=== PATIENT | male | born 1935 | race African-American/Black ===

== ENCOUNTER 2017-02-23 12:52 | Inpatient (IN) | payer MEDICARE, MEDICAID ==
--- NOTE | 2017-02-23 13:25 | ED Physician Chart ---
Chief Complaint/HPI - Patient Information Date Seen:: 02/23/17 Time Seen:: 13:00 Chief Complaint:: Abnormal lab results. History of Present Illness:: Brought in by ambulance from nursing facility because pt was noticed to have abnormal lab results from lab studies yesterday that were significant for WBC 32.88K, H/H 7.6/24.9, BUN/Cr 81/1.73. Pt has been on antibiotic therapy recently for pneumonia. CXR 02/01/17 revealed mild RLL infiltrate. Official report per Dr. charles Fong, radiologist. Pt appears to be comfortable and is responsive to voice and tactile stimuli. Pt is unable to speak comfortably because of his tracheostomy. H & P are limited because pt is not fully cooperative. Allergies:: Allergies Allergy/AdvReac Type Severity Reaction Status Date / Time Penicillins [PCN] Allergy Verified 02/23/17 13:03 Vitals:: Vital Signs - 8 hr 02/23/17 12:52 Temp 99.1 F HR 112 RR 12 BP 116/70 O2 Sat % 100 Historian:: Patient, Medical Records (from transferring facility.) Family MD/PCP:: Dr. Kimble LMP:: N/A Review:: Nurse's Note Reviewed, Transfer documents Reviewed Review of Systems - Review of Systems General/Constitutional: Other (Pt is not fully cooperative to provide reliable info for ROS.) Past Medical History - Past Medical History Past Medical History: HTN, Asthma/COPD (with chronic respiratory failure, s/p tracheostomy. ), Other (chronic anemia, dysphagia, s/p G-tube placement.) Family History: Other (Pt does not cooperate to provide info on FHx,) Social History: Care Facility, Other (Pt does not cooperate to provide info on SHx.) Surgical History: PEG/GTube, other (tracheostomy.) Psychiatricy History: Dementia (?) Medication: Reviewed Family Medical History - Family Member Mother History Unknown: Yes Physical Exam - Physical Examination General/Constitutional: Awake, Alert, No distress Other Gen/Cons comments:: WD slightly cachectic male in NAD. Breathes comfortably, responsive to voice and tactile stimuli. Head: Atraumatic Eyes: PERRL, EOMI Other Eyes comments:: Mildly pale conjuncitiva. Skin: No rash, No lymphadenopathy Other Skin comments:: There is an approx. 0.8 cm open wound at proximal aspect of anterior right lower leg which is clean without exudate or erythema. There is an area approx. 2.5 x 12 cm denuded skin area in proximal right lower leg without erythema, open wound, swelling, crepitus or exudate. Skin has slight decrease in turgor. ENMT: External ears, nose nl, TM canals nl, Nasal exam nl, Oropharynx nl Other ENMT comments:: Mucous membrane is dry. Neck: Nontender, Full ROM w/o pain, No JVD, No nuchal rigidity, No mass, No stridor Other Neck comments:: Tracheostomy is in place at mid anterior neck. Respiratory: Nl effort/Exclusion, Clear to Auscultation, No Wheeze/Rhonchi/Rales Other Cardio Vascular comments:: Regular rhythm with mild tachycardia. VR 110. No m/g/r. GI: No tenderness/rebounding/guarding, No organomegaly, No hernia, Normal BS's, Nondistended, No mass/bruits Other GI comments:: Gastrostomy tube noticed in epigastrium. Abdomen is soft. : No CVA tenderness Extremities: No edema Other Extremities comments:: see also Skin exam. Other Neuro/Psych comments:: Alert and oriented x 3. Pt is responsive to voice and tactile stimuli. Spontaneous movements noticed in all 4 extremities. Pt does not cooperate for full neurological exam. Misc: normal gait, Normal back, No paraspinal tenderness Labs/Radiology/EKG Results - Lab Results Results: Laboratory Tests 02/23/17 02/23/17 02/23/17 13:57 14:15 14:15 WBC 31.6 H* RBC 2.94 L Hgb 8.8 L Hct 26.1 L MCV 88.7 MCH 30.0 MCHC Differential 33.8 RDW 16.4 Plt Count 435 H MPV 8.4 Band Neutrophils % 1 Neutrophils (Manual) 80 Lymphocytes 12 L Monocytes 7 Nucleated RBCs 1.0 H Platelet Estimate INCREASED PLATELETS PT 10.8 INR 1.04 PTT (Actin FS) 40.5 H Sodium 125 L Potassium 4.9 Chloride 98 Carbon Dioxide 22.0 Anion Gap 9.9 BUN 85 H* Creatinine 1.7 H Est GFR ( Amer) TNP Est GFR (Non-Af Amer) TNP BUN/Creatinine Ratio 50.0 Glucose 106 H Whole Bld Lactic Acid Calcium 10.1 Total Bilirubin 0.3 AST 30 ALT 38 Alkaline Phosphatase 100 Creatine Kinase 19 L Troponin I Total Protein 8.9 H Albumin 3.1 L Globulin 5.8 Albumin/Globulin Ratio 0.5 L 02/23/17 02/23/17 14:15 14:15 WBC RBC Hgb Hct MCV MCH MCHC Differential RDW Plt Count MPV Band Neutrophils % Neutrophils (Manual) Lymphocytes Monocytes Nucleated RBCs Platelet Estimate PT INR PTT (Actin FS) Sodium Potassium Chloride Carbon Dioxide Anion Gap BUN Creatinine Est GFR ( Amer) Est GFR (Non-Af Amer) BUN/Creatinine Ratio Glucose Whole Bld Lactic Acid 1.14 Calcium Total Bilirubin AST ALT Alkaline Phosphatase Creatine Kinase Troponin I 0.03 Total Protein Albumin Globulin Albumin/Globulin Ratio Urinalysis is pending. - Radiology Results Results: PCXR: Based on my interpretation, poor inspiration. Tracheostomy tube in place. Increased markings at R lower lung field. Consider pneumonia. Official report is pending. - EKG Interpretations EKG Time:: 13:47 Rate & Rhythm: Sinus tachycardia with VR 111 Comments:: Cannot r/o old IMI, age undetermined. No acute ischemic changes. monitoring manager: Sinus tachycardia with VR 110. No ectopy. ED Septic Shock - . Is Septic Shock (SBP<90, OR Lactate>4 mmol\L) present?: No - <6hrs of presentation: Vital Signs: Vital Signs - 8 hr 02/23/17 12:52 Temp 99.1 F HR 112 RR 12 BP 116/70 O2 Sat % 100 Reassessment (Disposition) - Reassessment Reassessment:: 1600 Pt has been repeatedly evaluated. Pt remains stable. No new complaint or findings. Pt requests for his usual pain medication Sherrill that he takes every 6 hours for his chronic pain. 1655 Pt is comfortable. Breathes comfortably and is in no distress. CXR just became available. Lab, EKG, and CXR findings have been reviewed with pt. Management has been discussed. Dr. Lynch is to be contacted. 172 Case was discussed with Dr. Lynch with pertinent H & P, EKG, CXR, and lab findings reviewed. He concurred with present management. Pt is to be admitted to Tele[facility] under his care. He will follow on pending lab results. Reassessment Condition:: Improved - Diagnosis Diagnosis:: Leukocytosis with recent RLL pneumonia. Stable. h/o chronic anemia. Stable. Elevated BUN/creatinine related to renal insufficiency, dehydration with prerenal azotemia. Pt has been receiving IV hydration. Hyponatremia. Stable. Chronic respiratory failure, s/p tracheostomy. Stable. - Patient Disposition Admitted to:: Telemetry Admitting Medical Physician:: Barrett Lynch Time:: 15:25 Condition at Disposition:: Stable, Improved
[2017-02-23] MEDS ORDERED: Sodium Chloride 0.9% 1,000 ML IV ONE ×2 (13:41→16:59)
[2017-02-23 14:07] LABS: HEMATOCRIT 26.1 % (39.0-49.0); HEMOGLOBIN 8.8 gm/dL (12.6-17.4); MEAN CELL VOLUME 88.7 fl (80-99); MEAN CORPUSCULAR HGB CONC 33.8 pg (28.0-36.0); MEAN PLATELET VOLUME 8.4 fl; PLATELET COUNT 435 Th/cmm (150-400); RED BLOOD COUNT 2.94 Mil/cmm (3.80-5.80); RED CELL DISTRIBUTION WIDTH 16.4 % (11.5-20.0)
[2017-02-23 14:16] LABS: WHITE BLOOD COUNT 31.6 Th/cmm (4.8-10.8)
[2017-02-23] MEDS ORDERED: Levofloxacin 500mg/100mL 500 MG in Premix Fluid 1 BAG IV ONE ×2 (14:18→18:06)
[2017-02-23] MEDS ORDERED: Clindamycin 600mg/50mL 600 MG/50 ML BAG IV ONE (14:20)
[2017-02-23] MEDS ORDERED: Levofloxacin 500mg/100mL 500 MG/100 ML BAG IV ONE (14:23)
[2017-02-23 15:12] LABS: BAND NEUTROPHILE 1 % (0-10); NEUTROPHILS 80 % (40-80); PLATELET ESTIMATE INCREASED PLATELETS (NORMAL); TOTAL CELLS COUNTED 100
[2017-02-23 15:29] LABS: INR 1.04 (0.5-1.4); PROTHROMBIN TIME (TEST) 10.8 SECONDS (9.5-11.5)
[2017-02-23 15:32] LABS: ALB/GLOB RATIO 0.5 (1.0-1.8); ALKALINE PHOSPHATASE 100 U/L (34-104); ANION GAP 9.9 (7.0-16.0); BILIRUBIN,TOTAL 0.3 mg/dL (0.3-1.0); CALCIUM SERUM 10.1 mg/dL (8.6-10.3); CHLORIDE 98 mEq/L (98-107); CREATININE - SERUM 1.7 mg/dL (0.7-1.3); GLUCOSE 106 mg/dL (70-105); POTASSIUM SERUM 4.9 mEq/L (3.5-5.1); SGOT 30 U/L (13-39); SGPT/ALT 38 U/L (7-52); SODIUM SERUM 125 mEq/L (136-145)
[2017-02-23 15:47] LABS: BUN - UREA NITROGEN 85 mg/dL (7-25)
[2017-02-23] MEDS ORDERED: Hydrocodone/APAP 10 mg/325 mg Tab PO STA (16:07)
[2017-02-23] MEDS ORDERED: Hydrocodone/APAP 10 mg/325 mg Tab ONE (16:08)
[2017-02-23 17:35] LABS: URINE BILIRUBIN NEGATIVE (NEGATIVE); URINE BLOOD MODERATE (NEGATIVE); URINE COLOR YELLOW; URINE GLUCOSE (UA) NEGATIVE (NEGATIVE); URINE KETONE NEGATIVE (NEGATIVE); URINE PH 5.5; URINE PROTEIN TRACE mg/dL (NEGATIVE); URINE UROBILINOGEN 0.2 E.U./dL (0.2 - 1.0)
[2017-02-23 17:36] LABS: URINE BACTERIA MANY /hpf (NONE SEEN); URINE EPITHELIAL CELLS FEW /lpf (FEW); URINE RBC >100 /hpf (0-5); URINE WBC 50-100 /hpf (0-5)
[2017-02-23] MEDS ORDERED: Albuterol/Ipratropium Neb 3 ML AERS HHN PRN (18:56)
[2017-02-23] MEDS ORDERED: Albuterol/Ipratropium Neb 3 ML AERS HHN SCH (19:00)
[2017-02-23] MEDS: Albuterol/Ipratropium Neb 3 ML AERS HHN SCH (19:32)
[2017-02-23] MEDS: Diltiazem 30 mg Tab GT SCH (21:13)
[2017-02-23] MEDS: Hydrocodone/APAP 10 mg/325 mg Tab PO PRN (22:36)
[2017-02-24 02:26] VITALS: BP 132/80
[2017-02-24] MEDS: Sodium Chloride 0.9% 1,000 ML IV SCH ×3 (03:07→22:47)
--- NOTE | 2017-02-24 03:10 | Admit Criteria Form ---
Admit Criteria Forms - Admit Criteria Diagnosis: HYPONATREMIA; HYPERNATREMIA; HYPOKALEMIA; HYPERKALEMIA; HYPOCALCEMIA; HYPERCALCEMIA Clinical Indications for Inpatient Care (Place 'X' for any and all applicable criteria): Ongoing inpatient care may be indicated for ANY ONE of the following [G](1)(2)(3 )(5): [X ]I. Hyponatremia with ANY ONE of the following: [X ]a) Sodium less than 130 mEq/L (mmol/L) (new) (6)(22) [ ]b) Sodium less than 135 mEq/L (mmol/L) with ANY ONE of the following: [ ]i) Severe medical etiology requiring inpatient management (eg, heart failure, hypovolemia) [ ]ii) Altered mental status [ ]iii) Seizures [ ]II. Hypernatremia with ANY ONE of the following: [ ]a) Sodium greater than 155 mEq/L (mmol/L) [ ]b) Sodium greater than 150 mEq/L (mmol/L) with ANY ONE of the following: [ ] i) Altered mental status [ ]ii) Seizures [ ]iii) Severe medical etiology (eg, hypovolemia, diabetes insipidus) [ ]iv) Severe weakness [ ]v) Severe medical etiology (eg, hemolysis, infection, drug overdose) [ ]III. Hypokalemia with ANY ONE of the following: [ ]a) Potassium less than 2.5 mEq/L (mmol/L) despite outpatient and emergency treatment [ ]b) Potassium less than 3.0 mEq/L (mmol/L) with ANY ONE of the following: [ ]i) Weakness [ ]ii) Cardiac abnormality (eg, arrhythmia, conduction disturbance) [ ]iii) Cardiac ischemia [ ]iv) Ileus [ ]v) Ongoing medical cause requiring inpatient management. ( e.g., acute renal wasting, SIADH) [ ]vi) Other severe symptoms [ ] IV. Hyperkalemia with ANY ONE of the following: [ ]a) Potassium greater than 6.5 mEq/L (mmol/L) [ ]b) Potassium greater than 5 mEq/L (mmol/L) with ANY ONE of the following: [ ]i) Severe ECG findings [H] [ ]ii) Acute worsening of renal failure (creatinine greater than 2.5 mg/dL (221 micromoles/L) or significant elevation for age and size) [ ] V. Hypocalcemia with ANY ONE of the following: [ ]a) Calcium less than 7 mg/dL (1.75 mmol/L) despite outpatient and emergency treatment(19) [ ]b) Calcium less than 8 mg/dL (2 mmol/L) with significant symptoms or findings; examples include: [ ]i) Cardiac abnormality (eg, arrhythmia or conduction disturbance) [ ]ii) Altered mental status [ ]iii) Seizures [ ]iv) Breathing difficulty [ ]v) Muscle spasms [ ]. Hypercalcemia with ANY ONE of the following: [ ]a) Calcium greater than 14 mg/dL (3.5 mmol/L) [ ]b) Calcium greater than 12 mg/dL (3 mmol/L) with ANY ONE of the following: [ ]i) Significant dehydration or hypovolemia as indicated by ANY ONE of the following(2): [ ]1. Clinically significant dehydration as indicated by ANY ONE of the following: [ ]A. Acute loss of weight from baseline (5% of body weight in adults, 9% in pediatric patients) [ ]B. Hemodynamic instability [ ]C. Acute renal failure [ ]D. Serum sodium greater than 150 mEq/L (mmol/L) [ ]2) Dehydration that is persistent indicated by ALL of the following: [ ]A. Oral rehydration therapy not tolerated or insufficient to adequately correct dehydration [ ]B. Appropriate intravenous treatment (eg, fluids ) does not readily correct dehydration ie, after 12 to 24 hours of treatment) [ ]ii) Significant symptoms or findings; examples include: [ ]1) Altered mental status [ ]2) Cardiac abnormality (eg, arrhythmia, conduction disturbance) [ ]3) Cardiac abnormality (eg, arrhythmia, conduction disturbance) The original [employer] [facility] content created by [employer] has been revised. The portions of the content which have been revised are identified through the use of italic text or in bold, and [facility] has neither reviewed nor approved the modified material. All other unmodified content is copyright [facility] [email or web address] Please see references footnoted in the original [facility] edition 2016 Admit Criteria Met?: Yes
[2017-02-24] MEDS: Diltiazem 30 mg Tab GT SCH ×3 (04:09→22:27)
[2017-02-24] MEDS: Hydrocodone/APAP 10 mg/325 mg Tab PO PRN ×2 (04:09→17:00)
[2017-02-24] MEDS: Albuterol/Ipratropium Neb 3 ML AERS HHN SCH ×4 (07:37→18:40)
[2017-02-24 07:38] LABS: MEAN CELL VOLUME 88.9 fl (80-99); MEAN CORPUSCULAR HGB CONC 33.7 pg (28.0-36.0); MEAN PLATELET VOLUME 7.8 fl; PLATELET COUNT 405 Th/cmm (150-400); RED BLOOD COUNT 2.53 Mil/cmm (3.80-5.80); RED CELL DISTRIBUTION WIDTH 16.4 % (11.5-20.0)
[2017-02-24 07:45] LABS: ALB/GLOB RATIO 0.5 (1.0-1.8); ALKALINE PHOSPHATASE 74 U/L (34-104); ANION GAP 9.2 (7.0-16.0); BILIRUBIN,TOTAL 0.4 mg/dL (0.3-1.0); BUN - UREA NITROGEN 71 mg/dL (7-25); BUN/CREATININE RATIO 47.3; CALCIUM SERUM 9.4 mg/dL (8.6-10.3); CARBON DIOXIDE 21.8 mEq/L (21.0-31.0); CHLORIDE 104 mEq/L (98-107); CREATININE - SERUM 1.5 mg/dL (0.7-1.3); GLUCOSE 97 mg/dL (70-105); SGOT 21 U/L (13-39); SGPT/ALT 28 U/L (7-52); SODIUM SERUM 130 mEq/L (136-145)
[2017-02-24 07:59] LABS: HEMATOCRIT 22.5 % (39.0-49.0); HEMOGLOBIN 7.6 gm/dL (12.6-17.4); WHITE BLOOD COUNT 22.9 Th/cmm (4.8-10.8)
[2017-02-24] MEDS ORDERED: VTE Chemical Prophylaxis Screen/Admission MC PRN (08:20)
[2017-02-24 08:24] LABS: BAND NEUTROPHILE 4 % (0-10); NEUTROPHILS 84 % (40-80); PLATELET ESTIMATE ADEQUATE (NORMAL); PLATELET MORPHOLOGY NORMAL (NORMAL); TOTAL CELLS COUNTED 100
[2017-02-24] MEDS: Ferrous Sulfate 300 MG/5 ML UDC GT SCH ×2 (08:46→16:20)
[2017-02-24] MEDS: Enoxaparin 30 mg/0.3 mL 0.3mL Syr SUBQ SCH (08:48)
[2017-02-24] MEDS ORDERED: Enoxaparin 40 mg/0.4 mL 0.4mL Syr SUBQ SCH (09:00)
--- NOTE | 2017-02-24 10:38 | Diagnostic Imaging Report ---
CHEST X-RAY: AP view INDICATION: Leukocytosis, history of pneumonia COMPARISON: None FINDINGS: Tracheostomy tube is noted. Partially visualized postsurgical changes of lower cervical spine are noted. Chronic lung changes are seen with increased bibasilar lung markings. No focal consolidation identified. Cardiomegaly is noted. Degenerative changes of the spine are noted. IMPRESSION: Chronic lung changes with increased bibasilar lung markings. Findings favor atelectasis versus less likely focal infiltrates. No focal consolidation identified Cardiomegaly.
--- NOTE | 2017-02-24 10:44 | Diagnostic Imaging Report ---
CHEST X-RAY: AP view INDICATION: Pneumonia COMPARISON: 02/23/2017 FINDINGS: Tracheostomy tube is again noted. Improved aeration of the lungs are seen with decrease bibasal opacities. No consolidation. Mild cardiomegaly is noted. IMPRESSION: Improved lung aeration with decreased bibasal opacity which may of the resolving atelectasis. Note, faint residual infiltrate of the left lung base cannot be excluded. Mild cardiomegaly.
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
--- NOTE | 2017-02-24 16:04 | Diagnostic Imaging Report ---
Renal ultrasound HISTORY: Renal failure. COMPARISON: None Technique: Sonography of the kidneys and urinary bladder was performed in multiple planes. FINDINGS: Exam is limited due to body habitus. There is increased echogenicity of both kidneys. The right kidney measures 10.5 x 3.5 cm. There is fullness of the right renal collecting system without jeferson hydronephrosis. The left kidney measures 10.0 x 4.6 cm. No evidence of focal lesions or hydronephrosis. Urinary bladder contains a Beckman catheter. Mild urinary bladder wall thickening is noted. IMPRESSION: Fullness of the right renal collecting system without evidence of jeferson hydronephrosis. No sonographic evidence of renal stones. Mild thickening of the urinary bladder wall. Inflammatory or infiltrative process cannot be excluded. Please correlate with clinical findings. Increased echogenicity of both kidneys which may be due to underlying medical renal disease.
[2017-02-24] MEDS ORDERED: TOBRAMYCIN SULFATE IV SCH (21:00)
[2017-02-24] MEDS ORDERED: DEXTROSE 5% IV SCH (21:00)
[2017-02-25] MEDS: Hydrocodone/APAP 10 mg/325 mg Tab PO PRN ×4 (02:52→21:31)
[2017-02-25 05:10] LABS: MEAN CELL VOLUME 89.6 fl (80-99); MEAN CORPUSCULAR HEMOGLOBIN 29.5 pg (27.0-31.0); MEAN PLATELET VOLUME 7.5 fl; PLATELET COUNT 403 Th/cmm (150-400); RED CELL DISTRIBUTION WIDTH 16.3 % (11.5-20.0)
[2017-02-25 05:14] LABS: HEMATOCRIT 22.4 % (39.0-49.0); HEMOGLOBIN 7.4 gm/dL (12.6-17.4); WHITE BLOOD COUNT 19.4 Th/cmm (4.8-10.8)
[2017-02-25 05:29] LABS: ANION GAP 9.9 (7.0-16.0); BUN - UREA NITROGEN 59 mg/dL (7-25); BUN/CREATININE RATIO 53.6; CALCIUM SERUM 9.2 mg/dL (8.6-10.3); CARBON DIOXIDE 20.6 mEq/L (21.0-31.0); CHLORIDE 108 mEq/L (98-107); CREATININE - SERUM 1.1 mg/dL (0.7-1.3); GLUCOSE 141 mg/dL (70-105); MAGNESIUM 1.9 mg/dL (1.9-2.7); POTASSIUM SERUM 4.5 mEq/L (3.5-5.1); SODIUM SERUM 134 mEq/L (136-145); URIC ACID 7.6 mg/dL (4.4-7.6)
[2017-02-25] MEDS: Diltiazem 30 mg Tab GT SCH ×3 (06:03→20:30)
[2017-02-25 06:15] LABS: BAND NEUTROPHILE 4 % (0-10); EOSINOPHIL 1 % (0-5); NEUTROPHILS 74 % (40-80); TOTAL CELLS COUNTED 100
[2017-02-25 06:16] LABS: ANISOCYTOSIS 1+; PLATELET ESTIMATE ADEQUATE (NORMAL); PLATELET MORPHOLOGY NORMAL (NORMAL)
[2017-02-25] MEDS: Albuterol/Ipratropium Neb 3 ML AERS HHN SCH ×4 (07:28→18:50)
[2017-02-25] MEDS: Ferrous Sulfate 300 MG/5 ML UDC GT SCH (08:52)
[2017-02-25] MEDS: Enoxaparin 30 mg/0.3 mL 0.3mL Syr SUBQ SCH (09:40)
[2017-02-25] MEDS: Multivitamin w/ Minerals Tab GT SCH (10:50)
[2017-02-25 11:11] LABS: CARCINOEMBRYONIC ANTIGEN 2.5 ng/mL (0.0-4.7)
--- NOTE | 2017-02-25 14:16 | General Progress Note ---
Subjective - Review of Systems Service Date: 02/25/17 Subjective: alert, verbal, comfortable Objective - Results Result Diagrams: 02/25/17 04:51 02/25/17 04:51 Recent Labs: Laboratory Last Values WBC 19.4 Th/cmm (4.8-10.8) H 02/25/17 04:51 RBC 2.50 Mil/cmm (3.80-5.80) L 02/25/17 04:51 Hgb 7.4 gm/dL (12.6-17.4) L* 02/25/17 04:51 Hct 22.4 % (39.0-49.0) L* 02/25/17 04:51 MCV 89.6 fl (80-99) 02/25/17 04:51 MCH 29.5 pg (27.0-31.0) 02/25/17 04:51 MCHC Differential 33.0 pg (28.0-36.0) 02/25/17 04:51 RDW 16.3 % (11.5-20.0) 02/25/17 04:51 Plt Count 403 Th/cmm (150-400) H 02/25/17 04:51 MPV 7.5 fl 02/25/17 04:51 Band Neutrophils % 4 % (0-10) 02/25/17 04:51 Neutrophils (Manual) 74 % (40-80) 02/25/17 04:51 Lymphocytes 11 % (20-50) L 02/25/17 04:51 Monocytes 10 % (2-10) 02/25/17 04:51 Eosinophils 1 % (0-5) 02/25/17 04:51 Nucleated RBCs 1.0 % (0-0) H 02/23/17 13:57 Platelet Estimate ADEQUATE (NORMAL) 02/25/17 04:51 Platelet Morphology NORMAL (NORMAL) 02/25/17 04:51 Anisocytosis 1+ 02/25/17 04:51 RBC Morph Micro Appear ABNORMAL (NORMAL) 02/25/17 04:51 PT 10.8 SECONDS (9.5-11.5) 02/23/17 14:15 INR 1.04 (0.5-1.4) 02/23/17 14:15 PTT (Actin FS) 40.5 SECONDS (26.0-38.0) H 02/23/17 14:15 Sodium 134 mEq/L (136-145) L 02/25/17 04:51 Potassium 4.5 mEq/L (3.5-5.1) 02/25/17 04:51 Chloride 108 mEq/L (98-107) H 02/25/17 04:51 Carbon Dioxide 20.6 mEq/L (21.0-31.0) L 02/25/17 04:51 Anion Gap 9.9 (7.0-16.0) 02/25/17 04:51 BUN 59 mg/dL (7-25) H 02/25/17 04:51 Creatinine 1.1 mg/dL (0.7-1.3) 02/25/17 04:51 Est GFR ( Amer) TNP 02/25/17 04:51 Est GFR (Non-Af Amer) TNP 02/25/17 04:51 BUN/Creatinine Ratio 53.6 02/25/17 04:51 Glucose 141 mg/dL (70-105) H 02/25/17 04:51 Whole Bld Lactic Acid 1.14 mmol/L (0.60-1.99) 02/23/17 14:15 Uric Acid 7.6 mg/dL (4.4-7.6) 02/25/17 04:51 Calcium 9.2 mg/dL (8.6-10.3) 02/25/17 04:51 Phosphorus 3.0 mg/dL (2.5-5.0) 02/25/17 04:51 Magnesium 1.9 mg/dL (1.9-2.7) 02/25/17 04:51 Iron 16 ug/dL (38-169) L 02/24/17 06:10 TIBC 174 ug/dL (250-450) L 02/24/17 06:10 Iron Saturation 9 % (15-55) L 02/24/17 06:10 Unsaturated IBC 158 ug/dL (111-343) 02/24/17 06:10 Total Bilirubin 0.4 mg/dL (0.3-1.0) 02/24/17 06:10 AST 21 U/L (13-39) 02/24/17 06:10 ALT 28 U/L (7-52) 02/24/17 06:10 Alkaline Phosphatase 74 U/L (34-104) 02/24/17 06:10 Creatine Kinase 19 U/L (30-223) L 02/23/17 14:15 Troponin I 0.03 ng/mL (0.01-0.05) 02/23/17 14:15 B-Natriuretic Peptide 66.5 pg/mL (5.0-100.0) 02/24/17 06:10 Total Protein 7.5 gm/dL (6.0-8.3) 02/24/17 06:10 Albumin 2.5 gm/dL (4.2-5.5) L 02/24/17 06:10 Globulin 5.0 gm/dL 02/24/17 06:10 Albumin/Globulin Ratio 0.5 (1.0-1.8) L 02/24/17 06:10 Carcinoembryonic Ag 2.5 ng/mL (0.0-4.7) 02/24/17 06:10 Urine Source [place] 02/23/17 14:05 Urine Color YELLOW 02/23/17 14:05 Urine Clarity HAZY (CLEAR) 02/23/17 14:05 Urine pH 5.5 02/23/17 14:05 Ur Specific [place] 1.005 (1.005-1.030) 02/23/17 14:05 Urine Protein TRACE mg/dL (NEGATIVE) 02/23/17 14:05 Urine Glucose (UA) NEGATIVE mg/dL (NEGATIVE) 02/23/17 14:05 Urine Ketones NEGATIVE mg/dL (NEGATIVE) 02/23/17 14:05 Urine Blood MODERATE (NEGATIVE) H 02/23/17 14:05 Urine Nitrate NEGATIVE (NEGATIVE) 02/23/17 14:05 Urine Bilirubin NEGATIVE (NEGATIVE) 02/23/17 14:05 Urine Urobilinogen 0.2 E.U./dL (0.2 - 1.0) 02/23/17 14:05 Ur Leukocyte Esterase MODERATE (NEGATIVE) H 02/23/17 14:05 Urine RBC >100 /hpf (0-5) H 02/23/17 14:05 Urine WBC 50-100 /hpf (0-5) H 02/23/17 14:05 Ur Epithelial Cells FEW /lpf (FEW) 02/23/17 14:05 Urine Bacteria MANY /hpf (NONE SEEN) 02/23/17 14:05 Stool Occult Blood POSITIVE (NEGATIVE) 02/25/17 05:00 Tobramycin Peak 5.3 ug/mL (4.0-10.0) 02/25/17 11:30 Tobramycin Trough 2.4 ug/mL (0.5-2.0) H* 02/25/17 08:30 Blood Type A POSITIVE 02/25/17 11:30 Antibody Screen NEGATIVE 02/25/17 11:30 Antibody Identification Anti-A1 02/23/17 16:11 Crossmatch See Detail 02/25/17 11:30 - Physical Exam Vitals and I&O: Vital Signs Temp 99.6 F 02/25/17 12:00 Pulse 97 02/25/17 12:15 Resp 18 02/25/17 12:00 BP 135/68 02/25/17 12:00 Pulse Ox 99 02/25/17 12:00 Intake & Output 02/24/17 02/25/17 02/25/17 18:59 06:59 18:59 Intake Total 344.488 8815.25 60 Output Total 100 Balance 215.010 7015.25 -40 Weight (lbs) 64.909 kg 63.503 kg Intake: Intake, IV Amount 517.883 2007.25 Sodium Chloride 0.9% 1, 448.558 1586 000 ml @ 100 mls/hr IV . Q10H [facility] Rx#:[id number] Tobramycin Sulfate 90 mg 102.25 In Sodium Chloride 0.9% 100 ml @ 200 mls/hr IV Q12HR [facility] Rx#:[id number] Tube Feeding 60 Output: Urine 100 Active Medications: Current Medications Acetaminophen (Tylenol 650mg/20.3ml Suspension) 650 mg GT Q4HR PRN PRN Reason: fever >101 or mild pain Stop: 04/24/17 20:07 Last Admin: 02/24/17 22:31 Dose: 650 mg Acetaminophen/Hydrocodone Bitart ([place] 10 Mg/325 Mg) 1 tab PO Q6H PRN PRN Reason: mod-severe pain Stop: 04/24/17 20:07 Last Admin: 02/25/17 10:00 Dose: 1 tab Albuterol/Ipratropium (Duoneb Neb) 3 ml HHN [id number] [facility] Stop: 04/24/17 18:59 Last Admin: 02/25/17 11:44 Dose: 3 ml Albuterol/Ipratropium (Duoneb Neb) 3 ml HHN Q4HR PRN PRN Reason: Shortness of Breath Stop: 04/24/17 18:55 Ascorbic Acid (Vitamin C) 500 mg GT BID [facility] Stop: 04/26/17 09:59 Last Admin: 02/25/17 10:50 Dose: 500 mg Cyanocobalamin (Vitamin B12) 100 mcg IM QMONTH [facility] Stop: 04/26/17 11:59 Last Admin: 02/25/17 12:40 Dose: 100 mcg Diltiazem HCl (Cardizem) 60 mg GT Q8H [facility] Stop: 04/24/17 20:07 Last Admin: 02/25/17 12:15 Dose: 60 mg Docusate Sodium (Colace) 100 mg PO BID [facility] Stop: 04/25/17 08:59 Last Admin: 02/25/17 08:53 Dose: 100 mg Enoxaparin Sodium (Lovenox) 30 mg SUBQ DAILY [facility] Stop: 04/25/17 08:59 Last Admin: 02/25/17 09:40 Dose: 30 mg Ferrous Sulfate (Iron) 330 mg GT BID [facility] Stop: 04/25/17 08:59 Last Admin: 02/25/17 08:52 Dose: 330 mg Folic Acid (Folate) 1 mg GT DAILY [facility] Stop: 04/26/17 09:59 Last Admin: 02/25/17 10:50 Dose: 1 mg Sodium Chloride (Nacl 0.9%) 1,000 mls @ 100 mls/hr IV .Q10H [facility] Stop: 04/24/17 18:17 Last Admin: 02/24/17 22:47 Dose: 100 mls/hr Tobramycin Sulfate 180 mg/ (Sodium Chloride) 104.5 mls @ 100 mls/hr IV Q24HR [facility] Stop: 04/27/17 09:59 Lisinopril (Zestril) 20 mg GT BID [facility] Stop: 04/25/17 08:59 Last Admin: 02/25/17 08:53 Dose: 20 mg Metoclopramide HCl (Reglan) 5 mg PO BID [facility] Stop: 04/25/17 08:59 Last Admin: 02/25/17 08:53 Dose: 5 mg Miscellaneous (Vte Chemical Prophylaxis Screen/ Admission) 1 ea MC PRN PRN PRN Reason: PROTOCOL Stop: 04/25/17 08:19 Miscellaneous (Tobramycin Iv Per Pharmacy) 1 ea MC DAILY PRN PRN Reason: TOBRAMYCIN Stop: 04/25/17 09:11 Mupirocin (Bactroban Oint) 1 appl TP BID [facility] Stop: 03/02/17 16:59 Pantoprazole Sodium (Protonix) 40 mg IVP DAILY [facility] Stop: 04/25/17 08:59 Last Admin: 02/25/17 08:52 Dose: 40 mg General: Alert, Cooperative, No acute distress HEENT: Atraumatic, EOMI, Mucous membr. moist/pink Neck: Supple, +2 carotid pulse wo bruit Cardiovascular: Regular rate, Normal S1, Normal S2 Lungs: Other (few rhonchi) Abdomen: Bowel sounds, Soft Extremities: no Edema Neurological: Sensation intact Skin: no Rash Psych/Mental Status: Mood NL Assessment/Plan - Assessment Assessment: MANNY Septicemia GNR Sepsis GNR Cx UTI B/L HAP Fe def anemia 2nd Slo GI bleed S/P Resp Failure - Plan Plan: Lab - Result Diagrams 02/25/17 04:51 02/25/17 04:51 Current Medications Acetaminophen (Tylenol 650mg/20.3ml Suspension) 650 mg GT Q4HR PRN PRN Reason: fever >101 or mild pain Stop: 04/24/17 20:07 Last Admin: 02/24/17 22:31 Dose: 650 mg Acetaminophen/Hydrocodone Bitart ([place] 10 Mg/325 Mg) 1 tab PO Q6H PRN PRN Reason: mod-severe pain Stop: 04/24/17 20:07 Last Admin: 02/25/17 10:00 Dose: 1 tab Albuterol/Ipratropium (Duoneb Neb) 3 ml HHN [id number] [facility] Stop: 04/24/17 18:59 Last Admin: 02/25/17 11:44 Dose: 3 ml Albuterol/Ipratropium (Duoneb Neb) 3 ml HHN Q4HR PRN PRN Reason: Shortness of Breath Stop: 04/24/17 18:55 Ascorbic Acid (Vitamin C) 500 mg GT BID [facility] Stop: 04/26/17 09:59 Last Admin: 02/25/17 10:50 Dose: 500 mg Cyanocobalamin (Vitamin B12) 100 mcg IM QMONTH [facility] Stop: 04/26/17 11:59 Last Admin: 02/25/17 12:40 Dose: 100 mcg Diltiazem HCl (Cardizem) 60 mg GT Q8H [facility] Stop: 04/24/17 20:07 Last Admin: 02/25/17 12:15 Dose: 60 mg Docusate Sodium (Colace) 100 mg PO BID [facility] Stop: 04/25/17 08:59 Last Admin: 02/25/17 08:53 Dose: 100 mg Enoxaparin Sodium (Lovenox) 30 mg SUBQ DAILY [facility] Stop: 04/25/17 08:59 Last Admin: 02/25/17 09:40 Dose: 30 mg Ferrous Sulfate (Iron) 330 mg GT BID [facility] Stop: 04/25/17 08:59 Last Admin: 02/25/17 08:52 Dose: 330 mg Folic Acid (Folate) 1 mg GT DAILY [facility] Stop: 04/26/17 09:59 Last Admin: 02/25/17 10:50 Dose: 1 mg Sodium Chloride (Nacl 0.9%) 1,000 mls @ 100 mls/hr IV .Q10H [facility] Stop: 04/24/17 18:17 Last Admin: 02/24/17 22:47 Dose: 100 mls/hr Tobramycin Sulfate 180 mg/ (Sodium Chloride) 104.5 mls @ 100 mls/hr IV Q24HR [facility] Stop: 04/27/17 09:59 Lisinopril (Zestril) 20 mg GT BID [facility] Stop: 04/25/17 08:59 Last Admin: 02/25/17 08:53 Dose: 20 mg Metoclopramide HCl (Reglan) 5 mg PO BID [facility] Stop: 04/25/17 08:59 Last Admin: 02/25/17 08:53 Dose: 5 mg Miscellaneous (Vte Chemical Prophylaxis Screen/ Admission) 1 ea PRN PRN PRN Reason: PROTOCOL Stop: 04/25/17 08:19 Miscellaneous (Tobramycin Iv Per Pharmacy) 1 ea [facility] DAILY PRN PRN Reason: TOBRAMYCIN Stop: 04/25/17 09:11 Mupirocin (Bactroban Oint) 1 appl TP BID [facility] Stop: 03/02/17 16:59 Pantoprazole Sodium (Protonix) 40 mg IVP DAILY [facility] Stop: 04/25/17 08:59 Last Admin: 02/25/17 08:52 Dose: 40 mg kidney fnc improved w/ BUN/CR of 59/1.1 stool OB (+) dc lovenox start Fe IV monitor cbc closely Nutritional Asmnt/Malnutr-PDOC - Dietary Evaluation Malnutrition Findings (Please click <Entered> for more info): Nutritional Asmnt/Malnutrition Start: 02/24/17 13: 11 Text: Status: Complete Freq: Document 02/24/17 13:11 GSUN (Rec: 02/24/17 13:22 GSUN [id number]) Nutritional Asmnt/Malnutrition Patient General Information Nutritional Screening Consult Diagnosis ER: leukocytosis with recent PNA stable, renal insufficiency, dehyration Pertinent Medical Hx/Surgical Hx ER note: HTN, asthma/COPD, chronic respiratory failure, s /p trach, chronic anemia, dysphagia, g-tube Subjective Information 81 year old male from SNF. RD consult for active wound and Jean Ortiz. Visited pt with TESSA Richard at bedside. Pt greeted RD, limited conversation due to trach. Observed tube feeding off at this time as order, confirmed with RN, otherwise tolerating well since adm. Pt papeared overall thin, moderate to severe fat/ muscle wasting to clavicles and chest. Bedscale CBW 143. 1lb vs EMR wt record 126lb on 02/23, questionable weights. Current Diet Order/ Nutrition Support Novasource Renal at 60ml/hr x 20hrs Pertinent Medications Colace, Iron, Reglan, Protonix Nacl 0.9% Pertinent Labs 02/23: BUN 85H, creatinine 1.7H 02/24: BUN 71H, creatinine 1.5H Nutritional Hx/Data Height 1.83 m Height (Calculated Centimeters) 182.9 Current Weight (lbs) 64.909 kg Weight (Calculated Kilograms) 64.9 Weight (Calculated Grams) 88651.1 [place] Body Weight 178 Weight Status Approriate GI Symptoms Usual diet at home [place]: Nepro at 60ml/hr x 20hrs, providing 1200ml 2160kcal. Skin Integrity/Comment: Jean Ortiz. bufferer: right leg wound. Estimated Nutritional Goals Calories/Kcals/Kg IBW 178lb/80.9kg (underwt for age, muscle/fat depletion, ? PNA, ?CBW) Kcals Calculated 2022-2427kcal (25-30kcal/kg) Protein g/kg: IBW Protein Calculated 65-97g (0.8-1.2g/kg, monitor renal labs) Fluid: ml 2022-2427ml (1ml/kcal) Nutritional Problem 1. 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 Recommend Novasource Renal 55ml/hr x 20hrs, providing 1100ml total volume, 2200kcal, 100g protein. Expected Outcomes/Goals Expected Outcomes/Goals 1. Pt to meet 100% estimated nutritional needs on tube feeding with tolerance.
[2017-02-25] MEDS: Sodium Ferric Gluconate 125 MG in Sodium Chloride 0.9% 100 ML IV SCH (16:00)
[2017-02-25] MEDS: Sodium Chloride 0.9% 1,000 ML IV SCH (23:06)
[2017-02-26] MEDS: Hydrocodone/APAP 10 mg/325 mg Tab PO PRN ×3 (03:40→17:11)
[2017-02-26] MEDS: Albuterol/Ipratropium Neb 3 ML AERS HHN SCH ×4 (07:22→19:10)
[2017-02-26] MEDS: Multivitamin w/ Minerals Tab GT SCH (09:01)
[2017-02-26 09:07] LABS: MEAN CORPUSCULAR HGB CONC 33.6 pg (28.0-36.0)
[2017-02-26 09:14] LABS: MEAN CELL VOLUME 88.6 fl (80-99); MEAN CORPUSCULAR HEMOGLOBIN 29.8 pg (27.0-31.0); NEUTROPHILE ABSOLUTE 15.6 Th/cmm (1.8-8.0); PLATELET COUNT 426 Th/cmm (150-400); RED CELL DISTRIBUTION WIDTH 16.2 % (11.5-20.0)
[2017-02-26 09:25] LABS: HEMOGLOBIN 7.1 gm/dL (12.6-17.4)
[2017-02-26 09:26] LABS: HEMATOCRIT 21.3 % (39.0-49.0)
[2017-02-26] MEDS: Sodium Chloride 0.9% 1,000 ML IV SCH ×2 (09:43→23:13)
[2017-02-26 10:01] LABS: ANION GAP 7.2 (7.0-16.0); BUN - UREA NITROGEN 43 mg/dL (7-25); BUN/CREATININE RATIO 47.8; CALCIUM SERUM 8.8 mg/dL (8.6-10.3); CARBON DIOXIDE 19.8 mEq/L (21.0-31.0); CHLORIDE 111 mEq/L (98-107); CREATININE - SERUM 0.9 mg/dL (0.7-1.3); GLUCOSE 161 mg/dL (70-105); MAGNESIUM 1.7 mg/dL (1.9-2.7); SODIUM SERUM 134 mEq/L (136-145)
[2017-02-26 10:14] LABS: BAND NEUTROPHILE 3 % (0-10); NEUTROPHILS 77 % (40-80); TOTAL CELLS COUNTED 100
--- NOTE | 2017-02-26 10:27 | Diagnostic Imaging Report ---
CHEST X-RAY: AP view INDICATION: Shortness of breath COMPARISON: 02/24/2017 FINDINGS: Tracheostomy tube is stable. Chronic changes seen with bibasal opacities which may represent residual atelectasis cardiomegaly is noted. No effusions. IMPRESSION: Bibasilar residual opacities which may be due to residual atelectasis versus less likely residual infiltrates.
[2017-02-26] MEDS: Diltiazem 30 mg Tab GT SCH ×2 (13:37→20:20)
[2017-02-26] MEDS: Meropenem 1 gm in NS 0.9% 100 ML IV SCH ×2 (14:04→23:04)
--- NOTE | 2017-02-26 15:02 | General Progress Note ---
Subjective - Review of Systems Service Date: 02/26/17 Subjective: alert, verbal, comfortable Objective - Results Result Diagrams: 02/26/17 09:00 02/26/17 09:00 Recent Labs: Laboratory Last Values WBC 20.0 Th/cmm (4.8-10.8) H 02/26/17 09:00 RBC 2.40 Mil/cmm (3.80-5.80) L 02/26/17 09:00 Hgb 7.1 gm/dL (12.6-17.4) L* 02/26/17 09:00 Hct 21.3 % (39.0-49.0) L* 02/26/17 09:00 MCV 88.6 fl (80-99) 02/26/17 09:00 MCH 29.8 pg (27.0-31.0) 02/26/17 09:00 MCHC Differential 33.6 pg (28.0-36.0) 02/26/17 09:00 RDW 16.2 % (11.5-20.0) 02/26/17 09:00 Plt Count 426 Th/cmm (150-400) H 02/26/17 09:00 MPV 7.0 fl 02/26/17 09:00 Band Neutrophils % 3 % (0-10) 02/26/17 09:00 Neutrophils (Manual) 77 % (40-80) 02/26/17 09:00 Lymphocytes 10 % (20-50) L 02/26/17 09:00 Monocytes 10 % (2-10) 02/26/17 09:00 Eosinophils 1 % (0-5) 02/25/17 04:51 Nucleated RBCs 1.0 % (0-0) H 02/23/17 13:57 Platelet Estimate ADEQUATE (NORMAL) 02/25/17 04:51 Platelet Morphology NORMAL (NORMAL) 02/25/17 04:51 Anisocytosis 1+ 02/25/17 04:51 RBC Morph Micro Appear ABNORMAL (NORMAL) 02/25/17 04:51 Eos Smear Source URINE 02/26/17 08:15 Eos Smear Total Cells NONE SEEN (NONE SEEN) 02/26/17 08:15 PT 10.8 SECONDS (9.5-11.5) 02/23/17 14:15 INR 1.04 (0.5-1.4) 02/23/17 14:15 PTT (Actin FS) 40.5 SECONDS (26.0-38.0) H 02/23/17 14:15 Sodium 134 mEq/L (136-145) L 02/26/17 09:00 Potassium 4.0 mEq/L (3.5-5.1) 02/26/17 09:00 Chloride 111 mEq/L (98-107) H 02/26/17 09:00 Carbon Dioxide 19.8 mEq/L (21.0-31.0) L 02/26/17 09:00 Anion Gap 7.2 (7.0-16.0) 02/26/17 09:00 BUN 43 mg/dL (7-25) H 02/26/17 09:00 Creatinine 0.9 mg/dL (0.7-1.3) 02/26/17 09:00 Est GFR ( Amer) TNP 02/26/17 09:00 Est GFR (Non-Af Amer) TNP 02/26/17 09:00 BUN/Creatinine Ratio 47.8 02/26/17 09:00 Glucose 161 mg/dL (70-105) H 02/26/17 09:00 Whole Bld Lactic Acid 1.14 mmol/L (0.60-1.99) 02/23/17 14:15 Uric Acid 7.6 mg/dL (4.4-7.6) 02/25/17 04:51 Calcium 8.8 mg/dL (8.6-10.3) 02/26/17 09:00 Phosphorus 3.0 mg/dL (2.5-5.0) 02/25/17 04:51 Magnesium 1.7 mg/dL (1.9-2.7) L 02/26/17 09:00 Iron 16 ug/dL (38-169) L 02/24/17 06:10 TIBC 174 ug/dL (250-450) L 02/24/17 06:10 Iron Saturation 9 % (15-55) L 02/24/17 06:10 Unsaturated IBC 158 ug/dL (111-343) 02/24/17 06:10 Total Bilirubin 0.4 mg/dL (0.3-1.0) 02/24/17 06:10 AST 21 U/L (13-39) 02/24/17 06:10 ALT 28 U/L (7-52) 02/24/17 06:10 Alkaline Phosphatase 74 U/L (34-104) 02/24/17 06:10 Creatine Kinase 19 U/L (30-223) L 02/23/17 14:15 Troponin I 0.03 ng/mL (0.01-0.05) 02/23/17 14:15 B-Natriuretic Peptide 66.5 pg/mL (5.0-100.0) 02/24/17 06:10 Total Protein 7.5 gm/dL (6.0-8.3) 02/24/17 06:10 Albumin 2.5 gm/dL (4.2-5.5) L 02/24/17 06:10 Globulin 5.0 gm/dL 02/24/17 06:10 Albumin/Globulin Ratio 0.5 (1.0-1.8) L 02/24/17 06:10 Carcinoembryonic Ag 2.5 ng/mL (0.0-4.7) 02/24/17 06:10 Urine Source [place] 02/23/17 14:05 Urine Color YELLOW 02/23/17 14:05 Urine Clarity HAZY (CLEAR) 02/23/17 14:05 Urine pH 5.5 02/23/17 14:05 Ur Specific [place] 1.005 (1.005-1.030) 02/23/17 14:05 Urine Protein TRACE mg/dL (NEGATIVE) 02/23/17 14:05 Urine Glucose (UA) NEGATIVE mg/dL (NEGATIVE) 02/23/17 14:05 Urine Ketones NEGATIVE mg/dL (NEGATIVE) 02/23/17 14:05 Urine Blood MODERATE (NEGATIVE) H 02/23/17 14:05 Urine Nitrate NEGATIVE (NEGATIVE) 02/23/17 14:05 Urine Bilirubin NEGATIVE (NEGATIVE) 02/23/17 14:05 Urine Urobilinogen 0.2 E.U./dL (0.2 - 1.0) 02/23/17 14:05 Ur Leukocyte Esterase MODERATE (NEGATIVE) H 02/23/17 14:05 Urine RBC >100 /hpf (0-5) H 02/23/17 14:05 Urine WBC 50-100 /hpf (0-5) H 02/23/17 14:05 Ur Epithelial Cells FEW /lpf (FEW) 02/23/17 14:05 Urine Bacteria MANY /hpf (NONE SEEN) 02/23/17 14:05 Ur Random Sodium 97 mmol/L 02/26/17 08:15 Urine Creatinine 40.0 mg/dl (39.0-259.0) 02/26/17 08:15 Stool Occult Blood POSITIVE (NEGATIVE) 02/25/17 05:00 Tobramycin Peak 5.3 ug/mL (4.0-10.0) 02/25/17 11:30 Tobramycin Trough 0.9 ug/mL (0.5-2.0) 02/26/17 09:00 Blood Type A POSITIVE 02/25/17 11:30 Antibody Screen NEGATIVE 02/25/17 11:30 Antibody Identification Anti-A1 02/23/17 16:11 Crossmatch See Detail 02/25/17 11:30 - Physical Exam Vitals and I&O: Vital Signs Temp 97.4 F 02/26/17 11:45 Pulse 95 02/26/17 14:44 Resp 20 02/26/17 14:44 BP 157/83 02/26/17 12:04 Pulse Ox 98 02/26/17 14:44 Intake & Output 02/25/17 02/26/17 02/26/17 18:59 06:59 18:59 Intake Total 2490.000 2200 Output Total 900 1200 Balance 4472.026 0853 Weight (lbs) 63.503 kg 77.111 kg 77.111 kg Intake: Intake, IV Amount 3298.688 0641 Sodium Chloride 0.9% 1, 1000 1000 000 ml @ 100 mls/hr IV . Q10H [facility] Rx#:[id number] Sodium Ferric Gluconate 110.000 125 mg In Sodium Chloride 0.9% 100 ml @ 100 mls/hr IV Q24HR [facility] Rx#: [id number] Tube Feeding 780 700 Other 600 500 Output: Urine 900 1200 Other: # Bowel Movements 0 0 Active Medications: Current Medications Acetaminophen (Tylenol 650mg/20.3ml Suspension) 650 mg GT Q4HR PRN PRN Reason: fever >101 or mild pain Stop: 04/24/17 20:07 Last Admin: 02/26/17 09:42 Dose: 650 mg Acetaminophen/Hydrocodone Bitart ([place] 10 Mg/325 Mg) 1 tab PO Q6H PRN PRN Reason: mod-severe pain Stop: 04/24/17 20:07 Last Admin: 02/26/17 11:04 Dose: 1 tab Albuterol/Ipratropium (Duoneb Neb) 3 ml HHN [id number] [facility] Stop: 04/24/17 18:59 Last Admin: 02/26/17 14:43 Dose: 3 ml Albuterol/Ipratropium (Duoneb Neb) 3 ml HHN Q4HR PRN PRN Reason: Shortness of Breath Stop: 04/24/17 18:55 Ascorbic Acid (Vitamin C) 500 mg GT BID [facility] Stop: 04/26/17 09:59 Last Admin: 02/26/17 09:01 Dose: 500 mg Clonidine HCl (Catapres) 0.1 mg PO Q6HR PRN PRN Reason: SBP ABOVE 160 Stop: 04/27/17 09:53 Last Admin: 02/26/17 11:04 Dose: 0.1 mg Cyanocobalamin (Vitamin B12) 100 mcg IM QMONTH [facility] Stop: 04/26/17 11:59 Last Admin: 02/25/17 12:40 Dose: 100 mcg Diltiazem HCl (Cardizem) 60 mg GT Q8H [facility] Stop: 04/24/17 20:07 Last Admin: 02/26/17 13:37 Dose: 60 mg Docusate Sodium (Colace) 100 mg PO BID [facility] Stop: 04/25/17 08:59 Last Admin: 02/26/17 09:04 Dose: 100 mg Folic Acid (Folate) 1 mg GT DAILY [facility] Stop: 04/26/17 09:59 Last Admin: 02/26/17 09:01 Dose: 1 mg Sodium Chloride (Nacl 0.9%) 1,000 mls @ 100 mls/hr IV .Q10H [facility] Stop: 04/24/17 18:17 Last Admin: 02/26/17 09:43 Dose: 100 mls/hr Ferric Sodium Gluconate Complex 125 mg/ Sodium Chloride 110 mls @ 100 mls/hr IV Q24HR [facility] Stop: 03/05/17 15:29 Last Infusion: 02/25/17 17:05 Dose: Infused Meropenem 1 gm/ Sodium (Chloride) 100 mls @ 100 mls/hr IV Q8H [facility] Stop: 04/27/17 13:59 Last Admin: 02/26/17 14:04 Dose: 100 mls/hr Amikacin Sulfate 600 mg/ (Dextrose) 102.4 mls @ 100 mls/hr IV Q12HR [facility] Stop: 04/27/17 20:59 Lisinopril (Zestril) 20 mg GT BID [facility] Stop: 04/25/17 08:59 Last Admin: 02/26/17 09:01 Dose: 20 mg Metoclopramide HCl (Reglan) 5 mg PO BID [facility] Stop: 04/25/17 08:59 Last Admin: 02/26/17 09:03 Dose: 5 mg Miscellaneous (Vte Chemical Prophylaxis Screen/ Admission) 1 [facility] PRN PRN PRN Reason: PROTOCOL Stop: 04/25/17 08:19 Miscellaneous (Pharmacy To Dose) 1 [facility] PRN [facility] Stop: 04/27/17 13:14 Miscellaneous (Amikacin Iv Per Pharmacy) 1 [facility] PRN PRN PRN Reason: PROTOCOL Stop: 04/27/17 13:11 Mupirocin (Bactroban Oint) 1 appl TP BID [facility] Stop: 03/02/17 16:59 Last Admin: 02/26/17 08:59 Dose: 1 appl Pantoprazole Sodium (Protonix) 40 mg IVP DAILY [facility] Stop: 04/25/17 08:59 Last Admin: 02/26/17 09:01 Dose: 40 mg General: Alert, Cooperative, No acute distress HEENT: Atraumatic, EOMI, Mucous membr. moist/pink Neck: Supple, +2 carotid pulse wo bruit Cardiovascular: Regular rate, Normal S1, Normal S2 Lungs: Clear to auscultation Abdomen: Bowel sounds, Guarding Extremities: no Edema Neurological: Sensation intact Skin: no Rash Psych/Mental Status: Mood NL Assessment/Plan - Assessment Assessment: MANNY Septicemia GNR Sepsis GNR Cx UTI B/L HAP Fe def anemia 2nd Slo GI bleed S/P Resp Failure - Plan Plan: Lab - Result Diagrams 02/25/17 04:51 02/25/17 04:51 Current Medications Acetaminophen (Tylenol 650mg/20.3ml Suspension) 650 mg GT Q4HR PRN PRN Reason: fever >101 or mild pain Stop: 04/24/17 20:07 Last Admin: 02/24/17 22:31 Dose: 650 mg Acetaminophen/Hydrocodone Bitart ([place] 10 Mg/325 Mg) 1 tab PO Q6H PRN PRN Reason: mod-severe pain Stop: 04/24/17 20:07 Last Admin: 02/25/17 10:00 Dose: 1 tab Albuterol/Ipratropium (Duoneb Neb) 3 ml HHN [id number] [facility] Stop: 04/24/17 18:59 Last Admin: 02/25/17 11:44 Dose: 3 ml Albuterol/Ipratropium (Duoneb Neb) 3 ml HHN Q4HR PRN PRN Reason: Shortness of Breath Stop: 04/24/17 18:55 Ascorbic Acid (Vitamin C) 500 mg GT BID [facility] Stop: 04/26/17 09:59 Last Admin: 02/25/17 10:50 Dose: 500 mg Cyanocobalamin (Vitamin B12) 100 mcg IM QMONTH [facility] Stop: 04/26/17 11:59 Last Admin: 02/25/17 12:40 Dose: 100 mcg Diltiazem HCl (Cardizem) 60 mg GT Q8H [facility] Stop: 04/24/17 20:07 Last Admin: 02/25/17 12:15 Dose: 60 mg Docusate Sodium (Colace) 100 mg PO BID [facility] Stop: 04/25/17 08:59 Last Admin: 02/25/17 08:53 Dose: 100 mg Enoxaparin Sodium (Lovenox) 30 mg SUBQ DAILY [facility] Stop: 04/25/17 08:59 Last Admin: 02/25/17 09:40 Dose: 30 mg Ferrous Sulfate (Iron) 330 mg GT BID [facility] Stop: 04/25/17 08:59 Last Admin: 02/25/17 08:52 Dose: 330 mg Folic Acid (Folate) 1 mg GT DAILY [facility] Stop: 04/26/17 09:59 Last Admin: 02/25/17 10:50 Dose: 1 mg Sodium Chloride (Nacl 0.9%) 1,000 mls @ 100 mls/hr IV .Q10H [facility] Stop: 04/24/17 18:17 Last Admin: 02/24/17 22:47 Dose: 100 mls/hr Tobramycin Sulfate 180 mg/ (Sodium Chloride) 104.5 mls @ 100 mls/hr IV Q24HR [facility] Stop: 04/27/17 09:59 Lisinopril (Zestril) 20 mg GT BID [facility] Stop: 04/25/17 08:59 Last Admin: 02/25/17 08:53 Dose: 20 mg Metoclopramide HCl (Reglan) 5 mg PO BID [facility] Stop: 04/25/17 08:59 Last Admin: 02/25/17 08:53 Dose: 5 mg Miscellaneous (Vte Chemical Prophylaxis Screen/ Admission) 1 [facility] PRN PRN PRN Reason: PROTOCOL Stop: 04/25/17 08:19 Miscellaneous (Tobramycin Iv Per Pharmacy) 1 ea [facility] DAILY PRN PRN Reason: TOBRAMYCIN Stop: 04/25/17 09:11 Mupirocin (Bactroban Oint) 1 appl TP BID [facility] Stop: 03/02/17 16:59 Pantoprazole Sodium (Protonix) 40 mg IVP DAILY [facility] Stop: 04/25/17 08:59 Last Admin: 02/25/17 08:52 Dose: 40 mg kidney fnc improved w/ BUN/CR of 7.1/21.3 stool OB (+) dc lovenox start Fe IV Hgb/Hct down to7.1/21.3 agree w/ transfusion f/u cbc Nutritional Asmnt/Malnutr-PDOC - Dietary Evaluation Malnutrition Findings (Please click <Entered> for more info): Nutritional Asmnt/Malnutrition Start: 02/24/17 13: 11 Text: Status: Complete Freq: Document 02/24/17 13:11 GSUN (Rec: 02/24/17 13:22 GSUN [id number]) Nutritional Asmnt/Malnutrition Patient General Information Nutritional Screening Consult Diagnosis ER: leukocytosis with recent PNA stable, renal insufficiency, dehyration Pertinent Medical Hx/Surgical Hx ER note: HTN, asthma/COPD, chronic respiratory failure, s /p trach, chronic anemia, dysphagia, g-tube Subjective Information 81 year old male from SNF. RD consult for active wound and Jean 12. Visited pt with TESSA Richard at bedside. Pt greeted RD, limited conversation due to trach. Observed tube feeding off at this time as order, confirmed with RN, otherwise tolerating well since adm. Pt papeared overall thin, moderate to severe fat/ muscle wasting to clavicles and chest. Bedscale CBW 143. 1lb vs EMR wt record 126lb on 02/23, questionable weights. Current Diet Order/ Nutrition Support Novasource Renal at 60ml/hr x 20hrs Pertinent Medications Colace, Iron, Reglan, Protonix Nacl 0.9% Pertinent Labs 02/23: BUN 85H, creatinine 1.7H 02/24: BUN 71H, creatinine 1.5H Nutritional Hx/Data Height 1.83 m Height (Calculated Centimeters) 182.9 Current Weight (lbs) 64.909 kg Weight (Calculated Kilograms) 64.9 Weight (Calculated Grams) [address]4639.1 [place] Body Weight 178 Weight Status Approriate GI Symptoms Usual diet at home [place]: Nepro at 60ml/hr x 20hrs, providing 1200ml 2160kcal. Skin Integrity/Comment: Jean Ortiz. supervisor testing: right leg wound. Estimated Nutritional Goals Calories/Kcals/Kg IBW 178lb/80.9kg (underwt for age, muscle/fat depletion, ? PNA, ?CBW) Kcals Calculated 2022-2427kcal (25-30kcal/kg) Protein g/kg: IBW Protein Calculated 65-97g (0.8-1.2g/kg, monitor renal labs) Fluid: ml 2022-2427ml (1ml/kcal) Nutritional Problem 1. Problem Problem Impaired nutrient utilization related to Etiology renal insufficiency aeb Signs/Symptoms: BUN 73 mental health counselor 1.5 on adm, ER notes, pt is on Nepro at [facility] and Novasource at [place] Intervention/Recommendation Comments 1. Recommend Novasource Renal 55ml/hr x 20hrs, providing 1100ml total volume, 2200kcal, 100g protein. Expected Outcomes/Goals Expected Outcomes/Goals 1. Pt to meet 100% estimated nutritional needs on tube feeding with tolerance.
[2017-02-26] MEDS: Sodium Ferric Gluconate 125 MG in Sodium Chloride 0.9% 100 ML IV SCH (15:24)
[2017-02-27] MEDS: Hydrocodone/APAP 10 mg/325 mg Tab PO PRN ×3 (00:56→21:06)
[2017-02-27] MEDS: Diltiazem 30 mg Tab GT SCH ×4 (01:00→21:06)
[2017-02-27 05:39] LABS: % BASOPHILS 0.3 % (0.0-2.0); % EOSINOPHILS 2.4 % (0.0-5.0); % LYMPHOCYTES 11.5 % (20.0-50.0); % MONOCYTES 9.5 % (2.0-10.0); % NEUTROPHILS 76.3 % (40.0-80.0); HEMOGLOBIN 8.9 gm/dL (12.6-17.4); MEAN CELL VOLUME 88.2 fl (80-99); MEAN CORPUSCULAR HEMOGLOBIN 30.2 pg (27.0-31.0); MEAN CORPUSCULAR HGB CONC 34.2 pg (28.0-36.0); MEAN PLATELET VOLUME 7.2 fl; NEUTROPHILE ABSOLUTE 14.8 Th/cmm (1.8-8.0); PLATELET COUNT 369 Th/cmm (150-400); RED BLOOD COUNT 2.94 Mil/cmm (3.80-5.80); RED CELL DISTRIBUTION WIDTH 15.5 % (11.5-20.0)
[2017-02-27 05:48] LABS: WHITE BLOOD COUNT 19.5 Th/cmm (4.8-10.8)
[2017-02-27 05:57] LABS: ANION GAP 8.4 (7.0-16.0); BUN - UREA NITROGEN 42 mg/dL (7-25); CALCIUM SERUM 8.6 mg/dL (8.6-10.3); CARBON DIOXIDE 19.7 mEq/L (21.0-31.0); CHLORIDE 111 mEq/L (98-107); GLUCOSE 127 mg/dL (70-105); POTASSIUM SERUM 4.1 mEq/L (3.5-5.1); SODIUM SERUM 135 mEq/L (136-145)
[2017-02-27] MEDS: Meropenem 1 gm in NS 0.9% 100 ML IV SCH ×3 (05:58→23:36)
[2017-02-27] MEDS: Albuterol/Ipratropium Neb 3 ML AERS HHN SCH ×4 (07:07→18:41)
[2017-02-27] MEDS: Multivitamin w/ Minerals Tab GT SCH (10:03)
[2017-02-27 12:15] LABS: MICROALBUMIN RANDOM RUINE 44.1 ug/mL (Not Estab.)
[2017-02-27 13:49] LABS: RBC RETICULOCYTE COUNT 2.94 Mil/cmm; RETICULOCYTES % COUNTED 0.8 % (0.5-1.5)
--- NOTE | 2017-02-27 13:59 | General Progress Note ---
Subjective - Review of Systems Service Date: 02/27/17 Subjective: alert, verbal, comfortable Objective - Results Result Diagrams: 02/27/17 05:13 02/27/17 05:13 Recent Labs: Laboratory Last Values WBC 19.5 Th/cmm (4.8-10.8) H 02/27/17 05:13 RBC 2.94 Mil/cmm (3.80-5.80) L 02/27/17 05:13 Hgb 8.9 gm/dL (12.6-17.4) L 02/27/17 05:13 Hct 26.0 % (40.0-54.0) L 02/27/17 05:13 MCV 88.2 fl (80-99) 02/27/17 05:13 MCH 30.2 pg (27.0-31.0) 02/27/17 05:13 MCHC Differential 34.2 pg (28.0-36.0) 02/27/17 05:13 RDW 15.5 % (11.5-20.0) 02/27/17 05:13 Plt Count 369 Th/cmm (150-400) 02/27/17 05:13 MPV 7.2 fl 02/27/17 05:13 Neutrophils % 76.3 % (40.0-80.0) 02/27/17 05:13 Band Neutrophils % 3 % (0-10) 02/26/17 09:00 Lymphocytes % 11.5 % (20.0-50.0) L 02/27/17 05:13 Monocytes % 9.5 % (2.0-10.0) 02/27/17 05:13 Eosinophils % 2.4 % (0.0-5.0) 02/27/17 05:13 Basophils % 0.3 % (0.0-2.0) 02/27/17 05:13 Neutrophils (Manual) 77 % (40-80) 02/26/17 09:00 Lymphocytes 10 % (20-50) L 02/26/17 09:00 Monocytes 10 % (2-10) 02/26/17 09:00 Eosinophils 1 % (0-5) 02/25/17 04:51 Nucleated RBCs 1.0 % (0-0) H 02/23/17 13:57 Platelet Estimate ADEQUATE (NORMAL) 02/25/17 04:51 Platelet Morphology NORMAL (NORMAL) 02/25/17 04:51 Anisocytosis 1+ 02/25/17 04:51 RBC Morph Micro Appear ABNORMAL (NORMAL) 02/25/17 04:51 Total Retics Counted 0.8 % (0.5-1.5) 02/27/17 05:13 Absolute Retic 23.5 Th/cmm 02/27/17 05:13 Corrected Retic Count 0.5 % (0.5-1.5) 02/27/17 05:13 Eos Smear Source URINE 02/26/17 08:15 Eos Smear Total Cells NONE SEEN (NONE SEEN) 02/26/17 08:15 PT 10.8 SECONDS (9.5-11.5) 02/23/17 14:15 INR 1.04 (0.5-1.4) 02/23/17 14:15 PTT (Actin FS) 40.5 SECONDS (26.0-38.0) H 02/23/17 14:15 Sodium 135 mEq/L (136-145) L 02/27/17 05:13 Potassium 4.1 mEq/L (3.5-5.1) 02/27/17 05:13 Chloride 111 mEq/L (98-107) H 02/27/17 05:13 Carbon Dioxide 19.7 mEq/L (21.0-31.0) L 02/27/17 05:13 Anion Gap 8.4 (7.0-16.0) 02/27/17 05:13 BUN 42 mg/dL (7-25) H 02/27/17 05:13 Creatinine 1.0 mg/dL (0.7-1.3) 02/27/17 05:13 Est GFR ( Amer) TNP 02/27/17 05:13 Est GFR (Non-Af Amer) TNP 02/27/17 05:13 BUN/Creatinine Ratio 42.0 02/27/17 05:13 Glucose 127 mg/dL (70-105) H 02/27/17 05:13 Whole Bld Lactic Acid 1.14 mmol/L (0.60-1.99) 02/23/17 14:15 Uric Acid 7.6 mg/dL (4.4-7.6) 02/25/17 04:51 Calcium 8.6 mg/dL (8.6-10.3) 02/27/17 05:13 Phosphorus 3.0 mg/dL (2.5-5.0) 02/25/17 04:51 Magnesium 1.7 mg/dL (1.9-2.7) L 02/26/17 09:00 Iron 16 ug/dL (38-169) L 02/24/17 06:10 TIBC 174 ug/dL (250-450) L 02/24/17 06:10 Iron Saturation 9 % (15-55) L 02/24/17 06:10 Unsaturated IBC 158 ug/dL (111-343) 02/24/17 06:10 Total Bilirubin 0.4 mg/dL (0.3-1.0) 02/24/17 06:10 AST 21 U/L (13-39) 02/24/17 06:10 ALT 28 U/L (7-52) 02/24/17 06:10 Alkaline Phosphatase 74 U/L (34-104) 02/24/17 06:10 Creatine Kinase 19 U/L (30-223) L 02/23/17 14:15 Troponin I 0.03 ng/mL (0.01-0.05) 02/23/17 14:15 B-Natriuretic Peptide 66.5 pg/mL (5.0-100.0) 02/24/17 06:10 Total Protein 7.5 gm/dL (6.0-8.3) 02/24/17 06:10 Albumin 2.5 gm/dL (4.2-5.5) L 02/24/17 06:10 Globulin 5.0 gm/dL 02/24/17 06:10 Albumin/Globulin Ratio 0.5 (1.0-1.8) L 02/24/17 06:10 Carcinoembryonic Ag 2.5 ng/mL (0.0-4.7) 02/24/17 06:10 Urine Source [place] 02/23/17 14:05 Urine Color YELLOW 02/23/17 14:05 Urine Clarity HAZY (CLEAR) 02/23/17 14:05 Urine pH 5.5 02/23/17 14:05 Ur Specific [place] 1.005 (1.005-1.030) 02/23/17 14:05 Urine Protein TRACE mg/dL (NEGATIVE) 02/23/17 14:05 Urine Glucose (UA) NEGATIVE mg/dL (NEGATIVE) 02/23/17 14:05 Urine Ketones NEGATIVE mg/dL (NEGATIVE) 02/23/17 14:05 Urine Blood MODERATE (NEGATIVE) H 02/23/17 14:05 Urine Nitrate NEGATIVE (NEGATIVE) 02/23/17 14:05 Urine Bilirubin NEGATIVE (NEGATIVE) 02/23/17 14:05 Urine Urobilinogen 0.2 E.U./dL (0.2 - 1.0) 02/23/17 14:05 Ur Leukocyte Esterase MODERATE (NEGATIVE) H 02/23/17 14:05 Urine RBC >100 /hpf (0-5) H 02/23/17 14:05 Urine WBC 50-100 /hpf (0-5) H 02/23/17 14:05 Ur Epithelial Cells FEW /lpf (FEW) 02/23/17 14:05 Urine Bacteria MANY /hpf (NONE SEEN) 02/23/17 14:05 Ur Random Sodium 97 mmol/L 02/26/17 08:15 Urine Creatinine 35.2 mg/dl (Not Estab.) 02/26/17 08:15 Urine Microalbumin 44.1 ug/mL (Not Estab.) 02/26/17 08:15 Microalb/Creat Ratio 125.3 mg/g creat (0.0-30.0) H 02/26/17 08:15 Stool Occult Blood POSITIVE (NEGATIVE) 02/25/17 05:00 Tobramycin Peak 5.3 ug/mL (4.0-10.0) 02/25/17 11:30 Tobramycin Trough 0.9 ug/mL (0.5-2.0) 02/26/17 09:00 Blood Type A POSITIVE 02/25/17 11:30 Antibody Screen NEGATIVE 02/25/17 11:30 Antibody Identification Anti-A1 COLD AUTO ANTIBODY nonspecific 02/23/17 16: 11 Antibody Identification Anti-A1 COLD AUTO ANTIBODY nonspecific 02/23/17 16: 11 Crossmatch See Detail 02/25/17 11:30 - Physical Exam Vitals and I&O: Vital Signs Temp 98.7 F 02/27/17 11:48 Pulse 89 02/27/17 11:48 Resp 20 02/27/17 11:48 BP 135/79 02/27/17 11:48 Pulse Ox 95 02/27/17 11:48 Intake & Output 02/26/17 02/27/17 02/27/17 18:59 06:59 18:59 Intake Total 2410 2272.4 250 Output Total 1200 500 Balance 1210 1772.4 250 Weight (lbs) 77.111 kg 78.471 kg Intake: Intake, IV Amount 1210 1552.4 250 Amikacin 600 mg In 102.4 Dextrose 5% 100 ml @ 100 mls/hr IV Q12HR [facility] Rx#: [id number] Meropenem 1 gm In Sodium 100 200 Chloride 0.9% 100 ml @ 100 mls/hr IV Q8H [facility] Rx# :[id number] Sodium Chloride 0.9% 1, 1000 1000 000 ml @ 100 mls/hr IV . Q10H [facility] Rx#:[id number] Sodium Ferric Gluconate 110 125 mg In Sodium Chloride 0.9% 100 ml @ 100 mls/hr IV Q24HR [facility] Rx#: [id number] Vancomycin HCl 1 gm In 250 Sodium Chloride 0.9% 250 ml @ 165 mls/hr IV Q12H [facility] Rx#:[id number] Vancomycin HCl 1.25 gm In 250 Sodium Chloride 0.9% 250 ml @ 165 mls/hr IV Q12H [facility] Rx#:[id number] Tube Feeding 700 720 Other 500 Output: Urine 1200 500 Other: # Bowel Movements 0 Active Medications: Current Medications Acetaminophen (Tylenol 650mg/20.3ml Suspension) 650 mg GT Q4HR PRN PRN Reason: fever >101 or mild pain Stop: 04/24/17 20:07 Last Admin: 02/26/17 20:16 Dose: 650 mg Acetaminophen/Hydrocodone Bitart ([place] 10 Mg/325 Mg) 1 tab PO Q6H PRN PRN Reason: mod-severe pain Stop: 04/24/17 20:07 Last Admin: 02/27/17 10:12 Dose: 1 tab Albuterol/Ipratropium (Duoneb Neb) 3 ml HHN [id number] [facility] Stop: 04/24/17 18:59 Last Admin: 02/27/17 10:56 Dose: 3 ml Albuterol/Ipratropium (Duoneb Neb) 3 ml HHN Q4HR PRN PRN Reason: Shortness of Breath Stop: 04/24/17 18:55 Ascorbic Acid (Vitamin C) 500 mg GT BID [facility] Stop: 04/26/17 09:59 Last Admin: 02/27/17 10:03 Dose: 500 mg Clonidine HCl (Catapres) 0.1 mg PO Q6HR PRN PRN Reason: SBP ABOVE 160 Stop: 04/27/17 09:53 Last Admin: 02/26/17 11:04 Dose: 0.1 mg Cyanocobalamin (Vitamin B12) 100 mcg IM QMONTH [facility] Stop: 04/26/17 11:59 Last Admin: 02/25/17 12:40 Dose: 100 mcg Diltiazem HCl (Cardizem) 60 mg GT Q8H [facility] Stop: 04/24/17 20:07 Last Admin: 02/27/17 05:04 Dose: 60 mg Docusate Sodium (Colace) 100 mg PO BID [facility] Stop: 04/25/17 08:59 Last Admin: 02/27/17 10:02 Dose: Not Given Folic Acid (Folate) 1 mg GT DAILY [facility] Stop: 04/26/17 09:59 Last Admin: 02/27/17 10:05 Dose: 1 mg Sodium Chloride (Nacl 0.9%) 1,000 mls @ 100 mls/hr IV .Q10H [facility] Stop: 04/24/17 18:17 Last Admin: 02/26/17 23:13 Dose: 100 mls/hr Ferric Sodium Gluconate Complex 125 mg/ Sodium Chloride 110 mls @ 100 mls/hr IV Q24HR [facility] Stop: 03/05/17 15:29 Last Infusion: 02/26/17 16:30 Dose: Infused Meropenem 1 gm/ Sodium (Chloride) 100 mls @ 100 mls/hr IV Q8H [facility] Stop: 04/27/17 13:59 Last Admin: 02/27/17 13:48 Dose: 100 mls/hr Vancomycin HCl 1.25 gm/ Sodium (Chloride) 250 mls @ 165 mls/hr IV Q12H [facility] Stop: 04/28/17 08:59 Last Infusion: 02/27/17 11:48 Dose: Infused Lisinopril (Zestril) 20 mg GT BID [facility] Stop: 04/25/17 08:59 Last Admin: 02/27/17 10:00 Dose: 20 mg Metoclopramide HCl (Reglan) 5 mg PO BID [facility] Stop: 04/25/17 08:59 Last Admin: 02/27/17 10:04 Dose: 5 mg Miscellaneous (Vte Chemical Prophylaxis Screen/ Admission) 1 ea [facility] PRN PRN PRN Reason: PROTOCOL Stop: 04/25/17 08:19 Miscellaneous (Pharmacy To Dose) 1 ea MC PRN [facility] Stop: 04/27/17 13:14 Miscellaneous (Vancomycin Iv Per Pharmacy) 1 ea MC PRN [facility] Stop: 04/27/17 18:14 Mupirocin (Bactroban Oint) 1 appl TP BID [facility] Stop: 03/02/17 16:59 Last Admin: 02/27/17 10:08 Dose: 1 appl Pantoprazole Sodium (Protonix) 40 mg IVP DAILY [facility] Stop: 04/25/17 08:59 Last Admin: 02/27/17 10:03 Dose: 40 mg General: Alert, No acute distress HEENT: Atraumatic, PERRLA, Mucous membr. moist/pink Neck: Supple, +2 carotid pulse wo bruit Cardiovascular: Regular rate, Normal S1, Normal S2 Lungs: Clear to auscultation Abdomen: Bowel sounds, Soft Extremities: no Edema Neurological: Sensation intact Skin: no Rash Psych/Mental Status: Mood NL - Procedures Procedures: Procedures Procedure Code Date BLOOD TRANSFUSION SERVICE 25783 02/23/17 TRANSFUSE NONAUT RED BLOOD CELLS IN PERIPH VEIN, [facility] 08122E0 02/23/17 Assessment/Plan - Assessment Assessment: MANNY Septicemia GNR Sepsis GNR Cx UTI B/L HAP Fe def anemia 2nd Slo GI bleed S/P Resp Failure - Plan Plan: Lab - Result Diagrams 02/25/17 04:51 02/25/17 04:51 Current Medications Acetaminophen (Tylenol 650mg/20.3ml Suspension) 650 mg GT Q4HR PRN PRN Reason: fever >101 or mild pain Stop: 04/24/17 20:07 Last Admin: 02/24/17 22:31 Dose: 650 mg Acetaminophen/Hydrocodone Bitart ([place] 10 Mg/325 Mg) 1 tab PO Q6H PRN PRN Reason: mod-severe pain Stop: 04/24/17 20:07 Last Admin: 02/25/17 10:00 Dose: 1 tab Albuterol/Ipratropium (Duoneb Neb) 3 ml HHN [id number] [facility] Stop: 04/24/17 18:59 Last Admin: 02/25/17 11:44 Dose: 3 ml Albuterol/Ipratropium (Duoneb Neb) 3 ml HHN Q4HR PRN PRN Reason: Shortness of Breath Stop: 04/24/17 18:55 Ascorbic Acid (Vitamin C) 500 mg GT BID [facility] Stop: 04/26/17 09:59 Last Admin: 02/25/17 10:50 Dose: 500 mg Cyanocobalamin (Vitamin B12) 100 mcg IM QMONTH [facility] Stop: 04/26/17 11:59 Last Admin: 02/25/17 12:40 Dose: 100 mcg Diltiazem HCl (Cardizem) 60 mg GT Q8H [facility] Stop: 04/24/17 20:07 Last Admin: 02/25/17 12:15 Dose: 60 mg Docusate Sodium (Colace) 100 mg PO BID [facility] Stop: 04/25/17 08:59 Last Admin: 02/25/17 08:53 Dose: 100 mg Enoxaparin Sodium (Lovenox) 30 mg SUBQ DAILY [facility] Stop: 04/25/17 08:59 Last Admin: 02/25/17 09:40 Dose: 30 mg Ferrous Sulfate (Iron) 330 mg GT BID [facility] Stop: 04/25/17 08:59 Last Admin: 02/25/17 08:52 Dose: 330 mg Folic Acid (Folate) 1 mg GT DAILY [facility] Stop: 04/26/17 09:59 Last Admin: 02/25/17 10:50 Dose: 1 mg Sodium Chloride (Nacl 0.9%) 1,000 mls @ 100 mls/hr IV .Q10H [facility] Stop: 04/24/17 18:17 Last Admin: 02/24/17 22:47 Dose: 100 mls/hr Tobramycin Sulfate 180 mg/ (Sodium Chloride) 104.5 mls @ 100 mls/hr IV Q24HR [facility] Stop: 04/27/17 09:59 Lisinopril (Zestril) 20 mg GT BID [facility] Stop: 04/25/17 08:59 Last Admin: 02/25/17 08:53 Dose: 20 mg Metoclopramide HCl (Reglan) 5 mg PO BID [facility] Stop: 04/25/17 08:59 Last Admin: 02/25/17 08:53 Dose: 5 mg Miscellaneous (Vte Chemical Prophylaxis Screen/ Admission) 1 ea MC PRN PRN PRN Reason: PROTOCOL Stop: 04/25/17 08:19 Miscellaneous (Tobramycin Iv Per Pharmacy) 1 ea MC DAILY PRN PRN Reason: TOBRAMYCIN Stop: 04/25/17 09:11 Mupirocin (Bactroban Oint) 1 appl TP BID [facility] Stop: 03/02/17 16:59 Pantoprazole Sodium (Protonix) 40 mg IVP DAILY [facility] Stop: 04/25/17 08:59 Last Admin: 02/25/17 08:52 Dose: 40 mg kidney fnc improved w/ BUN/CR of 42/1 stool OB (+) dc lovenox start Fe IV Hgb/Hct up to 8.05/27 after transfusion, f/u cbc, electrolytes Nutritional Asmnt/Malnutr-PDOC - Dietary Evaluation Malnutrition Findings (Please click <Entered> for more info): Nutritional Asmnt/Malnutrition Start: 02/24/17 13: 11 Text: Status: Complete Freq: Document 02/24/17 13:11 GSUN (Rec: 02/24/17 13:22 [id number]) Nutritional Asmnt/Malnutrition Patient General Information Nutritional Screening Consult Diagnosis ER: leukocytosis with recent PNA stable, renal insufficiency, dehyration Pertinent Medical Hx/Surgical Hx ER note: HTN, asthma/COPD, chronic respiratory failure, s /p trach, chronic anemia, dysphagia, g-tube Subjective Information 81 year old male from SNF. RD consult for active wound and Jean 12. Visited pt with TESSA Richard at bedside. Pt greeted RD, limited conversation due to trach. Observed tube feeding off at this time as order, confirmed with RN, otherwise tolerating well since adm. Pt papeared overall thin, moderate to severe fat/ muscle wasting to clavicles and chest. Bedscale CBW 143. 1lb vs EMR wt record 126lb on 02/23, questionable weights. Current Diet Order/ Nutrition Support Novasource Renal at 60ml/hr x 20hrs Pertinent Medications Colace, Iron, Reglan, Protonix Nacl 0.9% Pertinent Labs 02/23: BUN 85H, creatinine 1.7H 02/24: BUN 71H, creatinine 1.5H Nutritional Hx/Data Height 1.83 m Height (Calculated Centimeters) 182.9 Current Weight (lbs) 64.909 kg Weight (Calculated Kilograms) 64.9 Weight (Calculated Grams) 52386.1 [place] Body Weight 178 Weight Status Approriate GI Symptoms Usual diet at home [place]: Nepro at 60ml/hr x 20hrs, providing 1200ml 2160kcal. Skin Integrity/Comment: Jean Ortiz. seamless tube drawer: right leg wound. Estimated Nutritional Goals Calories/Kcals/Kg IBW 178lb/80.9kg (underwt for age, muscle/fat depletion, ? PNA, ?CBW) Kcals Calculated 2022-2427kcal (25-30kcal/kg) Protein g/kg: IBW Protein Calculated 65-97g (0.8-1.2g/kg, monitor renal labs) Fluid: ml 2022-2427ml (1ml/kcal) Nutritional Problem 1. Problem Problem Impaired nutrient utilization related to Etiology renal insufficiency aeb Signs/Symptoms: BUN 71 pharmacy resident 1.5 on adm, ER notes, pt is on Nepro at [facility] and Novasource at [place] Intervention/Recommendation Comments 1. Recommend Novasource Renal 55ml/hr x 20hrs, providing 1100ml total volume, 2200kcal, 100g protein. Expected Outcomes/Goals Expected Outcomes/Goals 1. Pt to meet 100% estimated nutritional needs on tube feeding with tolerance.
--- NOTE | 2017-02-27 15:28 | Consultation ---
Consult Note - Consult Note Service Date: 02/26/17 Consult Note: PHYSICIAN Consultation Note: Date of Admission: 02/23/17 Purpose of Consultation: Chief Complaint: History of Present Illness: Patient JOANA VICTOR JR was admitted to [facility] Telemetry with LEUKOCYTOSIS, PNA, DEHYDRATION. Past Medical History: Diagnoses SEPSIS, UNSPECIFIED ORGANISM (02/23/17) PROTEUS (MIRABILIS) (MORGANII) CAUSING DIS CLASSD ELSWHR (02/23/17) IRON DEFICIENCY ANEMIA, UNSPECIFIED (02/23/17) DEHYDRATION (02/23/17) HYPO-OSMOLALITY AND HYPONATREMIA (02/23/17) ESSENTIAL (PRIMARY) HYPERTENSION (02/23/17) PNEUMONIA, UNSPECIFIED ORGANISM (02/23/17) CHRONIC RESPIRATORY FAILURE, UNSP W HYPOXIA OR HYPERCAPNIA (02/23/17) GASTROINTESTINAL HEMORRHAGE, UNSPECIFIED (02/23/17) ACUTE KIDNEY FAILURE, UNSPECIFIED (02/23/17) DISORDER OF KIDNEY AND URETER, UNSPECIFIED (02/23/17) URINARY TRACT INFECTION, SITE NOT SPECIFIED (02/23/17) OTHER MALAISE (02/23/17) BACTEREMIA (02/23/17) TRACHEOSTOMY STATUS (02/23/17) GASTROSTOMY STATUS (02/23/17) Allergies Allergy/AdvReac Type Severity Reaction Status Date / Time Penicillins [PCN] Allergy Verified 02/23/17 13:03 Vital Signs Temp 98.7 F 02/27/17 11:48 Pulse 96 02/27/17 14:38 Resp 20 02/27/17 14:38 BP 135/79 02/27/17 11:48 Pulse Ox 99 02/27/17 14:38 Intake & Output 02/26/17 02/27/17 02/27/17 18:59 06:59 18:59 Intake Total 2410 2272.4 250 Output Total 1200 500 Balance 1210 1772.4 250 Weight (lbs) 77.111 kg 78.471 kg Intake: Intake, IV Amount 1210 1552.4 250 Amikacin 600 mg In 102.4 Dextrose 5% 100 ml @ 100 mls/hr IV Q12HR [facility] Rx#: [id number] Meropenem 1 gm In Sodium 100 200 Chloride 0.9% 100 ml @ 100 mls/hr IV Q8H [facility] Rx# :[id number] Sodium Chloride 0.9% 1, 1000 1000 000 ml @ 100 mls/hr IV . Q10H [facility] Rx#:[id number] Sodium Ferric Gluconate 110 125 mg In Sodium Chloride 0.9% 100 ml @ 100 mls/hr IV Q24HR [facility] Rx#: [id number] Vancomycin HCl 1 gm In 250 Sodium Chloride 0.9% 250 ml @ 165 mls/hr IV Q12H [facility] Rx#:[id number] Vancomycin HCl 1.25 gm In 250 Sodium Chloride 0.9% 250 ml @ 165 mls/hr IV Q12H [facility] Rx#:[id number] Tube Feeding 700 720 Other 500 Output: Urine 1200 500 Other: # Bowel Movements 0 Laboratory Results - last 24 hr 02/25/17 02/26/17 02/27/17 11:30 08:15 05:13 WBC 19.5 H RBC 2.94 L Hgb 8.9 L Hct 26.0 L D MCV 88.2 MCH 30.2 MCHC Differential 34.2 RDW 15.5 Plt Count 369 MPV 7.2 Neutrophils % 76.3 Lymphocytes % 11.5 L Monocytes % 9.5 Eosinophils % 2.4 Basophils % 0.3 Total Retics Counted Absolute Retic Corrected Retic Count Sodium Potassium Chloride Carbon Dioxide Anion Gap BUN Creatinine Est GFR ( Amer) Est GFR (Non-Af Amer) BUN/Creatinine Ratio Glucose Calcium Urine Creatinine 35.2 Urine Microalbumin 44.1 Microalb/Creat Ratio 125.3 H Blood Type A POSITIVE Antibody Screen NEGATIVE Crossmatch See Detail 02/27/17 02/27/17 05:13 05:13 WBC RBC Hgb Hct 26.0 L MCV MCH MCHC Differential RDW Plt Count MPV Neutrophils % Lymphocytes % Monocytes % Eosinophils % Basophils % Total Retics Counted 0.8 Absolute Retic 23.5 Corrected Retic Count 0.5 Sodium 135 L Potassium 4.1 Chloride 111 H Carbon Dioxide 19.7 L Anion Gap 8.4 BUN 42 H Creatinine 1.0 Est GFR ( Amer) TNP Est GFR (Non-Af Amer) TNP BUN/Creatinine Ratio 42.0 Glucose 127 H Calcium 8.6 Urine Creatinine Urine Microalbumin Microalb/Creat Ratio Blood Type Antibody Screen Crossmatch Home Medication Medication Instructions Recorded Type Acetaminophen [Tylenol 650 mg GT Q4HR PRN 02/23/17 History 650mg/20.3mL Suspension] Ascorbic Acid [Vitamin C] 500 mg GT BID 02/23/17 History Cyanocobalamin [Vitamin B12] 100 mcg IM QMONTH 02/23/17 History Diltiazem [Cardizem] 60 mg GT Q8H 02/23/17 History Docusate Sodium [Colace] 100 mg GT BID 02/23/17 History Enoxaparin [Lovenox] 40 mg SUBQ DAILY 02/23/17 History Ferrous Sulfate [Iron] 330 mg GT BID 02/23/17 History Folic Acid [Folate] 1 mg GT DAILY 02/23/17 History Hydrocodone/APAP 10 mg/325 mg 1 tab PO Q6H PRN 02/23/17 History [[place] 10 mg/325 mg] Lisinopril 20 mg GT BID 02/23/17 History Metoclopramide [Reglan] 10 mg GT Q6H 02/23/17 History Multivitamin [Multivitamins] 1 tab GT DAILY 02/23/17 History Pantoprazole [Protonix] 40 mg GT DAILY 02/23/17 History Current Medications Generic Name Dose Route Start Last Admin Trade Name Freq PRN Reason Stop Dose Admin Acetaminophen 650 mg 02/23/17 20:08 02/27/17 13:58 Tylenol 650mg/20.3ml Suspension GT 04/24/17 20:07 650 mg Q4HR PRN Administration fever >101 or mild pain Acetaminophen/Hydrocodone Bitart 1 tab 02/23/17 20:08 02/27/17 10:12 [place] 10 Mg/325 Mg PO 04/24/17 20:07 1 tab Q6H PRN Administration mod-severe pain Albuterol/Ipratropium 3 ml 02/23/17 19:00 02/27/17 14:38 Duoneb Neb [facility] 04/24/17 18:59 3 ml [id number] [facility] Administration Albuterol/Ipratropium 3 ml 02/23/17 18:56 Duoneb [facility] 04/24/17 18:55 Q4HR PRN Shortness of Breath Ascorbic Acid 500 mg 02/25/17 10:00 02/27/17 10:03 Vitamin C GT 04/26/17 09:59 500 mg BID [facility] Administration Clonidine HCl 0.1 mg 02/26/17 09:54 02/26/17 11:04 Catapres PO 04/27/17 09:53 0.1 mg Q6HR PRN Administration SBP ABOVE 160 Cyanocobalamin 100 mcg 02/25/17 12:00 02/25/17 12:40 Vitamin B12 IM 04/26/17 11:59 100 mcg QMONTH [facility] Administration Diltiazem HCl 60 mg 02/23/17 20:08 02/27/17 05:04 Cardizem GT 04/24/17 20:07 60 mg Q8H [facility] Administration Docusate Sodium 100 mg 02/24/17 09:00 02/27/17 10:02 Colace PO 04/25/17 08:59 Not Given BID [facility] Folic Acid 1 mg 02/25/17 10:00 02/27/17 10:05 Folate GT 04/26/17 09:59 1 mg DAILY [facility] Administration Sodium Chloride 1,000 mls @ 100 mls/hr 02/23/17 18:18 02/26/17 23:13 Nacl 0.9% IV 04/24/17 18:17 100 mls/hr .Q10H [facility] Administration Ferric Sodium Gluconate 110 mls @ 100 mls/hr 02/25/17 15:30 02/26/17 16:30 Complex 125 mg/ Sodium IV 03/05/17 15:29 Infused Chloride Q24HR [facility] Infusion Meropenem 1 gm/ Sodium 100 mls @ 100 mls/hr 02/26/17 14:00 02/27/17 13:48 Chloride IV 04/27/17 13:59 100 mls/hr Q8H [facility] Administration Vancomycin HCl 1.25 gm/ Sodium 250 mls @ 165 mls/hr 02/27/17 09:00 02/27/17 11:48 Chloride IV 04/28/17 08:59 Infused Q12H [facility] Infusion Lisinopril 20 mg 02/24/17 09:00 02/27/17 10:00 Zestril GT 04/25/17 08:59 20 mg BID [facility] Administration Metoclopramide HCl 5 mg 02/24/17 09:00 02/27/17 10:04 Reglan PO 04/25/17 08:59 5 mg BID [facility] Administration Miscellaneous 1 ea 02/24/17 08:20 Vte Chemical Prophylaxis Screen/ Admission 04/25/17 08:19 PRN PRN PROTOCOL Miscellaneous 1 ea 02/26/17 13:15 Pharmacy To Dose 04/27/17 13:14 PRN [facility] Miscellaneous 1 ea 02/26/17 18:15 Vancomycin Iv Per Pharmacy 04/27/17 18:14 PRN [facility] Mupirocin 1 appl 02/25/17 17:00 02/27/17 10:08 Bactroban Oint TP 03/02/17 16:59 1 appl BID [facility] Administration Pantoprazole Sodium 40 mg 02/24/17 09:00 02/27/17 10:03 Protonix IVP 04/25/17 08:59 40 mg DAILY [facility] Administration Review of Systems: A 12 point ROS was reviewed with the pertinent positive and negatives noted in the HPI. Social History Smoking Status Unknown if ever smoked Drug Use No Alcohol Use No Family Medical History Family Medical History Start: 02/23/17 19: 32 Freq: ONCE Status: Active Document 02/23/17 19:32 MACK (Rec: 02/24/17 01:10 MACK [id number]) Family Medical History Mother History Unknown Yes Ethnicity Non- Living Status Unknown Hx Family Cancer UNKNOWN Hx Family Coronary Artery Disease UNKNOWN Hx Family Congestive Heart Failure UNKNOWN Hx Family Hypertension UNKNOWN Hx Family Stroke UNKNOWN Hx Family Diabetes UNKNOWN Hx Family Seizures UNKNOWN Hx Family Dementia UNKNOWN Hx Family AIDS UNKNOWN Hx Family COPD UNKNOWN Hx Family Hepatitis UNKNOWN Hx Family Psychiatric Problems UNKNOWN Hx Family Tuberculosis UNKNOWN Other Medical History UNKNOWN Physical Exam: General: Alert and Oriented x3, No Acute Distress HEENT: EOMI Bilaterally, PERRLA Bilaterally, Head is normocephalic, atraumatic on inspection. Cardio: +S1/S2 Auscultated, RRR, no murmurs/rubs/gallops noted Respiratory: Clear to Auscultate Bilaterally Abdominal: Soft, Nondistended, Nontender to palpation x 4 quadrants Genital/Urinary: Extremities: No Edema noted in the lower extremities Neurological: Cranial Nerves II-XII intact bilaterally, Gait Steady, No Focal Deficits noted. Assessment/Plan: Signed, Mamadou Ayala N. 02/27/[id number]
[2017-02-27] MEDS: Sodium Ferric Gluconate 125 MG in Sodium Chloride 0.9% 100 ML IV SCH (15:51)
[2017-02-27] MEDS: Sodium Chloride 0.9% 1,000 ML IV SCH (16:25)
[2017-02-28] MEDS: Diltiazem 30 mg Tab GT SCH ×4 (04:31→22:52)
[2017-02-28] MEDS: Sodium Chloride 0.9% 1,000 ML IV SCH ×2 (05:19→21:48)
[2017-02-28] MEDS: Meropenem 1 gm in NS 0.9% 100 ML IV SCH ×3 (06:28→21:43)
[2017-02-28] MEDS: Albuterol/Ipratropium Neb 3 ML AERS HHN SCH ×4 (07:18→18:49)
[2017-02-28 08:18] LABS: HEMOGLOBIN 9.5 gm/dL (12.6-17.4); MEAN CELL VOLUME 89.1 fl (80-99); MEAN CORPUSCULAR HEMOGLOBIN 30.2 pg (27.0-31.0); MEAN CORPUSCULAR HGB CONC 33.9 pg (28.0-36.0); NEUTROPHILE ABSOLUTE 17.7 Th/cmm (1.8-8.0); PLATELET COUNT 411 Th/cmm (150-400); RED BLOOD COUNT 3.14 Mil/cmm (3.80-5.80); RED CELL DISTRIBUTION WIDTH 15.5 % (11.5-20.0)
[2017-02-28 08:38] LABS: WHITE BLOOD COUNT 21.6 Th/cmm (4.8-10.8)
[2017-02-28 08:40] LABS: ANION GAP 6.9 (7.0-16.0); BUN - UREA NITROGEN 38 mg/dL (7-25); CALCIUM SERUM 8.9 mg/dL (8.6-10.3); CARBON DIOXIDE 19.2 mEq/L (21.0-31.0); CHLORIDE 111 mEq/L (98-107); GLUCOSE 106 mg/dL (70-105); MAGNESIUM 1.8 mg/dL (1.9-2.7); POTASSIUM SERUM 4.1 mEq/L (3.5-5.1); SODIUM SERUM 133 mEq/L (136-145)
[2017-02-28] MEDS: Hydrocodone/APAP 10 mg/325 mg Tab PO PRN ×2 (09:43→16:05)
[2017-02-28] MEDS: Multivitamin w/ Minerals Tab GT SCH (09:43)
[2017-02-28 10:19] LABS: BAND NEUTROPHILE 8 % (0-10); NEUTROPHILS 75 % (40-80); TOTAL CELLS COUNTED 100
[2017-02-28 10:21] LABS: PLATELET ESTIMATE ADEQUATE (NORMAL)
--- NOTE | 2017-02-28 12:30 | General Progress Note ---
Subjective - Review of Systems Service Date: 02/28/17 Subjective: alert, verbal, comfortable Objective - Results Result Diagrams: 02/28/17 08:00 02/28/17 08:00 Recent Labs: Laboratory Last Values WBC 21.6 Th/cmm (4.8-10.8) H* 02/28/17 08:00 RBC 3.14 Mil/cmm (3.80-5.80) L 02/28/17 08:00 Hgb 9.5 gm/dL (12.6-17.4) L 02/28/17 08:00 Hct 28.0 % (39.0-49.0) L 02/28/17 08:00 MCV 89.1 fl (80-99) 02/28/17 08:00 MCH 30.2 pg (27.0-31.0) 02/28/17 08:00 MCHC Differential 33.9 pg (28.0-36.0) 02/28/17 08:00 RDW 15.5 % (11.5-20.0) 02/28/17 08:00 Plt Count 411 Th/cmm (150-400) H 02/28/17 08:00 MPV 7.0 fl 02/28/17 08:00 Neutrophils % 76.3 % (40.0-80.0) 02/27/17 05:13 Band Neutrophils % 8 % (0-10) 02/28/17 08:00 Lymphocytes % 11.5 % (20.0-50.0) L 02/27/17 05:13 Monocytes % 9.5 % (2.0-10.0) 02/27/17 05:13 Eosinophils % 2.4 % (0.0-5.0) 02/27/17 05:13 Basophils % 0.3 % (0.0-2.0) 02/27/17 05:13 Neutrophils (Manual) 75 % (40-80) 02/28/17 08:00 Lymphocytes 12 % (20-50) L 02/28/17 08:00 Monocytes 5 % (2-10) 02/28/17 08:00 Eosinophils 1 % (0-5) 02/25/17 04:51 Nucleated RBCs 1.0 % (0-0) H 02/23/17 13:57 Platelet Estimate ADEQUATE (NORMAL) 02/28/17 08:00 Platelet Morphology NORMAL (NORMAL) 02/25/17 04:51 Anisocytosis 1+ 02/25/17 04:51 RBC Morph Micro Appear ABNORMAL (NORMAL) 02/25/17 04:51 Total Retics Counted 0.8 % (0.5-1.5) 02/27/17 05:13 Absolute Retic 23.5 Th/cmm 02/27/17 05:13 Corrected Retic Count 0.5 % (0.5-1.5) 02/27/17 05:13 Eos Smear Source URINE 02/26/17 08:15 Eos Smear Total Cells NONE SEEN (NONE SEEN) 02/26/17 08:15 PT 10.8 SECONDS (9.5-11.5) 02/23/17 14:15 INR 1.04 (0.5-1.4) 02/23/17 14:15 PTT (Actin FS) 40.5 SECONDS (26.0-38.0) H 02/23/17 14:15 Sodium 133 mEq/L (136-145) L 02/28/17 08:00 Potassium 4.1 mEq/L (3.5-5.1) 02/28/17 08:00 Chloride 111 mEq/L (98-107) H 02/28/17 08:00 Carbon Dioxide 19.2 mEq/L (21.0-31.0) L 02/28/17 08:00 Anion Gap 6.9 (7.0-16.0) L 02/28/17 08:00 BUN 38 mg/dL (7-25) H 02/28/17 08:00 Creatinine 1.0 mg/dL (0.7-1.3) 02/28/17 08:00 Est GFR ( Amer) TNP 02/28/17 08:00 Est GFR (Non-Af Amer) TNP 02/28/17 08:00 BUN/Creatinine Ratio 38.0 02/28/17 08:00 Glucose 106 mg/dL (70-105) H 02/28/17 08:00 Plasma/Ser Osmolality 297 mOsmol/kg (280-301) 02/26/17 09:00 Whole Bld Lactic Acid 1.14 mmol/L (0.60-1.99) 02/23/17 14:15 Uric Acid 7.6 mg/dL (4.4-7.6) 02/25/17 04:51 Calcium 8.9 mg/dL (8.6-10.3) 02/28/17 08:00 Phosphorus 3.0 mg/dL (2.5-5.0) 02/25/17 04:51 Magnesium 1.8 mg/dL (1.9-2.7) L 02/28/17 08:00 Iron 16 ug/dL (38-169) L 02/24/17 06:10 TIBC 174 ug/dL (250-450) L 02/24/17 06:10 Iron Saturation 9 % (15-55) L 02/24/17 06:10 Unsaturated IBC 158 ug/dL (111-343) 02/24/17 06:10 Total Bilirubin 0.4 mg/dL (0.3-1.0) 02/24/17 06:10 AST 21 U/L (13-39) 02/24/17 06:10 ALT 28 U/L (7-52) 02/24/17 06:10 Alkaline Phosphatase 74 U/L (34-104) 02/24/17 06:10 Creatine Kinase 19 U/L (30-223) L 02/23/17 14:15 Troponin I 0.03 ng/mL (0.01-0.05) 02/23/17 14:15 B-Natriuretic Peptide 66.5 pg/mL (5.0-100.0) 02/24/17 06:10 Total Protein 7.5 gm/dL (6.0-8.3) 02/24/17 06:10 Albumin 2.5 gm/dL (4.2-5.5) L 02/24/17 06:10 Globulin 5.0 gm/dL 02/24/17 06:10 Albumin/Globulin Ratio 0.5 (1.0-1.8) L 02/24/17 06:10 Carcinoembryonic Ag 2.5 ng/mL (0.0-4.7) 02/24/17 06:10 Urine Source [place] 02/23/17 14:05 Urine Color YELLOW 02/23/17 14:05 Urine Clarity HAZY (CLEAR) 02/23/17 14:05 Urine pH 5.5 02/23/17 14:05 Ur Specific [place] 1.005 (1.005-1.030) 02/23/17 14:05 Urine Protein TRACE mg/dL (NEGATIVE) 02/23/17 14:05 Urine Glucose (UA) NEGATIVE mg/dL (NEGATIVE) 02/23/17 14:05 Urine Ketones NEGATIVE mg/dL (NEGATIVE) 02/23/17 14:05 Urine Blood MODERATE (NEGATIVE) H 02/23/17 14:05 Urine Nitrate NEGATIVE (NEGATIVE) 02/23/17 14:05 Urine Bilirubin NEGATIVE (NEGATIVE) 02/23/17 14:05 Urine Urobilinogen 0.2 E.U./dL (0.2 - 1.0) 02/23/17 14:05 Ur Leukocyte Esterase MODERATE (NEGATIVE) H 02/23/17 14:05 Urine RBC >100 /hpf (0-5) H 02/23/17 14:05 Urine WBC 50-100 /hpf (0-5) H 02/23/17 14:05 Ur Epithelial Cells FEW /lpf (FEW) 02/23/17 14:05 Urine Bacteria MANY /hpf (NONE SEEN) 02/23/17 14:05 Ur Random Sodium 97 mmol/L 02/26/17 08:15 Urine Creatinine 35.2 mg/dl (Not Estab.) 02/26/17 08:15 Urine Microalbumin 44.1 ug/mL (Not Estab.) 02/26/17 08:15 Microalb/Creat Ratio 125.3 mg/g creat (0.0-30.0) H 02/26/17 08:15 Stool Occult Blood POSITIVE (NEGATIVE) 02/28/17 09:35 Tobramycin Peak 5.3 ug/mL (4.0-10.0) 02/25/17 11:30 Tobramycin Trough 0.9 ug/mL (0.5-2.0) 02/26/17 09:00 Vancomycin Trough 24.0 ug/mL (10-20) H 02/28/17 08:00 Blood Type A POSITIVE 02/25/17 11:30 Antibody Screen NEGATIVE 02/25/17 11:30 Antibody Identification Anti-A1 COLD AUTO ANTIBODY nonspecific 02/23/17 16: 11 Antibody Identification Anti-A1 COLD AUTO ANTIBODY nonspecific 02/23/17 16: 11 Crossmatch See Detail 02/25/17 11:30 - Physical Exam Vitals and I&O: Vital Signs Temp 98.4 F 02/28/17 04:00 Pulse 95 02/28/17 11:39 Resp 20 02/28/17 11:23 BP 155/95 02/28/17 09:44 Pulse Ox 97 02/28/17 11:23 Intake & Output 02/27/17 02/28/17 02/28/17 18:59 06:59 18:59 Intake Total 1460 1770 100 Output Total 1650 Balance 1460 120 100 Weight (lbs) 81.732 kg Intake: Intake, IV Amount 1460 1350 100 Meropenem 1 gm In Sodium 100 100 100 Chloride 0.9% 100 ml @ 100 mls/hr IV Q8H COUNT INCLUDES THE [facility] Rx# :[id number] Sodium Chloride 0.9% 1, 1000 1000 000 ml @ 100 mls/hr IV . Q10H COUNT INCLUDES THE [facility] Rx#:[id number] Sodium Ferric Gluconate 110 125 mg In Sodium Chloride 0.9% 100 ml @ 100 mls/hr IV Q24HR [facility] Rx#: [id number] Vancomycin HCl 1.25 gm In 250 250 Sodium Chloride 0.9% 250 ml @ 165 mls/hr IV Q12H COUNT INCLUDES THE [facility] Rx#:[id number] Tube Feeding 300 Other 120 Output: Urine 1650 Active Medications: Current Medications Acetaminophen (Tylenol 650mg/20.3ml Suspension) 650 mg GT Q4HR PRN PRN Reason: fever >101 or mild pain Stop: 04/24/17 20:07 Last Admin: 02/27/17 13:58 Dose: 650 mg Acetaminophen/Hydrocodone Bitart ([place] 10 Mg/325 Mg) 1 tab PO Q6H PRN PRN Reason: mod-severe pain Stop: 04/24/17 20:07 Last Admin: 02/28/17 09:43 Dose: 1 tab Albuterol/Ipratropium (Duoneb Neb) 3 ml HHN [id number] COUNT INCLUDES THE [facility] Stop: 04/24/17 18:59 Last Admin: 02/28/17 11:14 Dose: 3 ml Albuterol/Ipratropium (Duoneb Neb) 3 ml HHN Q4HR PRN PRN Reason: Shortness of Breath Stop: 04/24/17 18:55 Ascorbic Acid (Vitamin C) 500 mg GT BID COUNT INCLUDES THE [facility] Stop: 04/26/17 09:59 Last Admin: 02/28/17 09:43 Dose: 500 mg Clonidine HCl (Catapres) 0.1 mg PO Q6HR PRN PRN Reason: SBP ABOVE 160 Stop: 04/27/17 09:53 Last Admin: 02/26/17 11:04 Dose: 0.1 mg Cyanocobalamin (Vitamin B12) 100 mcg IM QMONTH [facility] Stop: 04/26/17 11:59 Last Admin: 02/25/17 12:40 Dose: 100 mcg Diltiazem HCl (Cardizem) 60 mg GT Q8H [facility] Stop: 04/24/17 20:07 Last Admin: 02/28/17 11:39 Dose: 60 mg Docusate Sodium (Colace) 100 mg PO BID [facility] Stop: 04/25/17 08:59 Last Admin: 02/27/17 17:25 Dose: Not Given Folic Acid (Folate) 1 mg GT DAILY COUNT INCLUDES THE [facility] Stop: 04/26/17 09:59 Last Admin: 02/28/17 09:42 Dose: 1 mg Sodium Chloride (Nacl 0.9%) 1,000 mls @ 100 mls/hr IV .Q10H COUNT INCLUDES THE [facility] Stop: 04/24/17 18:17 Last Admin: 02/28/17 05:19 Dose: 100 mls/hr Ferric Sodium Gluconate Complex 125 mg/ Sodium Chloride 110 mls @ 100 mls/hr IV Q24HR COUNT INCLUDES THE [facility] Stop: 03/05/17 15:29 Last Infusion: 02/27/17 16:57 Dose: Infused Meropenem 1 gm/ Sodium (Chloride) 100 mls @ 100 mls/hr IV Q8H [facility] Stop: 04/27/17 13:59 Last Infusion: 02/28/17 07:28 Dose: Infused Vancomycin HCl 1.25 gm/ Sodium (Chloride) 250 mls @ 165 mls/hr IV Q24H [facility] Stop: 04/29/17 20:59 Lisinopril (Zestril) 20 mg GT BID [facility] Stop: 04/25/17 08:59 Last Admin: 02/28/17 09:44 Dose: 20 mg Metoclopramide HCl (Reglan) 5 mg PO BID COUNT INCLUDES THE [facility] Stop: 04/25/17 08:59 Last Admin: 02/28/17 09:42 Dose: 5 mg Miscellaneous (Vte Chemical Prophylaxis Screen/ Admission) 1 ea MC PRN PRN PRN Reason: PROTOCOL Stop: 04/25/17 08:19 Miscellaneous (Pharmacy To Dose) 1 ea MC PRN COUNT INCLUDES THE [facility] Stop: 04/27/17 13:14 Miscellaneous (Vancomycin Iv Per Pharmacy) 1 ea MC PRN COUNT INCLUDES THE [facility] Stop: 04/27/17 18:14 Mupirocin (Bactroban Oint) 1 appl TP BID [facility] Stop: 03/02/17 16:59 Last Admin: 02/28/17 09:49 Dose: 1 appl Pantoprazole Sodium (Protonix) 40 mg IVP DAILY [facility] Stop: 04/25/17 08:59 Last Admin: 02/28/17 09:45 Dose: 40 mg General: Alert, Cooperative, No acute distress HEENT: Atraumatic, EOMI, Mucous membr. moist/pink Neck: Supple, +2 carotid pulse wo bruit Cardiovascular: Regular rate, Normal S1, Normal S2 Lungs: Other Abdomen: Bowel sounds, Soft Extremities: no Edema Neurological: Sensation intact Skin: no Rash Psych/Mental Status: Mood NL - Procedures Procedures: Procedures Procedure Code Date BLOOD TRANSFUSION SERVICE 46094 02/23/17 TRANSFUSE NONAUT RED BLOOD CELLS IN PERIPH VEIN, PERC 93954T0 02/23/17 Assessment/Plan - Assessment Assessment: MANNY Septicemia E. coli Sepsis MRSA, E. coli HAP; E. coli Cx UTI; Right leg MRSA wound infxn B/L HAP Fe def anemia 2nd Slo GI bleed S/P Resp Failure - Plan Plan: Lab - Result Diagrams 02/25/17 04:51 02/25/17 04:51 Current Medications Acetaminophen (Tylenol 650mg/20.3ml Suspension) 650 mg GT Q4HR PRN PRN Reason: fever >101 or mild pain Stop: 04/24/17 20:07 Last Admin: 02/24/17 22:31 Dose: 650 mg Acetaminophen/Hydrocodone Bitart ([place] 10 Mg/325 Mg) 1 tab PO Q6H PRN PRN Reason: mod-severe pain Stop: 04/24/17 20:07 Last Admin: 02/25/17 10:00 Dose: 1 tab Albuterol/Ipratropium (Duoneb Neb) 3 ml HHN [id number] [facility] Stop: 04/24/17 18:59 Last Admin: 02/25/17 11:44 Dose: 3 ml Albuterol/Ipratropium (Duoneb Neb) 3 ml HHN Q4HR PRN PRN Reason: Shortness of Breath Stop: 04/24/17 18:55 Ascorbic Acid (Vitamin C) 500 mg GT BID [facility] Stop: 04/26/17 09:59 Last Admin: 02/25/17 10:50 Dose: 500 mg Cyanocobalamin (Vitamin B12) 100 mcg IM QMONTH [facility] Stop: 04/26/17 11:59 Last Admin: 02/25/17 12:40 Dose: 100 mcg Diltiazem HCl (Cardizem) 60 mg GT Q8H [facility] Stop: 04/24/17 20:07 Last Admin: 02/25/17 12:15 Dose: 60 mg Docusate Sodium (Colace) 100 mg PO BID [facility] Stop: 04/25/17 08:59 Last Admin: 02/25/17 08:53 Dose: 100 mg Enoxaparin Sodium (Lovenox) 30 mg SUBQ DAILY [facility] Stop: 04/25/17 08:59 Last Admin: 02/25/17 09:40 Dose: 30 mg Ferrous Sulfate (Iron) 330 mg GT BID [facility] Stop: 04/25/17 08:59 Last Admin: 02/25/17 08:52 Dose: 330 mg Folic Acid (Folate) 1 mg GT DAILY [facility] Stop: 04/26/17 09:59 Last Admin: 02/25/17 10:50 Dose: 1 mg Sodium Chloride (Nacl 0.9%) 1,000 mls @ 100 mls/hr IV .Q10H [facility] Stop: 04/24/17 18:17 Last Admin: 02/24/17 22:47 Dose: 100 mls/hr Tobramycin Sulfate 180 mg/ (Sodium Chloride) 104.5 mls @ 100 mls/hr IV Q24HR [facility] Stop: 04/27/17 09:59 Lisinopril (Zestril) 20 mg GT BID [facility] Stop: 04/25/17 08:59 Last Admin: 02/25/17 08:53 Dose: 20 mg Metoclopramide HCl (Reglan) 5 mg PO BID [facility] Stop: 04/25/17 08:59 Last Admin: 02/25/17 08:53 Dose: 5 mg Miscellaneous (Vte Chemical Prophylaxis Screen/ Admission) 1 ea MC PRN PRN PRN Reason: PROTOCOL Stop: 04/25/17 08:19 Miscellaneous (Tobramycin Iv Per Pharmacy) 1 ea MC DAILY PRN PRN Reason: TOBRAMYCIN Stop: 04/25/17 09:11 Mupirocin (Bactroban Oint) 1 appl TP BID [facility] Stop: 03/02/17 16:59 Pantoprazole Sodium (Protonix) 40 mg IVP DAILY [facility] Stop: 04/25/17 08:59 Last Admin: 02/25/17 08:52 Dose: 40 mg kidney fnc improved w/ BUN/CR of 38/1 stool OB (+) dc lovenox start Fe IV Hgb/Hct up to 9.5/28 after transfusion, f/u cbc, electrolytes continue Tobra Nutritional Asmnt/Malnutr-PDOC - Dietary Evaluation Malnutrition Findings (Please click <Entered> for more info): Nutritional Asmnt/Malnutrition Start: 02/24/17 13: 11 Text: Status: Complete Freq: Document 02/24/17 13:11 GSUN (Rec: 02/24/17 13:22 GSUN [id number]) Nutritional Asmnt/Malnutrition Patient General Information Nutritional Screening Consult Diagnosis ER: leukocytosis with recent PNA stable, renal insufficiency, dehyration Pertinent Medical Hx/Surgical Hx ER note: HTN, asthma/COPD, chronic respiratory failure, s /p trach, chronic anemia, dysphagia, g-tube Subjective Information 81 year old male from SNF. RD consult for active wound and Jean 12. Visited pt with TESSA Richard at bedside. Pt greeted RD, limited conversation due to trach. Observed tube feeding off at this time as order, confirmed with RN, otherwise tolerating well since adm. Pt papeared overall thin, moderate to severe fat/ muscle wasting to clavicles and chest. Bedscale CBW 143. 1lb vs EMR wt record 126lb on 02/23, questionable weights. Current Diet Order/ Nutrition Support Novasource Renal at 60ml/hr x 20hrs Pertinent Medications Colace, Iron, Reglan, Protonix Nacl 0.9% Pertinent Labs 02/23: BUN 85H, creatinine 1.7H 02/24: BUN 71H, creatinine 1.5H Nutritional Hx/Data Height 1.83 m Height (Calculated Centimeters) 182.9 Current Weight (lbs) 64.909 kg Weight (Calculated Kilograms) 64.9 Weight (Calculated Grams) 91071.1 [place] Body Weight 178 Weight Status Approriate GI Symptoms Usual diet at home [place]: Nepro at 60ml/hr x 20hrs, providing 1200ml 2160kcal. Skin Integrity/Comment: Jean Ortiz. 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 Estimated Nutritional Goals Calories/Kcals/Kg IBW 178lb/80.9kg (underwt for age, muscle/fat depletion, ? PNA, ?CBW) Kcals Calculated 2022-2427kcal (25-30kcal/kg) Protein g/kg: IBW Protein Calculated 65-97g (0.8-1.2g/kg, monitor renal labs) Fluid: ml 2022-2427ml (1ml/kcal) Nutritional Problem 1. 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 and Novasource at [place] Intervention/Recommendation Comments 1. Recommend Novasource Renal 55ml/hr x 20hrs, providing 1100ml total volume, 2200kcal, 100g protein. Expected Outcomes/Goals Expected Outcomes/Goals 1. Pt to meet 100% estimated nutritional needs on tube feeding with tolerance.
[2017-02-28 14:18] LABS: FOLIC ACID >20.0 ng/mL (>3.0)
[2017-02-28] MEDS: Sodium Ferric Gluconate 125 MG in Sodium Chloride 0.9% 100 ML IV SCH (16:04)
[2017-03-01] MEDS: Hydrocodone/APAP 10 mg/325 mg Tab PO PRN ×4 (00:59→22:38)
[2017-03-01] MEDS: Diltiazem 30 mg Tab GT SCH ×3 (04:10→20:59)
[2017-03-01 05:25] LABS: HEMOGLOBIN 8.9 gm/dL (12.6-17.4); MEAN CELL VOLUME 87.7 fl (80-99); MEAN CORPUSCULAR HGB CONC 34.2 pg (28.0-36.0); MEAN PLATELET VOLUME 7.1 fl; PLATELET COUNT 380 Th/cmm (150-400); RED BLOOD COUNT 2.97 Mil/cmm (3.80-5.80); RED CELL DISTRIBUTION WIDTH 15.1 % (11.5-20.0)
[2017-03-01 05:35] LABS: BUN - UREA NITROGEN 36 mg/dL (7-25); CALCIUM SERUM 8.6 mg/dL (8.6-10.3); CARBON DIOXIDE 20.8 mEq/L (21.0-31.0); CHLORIDE 111 mEq/L (98-107); GLUCOSE 149 mg/dL (70-105); POTASSIUM SERUM 3.8 mEq/L (3.5-5.1); SODIUM SERUM 134 mEq/L (136-145)
[2017-03-01] MEDS: Meropenem 1 gm in NS 0.9% 100 ML IV SCH ×3 (05:36→22:29)
[2017-03-01 06:15] LABS: WHITE BLOOD COUNT 16.1 Th/cmm (4.8-10.8)
[2017-03-01 06:41] LABS: BAND NEUTROPHILE 5 % (0-10); NEUTROPHILS 68 % (40-80); PLATELET ESTIMATE ADEQUATE (NORMAL); TOTAL CELLS COUNTED 100
[2017-03-01] MEDS: Albuterol/Ipratropium Neb 3 ML AERS HHN SCH ×4 (07:34→19:00)
[2017-03-01] MEDS: Multivitamin w/ Minerals Tab GT SCH (09:21)
--- NOTE | 2017-03-01 09:54 | Diagnostic Imaging Report ---
CHEST X-RAY: AP view INDICATION: Shortness of breath COMPARISON: 02/26/2017 and previous chest x-rays dating back to 02/23/2017 FINDINGS: Patchy multifocal infiltrates are noted right greater than left with slight increase since previous exam. Tracheostomy tube is stable. There may be a small left effusion. Cardiomegaly is noted. Age-indeterminate left lower rib fractures are noted. IMPRESSION: Patchy multifocal infiltrates right greater left. Findings appear to have slightly increased since prior exam. Cardiomegaly. Age indeterminate left lower rib fractures. Please correlate with clinical findings. No evidence of pneumothorax. Consider dedicated left rib series for further assessment.
--- NOTE | 2017-03-01 11:42 | General Progress Note ---
Subjective - Review of Systems Service Date: 03/01/17 Subjective: sleeping, arousable, comfortable Objective - Results Result Diagrams: 03/01/17 04:45 03/01/17 04:45 Recent Labs: Laboratory Last Values WBC 16.1 Th/cmm (4.8-10.8) H D 03/01/17 04:45 RBC 2.97 Mil/cmm (3.80-5.80) L 03/01/17 04:45 Hgb 8.9 gm/dL (12.6-17.4) L 03/01/17 04:45 Hct 26.0 % (39.0-49.0) L 03/01/17 04:45 MCV 87.7 fl (80-99) 03/01/17 04:45 MCH 30.0 pg (27.0-31.0) 03/01/17 04:45 MCHC Differential 34.2 pg (28.0-36.0) 03/01/17 04:45 RDW 15.1 % (11.5-20.0) 03/01/17 04:45 Plt Count 380 Th/cmm (150-400) 03/01/17 04:45 MPV 7.1 fl 03/01/17 04:45 Neutrophils % 76.3 % (40.0-80.0) 02/27/17 05:13 Band Neutrophils % 5 % (0-10) 03/01/17 04:45 Lymphocytes % 11.5 % (20.0-50.0) L 02/27/17 05:13 Monocytes % 9.5 % (2.0-10.0) 02/27/17 05:13 Eosinophils % 2.4 % (0.0-5.0) 02/27/17 05:13 Basophils % 0.3 % (0.0-2.0) 02/27/17 05:13 Neutrophils (Manual) 68 % (40-80) 03/01/17 04:45 Lymphocytes 17 % (20-50) L 03/01/17 04:45 Monocytes 10 % (2-10) 03/01/17 04:45 Eosinophils 1 % (0-5) 02/25/17 04:51 Nucleated RBCs 1.0 % (0-0) H 02/23/17 13:57 Platelet Estimate ADEQUATE (NORMAL) 03/01/17 04:45 Platelet Morphology NORMAL (NORMAL) 02/25/17 04:51 Anisocytosis 1+ 02/25/17 04:51 RBC Morph Micro Appear ABNORMAL (NORMAL) 02/25/17 04:51 Total Retics Counted 0.8 % (0.5-1.5) 02/27/17 05:13 Absolute Retic 23.5 Th/cmm 02/27/17 05:13 Corrected Retic Count 0.5 % (0.5-1.5) 02/27/17 05:13 Eos Smear Source URINE 02/26/17 08:15 Eos Smear Total Cells NONE SEEN (NONE SEEN) 02/26/17 08:15 PT 10.8 SECONDS (9.5-11.5) 02/23/17 14:15 INR 1.04 (0.5-1.4) 02/23/17 14:15 PTT (Actin FS) 40.5 SECONDS (26.0-38.0) H 02/23/17 14:15 Sodium 134 mEq/L (136-145) L 03/01/17 04:45 Potassium 3.8 mEq/L (3.5-5.1) 03/01/17 04:45 Chloride 111 mEq/L (98-107) H 03/01/17 04:45 Carbon Dioxide 20.8 mEq/L (21.0-31.0) L 03/01/17 04:45 Anion Gap 6.0 (7.0-16.0) L 03/01/17 04:45 BUN 36 mg/dL (7-25) H 03/01/17 04:45 Creatinine 1.0 mg/dL (0.7-1.3) 03/01/17 04:45 Est GFR ( Amer) TNP 03/01/17 04:45 Est GFR (Non-Af Amer) TNP 03/01/17 04:45 BUN/Creatinine Ratio 36.0 03/01/17 04:45 Glucose 149 mg/dL (70-105) H 03/01/17 04:45 Plasma/Ser Osmolality 297 mOsmol/kg (280-301) 02/26/17 09:00 Whole Bld Lactic Acid 1.14 mmol/L (0.60-1.99) 02/23/17 14:15 Uric Acid 7.6 mg/dL (4.4-7.6) 02/25/17 04:51 Calcium 8.6 mg/dL (8.6-10.3) 03/01/17 04:45 Phosphorus 3.0 mg/dL (2.5-5.0) 02/25/17 04:51 Magnesium 1.8 mg/dL (1.9-2.7) L 03/01/17 04:45 Iron 16 ug/dL (38-169) L 02/24/17 06:10 TIBC 174 ug/dL (250-450) L 02/24/17 06:10 Iron Saturation 9 % (15-55) L 02/24/17 06:10 Unsaturated IBC 158 ug/dL (111-343) 02/24/17 06:10 Total Bilirubin 0.4 mg/dL (0.3-1.0) 02/24/17 06:10 AST 21 U/L (13-39) 02/24/17 06:10 ALT 28 U/L (7-52) 02/24/17 06:10 Alkaline Phosphatase 74 U/L (34-104) 02/24/17 06:10 Creatine Kinase 19 U/L (30-223) L 02/23/17 14:15 Troponin I 0.03 ng/mL (0.01-0.05) 02/23/17 14:15 B-Natriuretic Peptide 66.5 pg/mL (5.0-100.0) 02/24/17 06:10 Total Protein 7.5 gm/dL (6.0-8.3) 02/24/17 06:10 Albumin 2.5 gm/dL (4.2-5.5) L 02/24/17 06:10 Globulin 5.0 gm/dL 02/24/17 06:10 Albumin/Globulin Ratio 0.5 (1.0-1.8) L 02/24/17 06:10 Carcinoembryonic Ag 2.5 ng/mL (0.0-4.7) 02/24/17 06:10 Vitamin B12 >1999 pg/mL (211-946) H 02/27/17 13:05 Folic Acid >20.0 ng/mL (>3.0) 02/27/17 13:05 Urine Source [place] 02/23/17 14:05 Urine Color YELLOW 02/23/17 14:05 Urine Clarity HAZY (CLEAR) 02/23/17 14:05 Urine pH 5.5 02/23/17 14:05 Ur Specific [place] 1.005 (1.005-1.030) 02/23/17 14:05 Urine Protein TRACE mg/dL (NEGATIVE) 02/23/17 14:05 Urine Glucose (UA) NEGATIVE mg/dL (NEGATIVE) 02/23/17 14:05 Urine Ketones NEGATIVE mg/dL (NEGATIVE) 02/23/17 14:05 Urine Blood MODERATE (NEGATIVE) H 02/23/17 14:05 Urine Nitrate NEGATIVE (NEGATIVE) 02/23/17 14:05 Urine Bilirubin NEGATIVE (NEGATIVE) 02/23/17 14:05 Urine Urobilinogen 0.2 E.U./dL (0.2 - 1.0) 02/23/17 14:05 Ur Leukocyte Esterase MODERATE (NEGATIVE) H 02/23/17 14:05 Urine RBC >100 /hpf (0-5) H 02/23/17 14:05 Urine WBC 50-100 /hpf (0-5) H 02/23/17 14:05 Ur Epithelial Cells FEW /lpf (FEW) 02/23/17 14:05 Urine Bacteria MANY /hpf (NONE SEEN) 02/23/17 14:05 Ur Random Sodium 97 mmol/L 02/26/17 08:15 Urine Creatinine 35.2 mg/dl (Not Estab.) 02/26/17 08:15 Urine Microalbumin 44.1 ug/mL (Not Estab.) 02/26/17 08:15 Microalb/Creat Ratio 125.3 mg/g creat (0.0-30.0) H 02/26/17 08:15 Stool Occult Blood POSITIVE (NEGATIVE) 02/28/17 09:35 Tobramycin Peak 5.3 ug/mL (4.0-10.0) 02/25/17 11:30 Tobramycin Trough 0.9 ug/mL (0.5-2.0) 02/26/17 09:00 Vancomycin Trough 24.0 ug/mL (10-20) H 02/28/17 08:00 Blood Type A POSITIVE 02/25/17 11:30 Antibody Screen NEGATIVE 02/25/17 11:30 Antibody Identification Anti-A1 COLD AUTO ANTIBODY nonspecific 02/23/17 16: 11 Antibody Identification Anti-A1 COLD AUTO ANTIBODY nonspecific 02/23/17 16: 11 Crossmatch See Detail 02/25/17 11:30 - Physical Exam Vitals and I&O: Vital Signs Temp 98.2 F 03/01/17 08:00 Pulse 85 03/01/17 11:02 Resp 20 03/01/17 11:02 BP 154/85 03/01/17 09:21 Pulse Ox 96 03/01/17 11:02 Intake & Output 02/28/17 03/01/17 03/01/17 18:59 06:59 18:59 Intake Total 1310 550 Output Total 1300 100 Balance 1310 -750 -100 Weight (lbs) 71.214 kg 71.214 kg Intake: Intake, IV Amount 1310 350 Meropenem 1 gm In Sodium 200 100 Chloride 0.9% 100 ml @ 100 mls/hr IV Q8H [facility] Rx# :[id number] Sodium Chloride 0.9% 1, 1000 000 ml @ 100 mls/hr IV . Q10H [facility] Rx#:[id number] Sodium Ferric Gluconate 110 125 mg In Sodium Chloride 0.9% 100 ml @ 100 mls/hr IV Q24HR [facility] Rx#: [id number] Vancomycin HCl 1.25 gm In 250 Sodium Chloride 0.9% 250 ml @ 165 mls/hr IV Q24H [facility] Rx#:[id number] Oral 0 Other 200 Output: Urine 1300 100 Other: Stool Characteristics [place] Active Medications: Current Medications Acetaminophen (Tylenol 650mg/20.3ml Suspension) 650 mg GT Q4HR PRN PRN Reason: fever >101 or mild pain Stop: 04/24/17 20:07 Last Admin: 03/01/17 05:36 Dose: 650 mg Acetaminophen/Hydrocodone Bitart ([place] 10 Mg/325 Mg) 1 tab PO Q6H PRN PRN Reason: mod-severe pain Stop: 04/24/17 20:07 Last Admin: 03/01/17 09:20 Dose: 1 tab Albuterol/Ipratropium (Duoneb Neb) 3 ml HHN [id number] [facility] Stop: 04/24/17 18:59 Last Admin: 03/01/17 10:55 Dose: 3 ml Albuterol/Ipratropium (Duoneb Neb) 3 ml HHN Q4HR PRN PRN Reason: Shortness of Breath Stop: 04/24/17 18:55 Ascorbic Acid (Vitamin C) 500 mg GT BID [facility] Stop: 04/26/17 09:59 Last Admin: 03/01/17 09:22 Dose: 500 mg Clonidine HCl (Catapres) 0.1 mg PO Q6HR PRN PRN Reason: SBP ABOVE 160 Stop: 04/27/17 09:53 Last Admin: 03/01/17 00:59 Dose: 0.1 mg Cyanocobalamin (Vitamin B12) 100 mcg IM QMONTH [facility] Stop: 04/26/17 11:59 Last Admin: 02/25/17 12:40 Dose: 100 mcg Diltiazem HCl (Cardizem) 60 mg GT Q8H [facility] Stop: 04/24/17 20:07 Last Admin: 03/01/17 04:10 Dose: 60 mg Docusate Sodium (Colace) 100 mg PO BID [facility] Stop: 04/25/17 08:59 Last Admin: 03/01/17 09:21 Dose: 100 mg Folic Acid (Folate) 1 mg GT DAILY [facility] Stop: 04/26/17 09:59 Last Admin: 03/01/17 09:21 Dose: 1 mg Sodium Chloride (Nacl 0.9%) 1,000 mls @ 100 mls/hr IV .Q10H [facility] Stop: 04/24/17 18:17 Last Admin: 02/28/17 21:48 Dose: 100 mls/hr Ferric Sodium Gluconate Complex 125 mg/ Sodium Chloride 110 mls @ 100 mls/hr IV Q24HR [facility] Stop: 03/05/17 15:29 Last Infusion: 02/28/17 17:10 Dose: Infused Meropenem 1 gm/ Sodium (Chloride) 100 mls @ 100 mls/hr IV Q8H [facility] Stop: 04/27/17 13:59 Last Admin: 03/01/17 05:36 Dose: 100 mls/hr Vancomycin HCl 1.25 gm/ Sodium (Chloride) 250 mls @ 165 mls/hr IV Q24H [facility] Stop: 04/29/17 20:59 Last Infusion: 03/01/17 02:33 Dose: Infused Lisinopril (Zestril) 20 mg GT BID [facility] Stop: 04/25/17 08:59 Last Admin: 03/01/17 09:21 Dose: 20 mg Metoclopramide HCl (Reglan) 5 mg PO BID [facility] Stop: 04/25/17 08:59 Last Admin: 03/01/17 09:21 Dose: 5 mg Miscellaneous (Vte Chemical Prophylaxis Screen/ Admission) 1 ea PRN PRN PRN Reason: PROTOCOL Stop: 04/25/17 08:19 Miscellaneous (Pharmacy To Dose) 1 [facility] PRN [facility] Stop: 04/27/17 13:14 Miscellaneous (Vancomycin Iv Per Pharmacy) 1 [facility] PRN [facility] Stop: 04/27/17 18:14 Mupirocin (Bactroban Oint) 1 appl TP BID [facility] Stop: 03/02/17 16:59 Last Admin: 03/01/17 09:21 Dose: 1 appl Pantoprazole Sodium (Protonix) 40 mg IVP DAILY [facility] Stop: 04/25/17 08:59 Last Admin: 03/01/17 09:21 Dose: 40 mg General: No acute distress HEENT: Atraumatic, Mucous membr. moist/pink Neck: Supple, +2 carotid pulse wo bruit Cardiovascular: Regular rate, Normal S1, Normal S2 Lungs: Clear to auscultation Abdomen: Bowel sounds, Soft Extremities: no Edema Neurological: Sensation intact Skin: no Rash Psych/Mental Status: Mood NL - Procedures Procedures: Procedures Procedure Code Date BLOOD TRANSFUSION SERVICE 94962 02/23/17 TRANSFUSE NONAUT RED BLOOD CELLS IN PERIPH VEIN, [facility] 49281E5 02/23/17 Assessment/Plan - Assessment Assessment: MANNY Septicemia E. coli Sepsis MRSA, E. coli HAP; E. coli Cx UTI; Right leg MRSA wound infxn Fe def anemia 2nd Slo GI bleed S/P Resp Failure continue ABx - Plan Plan: Lab - Result Diagrams 02/25/17 04:51 02/25/17 04:51 Current Medications Acetaminophen (Tylenol 650mg/20.3ml Suspension) 650 mg GT Q4HR PRN PRN Reason: fever >101 or mild pain Stop: 04/24/17 20:07 Last Admin: 02/24/17 22:31 Dose: 650 mg Acetaminophen/Hydrocodone Bitart ([place] 10 Mg/325 Mg) 1 tab PO Q6H PRN PRN Reason: mod-severe pain Stop: 04/24/17 20:07 Last Admin: 02/25/17 10:00 Dose: 1 tab Albuterol/Ipratropium (Duoneb Neb) 3 ml HHN [id number] [facility] Stop: 04/24/17 18:59 Last Admin: 02/25/17 11:44 Dose: 3 ml Albuterol/Ipratropium (Duoneb Neb) 3 ml HHN Q4HR PRN PRN Reason: Shortness of Breath Stop: 04/24/17 18:55 Ascorbic Acid (Vitamin C) 500 mg GT BID [facility] Stop: 04/26/17 09:59 Last Admin: 02/25/17 10:50 Dose: 500 mg Cyanocobalamin (Vitamin B12) 100 mcg IM QMONTH [facility] Stop: 04/26/17 11:59 Last Admin: 02/25/17 12:40 Dose: 100 mcg Diltiazem HCl (Cardizem) 60 mg GT Q8H [facility] Stop: 04/24/17 20:07 Last Admin: 02/25/17 12:15 Dose: 60 mg Docusate Sodium (Colace) 100 mg PO BID [facility] Stop: 04/25/17 08:59 Last Admin: 02/25/17 08:53 Dose: 100 mg Enoxaparin Sodium (Lovenox) 30 mg SUBQ DAILY [facility] Stop: 04/25/17 08:59 Last Admin: 02/25/17 09:40 Dose: 30 mg Ferrous Sulfate (Iron) 330 mg GT BID [facility] Stop: 04/25/17 08:59 Last Admin: 02/25/17 08:52 Dose: 330 mg Folic Acid (Folate) 1 mg GT DAILY [facility] Stop: 04/26/17 09:59 Last Admin: 02/25/17 10:50 Dose: 1 mg Sodium Chloride (Nacl 0.9%) 1,000 mls @ 100 mls/hr IV .Q10H [facility] Stop: 04/24/17 18:17 Last Admin: 02/24/17 22:47 Dose: 100 mls/hr Tobramycin Sulfate 180 mg/ (Sodium Chloride) 104.5 mls @ 100 mls/hr IV Q24HR [facility] Stop: 04/27/17 09:59 Lisinopril (Zestril) 20 mg GT BID [facility] Stop: 04/25/17 08:59 Last Admin: 02/25/17 08:53 Dose: 20 mg Metoclopramide HCl (Reglan) 5 mg PO BID [facility] Stop: 04/25/17 08:59 Last Admin: 02/25/17 08:53 Dose: 5 mg Miscellaneous (Vte Chemical Prophylaxis Screen/ Admission) 1 ea [facility] PRN PRN PRN Reason: PROTOCOL Stop: 04/25/17 08:19 Miscellaneous (Tobramycin Iv Per Pharmacy) 1 ea [facility] DAILY PRN PRN Reason: TOBRAMYCIN Stop: 04/25/17 09:11 Mupirocin (Bactroban Oint) 1 appl TP BID [facility] Stop: 03/02/17 16:59 Pantoprazole Sodium (Protonix) 40 mg IVP DAILY [facility] Stop: 04/25/17 08:59 Last Admin: 02/25/17 08:52 Dose: 40 mg kidney fnc improved w/ BUN/CR of 36/1 stool OB (+) dc lovenox start Fe IV Hgb/Hct now 8.9/26 f/u cbc, electrolytes continue Tobra Lab - Result Diagrams 03/01/17 04:45 03/01/17 04:45 Nutritional Asmnt/Malnutr-PDOC - Dietary Evaluation Malnutrition Findings (Please click <Entered> for more info): Nutritional Asmnt/Malnutrition Start: 02/24/17 13: 11 Text: Status: Complete Freq: Document 02/24/17 13:11 GSUN (Rec: 02/24/17 13:22 GSUN [email or web address]) Nutritional Asmnt/Malnutrition Patient General Information Nutritional Screening Consult Diagnosis ER: leukocytosis with recent PNA stable, renal insufficiency, dehyration Pertinent Medical Hx/Surgical Hx ER note: HTN, asthma/COPD, chronic respiratory failure, s /p trach, chronic anemia, dysphagia, g-tube Subjective Information 81 year old male from SNF. RD consult for active wound and Jean 12. Visited pt with TESSA Richard at bedside. Pt greeted RD, limited conversation due to trach. Observed tube feeding off at this time as order, confirmed with RN, otherwise tolerating well since adm. Pt papeared overall thin, moderate to severe fat/ muscle wasting to clavicles and chest. Bedscale CBW 143. 1lb vs EMR wt record 126lb on 02/23, questionable weights. Current Diet Order/ Nutrition Support Novasource Renal at 60ml/hr x 20hrs Pertinent Medications Colace, Iron, Reglan, Protonix Nacl 0.9% Pertinent Labs 02/23: BUN 85H, creatinine 1.7H 02/24: BUN 71H, creatinine 1.5H Nutritional Hx/Data Height 1.83 m Height (Calculated Centimeters) 182.9 Current Weight (lbs) 64.909 kg Weight (Calculated Kilograms) 64.9 Weight (Calculated Grams) 13854.1 [place] Body Weight 178 Weight Status Approriate GI Symptoms Usual diet at home [place]: Nepro at 60ml/hr x 20hrs, providing 1200ml 2160kcal. 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 Estimated Nutritional Goals Calories/Kcals/Kg IBW 178lb/80.9kg (underwt for age, muscle/fat depletion, ? PNA, ?CBW) Kcals Calculated 2022-2427kcal (25-30kcal/kg) Protein g/kg: IBW Protein Calculated 65-97g (0.8-1.2g/kg, monitor renal labs) Fluid: ml 2022-2427ml (1ml/kcal) Nutritional Problem 1. 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 Recommend Novasource Renal 55ml/hr x 20hrs, providing 1100ml total volume, 2200kcal, 100g protein. Expected Outcomes/Goals Expected Outcomes/Goals 1. Pt to meet 100% estimated nutritional needs on tube feeding with tolerance.
[2017-03-01] MEDS: Sodium Chloride 0.9% 1,000 ML IV SCH (12:05)
[2017-03-01] MEDS: Sodium Ferric Gluconate 125 MG in Sodium Chloride 0.9% 100 ML IV SCH (15:07)
[2017-03-02] MEDS: Diltiazem 30 mg Tab GT SCH ×3 (04:25→22:10)
[2017-03-02] MEDS: Sodium Chloride 0.9% 1,000 ML IV SCH (04:30)
[2017-03-02] MEDS: Meropenem 1 gm in NS 0.9% 100 ML IV SCH ×2 (05:33→14:51)
[2017-03-02] MEDS: Hydrocodone/APAP 10 mg/325 mg Tab PO PRN ×3 (06:55→18:25)
[2017-03-02] MEDS: Albuterol/Ipratropium Neb 3 ML AERS HHN SCH ×4 (07:25→19:26)
[2017-03-02] MEDS: Multivitamin w/ Minerals Tab GT SCH (10:31)
[2017-03-02 13:07] LABS: FERRITIN 993 ng/mL (30-400); HAPTOGLOBIN 180 mg/dL (34-200)
--- NOTE | 2017-03-02 13:25 | General Progress Note ---
Subjective - Review of Systems Service Date: 03/02/17 Subjective: awake, upright, uncoopertive Objective - Results Result Diagrams: 03/01/17 04:45 03/01/17 04:45 Recent Labs: Laboratory Last Values WBC 16.1 Th/cmm (4.8-10.8) H D 03/01/17 04:45 RBC 2.97 Mil/cmm (3.80-5.80) L 03/01/17 04:45 Hgb 8.9 gm/dL (12.6-17.4) L 03/01/17 04:45 Hct 26.0 % (39.0-49.0) L 03/01/17 04:45 MCV 87.7 fl (80-99) 03/01/17 04:45 MCH 30.0 pg (27.0-31.0) 03/01/17 04:45 MCHC Differential 34.2 pg (28.0-36.0) 03/01/17 04:45 RDW 15.1 % (11.5-20.0) 03/01/17 04:45 Plt Count 380 Th/cmm (150-400) 03/01/17 04:45 MPV 7.1 fl 03/01/17 04:45 Neutrophils % 76.3 % (40.0-80.0) 02/27/17 05:13 Band Neutrophils % 5 % (0-10) 03/01/17 04:45 Lymphocytes % 11.5 % (20.0-50.0) L 02/27/17 05:13 Monocytes % 9.5 % (2.0-10.0) 02/27/17 05:13 Eosinophils % 2.4 % (0.0-5.0) 02/27/17 05:13 Basophils % 0.3 % (0.0-2.0) 02/27/17 05:13 Neutrophils (Manual) 68 % (40-80) 03/01/17 04:45 Lymphocytes 17 % (20-50) L 03/01/17 04:45 Monocytes 10 % (2-10) 03/01/17 04:45 Eosinophils 1 % (0-5) 02/25/17 04:51 Nucleated RBCs 1.0 % (0-0) H 02/23/17 13:57 Platelet Estimate ADEQUATE (NORMAL) 03/01/17 04:45 Platelet Morphology NORMAL (NORMAL) 02/25/17 04:51 Anisocytosis 1+ 02/25/17 04:51 RBC Morph Micro Appear ABNORMAL (NORMAL) 02/25/17 04:51 Total Retics Counted 0.8 % (0.5-1.5) 02/27/17 05:13 Absolute Retic 23.5 Th/cmm 02/27/17 05:13 Corrected Retic Count 0.5 % (0.5-1.5) 02/27/17 05:13 Eos Smear Source URINE 02/26/17 08:15 Eos Smear Total Cells NONE SEEN (NONE SEEN) 02/26/17 08:15 Haptoglobin 180 mg/dL (34-200) 02/27/17 05:13 PT 10.8 SECONDS (9.5-11.5) 02/23/17 14:15 INR 1.04 (0.5-1.4) 02/23/17 14:15 PTT (Actin FS) 40.5 SECONDS (26.0-38.0) H 02/23/17 14:15 Sodium 134 mEq/L (136-145) L 03/01/17 04:45 Potassium 3.8 mEq/L (3.5-5.1) 03/01/17 04:45 Chloride 111 mEq/L (98-107) H 03/01/17 04:45 Carbon Dioxide 20.8 mEq/L (21.0-31.0) L 03/01/17 04:45 Anion Gap 6.0 (7.0-16.0) L 03/01/17 04:45 BUN 36 mg/dL (7-25) H 03/01/17 04:45 Creatinine 1.0 mg/dL (0.7-1.3) 03/01/17 04:45 Est GFR ( Amer) TNP 03/01/17 04:45 Est GFR (Non-Af Amer) TNP 03/01/17 04:45 BUN/Creatinine Ratio 36.0 03/01/17 04:45 Glucose 149 mg/dL (70-105) H 03/01/17 04:45 Plasma/Ser Osmolality 297 mOsmol/kg (280-301) 02/26/17 09:00 Whole Bld Lactic Acid 1.14 mmol/L (0.60-1.99) 02/23/17 14:15 Uric Acid 7.6 mg/dL (4.4-7.6) 02/25/17 04:51 Calcium 8.6 mg/dL (8.6-10.3) 03/01/17 04:45 Phosphorus 3.0 mg/dL (2.5-5.0) 02/25/17 04:51 Magnesium 1.8 mg/dL (1.9-2.7) L 03/01/17 04:45 Iron 16 ug/dL (38-169) L 02/24/17 06:10 TIBC 174 ug/dL (250-450) L 02/24/17 06:10 Iron Saturation 9 % (15-55) L 02/24/17 06:10 Unsaturated IBC 158 ug/dL (111-343) 02/24/17 06:10 Ferritin 993 ng/mL (30-400) H 02/27/17 05:13 Total Bilirubin 0.4 mg/dL (0.3-1.0) 02/24/17 06:10 AST 21 U/L (13-39) 02/24/17 06:10 ALT 28 U/L (7-52) 02/24/17 06:10 Alkaline Phosphatase 74 U/L (34-104) 02/24/17 06:10 Creatine Kinase 19 U/L (30-223) L 02/23/17 14:15 Troponin I 0.03 ng/mL (0.01-0.05) 02/23/17 14:15 B-Natriuretic Peptide 66.5 pg/mL (5.0-100.0) 02/24/17 06:10 Total Protein 7.5 gm/dL (6.0-8.3) 02/24/17 06:10 Albumin 2.5 gm/dL (4.2-5.5) L 02/24/17 06:10 Globulin 5.0 gm/dL 02/24/17 06:10 Albumin/Globulin Ratio 0.5 (1.0-1.8) L 02/24/17 06:10 Carcinoembryonic Ag 2.5 ng/mL (0.0-4.7) 02/24/17 06:10 Vitamin B12 >1999 pg/mL (211-946) H 02/27/17 13:05 Folic Acid >20.0 ng/mL (>3.0) 02/27/17 13:05 Urine Source [place] 02/23/17 14:05 Urine Color YELLOW 02/23/17 14:05 Urine Clarity HAZY (CLEAR) 02/23/17 14:05 Urine pH 5.5 02/23/17 14:05 Ur Specific Excello 1.005 (1.005-1.030) 02/23/17 14:05 Urine Protein TRACE mg/dL (NEGATIVE) 02/23/17 14:05 Urine Glucose (UA) NEGATIVE mg/dL (NEGATIVE) 02/23/17 14:05 Urine Ketones NEGATIVE mg/dL (NEGATIVE) 02/23/17 14:05 Urine Blood MODERATE (NEGATIVE) H 02/23/17 14:05 Urine Nitrate NEGATIVE (NEGATIVE) 02/23/17 14:05 Urine Bilirubin NEGATIVE (NEGATIVE) 02/23/17 14:05 Urine Urobilinogen 0.2 E.U./dL (0.2 - 1.0) 02/23/17 14:05 Ur Leukocyte Esterase MODERATE (NEGATIVE) H 02/23/17 14:05 Urine RBC >100 /hpf (0-5) H 02/23/17 14:05 Urine WBC 50-100 /hpf (0-5) H 02/23/17 14:05 Ur Epithelial Cells FEW /lpf (FEW) 02/23/17 14:05 Urine Bacteria MANY /hpf (NONE SEEN) 02/23/17 14:05 Ur Random Sodium 97 mmol/L 02/26/17 08:15 Urine Creatinine 35.2 mg/dl (Not Estab.) 02/26/17 08:15 Urine Microalbumin 44.1 ug/mL (Not Estab.) 02/26/17 08:15 Microalb/Creat Ratio 125.3 mg/g creat (0.0-30.0) H 02/26/17 08:15 Stool Occult Blood POSITIVE (NEGATIVE) 02/28/17 09:35 Tobramycin Peak 5.3 ug/mL (4.0-10.0) 02/25/17 11:30 Tobramycin Trough 0.9 ug/mL (0.5-2.0) 02/26/17 09:00 Vancomycin Trough 24.0 ug/mL (10-20) H 02/28/17 08:00 Blood Type A POSITIVE 02/25/17 11:30 Antibody Screen NEGATIVE 02/25/17 11:30 Antibody Identification Anti-A1 COLD AUTO ANTIBODY nonspecific 02/23/17 16: 11 Antibody Identification Anti-A1 COLD AUTO ANTIBODY nonspecific 02/23/17 16: 11 Crossmatch See Detail 02/25/17 11:30 - Physical Exam Vitals and I&O: Vital Signs Temp 98.7 F 03/02/17 12:00 Pulse 85 03/02/17 12:00 Resp 18 03/02/17 12:00 BP 159/77 03/02/17 12:00 Pulse Ox 99 03/02/17 12:00 Intake & Output 03/01/17 03/02/17 03/02/17 18:59 06:59 18:59 Intake Total 5346.608 0143 1188.75 Output Total 1200 Balance 40 2290 1188.75 Weight (lbs) 71.214 kg 82.27 kg 82.27 kg Intake: Intake, IV Amount 470.780 0857 438.75 Meropenem 1 gm In Sodium 100.000 200 Chloride 0.9% 100 ml @ 100 mls/hr IV Q8H [facility] Rx# :[id number] Sodium Chloride 0.9% 1, 1000 438.75 000 ml @ 65 mls/hr IV . [id number] [facility] Rx#:[id number] Sodium Ferric Gluconate 110 125 mg In Sodium Chloride 0.9% 100 ml @ 100 mls/hr IV Q24HR [facility] Rx#: [id number] Vancomycin HCl 1.25 gm In 250 Sodium Chloride 0.9% 250 ml @ 165 mls/hr IV Q24H [facility] Rx#:[id number] Oral 0 Tube Feeding 480 720 450 Other 550 120 300 Output: Urine 1200 Other: # Voids 1,300 1,000 # Bowel Movements 0 Stool Characteristics [place] Active Medications: Current Medications Acetaminophen (Tylenol 650mg/20.3ml Suspension) 650 mg GT Q4HR PRN PRN Reason: fever >101 or mild pain Stop: 04/24/17 20:07 Last Admin: 03/02/17 02:13 Dose: 650 mg Acetaminophen/Hydrocodone Bitart (Jasper 10 Mg/325 Mg) 1 tab PO Q6H PRN PRN Reason: mod-severe pain Stop: 04/24/17 20:07 Last Admin: 03/02/17 06:55 Dose: 1 tab Albuterol/Ipratropium (Duoneb Neb) 3 ml HHN [id number] [facility] Stop: 04/24/17 18:59 Last Admin: 03/02/17 11:32 Dose: 3 ml Albuterol/Ipratropium (Duoneb Neb) 3 ml HHN Q4HR PRN PRN Reason: Shortness of Breath Stop: 04/24/17 18:55 Ascorbic Acid (Vitamin C) 500 mg GT BID [facility] Stop: 04/26/17 09:59 Last Admin: 03/02/17 10:30 Dose: 500 mg Clonidine HCl (Catapres) 0.1 mg PO Q6HR PRN PRN Reason: SBP ABOVE 160 Stop: 04/27/17 09:53 Last Admin: 03/01/17 00:59 Dose: 0.1 mg Cyanocobalamin (Vitamin B12) 100 mcg IM QMONTH [facility] Stop: 04/26/17 11:59 Last Admin: 02/25/17 12:40 Dose: 100 mcg Diltiazem HCl (Cardizem) 60 mg GT Q8H [facility] Stop: 04/24/17 20:07 Last Admin: 03/02/17 04:25 Dose: 60 mg Docusate Sodium (Colace) 100 mg PO BID [facility] Stop: 04/25/17 08:59 Last Admin: 03/02/17 10:31 Dose: Not Given Folic Acid (Folate) 1 mg GT DAILY [facility] Stop: 04/26/17 09:59 Last Admin: 03/02/17 10:30 Dose: 1 mg Ferric Sodium Gluconate Complex 125 mg/ Sodium Chloride 110 mls @ 100 mls/hr IV Q24HR [facility] Stop: 03/05/17 15:29 Last Infusion: 03/01/17 16:15 Dose: Infused Meropenem 1 gm/ Sodium (Chloride) 100 mls @ 100 mls/hr IV Q8H [facility] Stop: 04/27/17 13:59 Last Infusion: 03/02/17 06:33 Dose: Infused Vancomycin HCl 1.25 gm/ Sodium (Chloride) 250 mls @ 165 mls/hr IV Q24H [facility] Stop: 04/29/17 20:59 Last Infusion: 03/01/17 22:23 Dose: Infused Sodium Chloride (Nacl 0.9%) 1,000 mls @ 65 mls/hr IV .[id number] [facility] Stop: 04/24/17 18:17 Last Infusion: 03/02/17 11:15 Dose: 0 mls/hr Lisinopril (Zestril) 20 mg GT BID [facility] Stop: 04/25/17 08:59 Last Admin: 03/02/17 10:30 Dose: 20 mg Metoclopramide HCl (Reglan) 5 mg PO BID [facility] Stop: 04/25/17 08:59 Last Admin: 03/02/17 10:31 Dose: 5 mg Miscellaneous (Vte Chemical Prophylaxis Screen/ Admission) 1 ea PRN PRN PRN Reason: PROTOCOL Stop: 04/25/17 08:19 Miscellaneous (Pharmacy To Dose) 1 [facility] PRN [facility] Stop: 04/27/17 13:14 Miscellaneous (Vancomycin Iv Per Pharmacy) 1 [facility] PRN [facility] Stop: 04/27/17 18:14 Mupirocin (Bactroban Oint) 1 appl TP BID [facility] Stop: 03/02/17 16:59 Last Admin: 03/02/17 10:31 Dose: 1 appl Pantoprazole Sodium (Protonix) 40 mg IVP DAILY [facility] Stop: 04/25/17 08:59 Last Admin: 03/02/17 10:31 Dose: 40 mg Physical Exam: sleeping, arousable, comfortable General: Alert, No acute distress HEENT: Atraumatic, EOMI, Mucous membr. moist/pink Neck: Supple, +2 carotid pulse wo bruit Cardiovascular: Regular rate, Normal S1, Normal S2 Lungs: Clear to auscultation Abdomen: Bowel sounds, Soft Extremities: no Edema Neurological: Sensation intact Skin: no Rash Psych/Mental Status: Other (uncooperative) - Procedures Procedures: Procedures Procedure Code Date BLOOD TRANSFUSION SERVICE 64049 02/23/17 TRANSFUSE NONAUT RED BLOOD CELLS IN PERIPH VEIN, [facility] [id number] 02/23/17 Assessment/Plan - Assessment Assessment: MANNY Septicemia E. coli Sepsis MRSA, E. coli HAP; E. coli Cx UTI; Right leg MRSA wound infxn Fe def anemia 2nd Slo GI bleed S/P Resp Failure - Plan Plan: Lab - Result Diagrams 02/25/17 04:51 02/25/17 04:51 Current Medications Acetaminophen (Tylenol 650mg/20.3ml Suspension) 650 mg GT Q4HR PRN PRN Reason: fever >101 or mild pain Stop: 04/24/17 20:07 Last Admin: 02/24/17 22:31 Dose: 650 mg Acetaminophen/Hydrocodone Bitart (Jasper 10 Mg/325 Mg) 1 tab PO Q6H PRN PRN Reason: mod-severe pain Stop: 04/24/17 20:07 Last Admin: 02/25/17 10:00 Dose: 1 tab Albuterol/Ipratropium (Duoneb Neb) 3 ml HHN [id number] [facility] Stop: 04/24/17 18:59 Last Admin: 02/25/17 11:44 Dose: 3 ml Albuterol/Ipratropium (Duoneb Neb) 3 ml HHN Q4HR PRN PRN Reason: Shortness of Breath Stop: 04/24/17 18:55 Ascorbic Acid (Vitamin C) 500 mg GT BID [facility] Stop: 04/26/17 09:59 Last Admin: 02/25/17 10:50 Dose: 500 mg Cyanocobalamin (Vitamin B12) 100 mcg IM QMONTH [facility] Stop: 04/26/17 11:59 Last Admin: 02/25/17 12:40 Dose: 100 mcg Diltiazem HCl (Cardizem) 60 mg GT Q8H [facility] Stop: 04/24/17 20:07 Last Admin: 02/25/17 12:15 Dose: 60 mg Docusate Sodium (Colace) 100 mg PO BID [facility] Stop: 04/25/17 08:59 Last Admin: 02/25/17 08:53 Dose: 100 mg Enoxaparin Sodium (Lovenox) 30 mg SUBQ DAILY [facility] Stop: 04/25/17 08:59 Last Admin: 02/25/17 09:40 Dose: 30 mg Ferrous Sulfate (Iron) 330 mg GT BID [facility] Stop: 04/25/17 08:59 Last Admin: 02/25/17 08:52 Dose: 330 mg Folic Acid (Folate) 1 mg GT DAILY [facility] Stop: 04/26/17 09:59 Last Admin: 02/25/17 10:50 Dose: 1 mg Sodium Chloride (Nacl 0.9%) 1,000 mls @ 100 mls/hr IV .Q10H [facility] Stop: 04/24/17 18:17 Last Admin: 02/24/17 22:47 Dose: 100 mls/hr Tobramycin Sulfate 180 mg/ (Sodium Chloride) 104.5 mls @ 100 mls/hr IV Q24HR [facility] Stop: 04/27/17 09:59 Lisinopril (Zestril) 20 mg GT BID [facility] Stop: 04/25/17 08:59 Last Admin: 02/25/17 08:53 Dose: 20 mg Metoclopramide HCl (Reglan) 5 mg PO BID [facility] Stop: 04/25/17 08:59 Last Admin: 02/25/17 08:53 Dose: 5 mg Miscellaneous (Vte Chemical Prophylaxis Screen/ Admission) 1 ea PRN PRN PRN Reason: PROTOCOL Stop: 04/25/17 08:19 Miscellaneous (Tobramycin Iv Per Pharmacy) 1 ea DAILY PRN PRN Reason: TOBRAMYCIN Stop: 04/25/17 09:11 Mupirocin (Bactroban Oint) 1 appl TP BID [facility] Stop: 03/02/17 16:59 Pantoprazole Sodium (Protonix) 40 mg IVP DAILY [facility] Stop: 04/25/17 08:59 Last Admin: 02/25/17 08:52 Dose: 40 mg kidney fnc improved w/ BUN/CR of 36/1 stool OB (+) dc lovenox start Fe IV Hgb/Hct now 8.9/26 f/u cbc, electrolytes continue Tobra refused blood draw & insertion of iv per POA to abide by pt.'s wishes thus if no iv consider dc plan Lab - Result Diagrams 03/01/17 04:45 03/01/17 04:45 Nutritional Asmnt/Malnutr-PDOC - Dietary Evaluation Malnutrition Findings (Please click <Entered> for more info): Nutritional Asmnt/Malnutrition Start: 02/24/17 13: 11 Text: Status: Complete Freq: Document 02/24/17 13:11 GSUN (Rec: 02/24/17 13:22 GSUN [id number]) Nutritional Asmnt/Malnutrition Patient General Information Nutritional Screening Consult Diagnosis ER: leukocytosis with recent PNA stable, renal insufficiency, dehyration Pertinent Medical Hx/Surgical Hx ER note: HTN, asthma/COPD, chronic respiratory failure, s /p trach, chronic anemia, dysphagia, g-tube Subjective Information 81 year old male from SNF. RD consult for active wound and Jean 12. Visited pt with TESSA Richard at bedside. Pt greeted RD, limited conversation due to trach. Observed tube feeding off at this time as order, confirmed with RN, otherwise tolerating well since adm. Pt papeared overall thin, moderate to severe fat/ muscle wasting to clavicles and chest. Bedscale CBW 143. 1lb vs EMR wt record 126lb on 02/23, questionable weights. Current Diet Order/ Nutrition Support Novasource Renal at 60ml/hr x 20hrs Pertinent Medications Colace, Iron, Reglan, Protonix Nacl 0.9% Pertinent Labs 02/23: BUN 85H, creatinine 1.7H 02/24: BUN 71H, creatinine 1.5H Nutritional Hx/Data Height 1.83 m Height (Calculated Centimeters) 182.9 Current Weight (lbs) 64.909 kg Weight (Calculated Kilograms) 64.9 Weight (Calculated Grams) 85127.1 [place] Body Weight 178 Weight Status Approriate GI Symptoms Usual diet at home [place]: Nepro at 60ml/hr x 20hrs, providing 1200ml 2160kcal. 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 Estimated Nutritional Goals Calories/Kcals/Kg IBW 178lb/80.9kg (underwt for age, muscle/fat depletion, ? PNA, ?CBW) Kcals Calculated 2022-2427kcal (25-30kcal/kg) Protein g/kg: IBW Protein Calculated 65-97g (0.8-1.2g/kg, monitor renal labs) Fluid: ml 2022-2427ml (1ml/kcal) Nutritional Problem 1. Problem Problem Impaired nutrient utilization related to Etiology renal insufficiency aeb Signs/Symptoms: BUN 71 supervisor show operations 1.5 on adm, ER notes, pt is on Nepro at [facility] and Novasource at [facility] Intervention/Recommendation Comments 1. Recommend Novasource Renal 55ml/hr x 20hrs, providing 1100ml total volume, 2200kcal, 100g protein. Expected Outcomes/Goals Expected Outcomes/Goals 1. Pt to meet 100% estimated nutritional needs on tube feeding with tolerance.
[2017-03-02] MEDS: Sodium Ferric Gluconate 125 MG in Sodium Chloride 0.9% 100 ML IV SCH (14:51)
--- NOTE | 2017-03-02 21:39 | Infectious Disease Prog Note ---
Infectious Disease Subjective - Review of Systems Service Date: 03/02/17 Subjective: No new change. No fever. On t bar. Infectious Disease Objective - Results Result Diagrams: 03/01/17 04:45 03/01/17 04:45 Recent Labs: Laboratory Last Values WBC 16.1 Th/cmm (4.8-10.8) H D 03/01/17 04:45 RBC 2.97 Mil/cmm (3.80-5.80) L 03/01/17 04:45 Hgb 8.9 gm/dL (12.6-17.4) L 03/01/17 04:45 Hct 26.0 % (39.0-49.0) L 03/01/17 04:45 MCV 87.7 fl (80-99) 03/01/17 04:45 MCH 30.0 pg (27.0-31.0) 03/01/17 04:45 MCHC Differential 34.2 pg (28.0-36.0) 03/01/17 04:45 RDW 15.1 % (11.5-20.0) 03/01/17 04:45 Plt Count 380 Th/cmm (150-400) 03/01/17 04:45 MPV 7.1 fl 03/01/17 04:45 Neutrophils % 76.3 % (40.0-80.0) 02/27/17 05:13 Band Neutrophils % 5 % (0-10) 03/01/17 04:45 Lymphocytes % 11.5 % (20.0-50.0) L 02/27/17 05:13 Monocytes % 9.5 % (2.0-10.0) 02/27/17 05:13 Eosinophils % 2.4 % (0.0-5.0) 02/27/17 05:13 Basophils % 0.3 % (0.0-2.0) 02/27/17 05:13 Neutrophils (Manual) 68 % (40-80) 03/01/17 04:45 Lymphocytes 17 % (20-50) L 03/01/17 04:45 Monocytes 10 % (2-10) 03/01/17 04:45 Eosinophils 1 % (0-5) 02/25/17 04:51 Nucleated RBCs 1.0 % (0-0) H 02/23/17 13:57 Platelet Estimate ADEQUATE (NORMAL) 03/01/17 04:45 Platelet Morphology NORMAL (NORMAL) 02/25/17 04:51 Anisocytosis 1+ 02/25/17 04:51 RBC Morph Micro Appear ABNORMAL (NORMAL) 02/25/17 04:51 Total Retics Counted 0.8 % (0.5-1.5) 02/27/17 05:13 Absolute Retic 23.5 Th/cmm 02/27/17 05:13 Corrected Retic Count 0.5 % (0.5-1.5) 02/27/17 05:13 Eos Smear Source URINE 02/26/17 08:15 Eos Smear Total Cells NONE SEEN (NONE SEEN) 02/26/17 08:15 Haptoglobin 180 mg/dL (34-200) 02/27/17 05:13 PT 10.8 SECONDS (9.5-11.5) 02/23/17 14:15 INR 1.04 (0.5-1.4) 02/23/17 14:15 PTT (Actin FS) 40.5 SECONDS (26.0-38.0) H 02/23/17 14:15 Sodium 134 mEq/L (136-145) L 03/01/17 04:45 Potassium 3.8 mEq/L (3.5-5.1) 03/01/17 04:45 Chloride 111 mEq/L (98-107) H 03/01/17 04:45 Carbon Dioxide 20.8 mEq/L (21.0-31.0) L 03/01/17 04:45 Anion Gap 6.0 (7.0-16.0) L 03/01/17 04:45 BUN 36 mg/dL (7-25) H 03/01/17 04:45 Creatinine 1.0 mg/dL (0.7-1.3) 03/01/17 04:45 Est GFR ( Amer) TNP 03/01/17 04:45 Est GFR (Non-Af Amer) TNP 03/01/17 04:45 BUN/Creatinine Ratio 36.0 03/01/17 04:45 Glucose 149 mg/dL (70-105) H 03/01/17 04:45 Plasma/Ser Osmolality 297 mOsmol/kg (280-301) 02/26/17 09:00 Whole Bld Lactic Acid 1.14 mmol/L (0.60-1.99) 02/23/17 14:15 Uric Acid 7.6 mg/dL (4.4-7.6) 02/25/17 04:51 Calcium 8.6 mg/dL (8.6-10.3) 03/01/17 04:45 Phosphorus 3.0 mg/dL (2.5-5.0) 02/25/17 04:51 Magnesium 1.8 mg/dL (1.9-2.7) L 03/01/17 04:45 Iron 16 ug/dL (38-169) L 02/24/17 06:10 TIBC 174 ug/dL (250-450) L 02/24/17 06:10 Iron Saturation 9 % (15-55) L 02/24/17 06:10 Unsaturated IBC 158 ug/dL (111-343) 02/24/17 06:10 Ferritin 993 ng/mL (30-400) H 02/27/17 05:13 Total Bilirubin 0.4 mg/dL (0.3-1.0) 02/24/17 06:10 AST 21 U/L (13-39) 02/24/17 06:10 ALT 28 U/L (7-52) 02/24/17 06:10 Alkaline Phosphatase 74 U/L (34-104) 02/24/17 06:10 Creatine Kinase 19 U/L (30-223) L 02/23/17 14:15 Troponin I 0.03 ng/mL (0.01-0.05) 02/23/17 14:15 B-Natriuretic Peptide 66.5 pg/mL (5.0-100.0) 02/24/17 06:10 Total Protein 7.5 gm/dL (6.0-8.3) 02/24/17 06:10 Albumin 2.5 gm/dL (4.2-5.5) L 02/24/17 06:10 Globulin 5.0 gm/dL 02/24/17 06:10 Albumin/Globulin Ratio 0.5 (1.0-1.8) L 02/24/17 06:10 Carcinoembryonic Ag 2.5 ng/mL (0.0-4.7) 02/24/17 06:10 Vitamin B12 >1999 pg/mL (211-946) H 02/27/17 13:05 Folic Acid >20.0 ng/mL (>3.0) 02/27/17 13:05 Urine Source [place] 02/23/17 14:05 Urine Color YELLOW 02/23/17 14:05 Urine Clarity HAZY (CLEAR) 02/23/17 14:05 Urine pH 5.5 02/23/17 14:05 Ur Specific [place] 1.005 (1.005-1.030) 02/23/17 14:05 Urine Protein TRACE mg/dL (NEGATIVE) 02/23/17 14:05 Urine Glucose (UA) NEGATIVE mg/dL (NEGATIVE) 02/23/17 14:05 Urine Ketones NEGATIVE mg/dL (NEGATIVE) 02/23/17 14:05 Urine Blood MODERATE (NEGATIVE) H 02/23/17 14:05 Urine Nitrate NEGATIVE (NEGATIVE) 02/23/17 14:05 Urine Bilirubin NEGATIVE (NEGATIVE) 02/23/17 14:05 Urine Urobilinogen 0.2 E.U./dL (0.2 - 1.0) 02/23/17 14:05 Ur Leukocyte Esterase MODERATE (NEGATIVE) H 02/23/17 14:05 Urine RBC >100 /hpf (0-5) H 02/23/17 14:05 Urine WBC 50-100 /hpf (0-5) H 02/23/17 14:05 Ur Epithelial Cells FEW /lpf (FEW) 02/23/17 14:05 Urine Bacteria MANY /hpf (NONE SEEN) 02/23/17 14:05 Ur Random Sodium 97 mmol/L 02/26/17 08:15 Urine Creatinine 35.2 mg/dl (Not Estab.) 02/26/17 08:15 Urine Microalbumin 44.1 ug/mL (Not Estab.) 02/26/17 08:15 Microalb/Creat Ratio 125.3 mg/g creat (0.0-30.0) H 02/26/17 08:15 Stool Occult Blood POSITIVE (NEGATIVE) 02/28/17 09:35 Tobramycin Peak 5.3 ug/mL (4.0-10.0) 02/25/17 11:30 Tobramycin Trough 0.9 ug/mL (0.5-2.0) 02/26/17 09:00 Vancomycin Trough 24.0 ug/mL (10-20) H 02/28/17 08:00 Blood Type A POSITIVE 02/25/17 11:30 Antibody Screen NEGATIVE 02/25/17 11:30 Antibody Identification Anti-A1 COLD AUTO ANTIBODY nonspecific 02/23/17 16: 11 Antibody Identification Anti-A1 COLD AUTO ANTIBODY nonspecific 02/23/17 16: 11 Crossmatch See Detail 02/25/17 11:30 - Physical Exam Vitals and I&O: Vital Signs Temp 99.2 F 03/02/17 20:00 Pulse 87 03/02/17 20:00 Resp 19 03/02/17 20:00 BP 141/89 03/02/17 20:00 Pulse Ox 99 03/02/17 20:00 Intake & Output 03/02/17 03/02/17 03/03/17 06:59 18:59 06:59 Intake Total 2290 1188.75 Balance 2290 1188.75 Weight (lbs) 82.27 kg 82.27 kg Intake: Intake, IV Amount 1450 438.75 Meropenem 1 gm In Sodium 200 Chloride 0.9% 100 ml @ 100 mls/hr IV Q8H [facility] Rx# :[id number] Sodium Chloride 0.9% 1, 1000 438.75 000 ml @ 65 mls/hr IV . [id number] [facility] Rx#:[id number] Vancomycin HCl 1.25 gm In 250 Sodium Chloride 0.9% 250 ml @ 165 mls/hr IV Q24H [facility] Rx#:[id number] Oral 0 Tube Feeding 720 450 Other 120 300 Other: # Voids 1,300 1,000 Stool Characteristics [place] Active Medications: Current Medications Acetaminophen (Tylenol 650mg/20.3ml Suspension) 650 mg GT Q4HR PRN PRN Reason: fever >101 or mild pain Stop: 04/24/17 20:07 Last Admin: 03/02/17 02:13 Dose: 650 mg Acetaminophen/Hydrocodone Bitart ([place] 10 Mg/325 Mg) 1 tab PO Q6H PRN PRN Reason: mod-severe pain Stop: 04/24/17 20:07 Last Admin: 03/02/17 18:25 Dose: 1 tab Albuterol/Ipratropium (Duoneb Neb) 3 ml HHN [id number] [facility] Stop: 04/24/17 18:59 Last Admin: 03/02/17 19:26 Dose: 3 ml Albuterol/Ipratropium (Duoneb Neb) 3 ml HHN Q4HR PRN PRN Reason: Shortness of Breath Stop: 04/24/17 18:55 Ascorbic Acid (Vitamin C) 500 mg GT BID [facility] Stop: 04/26/17 09:59 Last Admin: 03/02/17 18:24 Dose: 500 mg Clonidine HCl (Catapres) 0.1 mg PO Q6HR PRN PRN Reason: SBP ABOVE 160 Stop: 04/27/17 09:53 Last Admin: 03/01/17 00:59 Dose: 0.1 mg Cyanocobalamin (Vitamin B12) 100 mcg IM QMONTH [facility] Stop: 04/26/17 11:59 Last Admin: 02/25/17 12:40 Dose: 100 mcg Diltiazem HCl (Cardizem) 60 mg GT Q8H [facility] Stop: 04/24/17 20:07 Last Admin: 03/02/17 13:32 Dose: 60 mg Docusate Sodium (Colace) 100 mg PO BID [facility] Stop: 04/25/17 08:59 Last Admin: 03/02/17 18:25 Dose: Not Given Folic Acid (Folate) 1 mg GT DAILY [facility] Stop: 04/26/17 09:59 Last Admin: 03/02/17 10:30 Dose: 1 mg Ferric Sodium Gluconate Complex 125 mg/ Sodium Chloride 110 mls @ 100 mls/hr IV Q24HR [facility] Stop: 03/05/17 15:29 Last Admin: 03/02/17 14:51 Dose: Not Given Meropenem 1 gm/ Sodium (Chloride) 100 mls @ 100 mls/hr IV Q8H [facility] Stop: 04/27/17 13:59 Last Admin: 03/02/17 14:51 Dose: Not Given Vancomycin HCl 1.25 gm/ Sodium (Chloride) 250 mls @ 165 mls/hr IV Q24H [facility] Stop: 04/29/17 20:59 Last Infusion: 03/01/17 22:23 Dose: Infused Sodium Chloride (Nacl 0.9%) 1,000 mls @ 65 mls/hr IV .[id number] [facility] Stop: 04/24/17 18:17 Last Infusion: 03/02/17 11:15 Dose: 0 mls/hr Lisinopril (Zestril) 20 mg GT BID [facility] Stop: 04/25/17 08:59 Last Admin: 03/02/17 18:33 Dose: 20 mg Metoclopramide HCl (Reglan) 5 mg PO BID [facility] Stop: 04/25/17 08:59 Last Admin: 03/02/17 18:24 Dose: 5 mg Miscellaneous (Vte Chemical Prophylaxis Screen/ Admission) 1 [facility] PRN PRN PRN Reason: PROTOCOL Stop: 04/25/17 08:19 Miscellaneous (Pharmacy To Dose) 1 [facility] PRN [facility] Stop: 04/27/17 13:14 Miscellaneous (Vancomycin Iv Per Pharmacy) 1 [facility] PRN [facility] Stop: 04/27/17 18:14 Pantoprazole Sodium (Protonix) 40 mg IVP DAILY [facility] Stop: 04/25/17 08:59 Last Admin: 03/02/17 10:31 Dose: 40 mg General: no acute distress, cachectic HEENT: atraumatic, normocephalic, PERRLA, EOMI, moist mucous membrane Neck: supple, tracheostomy, no thyromegaly Cardiovascular: S1S2, regular Lungs: clear to percussion, crackles, no clear to auscultation bilaterally Abdomen: soft, other (G tube.), no tender, no distended Extremities: no cyanosis, no clubbing, no edema Neurological: awake, alert, oriented Skin: intact - Procedures Procedures: Procedures Procedure Code Date BLOOD TRANSFUSION SERVICE 73436 02/23/17 TRANSFUSE NONAUT RED BLOOD CELLS IN PERIPH VEIN, PERC 95014N7 02/23/17 Infectious Disease Assmt/Plan - Assessment Assessment: Impression: 1. E coli sepsis. 2. E coli UTi. 3. Pneumonia. 4. Infected right leg wounds. MRSA. 5. Respiratory failure. - Plan Plan: Continue vanco IV and Meropenem. Wound care. Nutritional Asmnt/Malnutr-PDOC - Dietary Evaluation Malnutrition Findings (Please click <Entered> for more info): Nutritional Asmnt/Malnutrition Start: 02/24/17 13: 11 Text: Status: Complete Freq: Document 02/24/17 13:11 GSUN (Rec: 02/24/17 13:22 GSUN [email or web address]) Nutritional Asmnt/Malnutrition Patient General Information Nutritional Screening Consult Diagnosis ER: leukocytosis with recent PNA stable, renal insufficiency, dehyration Pertinent Medical Hx/Surgical Hx ER note: HTN, asthma/COPD, chronic respiratory failure, s /p trach, chronic anemia, dysphagia, g-tube Subjective Information 81 year old male from SNF. RD consult for active wound and Jean Ortiz. Visited pt with TESSA Richard at bedside. Pt greeted RD, limited conversation due to trach. Observed tube feeding off at this time as order, confirmed with RN, otherwise tolerating well since adm. Pt papeared overall thin, moderate to severe fat/ muscle wasting to clavicles and chest. Bedscale CBW 143. 1lb vs EMR wt record 126lb on 02/23, questionable weights. Current Diet Order/ Nutrition Support Novasource Renal at 60ml/hr x 20hrs Pertinent Medications Colace, Iron, Reglan, Protonix Nacl 0.9% Pertinent Labs 02/23: BUN 85H, creatinine 1.7H 02/24: BUN 71H, creatinine 1.5H Nutritional Hx/Data Height 1.83 m Height (Calculated Centimeters) 182.9 Current Weight (lbs) 64.909 kg Weight (Calculated Kilograms) 64.9 Weight (Calculated Grams) 65701.1 [place] Body Weight 178 Weight Status Approriate GI Symptoms Usual diet at home [place]: Nepro at 60ml/hr x 20hrs, providing 1200ml 2160kcal. 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 Estimated Nutritional Goals Calories/Kcals/Kg IBW 178lb/80.9kg (underwt for age, muscle/fat depletion, ? PNA, ?CBW) Kcals Calculated 2022-2427kcal (25-30kcal/kg) Protein g/kg: IBW Protein Calculated 65-97g (0.8-1.2g/kg, monitor renal labs) Fluid: ml 2022-2427ml (1ml/kcal) Nutritional Problem 1. 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 Recommend Novasource Renal 55ml/hr x 20hrs, providing 1100ml total volume, 2200kcal, 100g protein. Expected Outcomes/Goals Expected Outcomes/Goals 1. Pt to meet 100% estimated nutritional needs on tube feeding with tolerance.
[2017-03-03] MEDS: Hydrocodone/APAP 10 mg/325 mg Tab PO PRN ×4 (01:24→19:53)
[2017-03-03] MEDS: Meropenem 1 gm in NS 0.9% 100 ML IV SCH ×2 (05:13→20:06)
[2017-03-03] MEDS: Albuterol/Ipratropium Neb 3 ML AERS HHN SCH ×4 (06:59→18:41)
[2017-03-03] MEDS: Multivitamin w/ Minerals Tab GT SCH (08:09)
[2017-03-03] MEDS ORDERED: Vancomycin HCl 1.5 GM in Sodium Chloride 0.9% 500 ML IV SCH (10:00)
--- NOTE | 2017-03-03 11:56 | Diagnostic Imaging Report ---
Portable chest x-ray HISTORY: Shortness of breath Compared to prior exam of March 01, 2017, there is a poor inspiration. The heart is enlarged. Slight density in the right costophrenic angle region. A small effusion cannot be excluded. Accentuation of the right perihilar markings. IMPRESSION: 1. Allowing for differences in radiographic technique little change from March 01, 2017.
[2017-03-03] MEDS: Diltiazem 30 mg Tab GT SCH ×2 (13:00→19:53)
--- NOTE | 2017-03-03 15:15 | General Progress Note ---
Subjective - Review of Systems Service Date: 03/03/17 Subjective: awake, arousable, slightly elevated Objective - Results Result Diagrams: 03/01/17 04:45 03/01/17 04:45 Recent Labs: Laboratory Last Values WBC 16.1 Th/cmm (4.8-10.8) H D 03/01/17 04:45 RBC 2.97 Mil/cmm (3.80-5.80) L 03/01/17 04:45 Hgb 8.9 gm/dL (12.6-17.4) L 03/01/17 04:45 Hct 26.0 % (39.0-49.0) L 03/01/17 04:45 MCV 87.7 fl (80-99) 03/01/17 04:45 MCH 30.0 pg (27.0-31.0) 03/01/17 04:45 MCHC Differential 34.2 pg (28.0-36.0) 03/01/17 04:45 RDW 15.1 % (11.5-20.0) 03/01/17 04:45 Plt Count 380 Th/cmm (150-400) 03/01/17 04:45 MPV 7.1 fl 03/01/17 04:45 Neutrophils % 76.3 % (40.0-80.0) 02/27/17 05:13 Band Neutrophils % 5 % (0-10) 03/01/17 04:45 Lymphocytes % 11.5 % (20.0-50.0) L 02/27/17 05:13 Monocytes % 9.5 % (2.0-10.0) 02/27/17 05:13 Eosinophils % 2.4 % (0.0-5.0) 02/27/17 05:13 Basophils % 0.3 % (0.0-2.0) 02/27/17 05:13 Neutrophils (Manual) 68 % (40-80) 03/01/17 04:45 Lymphocytes 17 % (20-50) L 03/01/17 04:45 Monocytes 10 % (2-10) 03/01/17 04:45 Eosinophils 1 % (0-5) 02/25/17 04:51 Nucleated RBCs 1.0 % (0-0) H 02/23/17 13:57 Platelet Estimate ADEQUATE (NORMAL) 03/01/17 04:45 Platelet Morphology NORMAL (NORMAL) 02/25/17 04:51 Anisocytosis 1+ 02/25/17 04:51 RBC Morph Micro Appear ABNORMAL (NORMAL) 02/25/17 04:51 Total Retics Counted 0.8 % (0.5-1.5) 02/27/17 05:13 Absolute Retic 23.5 Th/cmm 02/27/17 05:13 Corrected Retic Count 0.5 % (0.5-1.5) 02/27/17 05:13 Eos Smear Source URINE 02/26/17 08:15 Eos Smear Total Cells NONE SEEN (NONE SEEN) 02/26/17 08:15 Haptoglobin 180 mg/dL (34-200) 02/27/17 05:13 PT 10.8 SECONDS (9.5-11.5) 02/23/17 14:15 INR 1.04 (0.5-1.4) 02/23/17 14:15 PTT (Actin FS) 40.5 SECONDS (26.0-38.0) H 02/23/17 14:15 Sodium 134 mEq/L (136-145) L 03/01/17 04:45 Potassium 3.8 mEq/L (3.5-5.1) 03/01/17 04:45 Chloride 111 mEq/L (98-107) H 03/01/17 04:45 Carbon Dioxide 20.8 mEq/L (21.0-31.0) L 03/01/17 04:45 Anion Gap 6.0 (7.0-16.0) L 03/01/17 04:45 BUN 36 mg/dL (7-25) H 03/01/17 04:45 Creatinine 1.0 mg/dL (0.7-1.3) 03/01/17 04:45 Est GFR ( Amer) TNP 03/01/17 04:45 Est GFR (Non-Af Amer) TNP 03/01/17 04:45 BUN/Creatinine Ratio 36.0 03/01/17 04:45 Glucose 149 mg/dL (70-105) H 03/01/17 04:45 Plasma/Ser Osmolality 297 mOsmol/kg (280-301) 02/26/17 09:00 Whole Bld Lactic Acid 1.14 mmol/L (0.60-1.99) 02/23/17 14:15 Uric Acid 7.6 mg/dL (4.4-7.6) 02/25/17 04:51 Calcium 8.6 mg/dL (8.6-10.3) 03/01/17 04:45 Phosphorus 3.0 mg/dL (2.5-5.0) 02/25/17 04:51 Magnesium 1.8 mg/dL (1.9-2.7) L 03/01/17 04:45 Iron 16 ug/dL (38-169) L 02/24/17 06:10 TIBC 174 ug/dL (250-450) L 02/24/17 06:10 Iron Saturation 9 % (15-55) L 02/24/17 06:10 Unsaturated IBC 158 ug/dL (111-343) 02/24/17 06:10 Ferritin 993 ng/mL (30-400) H 02/27/17 05:13 Total Bilirubin 0.4 mg/dL (0.3-1.0) 02/24/17 06:10 AST 21 U/L (13-39) 02/24/17 06:10 ALT 28 U/L (7-52) 02/24/17 06:10 Alkaline Phosphatase 74 U/L (34-104) 02/24/17 06:10 Creatine Kinase 19 U/L (30-223) L 02/23/17 14:15 Troponin I 0.03 ng/mL (0.01-0.05) 02/23/17 14:15 B-Natriuretic Peptide 66.5 pg/mL (5.0-100.0) 02/24/17 06:10 Total Protein 7.5 gm/dL (6.0-8.3) 02/24/17 06:10 Albumin 2.5 gm/dL (4.2-5.5) L 02/24/17 06:10 Globulin 5.0 gm/dL 02/24/17 06:10 Albumin/Globulin Ratio 0.5 (1.0-1.8) L 02/24/17 06:10 Carcinoembryonic Ag 2.5 ng/mL (0.0-4.7) 02/24/17 06:10 Vitamin B12 >1999 pg/mL (211-946) H 02/27/17 13:05 Folic Acid >20.0 ng/mL (>3.0) 02/27/17 13:05 Urine Source [place] 02/23/17 14:05 Urine Color YELLOW 02/23/17 14:05 Urine Clarity HAZY (CLEAR) 02/23/17 14:05 Urine pH 5.5 02/23/17 14:05 Ur Specific [place] 1.005 (1.005-1.030) 02/23/17 14:05 Urine Protein TRACE mg/dL (NEGATIVE) 02/23/17 14:05 Urine Glucose (UA) NEGATIVE mg/dL (NEGATIVE) 02/23/17 14:05 Urine Ketones NEGATIVE mg/dL (NEGATIVE) 02/23/17 14:05 Urine Blood MODERATE (NEGATIVE) H 02/23/17 14:05 Urine Nitrate NEGATIVE (NEGATIVE) 02/23/17 14:05 Urine Bilirubin NEGATIVE (NEGATIVE) 02/23/17 14:05 Urine Urobilinogen 0.2 E.U./dL (0.2 - 1.0) 02/23/17 14:05 Ur Leukocyte Esterase MODERATE (NEGATIVE) H 02/23/17 14:05 Urine RBC >100 /hpf (0-5) H 02/23/17 14:05 Urine WBC 50-100 /hpf (0-5) H 02/23/17 14:05 Ur Epithelial Cells FEW /lpf (FEW) 02/23/17 14:05 Urine Bacteria MANY /hpf (NONE SEEN) 02/23/17 14:05 Ur Random Sodium 97 mmol/L 02/26/17 08:15 Urine Creatinine 35.2 mg/dl (Not Estab.) 02/26/17 08:15 Urine Microalbumin 44.1 ug/mL (Not Estab.) 02/26/17 08:15 Microalb/Creat Ratio 125.3 mg/g creat (0.0-30.0) H 02/26/17 08:15 Stool Occult Blood POSITIVE (NEGATIVE) 02/28/17 09:35 Tobramycin Peak 5.3 ug/mL (4.0-10.0) 02/25/17 11:30 Tobramycin Trough 0.9 ug/mL (0.5-2.0) 02/26/17 09:00 Vancomycin Trough 24.0 ug/mL (10-20) H 02/28/17 08:00 Blood Type A POSITIVE 02/25/17 11:30 Antibody Screen NEGATIVE 02/25/17 11:30 Antibody Identification Anti-A1 COLD AUTO ANTIBODY nonspecific 02/23/17 16: 11 Antibody Identification Anti-A1 COLD AUTO ANTIBODY nonspecific 02/23/17 16: 11 Crossmatch See Detail 02/25/17 11:30 - Physical Exam Vitals and I&O: Vital Signs Temp 98.9 F 03/03/17 11:37 Pulse 92 03/03/17 14:52 Resp 20 03/03/17 14:52 BP 174/95 03/03/17 11:37 Pulse Ox 98 03/03/17 14:52 Intake & Output 03/02/17 03/03/17 03/03/17 18:59 06:59 18:59 Intake Total 1188.75 Balance 1188.75 Weight (lbs) 82.27 kg 79.379 kg 79.379 kg Intake: Intake, IV Amount 438.75 Sodium Chloride 0.9% 1, 438.75 000 ml @ 65 mls/hr IV . [id number] [facility] Rx#:[id number] Oral 0 Tube Feeding 450 Other 300 Other: # Voids 1,000 Stool Characteristics [place] Active Medications: Current Medications Acetaminophen (Tylenol 650mg/20.3ml Suspension) 650 mg GT Q4HR PRN PRN Reason: fever >101 or mild pain Stop: 04/24/17 20:07 Last Admin: 03/02/17 22:12 Dose: 650 mg Acetaminophen/Hydrocodone Bitart ([place] 10 Mg/325 Mg) 1 tab PO Q6H PRN PRN Reason: mod-severe pain Stop: 04/24/17 20:07 Last Admin: 03/03/17 13:46 Dose: 1 tab Albuterol/Ipratropium (Duoneb Neb) 3 ml HHN [id number] [facility] Stop: 04/24/17 18:59 Last Admin: 03/03/17 14:52 Dose: 3 ml Albuterol/Ipratropium (Duoneb Neb) 3 ml HHN Q4HR PRN PRN Reason: Shortness of Breath Stop: 04/24/17 18:55 Ascorbic Acid (Vitamin C) 500 mg GT BID [facility] Stop: 04/26/17 09:59 Last Admin: 03/03/17 08:08 Dose: 500 mg Clonidine HCl (Catapres) 0.1 mg PO Q6HR PRN PRN Reason: SBP ABOVE 160 Stop: 04/27/17 09:53 Last Admin: 03/03/17 07:55 Dose: 0.1 mg Cyanocobalamin (Vitamin B12) 100 mcg IM QMONTH [facility] Stop: 04/26/17 11:59 Last Admin: 02/25/17 12:40 Dose: 100 mcg Diltiazem HCl (Cardizem) 60 mg GT Q8H [facility] Stop: 04/24/17 20:07 Last Admin: 03/03/17 13:00 Dose: 60 mg Docusate Sodium (Colace) 100 mg PO BID [facility] Stop: 04/25/17 08:59 Last Admin: 03/03/17 08:08 Dose: 100 mg Folic Acid (Folate) 1 mg GT DAILY [facility] Stop: 04/26/17 09:59 Last Admin: 03/03/17 08:08 Dose: 1 mg Ferric Sodium Gluconate Complex 125 mg/ Sodium Chloride 110 mls @ 100 mls/hr IV Q24HR [facility] Stop: 03/05/17 15:29 Last Admin: 03/02/17 14:51 Dose: Not Given Meropenem 1 gm/ Sodium (Chloride) 100 mls @ 100 mls/hr IV Q8H [facility] Stop: 04/27/17 13:59 Last Admin: 03/03/17 05:13 Dose: Not Given Sodium Chloride (Nacl 0.9%) 1,000 mls @ 65 mls/hr IV .[id number] [facility] Stop: 04/24/17 18:17 Last Infusion: 03/02/17 11:15 Dose: 0 mls/hr Lisinopril (Zestril) 20 mg GT BID [facility] Stop: 04/25/17 08:59 Last Admin: 03/03/17 08:08 Dose: 20 mg Metoclopramide HCl (Reglan) 5 mg PO BID [facility] Stop: 04/25/17 08:59 Last Admin: 03/03/17 08:08 Dose: 5 mg Miscellaneous (Vte Chemical Prophylaxis Screen/ Admission) 1 ea PRN PRN PRN Reason: PROTOCOL Stop: 04/25/17 08:19 Miscellaneous (Pharmacy To Dose) 1 ea PRN [facility] Stop: 04/27/17 13:14 Miscellaneous (Vancomycin Iv Per Pharmacy) 1 ea PRN [facility] Stop: 04/27/17 18:14 Pantoprazole Sodium (Protonix) 40 mg IVP DAILY [facility] Stop: 04/25/17 08:59 Last Admin: 03/03/17 08:10 Dose: Not Given Physical Exam: sleeping, arousable, comfortable General: Alert, Other (agitated) HEENT: Atraumatic, PERRLA, EOMI, Mucous membr. moist/pink Neck: Supple, +2 carotid pulse wo bruit Cardiovascular: Regular rate, Normal S1, Normal S2 Lungs: Other (few rhonchi) Abdomen: Bowel sounds, Soft Extremities: no Edema Neurological: Sensation intact Skin: no Rash Psych/Mental Status: Mood NL - Procedures Procedures: Procedures Procedure Code Date BLOOD TRANSFUSION SERVICE 76115 02/23/17 TRANSFUSE NONAUT RED BLOOD CELLS IN PERIPH VEIN, PERC 57940R7 02/23/17 Assessment/Plan - Assessment Assessment: MANNY Septicemia E. coli Sepsis MRSA, E. coli HAP; E. coli Cx UTI; Right leg MRSA wound infxn Fe def anemia 2nd Slo GI bleed S/P Resp Failure - Plan Plan: Lab - Result Diagrams 02/25/17 04:51 02/25/17 04:51 Current Medications Acetaminophen (Tylenol 650mg/20.3ml Suspension) 650 mg GT Q4HR PRN PRN Reason: fever >101 or mild pain Stop: 04/24/17 20:07 Last Admin: 02/24/17 22:31 Dose: 650 mg Acetaminophen/Hydrocodone Bitart ([place] 10 Mg/325 Mg) 1 tab PO Q6H PRN PRN Reason: mod-severe pain Stop: 04/24/17 20:07 Last Admin: 02/25/17 10:00 Dose: 1 tab Albuterol/Ipratropium (Duoneb Neb) 3 ml HHN [id number] [facility] Stop: 04/24/17 18:59 Last Admin: 02/25/17 11:44 Dose: 3 ml Albuterol/Ipratropium (Duoneb Neb) 3 ml HHN Q4HR PRN PRN Reason: Shortness of Breath Stop: 04/24/17 18:55 Ascorbic Acid (Vitamin C) 500 mg GT BID [facility] Stop: 04/26/17 09:59 Last Admin: 02/25/17 10:50 Dose: 500 mg Cyanocobalamin (Vitamin B12) 100 mcg IM QMONTH [facility] Stop: 04/26/17 11:59 Last Admin: 02/25/17 12:40 Dose: 100 mcg Diltiazem HCl (Cardizem) 60 mg GT Q8H [facility] Stop: 04/24/17 20:07 Last Admin: 02/25/17 12:15 Dose: 60 mg Docusate Sodium (Colace) 100 mg PO BID [facility] Stop: 04/25/17 08:59 Last Admin: 02/25/17 08:53 Dose: 100 mg Enoxaparin Sodium (Lovenox) 30 mg SUBQ DAILY [facility] Stop: 04/25/17 08:59 Last Admin: 02/25/17 09:40 Dose: 30 mg Ferrous Sulfate (Iron) 330 mg GT BID [facility] Stop: 04/25/17 08:59 Last Admin: 02/25/17 08:52 Dose: 330 mg Folic Acid (Folate) 1 mg GT DAILY [facility] Stop: 04/26/17 09:59 Last Admin: 02/25/17 10:50 Dose: 1 mg Sodium Chloride (Nacl 0.9%) 1,000 mls @ 100 mls/hr IV .Q10H [facility] Stop: 04/24/17 18:17 Last Admin: 02/24/17 22:47 Dose: 100 mls/hr Tobramycin Sulfate 180 mg/ (Sodium Chloride) 104.5 mls @ 100 mls/hr IV Q24HR [facility] Stop: 04/27/17 09:59 Lisinopril (Zestril) 20 mg GT BID [facility] Stop: 04/25/17 08:59 Last Admin: 02/25/17 08:53 Dose: 20 mg Metoclopramide HCl (Reglan) 5 mg PO BID [facility] Stop: 04/25/17 08:59 Last Admin: 02/25/17 08:53 Dose: 5 mg Miscellaneous (Vte Chemical Prophylaxis Screen/ Admission) 1 ea MC PRN PRN PRN Reason: PROTOCOL Stop: 04/25/17 08:19 Miscellaneous (Tobramycin Iv Per Pharmacy) 1 ea MC DAILY PRN PRN Reason: TOBRAMYCIN Stop: 04/25/17 09:11 Mupirocin (Bactroban Oint) 1 appl TP BID [facility] Stop: 03/02/17 16:59 Pantoprazole Sodium (Protonix) 40 mg IVP DAILY [facility] Stop: 04/25/17 08:59 Last Admin: 02/25/17 08:52 Dose: 40 mg kidney fnc improved w/ BUN/CR of 36/1 stool OB (+) dc lovenox start Fe IV Hgb/Hct now 8.9/ f/u cbc, electrolytes continue Tobra refused blood draw & insertion of iv per POA to abide by pt.'s wishes thus if no iv consider dc plan Lab - Result Diagrams Lab - Result Diagrams 03/01/17 04:45 03/01/17 04:45 Nutritional Asmnt/Malnutr-PDOC - Dietary Evaluation Malnutrition Findings (Please click <Entered> for more info): Nutritional Asmnt/Malnutrition Start: 02/24/17 13: 11 Text: Status: Complete Freq: Document 02/24/17 13:11 GSUN (Rec: 02/24/17 13:22 GSUN [id number]) Nutritional Asmnt/Malnutrition Patient General Information Nutritional Screening Consult Diagnosis ER: leukocytosis with recent PNA stable, renal insufficiency, dehyration Pertinent Medical Hx/Surgical Hx ER note: HTN, asthma/COPD, chronic respiratory failure, s /p trach, chronic anemia, dysphagia, g-tube Subjective Information 81 year old male from SNF. RD consult for active wound and Jean 12. Visited pt with TESSA Richard at bedside. Pt greeted RD, limited conversation due to trach. Observed tube feeding off at this time as order, confirmed with RN, otherwise tolerating well since adm. Pt papeared overall thin, moderate to severe fat/ muscle wasting to clavicles and chest. Bedscale CBW 143. 1lb vs EMR wt record 126lb on 02/23, questionable weights. Current Diet Order/ Nutrition Support Novasource Renal at 60ml/hr x 20hrs Pertinent Medications Colace, Iron, Reglan, Protonix Nacl 0.9% Pertinent Labs 02/23: BUN 85H, creatinine 1.7H 02/24: BUN 71H, creatinine 1.5H Nutritional Hx/Data Height 1.83 m Height (Calculated Centimeters) 182.9 Current Weight (lbs) 64.909 kg Weight (Calculated Kilograms) 64.9 Weight (Calculated Grams) 88323.1 [place] Body Weight 178 Weight Status Approriate GI Symptoms Usual diet at home [place]: Nepro at 60ml/hr x 20hrs, providing 1200ml 2160kcal. 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 Estimated Nutritional Goals Calories/Kcals/Kg IBW 178lb/80.9kg (underwt for age, muscle/fat depletion, ? PNA, ?CBW) Kcals Calculated 2022-2427kcal (25-30kcal/kg) Protein g/kg: IBW Protein Calculated 65-97g (0.8-1.2g/kg, monitor renal labs) Fluid: ml 2022-2427ml (1ml/kcal) Nutritional Problem 1. 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 Recommend Novasource Renal 55ml/hr x 20hrs, providing 1100ml total volume, 2200kcal, 100g protein. Expected Outcomes/Goals Expected Outcomes/Goals 1. Pt to meet 100% estimated nutritional needs on tube feeding with tolerance.
[2017-03-03] MEDS: Sodium Ferric Gluconate 125 MG in Sodium Chloride 0.9% 100 ML IV SCH (19:43)
[2017-03-04] MEDS: Hydrocodone/APAP 10 mg/325 mg Tab PO PRN ×4 (01:57→20:35)
[2017-03-04] MEDS: Diltiazem 30 mg Tab GT SCH ×4 (04:30→20:36)
[2017-03-04] MEDS: Albuterol/Ipratropium Neb 3 ML AERS HHN SCH ×4 (07:09→18:51)
[2017-03-04] MEDS: Multivitamin w/ Minerals Tab GT SCH (08:21)
--- NOTE | 2017-03-04 11:21 | General Progress Note ---
Subjective - Review of Systems Service Date: 03/04/17 Subjective: sleeping, arousable, comfortable Objective - Results Result Diagrams: 03/01/17 04:45 03/01/17 04:45 Recent Labs: Laboratory Last Values WBC 16.1 Th/cmm (4.8-10.8) H D 03/01/17 04:45 RBC 2.97 Mil/cmm (3.80-5.80) L 03/01/17 04:45 Hgb 8.9 gm/dL (12.6-17.4) L 03/01/17 04:45 Hct 26.0 % (39.0-49.0) L 03/01/17 04:45 MCV 87.7 fl (80-99) 03/01/17 04:45 MCH 30.0 pg (27.0-31.0) 03/01/17 04:45 MCHC Differential 34.2 pg (28.0-36.0) 03/01/17 04:45 RDW 15.1 % (11.5-20.0) 03/01/17 04:45 Plt Count 380 Th/cmm (150-400) 03/01/17 04:45 MPV 7.1 fl 03/01/17 04:45 Neutrophils % 76.3 % (40.0-80.0) 02/27/17 05:13 Band Neutrophils % 5 % (0-10) 03/01/17 04:45 Lymphocytes % 11.5 % (20.0-50.0) L 02/27/17 05:13 Monocytes % 9.5 % (2.0-10.0) 02/27/17 05:13 Eosinophils % 2.4 % (0.0-5.0) 02/27/17 05:13 Basophils % 0.3 % (0.0-2.0) 02/27/17 05:13 Neutrophils (Manual) 68 % (40-80) 03/01/17 04:45 Lymphocytes 17 % (20-50) L 03/01/17 04:45 Monocytes 10 % (2-10) 03/01/17 04:45 Eosinophils 1 % (0-5) 02/25/17 04:51 Nucleated RBCs 1.0 % (0-0) H 02/23/17 13:57 Platelet Estimate ADEQUATE (NORMAL) 03/01/17 04:45 Platelet Morphology NORMAL (NORMAL) 02/25/17 04:51 Anisocytosis 1+ 02/25/17 04:51 RBC Morph Micro Appear ABNORMAL (NORMAL) 02/25/17 04:51 Total Retics Counted 0.8 % (0.5-1.5) 02/27/17 05:13 Absolute Retic 23.5 Th/cmm 02/27/17 05:13 Corrected Retic Count 0.5 % (0.5-1.5) 02/27/17 05:13 Eos Smear Source URINE 02/26/17 08:15 Eos Smear Total Cells NONE SEEN (NONE SEEN) 02/26/17 08:15 Haptoglobin 180 mg/dL (34-200) 02/27/17 05:13 PT 10.8 SECONDS (9.5-11.5) 02/23/17 14:15 INR 1.04 (0.5-1.4) 02/23/17 14:15 PTT (Actin FS) 40.5 SECONDS (26.0-38.0) H 02/23/17 14:15 Sodium 134 mEq/L (136-145) L 03/01/17 04:45 Potassium 3.8 mEq/L (3.5-5.1) 03/01/17 04:45 Chloride 111 mEq/L (98-107) H 03/01/17 04:45 Carbon Dioxide 20.8 mEq/L (21.0-31.0) L 03/01/17 04:45 Anion Gap 6.0 (7.0-16.0) L 03/01/17 04:45 BUN 36 mg/dL (7-25) H 03/01/17 04:45 Creatinine 1.0 mg/dL (0.7-1.3) 03/01/17 04:45 Est GFR ( Amer) TNP 03/01/17 04:45 Est GFR (Non-Af Amer) TNP 03/01/17 04:45 BUN/Creatinine Ratio 36.0 03/01/17 04:45 Glucose 149 mg/dL (70-105) H 03/01/17 04:45 Plasma/Ser Osmolality 297 mOsmol/kg (280-301) 02/26/17 09:00 Whole Bld Lactic Acid 1.14 mmol/L (0.60-1.99) 02/23/17 14:15 Uric Acid 7.6 mg/dL (4.4-7.6) 02/25/17 04:51 Calcium 8.6 mg/dL (8.6-10.3) 03/01/17 04:45 Phosphorus 3.0 mg/dL (2.5-5.0) 02/25/17 04:51 Magnesium 1.8 mg/dL (1.9-2.7) L 03/01/17 04:45 Iron 16 ug/dL (38-169) L 02/24/17 06:10 TIBC 174 ug/dL (250-450) L 02/24/17 06:10 Iron Saturation 9 % (15-55) L 02/24/17 06:10 Unsaturated IBC 158 ug/dL (111-343) 02/24/17 06:10 Ferritin 993 ng/mL (30-400) H 02/27/17 05:13 Total Bilirubin 0.4 mg/dL (0.3-1.0) 02/24/17 06:10 AST 21 U/L (13-39) 02/24/17 06:10 ALT 28 U/L (7-52) 02/24/17 06:10 Alkaline Phosphatase 74 U/L (34-104) 02/24/17 06:10 Creatine Kinase 19 U/L (30-223) L 02/23/17 14:15 Troponin I 0.03 ng/mL (0.01-0.05) 02/23/17 14:15 B-Natriuretic Peptide 66.5 pg/mL (5.0-100.0) 02/24/17 06:10 Total Protein 7.5 gm/dL (6.0-8.3) 02/24/17 06:10 Albumin 2.5 gm/dL (4.2-5.5) L 02/24/17 06:10 Globulin 5.0 gm/dL 02/24/17 06:10 Albumin/Globulin Ratio 0.5 (1.0-1.8) L 02/24/17 06:10 Carcinoembryonic Ag 2.5 ng/mL (0.0-4.7) 02/24/17 06:10 Vitamin B12 >1999 pg/mL (211-946) H 02/27/17 13:05 Folic Acid >20.0 ng/mL (>3.0) 02/27/17 13:05 Urine Source [place] 02/23/17 14:05 Urine Color YELLOW 02/23/17 14:05 Urine Clarity HAZY (CLEAR) 02/23/17 14:05 Urine pH 5.5 02/23/17 14:05 Ur Specific [place] 1.005 (1.005-1.030) 02/23/17 14:05 Urine Protein TRACE mg/dL (NEGATIVE) 02/23/17 14:05 Urine Glucose (UA) NEGATIVE mg/dL (NEGATIVE) 02/23/17 14:05 Urine Ketones NEGATIVE mg/dL (NEGATIVE) 02/23/17 14:05 Urine Blood MODERATE (NEGATIVE) H 02/23/17 14:05 Urine Nitrate NEGATIVE (NEGATIVE) 02/23/17 14:05 Urine Bilirubin NEGATIVE (NEGATIVE) 02/23/17 14:05 Urine Urobilinogen 0.2 E.U./dL (0.2 - 1.0) 02/23/17 14:05 Ur Leukocyte Esterase MODERATE (NEGATIVE) H 02/23/17 14:05 Urine RBC >100 /hpf (0-5) H 02/23/17 14:05 Urine WBC 50-100 /hpf (0-5) H 02/23/17 14:05 Ur Epithelial Cells FEW /lpf (FEW) 02/23/17 14:05 Urine Bacteria MANY /hpf (NONE SEEN) 02/23/17 14:05 Ur Random Sodium 97 mmol/L 02/26/17 08:15 Urine Creatinine 35.2 mg/dl (Not Estab.) 02/26/17 08:15 Urine Microalbumin 44.1 ug/mL (Not Estab.) 02/26/17 08:15 Microalb/Creat Ratio 125.3 mg/g creat (0.0-30.0) H 02/26/17 08:15 Stool Occult Blood POSITIVE (NEGATIVE) 02/28/17 09:35 Tobramycin Peak 5.3 ug/mL (4.0-10.0) 02/25/17 11:30 Tobramycin Trough 0.9 ug/mL (0.5-2.0) 02/26/17 09:00 Vancomycin Trough 24.0 ug/mL (10-20) H 02/28/17 08:00 Blood Type A POSITIVE 02/25/17 11:30 Antibody Screen NEGATIVE 02/25/17 11:30 Antibody Identification Anti-A1 COLD AUTO ANTIBODY nonspecific 02/23/17 16: 11 Antibody Identification Anti-A1 COLD AUTO ANTIBODY nonspecific 02/23/17 16: 11 Crossmatch See Detail 02/25/17 11:30 - Physical Exam Vitals and I&O: Vital Signs Temp 98.5 F 03/04/17 07:58 Pulse 81 03/04/17 10:57 Resp 20 03/04/17 10:57 BP 148/79 03/04/17 08:20 Pulse Ox 98 03/04/17 10:57 Intake & Output 03/03/17 03/04/17 03/04/17 18:59 06:59 18:59 Intake Total 720 Output Total 380 1000 Balance 340 -1000 Weight (lbs) 76.294 kg 76.884 kg 76.657 kg Intake: Tube Feeding 720 Output: Urine 380 Other 1000 Other: # Bowel Movements 1 Stool Characteristics Soft Liquid Brown Green Active Medications: Current Medications Acetaminophen (Tylenol 650mg/20.3ml Suspension) 650 mg GT Q4HR PRN PRN Reason: fever >101 or mild pain Stop: 04/24/17 20:07 Last Admin: 03/02/17 22:12 Dose: 650 mg Acetaminophen/Hydrocodone Bitart ([place] 10 Mg/325 Mg) 1 tab PO Q6H PRN PRN Reason: mod-severe pain Stop: 04/24/17 20:07 Last Admin: 03/04/17 08:21 Dose: 1 tab Albuterol/Ipratropium (Duoneb Neb) 3 ml HHN [id number] [facility] Stop: 04/24/17 18:59 Last Admin: 03/04/17 10:51 Dose: 3 ml Albuterol/Ipratropium (Duoneb Neb) 3 ml HHN Q4HR PRN PRN Reason: Shortness of Breath Stop: 04/24/17 18:55 Ascorbic Acid (Vitamin C) 500 mg GT BID [facility] Stop: 04/26/17 09:59 Last Admin: 03/04/17 08:21 Dose: 500 mg Clonidine HCl (Catapres) 0.1 mg PO Q6HR PRN PRN Reason: SBP ABOVE 160 Stop: 04/27/17 09:53 Last Admin: 03/03/17 07:55 Dose: 0.1 mg Cyanocobalamin (Vitamin B12) 100 mcg IM QMONTH [facility] Stop: 04/26/17 11:59 Last Admin: 02/25/17 12:40 Dose: 100 mcg Diltiazem HCl (Cardizem) 60 mg GT Q8H [facility] Stop: 04/24/17 20:07 Last Admin: 03/04/17 05:42 Dose: 60 mg Docusate Sodium (Colace) 100 mg PO BID [facility] Stop: 04/25/17 08:59 Last Admin: 03/04/17 08:20 Dose: 100 mg Folic Acid (Folate) 1 mg GT DAILY [facility] Stop: 04/26/17 09:59 Last Admin: 03/04/17 08:21 Dose: 1 mg Ferric Sodium Gluconate Complex 125 mg/ Sodium Chloride 110 mls @ 100 mls/hr IV Q24HR [facility] Stop: 03/05/17 15:29 Last Admin: 03/03/17 19:43 Dose: Not Given Meropenem 1 gm/ Sodium (Chloride) 100 mls @ 100 mls/hr IV Q8H [facility] Stop: 04/27/17 13:59 Last Admin: 03/03/17 20:06 Dose: Not Given Sodium Chloride (Nacl 0.9%) 1,000 mls @ 65 mls/hr IV .[id number] [facility] Stop: 04/24/17 18:17 Last Infusion: 03/02/17 11:15 Dose: 0 mls/hr Vancomycin HCl 1.5 gm/ Sodium (Chloride) 500 mls @ 250 mls/hr IV Q24H [facility] Stop: 05/03/17 08:59 Lisinopril (Zestril) 20 mg GT BID [facility] Stop: 04/25/17 08:59 Last Admin: 03/04/17 08:20 Dose: 20 mg Metoclopramide HCl (Reglan) 5 mg PO BID [facility] Stop: 04/25/17 08:59 Last Admin: 03/04/17 08:20 Dose: 5 mg Miscellaneous (Vte Chemical Prophylaxis Screen/ Admission) 1 ea PRN PRN PRN Reason: PROTOCOL Stop: 04/25/17 08:19 Miscellaneous (Pharmacy To Dose) 1 ea PRN [facility] Stop: 04/27/17 13:14 Miscellaneous (Vancomycin Iv Per Pharmacy) 1 ea PRN [facility] Stop: 04/27/17 18:14 Pantoprazole Sodium (Protonix) 40 mg IVP DAILY [facility] Stop: 04/25/17 08:59 Last Admin: 03/03/17 08:10 Dose: Not Given General: Alert, No acute distress HEENT: EOMI, Mucous membr. moist/pink Neck: Supple, +2 carotid pulse wo bruit Cardiovascular: Regular rate, Normal S1, Normal S2 Lungs: Other (few rhonchi) Abdomen: Bowel sounds, Soft Extremities: no Edema Skin: no Rash Psych/Mental Status: Mood NL - Procedures Procedures: Procedures Procedure Code Date BLOOD TRANSFUSION SERVICE 58951 02/23/17 TRANSFUSE NONAUT RED BLOOD CELLS IN PERIPH VEIN, PERC 17753K1 02/23/17 Assessment/Plan - Assessment Assessment: MANNY Septicemia E. coli Sepsis MRSA, E. coli HAP; E. coli Cx UTI; Right leg MRSA wound infxn Fe def anemia 2nd Slo GI bleed S/P Resp Failure - Plan Plan: Lab - Result Diagrams 02/25/17 04:51 02/25/17 04:51 Current Medications Acetaminophen (Tylenol 650mg/20.3ml Suspension) 650 mg GT Q4HR PRN PRN Reason: fever >101 or mild pain Stop: 04/24/17 20:07 Last Admin: 02/24/17 22:31 Dose: 650 mg Acetaminophen/Hydrocodone Bitart ([place] 10 Mg/325 Mg) 1 tab PO Q6H PRN PRN Reason: mod-severe pain Stop: 04/24/17 20:07 Last Admin: 02/25/17 10:00 Dose: 1 tab Albuterol/Ipratropium (Duoneb Neb) 3 ml HHN [id number] [facility] Stop: 04/24/17 18:59 Last Admin: 02/25/17 11:44 Dose: 3 ml Albuterol/Ipratropium (Duoneb Neb) 3 ml HHN Q4HR PRN PRN Reason: Shortness of Breath Stop: 04/24/17 18:55 Ascorbic Acid (Vitamin C) 500 mg GT BID [facility] Stop: 04/26/17 09:59 Last Admin: 02/25/17 10:50 Dose: 500 mg Cyanocobalamin (Vitamin B12) 100 mcg IM QMONTH [facility] Stop: 04/26/17 11:59 Last Admin: 02/25/17 12:40 Dose: 100 mcg Diltiazem HCl (Cardizem) 60 mg GT Q8H [facility] Stop: 04/24/17 20:07 Last Admin: 02/25/17 12:15 Dose: 60 mg Docusate Sodium (Colace) 100 mg PO BID [facility] Stop: 04/25/17 08:59 Last Admin: 02/25/17 08:53 Dose: 100 mg Enoxaparin Sodium (Lovenox) 30 mg SUBQ DAILY [facility] Stop: 04/25/17 08:59 Last Admin: 02/25/17 09:40 Dose: 30 mg Ferrous Sulfate (Iron) 330 mg GT BID [facility] Stop: 04/25/17 08:59 Last Admin: 02/25/17 08:52 Dose: 330 mg Folic Acid (Folate) 1 mg GT DAILY [facility] Stop: 04/26/17 09:59 Last Admin: 02/25/17 10:50 Dose: 1 mg Sodium Chloride (Nacl 0.9%) 1,000 mls @ 100 mls/hr IV .Q10H [facility] Stop: 04/24/17 18:17 Last Admin: 02/24/17 22:47 Dose: 100 mls/hr Tobramycin Sulfate 180 mg/ (Sodium Chloride) 104.5 mls @ 100 mls/hr IV Q24HR [facility] Stop: 04/27/17 09:59 Lisinopril (Zestril) 20 mg GT BID [facility] Stop: 04/25/17 08:59 Last Admin: 02/25/17 08:53 Dose: 20 mg Metoclopramide HCl (Reglan) 5 mg PO BID [facility] Stop: 04/25/17 08:59 Last Admin: 02/25/17 08:53 Dose: 5 mg Miscellaneous (Vte Chemical Prophylaxis Screen/ Admission) 1 ea MC PRN PRN PRN Reason: PROTOCOL Stop: 04/25/17 08:19 Miscellaneous (Tobramycin Iv Per Pharmacy) 1 ea MC DAILY PRN PRN Reason: TOBRAMYCIN Stop: 04/25/17 09:11 Mupirocin (Bactroban Oint) 1 appl TP BID [facility] Stop: 03/02/17 16:59 Pantoprazole Sodium (Protonix) 40 mg IVP DAILY [facility] Stop: 04/25/17 08:59 Last Admin: 02/25/17 08:52 Dose: 40 mg kidney fnc improved w/ BUN/CR of 36/1 stool OB (+) dc lovenox start Fe IV Hgb/Hct now 8.9 f/u cbc, electrolytes continue Tobra refused blood draw & insertion of iv per POA to abide by pt.'s wishes thus if no iv consider dc plan Lab - Result Diagrams Lab - Result Diagrams 03/01/17 04:45 03/01/17 04:45 Nutritional Asmnt/Malnutr-PDOC - Dietary Evaluation Malnutrition Findings (Please click <Entered> for more info): Nutritional Asmnt/Malnutrition Start: 02/24/17 13: 11 Text: Status: Complete Freq: Document 02/24/17 13:11 GSUN (Rec: 02/24/17 13:22 GSUN [email or web address]) Nutritional Asmnt/Malnutrition Patient General Information Nutritional Screening Consult Diagnosis ER: leukocytosis with recent PNA stable, renal insufficiency, dehyration Pertinent Medical Hx/Surgical Hx ER note: HTN, asthma/COPD, chronic respiratory failure, s /p trach, chronic anemia, dysphagia, g-tube Subjective Information 81 year old male from SNF. RD consult for active wound and Jean Ortiz. Visited pt with TESSA Richard at bedside. Pt greeted RD, limited conversation due to trach. Observed tube feeding off at this time as order, confirmed with RN, otherwise tolerating well since adm. Pt papeared overall thin, moderate to severe fat/ muscle wasting to clavicles and chest. Bedscale CBW 143. 1lb vs EMR wt record 126lb on 02/23, questionable weights. Current Diet Order/ Nutrition Support Novasource Renal at 60ml/hr x 20hrs Pertinent Medications Colace, Iron, Reglan, Protonix Nacl 0.9% Pertinent Labs 02/23: BUN 85H, creatinine 1.7H 02/24: BUN 71H, creatinine 1.5H Nutritional Hx/Data Height 1.83 m Height (Calculated Centimeters) 182.9 Current Weight (lbs) 64.909 kg Weight (Calculated Kilograms) 64.9 Weight (Calculated Grams) 04873.1 [place] Body Weight 178 Weight Status Approriate GI Symptoms Usual diet at home [place]: Nepro at 60ml/hr x 20hrs, providing 1200ml 2160kcal. Skin Integrity/Comment: Jean 12. hand dry cleaner: right leg wound. Estimated Nutritional Goals Calories/Kcals/Kg IBW 178lb/80.9kg (underwt for age, muscle/fat depletion, ? PNA, ?CBW) Kcals Calculated 2022-2427kcal (25-30kcal/kg) Protein g/kg: IBW Protein Calculated 65-97g (0.8-1.2g/kg, monitor renal labs) Fluid: ml 2022-2427ml (1ml/kcal) Nutritional Problem 1. Problem Problem Impaired nutrient utilization related to Etiology renal insufficiency aeb Signs/Symptoms: BUN 71 filler in 1.5 on adm, ER notes, pt is on Nepro at [facility] and Novasource at [facility] Intervention/Recommendation Comments 1. Recommend Novasource Renal 55ml/hr x 20hrs, providing 1100ml total volume, 2200kcal, 100g protein. Expected Outcomes/Goals Expected Outcomes/Goals 1. Pt to meet 100% estimated nutritional needs on tube feeding with tolerance.
[2017-03-04] MEDS: Vancomycin HCl 1.5 GM in Sodium Chloride 0.9% 500 ML IV SCH (13:23)
[2017-03-05] MEDS: Hydrocodone/APAP 10 mg/325 mg Tab PO PRN ×3 (02:39→15:16)
[2017-03-05] MEDS: Diltiazem 30 mg Tab GT SCH ×2 (07:30→12:25)
[2017-03-05] MEDS: Albuterol/Ipratropium Neb 3 ML AERS HHN SCH ×3 (07:31→15:48)
[2017-03-05] MEDS: Vancomycin HCl 1.5 GM in Sodium Chloride 0.9% 500 ML IV SCH (08:41)
[2017-03-05] MEDS: Multivitamin w/ Minerals Tab GT SCH (08:58)
--- NOTE | 2017-03-05 11:03 | Diagnostic Imaging Report ---
CHEST X-RAY: AP view INDICATION: Pneumonia COMPARISON: Chest x-ray 03/03/2017 FINDINGS: Tracheostomy tube is noted. Mild increased interstitial lung markings are again noted with improved lung aeration. Cardiomegaly is noted. IMPRESSION: Mild increased interstitial lung markings. Findings may be chronic. Overall interstitial lung markings have improved since prior examination. No focal consolidation identified. Cardiomegaly.
--- NOTE | 2017-03-05 14:23 | General Progress Note ---
Subjective - Review of Systems Service Date: 03/05/17 Subjective: Awake, still uncooperative, comfortable Objective - Results Result Diagrams: 03/01/17 04:45 03/01/17 04:45 Recent Labs: Laboratory Last Values WBC 16.1 Th/cmm (4.8-10.8) H D 03/01/17 04:45 RBC 2.97 Mil/cmm (3.80-5.80) L 03/01/17 04:45 Hgb 8.9 gm/dL (12.6-17.4) L 03/01/17 04:45 Hct 26.0 % (39.0-49.0) L 03/01/17 04:45 MCV 87.7 fl (80-99) 03/01/17 04:45 MCH 30.0 pg (27.0-31.0) 03/01/17 04:45 MCHC Differential 34.2 pg (28.0-36.0) 03/01/17 04:45 RDW 15.1 % (11.5-20.0) 03/01/17 04:45 Plt Count 380 Th/cmm (150-400) 03/01/17 04:45 MPV 7.1 fl 03/01/17 04:45 Neutrophils % 76.3 % (40.0-80.0) 02/27/17 05:13 Band Neutrophils % 5 % (0-10) 03/01/17 04:45 Lymphocytes % 11.5 % (20.0-50.0) L 02/27/17 05:13 Monocytes % 9.5 % (2.0-10.0) 02/27/17 05:13 Eosinophils % 2.4 % (0.0-5.0) 02/27/17 05:13 Basophils % 0.3 % (0.0-2.0) 02/27/17 05:13 Neutrophils (Manual) 68 % (40-80) 03/01/17 04:45 Lymphocytes 17 % (20-50) L 03/01/17 04:45 Monocytes 10 % (2-10) 03/01/17 04:45 Eosinophils 1 % (0-5) 02/25/17 04:51 Nucleated RBCs 1.0 % (0-0) H 02/23/17 13:57 Platelet Estimate ADEQUATE (NORMAL) 03/01/17 04:45 Platelet Morphology NORMAL (NORMAL) 02/25/17 04:51 Anisocytosis 1+ 02/25/17 04:51 RBC Morph Micro Appear ABNORMAL (NORMAL) 02/25/17 04:51 Total Retics Counted 0.8 % (0.5-1.5) 02/27/17 05:13 Absolute Retic 23.5 Th/cmm 02/27/17 05:13 Corrected Retic Count 0.5 % (0.5-1.5) 02/27/17 05:13 Eos Smear Source URINE 02/26/17 08:15 Eos Smear Total Cells NONE SEEN (NONE SEEN) 02/26/17 08:15 Haptoglobin 180 mg/dL (34-200) 02/27/17 05:13 PT 10.8 SECONDS (9.5-11.5) 02/23/17 14:15 INR 1.04 (0.5-1.4) 02/23/17 14:15 PTT (Actin FS) 40.5 SECONDS (26.0-38.0) H 02/23/17 14:15 Sodium 134 mEq/L (136-145) L 03/01/17 04:45 Potassium 3.8 mEq/L (3.5-5.1) 03/01/17 04:45 Chloride 111 mEq/L (98-107) H 03/01/17 04:45 Carbon Dioxide 20.8 mEq/L (21.0-31.0) L 03/01/17 04:45 Anion Gap 6.0 (7.0-16.0) L 03/01/17 04:45 BUN 36 mg/dL (7-25) H 03/01/17 04:45 Creatinine 1.0 mg/dL (0.7-1.3) 03/01/17 04:45 Est GFR ( Amer) TNP 03/01/17 04:45 Est GFR (Non-Af Amer) TNP 03/01/17 04:45 BUN/Creatinine Ratio 36.0 03/01/17 04:45 Glucose 149 mg/dL (70-105) H 03/01/17 04:45 Plasma/Ser Osmolality 297 mOsmol/kg (280-301) 02/26/17 09:00 Whole Bld Lactic Acid 1.14 mmol/L (0.60-1.99) 02/23/17 14:15 Uric Acid 7.6 mg/dL (4.4-7.6) 02/25/17 04:51 Calcium 8.6 mg/dL (8.6-10.3) 03/01/17 04:45 Phosphorus 3.0 mg/dL (2.5-5.0) 02/25/17 04:51 Magnesium 1.8 mg/dL (1.9-2.7) L 03/01/17 04:45 Iron 16 ug/dL (38-169) L 02/24/17 06:10 TIBC 174 ug/dL (250-450) L 02/24/17 06:10 Iron Saturation 9 % (15-55) L 02/24/17 06:10 Unsaturated IBC 158 ug/dL (111-343) 02/24/17 06:10 Ferritin 993 ng/mL (30-400) H 02/27/17 05:13 Total Bilirubin 0.4 mg/dL (0.3-1.0) 02/24/17 06:10 AST 21 U/L (13-39) 02/24/17 06:10 ALT 28 U/L (7-52) 02/24/17 06:10 Alkaline Phosphatase 74 U/L (34-104) 02/24/17 06:10 Creatine Kinase 19 U/L (30-223) L 02/23/17 14:15 Troponin I 0.03 ng/mL (0.01-0.05) 02/23/17 14:15 B-Natriuretic Peptide 66.5 pg/mL (5.0-100.0) 02/24/17 06:10 Total Protein 7.5 gm/dL (6.0-8.3) 02/24/17 06:10 Albumin 2.5 gm/dL (4.2-5.5) L 02/24/17 06:10 Globulin 5.0 gm/dL 02/24/17 06:10 Albumin/Globulin Ratio 0.5 (1.0-1.8) L 02/24/17 06:10 Carcinoembryonic Ag 2.5 ng/mL (0.0-4.7) 02/24/17 06:10 Vitamin B12 >1999 pg/mL (211-946) H 02/27/17 13:05 Folic Acid >20.0 ng/mL (>3.0) 02/27/17 13:05 Urine Source [place] 02/23/17 14:05 Urine Color YELLOW 02/23/17 14:05 Urine Clarity HAZY (CLEAR) 02/23/17 14:05 Urine pH 5.5 02/23/17 14:05 Ur Specific [place] 1.005 (1.005-1.030) 02/23/17 14:05 Urine Protein TRACE mg/dL (NEGATIVE) 02/23/17 14:05 Urine Glucose (UA) NEGATIVE mg/dL (NEGATIVE) 02/23/17 14:05 Urine Ketones NEGATIVE mg/dL (NEGATIVE) 02/23/17 14:05 Urine Blood MODERATE (NEGATIVE) H 02/23/17 14:05 Urine Nitrate NEGATIVE (NEGATIVE) 02/23/17 14:05 Urine Bilirubin NEGATIVE (NEGATIVE) 02/23/17 14:05 Urine Urobilinogen 0.2 E.U./dL (0.2 - 1.0) 02/23/17 14:05 Ur Leukocyte Esterase MODERATE (NEGATIVE) H 02/23/17 14:05 Urine RBC >100 /hpf (0-5) H 02/23/17 14:05 Urine WBC 50-100 /hpf (0-5) H 02/23/17 14:05 Ur Epithelial Cells FEW /lpf (FEW) 02/23/17 14:05 Urine Bacteria MANY /hpf (NONE SEEN) 02/23/17 14:05 Ur Random Sodium 97 mmol/L 02/26/17 08:15 Urine Creatinine 35.2 mg/dl (Not Estab.) 02/26/17 08:15 Urine Microalbumin 44.1 ug/mL (Not Estab.) 02/26/17 08:15 Microalb/Creat Ratio 125.3 mg/g creat (0.0-30.0) H 02/26/17 08:15 Stool Occult Blood POSITIVE (NEGATIVE) 02/28/17 09:35 Tobramycin Peak 5.3 ug/mL (4.0-10.0) 02/25/17 11:30 Tobramycin Trough 0.9 ug/mL (0.5-2.0) 02/26/17 09:00 Vancomycin Trough 24.0 ug/mL (10-20) H 02/28/17 08:00 Blood Type A POSITIVE 02/25/17 11:30 Antibody Screen NEGATIVE 02/25/17 11:30 Antibody Identification Anti-A1 COLD AUTO ANTIBODY nonspecific 02/23/17 16: 11 Antibody Identification Anti-A1 COLD AUTO ANTIBODY nonspecific 02/23/17 16: 11 Crossmatch See Detail 02/25/17 11:30 - Physical Exam Vitals and I&O: Vital Signs Temp 98.4 F 03/05/17 08:00 Pulse 89 03/05/17 12:25 Resp 18 03/05/17 10:31 BP 162/98 03/05/17 08:59 Pulse Ox 100 03/05/17 10:31 Intake & Output 03/04/17 03/05/17 03/05/17 18:59 06:59 18:59 Intake Total 720 Output Total 1200 1400 Balance -1200 -680 Weight (lbs) 76.657 kg 77.02 kg Intake: Tube Feeding 720 Output: Urine 1200 1400 Other: # Bowel Movements 2 1 Stool Characteristics Soft Soft Soft Liquid Formed Formed Brown Brown Green Green Active Medications: Current Medications Acetaminophen (Tylenol 650mg/20.3ml Suspension) 650 mg GT Q4HR PRN PRN Reason: fever >101 or mild pain Stop: 04/24/17 20:07 Last Admin: 03/02/17 22:12 Dose: 650 mg Acetaminophen/Hydrocodone Bitart ([place] 10 Mg/325 Mg) 1 tab PO Q6H PRN PRN Reason: mod-severe pain Stop: 04/24/17 20:07 Last Admin: 03/05/17 08:59 Dose: 1 tab Albuterol/Ipratropium (Duoneb Neb) 3 ml HHN [id number] [facility] Stop: 04/24/17 18:59 Last Admin: 03/05/17 10:30 Dose: 3 ml Albuterol/Ipratropium (Duoneb Neb) 3 ml HHN Q4HR PRN PRN Reason: Shortness of Breath Stop: 04/24/17 18:55 Ascorbic Acid (Vitamin C) 500 mg GT BID [facility] Stop: 04/26/17 09:59 Last Admin: 03/05/17 08:58 Dose: 500 mg Clonidine HCl (Catapres) 0.1 mg PO Q6HR PRN PRN Reason: SBP ABOVE 160 Stop: 04/27/17 09:53 Last Admin: 03/05/17 03:38 Dose: 0.1 mg Cyanocobalamin (Vitamin B12) 100 mcg IM QMONTH [facility] Stop: 04/26/17 11:59 Last Admin: 02/25/17 12:40 Dose: 100 mcg Diltiazem HCl (Cardizem) 60 mg GT Q8H [facility] Stop: 04/24/17 20:07 Last Admin: 03/05/17 12:25 Dose: 60 mg Docusate Sodium (Colace) 100 mg PO BID [facility] Stop: 04/25/17 08:59 Last Admin: 03/05/17 08:58 Dose: 100 mg Folic Acid (Folate) 1 mg GT DAILY [facility] Stop: 04/26/17 09:59 Last Admin: 03/05/17 08:58 Dose: 1 mg Ferric Sodium Gluconate Complex 125 mg/ Sodium Chloride 110 mls @ 100 mls/hr IV Q24HR [facility] Stop: 03/05/17 15:29 Last Admin: 03/03/17 19:43 Dose: Not Given Meropenem 1 gm/ Sodium (Chloride) 100 mls @ 100 mls/hr IV Q8H [facility] Stop: 04/27/17 13:59 Last Admin: 03/03/17 20:06 Dose: Not Given Sodium Chloride (Nacl 0.9%) 1,000 mls @ 65 mls/hr IV .[id number] [facility] Stop: 04/24/17 18:17 Last Infusion: 03/02/17 11:15 Dose: 0 mls/hr Vancomycin HCl 1.5 gm/ Sodium (Chloride) 500 mls @ 250 mls/hr IV Q24H [facility] Stop: 05/03/17 08:59 Last Admin: 03/05/17 08:41 Dose: Not Given Lisinopril (Zestril) 20 mg GT BID [facility] Stop: 04/25/17 08:59 Last Admin: 03/05/17 08:59 Dose: 20 mg Metoclopramide HCl (Reglan) 5 mg PO BID [facility] Stop: 04/25/17 08:59 Last Admin: 03/05/17 08:58 Dose: 5 mg Miscellaneous (Vte Chemical Prophylaxis Screen/ Admission) 1 ea PRN PRN PRN Reason: PROTOCOL Stop: 04/25/17 08:19 Miscellaneous (Pharmacy To Dose) 1 [facility] PRN [facility] Stop: 04/27/17 13:14 Miscellaneous (Vancomycin Iv Per Pharmacy) 1 ea [facility] PRN [facility] Stop: 04/27/17 18:14 Pantoprazole Sodium (Protonix) 40 mg IVP DAILY [facility] Stop: 04/25/17 08:59 Last Admin: 03/05/17 08:59 Dose: Not Given General: Alert, No acute distress HEENT: Atraumatic, EOMI, Mucous membr. moist/pink Neck: Supple Cardiovascular: Regular rate, Normal S1, Normal S2 Lungs: Other (few rhonchi) Abdomen: Bowel sounds, Soft Extremities: no Edema Neurological: Sensation intact Skin: no Rash Psych/Mental Status: Other (uncooperative) - Procedures Procedures: Procedures Procedure Code Date BLOOD TRANSFUSION SERVICE 66109 02/23/17 TRANSFUSE NONAUT RED BLOOD CELLS IN PERIPH VEIN, PERC 40036I9 02/23/17 Assessment/Plan - Assessment Assessment: MANNY Septicemia E. coli Sepsis MRSA, E. coli HAP; E. coli Cx UTI; Right leg MRSA wound infxn Fe def anemia 2nd Slo GI bleed S/P Resp Failure - Plan Plan: Lab - Result Diagrams 02/25/17 04:51 02/25/17 04:51 Current Medications Acetaminophen (Tylenol 650mg/20.3ml Suspension) 650 mg GT Q4HR PRN PRN Reason: fever >101 or mild pain Stop: 04/24/17 20:07 Last Admin: 02/24/17 22:31 Dose: 650 mg Acetaminophen/Hydrocodone Bitart ([place] 10 Mg/325 Mg) 1 tab PO Q6H PRN PRN Reason: mod-severe pain Stop: 04/24/17 20:07 Last Admin: 02/25/17 10:00 Dose: 1 tab Albuterol/Ipratropium (Duoneb Neb) 3 ml HHN [id number] [facility] Stop: 04/24/17 18:59 Last Admin: 02/25/17 11:44 Dose: 3 ml Albuterol/Ipratropium (Duoneb Neb) 3 ml HHN Q4HR PRN PRN Reason: Shortness of Breath Stop: 04/24/17 18:55 Ascorbic Acid (Vitamin C) 500 mg GT BID [facility] Stop: 04/26/17 09:59 Last Admin: 02/25/17 10:50 Dose: 500 mg Cyanocobalamin (Vitamin B12) 100 mcg IM QMONTH [facility] Stop: 04/26/17 11:59 Last Admin: 02/25/17 12:40 Dose: 100 mcg Diltiazem HCl (Cardizem) 60 mg GT Q8H [facility] Stop: 04/24/17 20:07 Last Admin: 02/25/17 12:15 Dose: 60 mg Docusate Sodium (Colace) 100 mg PO BID [facility] Stop: 04/25/17 08:59 Last Admin: 02/25/17 08:53 Dose: 100 mg Enoxaparin Sodium (Lovenox) 30 mg SUBQ DAILY [facility] Stop: 04/25/17 08:59 Last Admin: 02/25/17 09:40 Dose: 30 mg Ferrous Sulfate (Iron) 330 mg GT BID [facility] Stop: 04/25/17 08:59 Last Admin: 02/25/17 08:52 Dose: 330 mg Folic Acid (Folate) 1 mg GT DAILY [facility] Stop: 04/26/17 09:59 Last Admin: 02/25/17 10:50 Dose: 1 mg Sodium Chloride (Nacl 0.9%) 1,000 mls @ 100 mls/hr IV .Q10H [facility] Stop: 04/24/17 18:17 Last Admin: 02/24/17 22:47 Dose: 100 mls/hr Tobramycin Sulfate 180 mg/ (Sodium Chloride) 104.5 mls @ 100 mls/hr IV Q24HR [facility] Stop: 04/27/17 09:59 Lisinopril (Zestril) 20 mg GT BID [facility] Stop: 04/25/17 08:59 Last Admin: 02/25/17 08:53 Dose: 20 mg Metoclopramide HCl (Reglan) 5 mg PO BID [facility] Stop: 04/25/17 08:59 Last Admin: 02/25/17 08:53 Dose: 5 mg Miscellaneous (Vte Chemical Prophylaxis Screen/ Admission) 1 ea PRN PRN PRN Reason: PROTOCOL Stop: 04/25/17 08:19 Miscellaneous (Tobramycin Iv Per Pharmacy) 1 ea [facility] DAILY PRN PRN Reason: TOBRAMYCIN Stop: 04/25/17 09:11 Mupirocin (Bactroban Oint) 1 appl TP BID [facility] Stop: 03/02/17 16:59 Pantoprazole Sodium (Protonix) 40 mg IVP DAILY [facility] Stop: 04/25/17 08:59 Last Admin: 02/25/17 08:52 Dose: 40 mg kidney fnc improved w/ BUN/CR of 36/1 stool OB (+) dc lovenox start Fe IV Hgb/Hct now 8.9/ Continues to refuse blood draw and insertion IV line per POA to abide by pt.'s wishes Possible discharge today Lab - Result Diagrams Lab - Result Diagrams 03/01/17 04:45 03/01/17 04:45 Nutritional Asmnt/Malnutr-PDOC - Dietary Evaluation Malnutrition Findings (Please click <Entered> for more info): Nutritional Asmnt/Malnutrition Start: 02/24/17 13: 11 Text: Status: Complete Freq: Document 02/24/17 13:11 GSUN (Rec: 02/24/17 13:22 GSUN [id number]) Nutritional Asmnt/Malnutrition Patient General Information Nutritional Screening Consult Diagnosis ER: leukocytosis with recent PNA stable, renal insufficiency, dehyration Pertinent Medical Hx/Surgical Hx ER note: HTN, asthma/COPD, chronic respiratory failure, s /p trach, chronic anemia, dysphagia, g-tube Subjective Information 81 year old male from SNF. RD consult for active wound and Jean 12. Visited pt with TESSA Richard at bedside. Pt greeted RD, limited conversation due to trach. Observed tube feeding off at this time as order, confirmed with RN, otherwise tolerating well since adm. Pt papeared overall thin, moderate to severe fat/ muscle wasting to clavicles and chest. Bedscale CBW 143. 1lb vs EMR wt record 126lb on 02/23, questionable weights. Current Diet Order/ Nutrition Support Novasource Renal at 60ml/hr x 20hrs Pertinent Medications Colace, Iron, Reglan, Protonix Nacl 0.9% Pertinent Labs 02/23: BUN 85H, creatinine 1.7H 02/24: BUN 71H, creatinine 1.5H Nutritional Hx/Data Height 1.83 m Height (Calculated Centimeters) 182.9 Current Weight (lbs) 64.909 kg Weight (Calculated Kilograms) 64.9 Weight (Calculated Grams) 28592.1 [place] Body Weight 178 Weight Status Approriate GI Symptoms Usual diet at home [place]: Nepro at 60ml/hr x 20hrs, providing 1200ml 2160kcal. 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 Estimated Nutritional Goals Calories/Kcals/Kg IBW 178lb/80.9kg (underwt for age, muscle/fat depletion, ? PNA, ?CBW) Kcals Calculated 2022-2427kcal (25-30kcal/kg) Protein g/kg: IBW Protein Calculated 65-97g (0.8-1.2g/kg, monitor renal labs) Fluid: ml 2022-2427ml (1ml/kcal) Nutritional Problem 1. 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 Recommend Novasource Renal 55ml/hr x 20hrs, providing 1100ml total volume, 2200kcal, 100g protein. Expected Outcomes/Goals Expected Outcomes/Goals 1. Pt to meet 100% estimated nutritional needs on tube feeding with tolerance.
--- NOTE | 2017-03-05 16:06 | Infectious Disease Prog Note ---
Infectious Disease Subjective - Review of Systems Service Date: 03/05/17 Subjective: cc pn hpi- pt cxr improved ros no fver o/e vss chest claer trach abd soft ext no edemaa dx pn plan [facility] Infectious Disease Objective - Results Result Diagrams: 03/01/17 04:45 03/01/17 04:45 Recent Labs: Laboratory Last Values WBC 16.1 Th/cmm (4.8-10.8) H D 03/01/17 04:45 RBC 2.97 Mil/cmm (3.80-5.80) L 03/01/17 04:45 Hgb 8.9 gm/dL (12.6-17.4) L 03/01/17 04:45 Hct 26.0 % (39.0-49.0) L 03/01/17 04:45 MCV 87.7 fl (80-99) 03/01/17 04:45 MCH 30.0 pg (27.0-31.0) 03/01/17 04:45 MCHC Differential 34.2 pg (28.0-36.0) 03/01/17 04:45 RDW 15.1 % (11.5-20.0) 03/01/17 04:45 Plt Count 380 Th/cmm (150-400) 03/01/17 04:45 MPV 7.1 fl 03/01/17 04:45 Neutrophils % 76.3 % (40.0-80.0) 02/27/17 05:13 Band Neutrophils % 5 % (0-10) 03/01/17 04:45 Lymphocytes % 11.5 % (20.0-50.0) L 02/27/17 05:13 Monocytes % 9.5 % (2.0-10.0) 02/27/17 05:13 Eosinophils % 2.4 % (0.0-5.0) 02/27/17 05:13 Basophils % 0.3 % (0.0-2.0) 02/27/17 05:13 Neutrophils (Manual) 68 % (40-80) 03/01/17 04:45 Lymphocytes 17 % (20-50) L 03/01/17 04:45 Monocytes 10 % (2-10) 03/01/17 04:45 Eosinophils 1 % (0-5) 02/25/17 04:51 Nucleated RBCs 1.0 % (0-0) H 02/23/17 13:57 Platelet Estimate ADEQUATE (NORMAL) 03/01/17 04:45 Platelet Morphology NORMAL (NORMAL) 02/25/17 04:51 Anisocytosis 1+ 02/25/17 04:51 RBC Morph Micro Appear ABNORMAL (NORMAL) 02/25/17 04:51 Total Retics Counted 0.8 % (0.5-1.5) 02/27/17 05:13 Absolute Retic 23.5 Th/cmm 02/27/17 05:13 Corrected Retic Count 0.5 % (0.5-1.5) 02/27/17 05:13 Eos Smear Source URINE 02/26/17 08:15 Eos Smear Total Cells NONE SEEN (NONE SEEN) 02/26/17 08:15 Haptoglobin 180 mg/dL (34-200) 02/27/17 05:13 PT 10.8 SECONDS (9.5-11.5) 02/23/17 14:15 INR 1.04 (0.5-1.4) 02/23/17 14:15 PTT (Actin FS) 40.5 SECONDS (26.0-38.0) H 02/23/17 14:15 Sodium 134 mEq/L (136-145) L 03/01/17 04:45 Potassium 3.8 mEq/L (3.5-5.1) 03/01/17 04:45 Chloride 111 mEq/L (98-107) H 03/01/17 04:45 Carbon Dioxide 20.8 mEq/L (21.0-31.0) L 03/01/17 04:45 Anion Gap 6.0 (7.0-16.0) L 03/01/17 04:45 BUN 36 mg/dL (7-25) H 03/01/17 04:45 Creatinine 1.0 mg/dL (0.7-1.3) 03/01/17 04:45 Est GFR ( Amer) TNP 03/01/17 04:45 Est GFR (Non-Af Amer) TNP 03/01/17 04:45 BUN/Creatinine Ratio 36.0 03/01/17 04:45 Glucose 149 mg/dL (70-105) H 03/01/17 04:45 Plasma/Ser Osmolality 297 mOsmol/kg (280-301) 02/26/17 09:00 Whole Bld Lactic Acid 1.14 mmol/L (0.60-1.99) 02/23/17 14:15 Uric Acid 7.6 mg/dL (4.4-7.6) 02/25/17 04:51 Calcium 8.6 mg/dL (8.6-10.3) 03/01/17 04:45 Phosphorus 3.0 mg/dL (2.5-5.0) 02/25/17 04:51 Magnesium 1.8 mg/dL (1.9-2.7) L 03/01/17 04:45 Iron 16 ug/dL (38-169) L 02/24/17 06:10 TIBC 174 ug/dL (250-450) L 02/24/17 06:10 Iron Saturation 9 % (15-55) L 02/24/17 06:10 Unsaturated IBC 158 ug/dL (111-343) 02/24/17 06:10 Ferritin 993 ng/mL (30-400) H 02/27/17 05:13 Total Bilirubin 0.4 mg/dL (0.3-1.0) 02/24/17 06:10 AST 21 U/L (13-39) 02/24/17 06:10 ALT 28 U/L (7-52) 02/24/17 06:10 Alkaline Phosphatase 74 U/L (34-104) 02/24/17 06:10 Creatine Kinase 19 U/L (30-223) L 02/23/17 14:15 Troponin I 0.03 ng/mL (0.01-0.05) 02/23/17 14:15 B-Natriuretic Peptide 66.5 pg/mL (5.0-100.0) 02/24/17 06:10 Total Protein 7.5 gm/dL (6.0-8.3) 02/24/17 06:10 Albumin 2.5 gm/dL (4.2-5.5) L 02/24/17 06:10 Globulin 5.0 gm/dL 02/24/17 06:10 Albumin/Globulin Ratio 0.5 (1.0-1.8) L 02/24/17 06:10 Carcinoembryonic Ag 2.5 ng/mL (0.0-4.7) 02/24/17 06:10 Vitamin B12 >1999 pg/mL (211-946) H 02/27/17 13:05 Folic Acid >20.0 ng/mL (>3.0) 02/27/17 13:05 Urine Source [place] 02/23/17 14:05 Urine Color YELLOW 02/23/17 14:05 Urine Clarity HAZY (CLEAR) 02/23/17 14:05 Urine pH 5.5 02/23/17 14:05 Ur Specific Patterson 1.005 (1.005-1.030) 02/23/17 14:05 Urine Protein TRACE mg/dL (NEGATIVE) 02/23/17 14:05 Urine Glucose (UA) NEGATIVE mg/dL (NEGATIVE) 02/23/17 14:05 Urine Ketones NEGATIVE mg/dL (NEGATIVE) 02/23/17 14:05 Urine Blood MODERATE (NEGATIVE) H 02/23/17 14:05 Urine Nitrate NEGATIVE (NEGATIVE) 02/23/17 14:05 Urine Bilirubin NEGATIVE (NEGATIVE) 02/23/17 14:05 Urine Urobilinogen 0.2 E.U./dL (0.2 - 1.0) 02/23/17 14:05 Ur Leukocyte Esterase MODERATE (NEGATIVE) H 02/23/17 14:05 Urine RBC >100 /hpf (0-5) H 02/23/17 14:05 Urine WBC 50-100 /hpf (0-5) H 02/23/17 14:05 Ur Epithelial Cells FEW /lpf (FEW) 02/23/17 14:05 Urine Bacteria MANY /hpf (NONE SEEN) 02/23/17 14:05 Ur Random Sodium 97 mmol/L 02/26/17 08:15 Urine Creatinine 35.2 mg/dl (Not Estab.) 02/26/17 08:15 Urine Microalbumin 44.1 ug/mL (Not Estab.) 02/26/17 08:15 Microalb/Creat Ratio 125.3 mg/g creat (0.0-30.0) H 02/26/17 08:15 Stool Occult Blood POSITIVE (NEGATIVE) 02/28/17 09:35 Tobramycin Peak 5.3 ug/mL (4.0-10.0) 02/25/17 11:30 Tobramycin Trough 0.9 ug/mL (0.5-2.0) 02/26/17 09:00 Vancomycin Trough 24.0 ug/mL (10-20) H 02/28/17 08:00 Blood Type A POSITIVE 02/25/17 11:30 Antibody Screen NEGATIVE 02/25/17 11:30 Antibody Identification Anti-A1 COLD AUTO ANTIBODY nonspecific 02/23/17 16: 11 Antibody Identification Anti-A1 COLD AUTO ANTIBODY nonspecific 02/23/17 16: 11 Crossmatch See Detail 02/25/17 11:30 - Physical Exam Vitals and I&O: Vital Signs Temp 98.3 F 03/05/17 14:55 Pulse 89 03/05/17 14:55 Resp 16 03/05/17 14:55 BP 154/99 03/05/17 14:55 Pulse Ox 98 03/05/17 14:55 Intake & Output 03/04/17 03/05/17 03/05/17 18:59 06:59 18:59 Intake Total 720 Output Total 1200 1400 Balance -1200 -680 Weight (lbs) 76.657 kg 77.02 kg Intake: Tube Feeding 720 Output: Urine 1200 1400 Other: # Bowel Movements 2 1 Stool Characteristics Soft Soft Soft Liquid Formed Formed Brown Brown Green Green Active Medications: Current Medications Acetaminophen (Tylenol 650mg/20.3ml Suspension) 650 mg GT Q4HR PRN PRN Reason: fever >101 or mild pain Stop: 04/24/17 20:07 Last Admin: 03/02/17 22:12 Dose: 650 mg Acetaminophen/Hydrocodone Bitart ([place] 10 Mg/325 Mg) 1 tab PO Q6H PRN PRN Reason: mod-severe pain Stop: 04/24/17 20:07 Last Admin: 03/05/17 15:16 Dose: 1 tab Albuterol/Ipratropium (Duoneb Neb) 3 ml HHN [id number] [facility] Stop: 04/24/17 18:59 Last Admin: 03/05/17 15:48 Dose: Not Given Albuterol/Ipratropium (Duoneb Neb) 3 ml HHN Q4HR PRN PRN Reason: Shortness of Breath Stop: 04/24/17 18:55 Ascorbic Acid (Vitamin C) 500 mg GT BID EDINSON Stop: 04/26/17 09:59 Last Admin: 03/05/17 08:58 Dose: 500 mg Clonidine HCl (Catapres) 0.1 mg PO Q6HR PRN PRN Reason: SBP ABOVE 160 Stop: 04/27/17 09:53 Last Admin: 03/05/17 03:38 Dose: 0.1 mg Cyanocobalamin (Vitamin B12) 100 mcg IM QMONTH EDINSON Stop: 04/26/17 11:59 Last Admin: 02/25/17 12:40 Dose: 100 mcg Diltiazem HCl (Cardizem) 60 mg GT Q8H [facility] Stop: 04/24/17 20:07 Last Admin: 03/05/17 12:25 Dose: 60 mg Docusate Sodium (Colace) 100 mg PO BID EDIN[facility] Stop: 04/25/17 08:59 Last Admin: 03/05/17 08:58 Dose: 100 mg Folic Acid (Folate) 1 mg GT DAILY ED[facility] Stop: 04/26/17 09:59 Last Admin: 03/05/17 08:58 Dose: 1 mg Meropenem 1 gm/ Sodium (Chloride) 100 mls @ 100 mls/hr IV Q8H [facility] Stop: 04/27/17 13:59 Last Admin: 03/03/17 20:06 Dose: Not Given Sodium Chloride (Nacl 0.9%) 1,000 mls @ 65 mls/hr IV .[id number] [facility] Stop: 04/24/17 18:17 Last Infusion: 03/02/17 11:15 Dose: 0 mls/hr Vancomycin HCl 1.5 gm/ Sodium (Chloride) 500 mls @ 250 mls/hr IV Q24H [facility] Stop: 05/03/17 08:59 Last Admin: 03/05/17 08:41 Dose: Not Given Lisinopril (Zestril) 20 mg GT BID [facility] Stop: 04/25/17 08:59 Last Admin: 03/05/17 08:59 Dose: 20 mg Metoclopramide HCl (Reglan) 5 mg PO BID [facility] Stop: 04/25/17 08:59 Last Admin: 03/05/17 08:58 Dose: 5 mg Miscellaneous (Vte Chemical Prophylaxis Screen/ Admission) 1 ea PRN PRN PRN Reason: PROTOCOL Stop: 04/25/17 08:19 Miscellaneous (Pharmacy To Dose) 1 ea PRN [facility] Stop: 04/27/17 13:14 Miscellaneous (Vancomycin Iv Per Pharmacy) 1 ea PRN [facility] Stop: 04/27/17 18:14 Pantoprazole Sodium (Protonix) 40 mg IVP DAILY [facility] Stop: 04/25/17 08:59 Last Admin: 03/05/17 08:59 Dose: Not Given - Procedures Procedures: Procedures Procedure Code Date BLOOD TRANSFUSION SERVICE 60228 02/23/17 TRANSFUSE NONAUT RED BLOOD CELLS IN PERIPH VEIN, PERC 59503J3 02/23/17 Nutritional Asmnt/Malnutr-PDOC - Dietary Evaluation Malnutrition Findings (Please click <Entered> for more info): Nutritional Asmnt/Malnutrition Start: 02/24/17 13: 11 Text: Status: Complete Freq: Document 02/24/17 13:11 GSUN (Rec: 02/24/17 13:22 GSUN [id number]) Nutritional Asmnt/Malnutrition Patient General Information Nutritional Screening Consult Diagnosis ER: leukocytosis with recent PNA stable, renal insufficiency, dehyration Pertinent Medical Hx/Surgical Hx ER note: HTN, asthma/COPD, chronic respiratory failure, s /p trach, chronic anemia, dysphagia, g-tube Subjective Information 81 year old male from SNF. RD consult for active wound and Jean Ortiz. Visited pt with TESSA Richard at bedside. Pt greeted RD, limited conversation due to trach. Observed tube feeding off at this time as order, confirmed with RN, otherwise tolerating well since adm. Pt papeared overall thin, moderate to severe fat/ muscle wasting to clavicles and chest. Bedscale CBW 143. 1lb vs EMR wt record 126lb on 02/23, questionable weights. Current Diet Order/ Nutrition Support Nov[facility] Renal at 60ml/hr x 20hrs Pertinent Medications Colace, Iron, Reglan, Protonix Nacl 0.9% Pertinent Labs 02/23: BUN 85H, creatinine 1.7H 02/24: BUN 71H, creatinine 1.5H Nutritional Hx/Data Height 1.83 m Height (Calculated Centimeters) 182.9 Current Weight (lbs) 64.909 kg Weight (Calculated Kilograms) 64.9 Weight (Calculated Grams) 45995.1 [place] Body Weight 178 Weight Status Approriate GI Symptoms Usual diet at home Ethel: Nepro at 60ml/hr x 20hrs, providing 1200ml 2160kcal. Skin Integrity/Comment: Jean Ortiz. voice engineer: right leg wound. Estimated Nutritional Goals Calories/Kcals/Kg IBW 178lb/80.9kg (underwt for age, muscle/fat depletion, ? PNA, ?CBW) Kcals Calculated 2022-2427kcal (25-30kcal/kg) Protein g/kg: IBW Protein Calculated 65-97g (0.8-1.2g/kg, monitor renal labs) Fluid: ml 2022-2427ml (1ml/kcal) Nutritional Problem 1. Problem Problem Impaired nutrient utilization related to Etiology renal insufficiency aeb Signs/Symptoms: BUN 71 diamond driller helper 1.5 on adm, ER notes, pt is on Nepro at [facility] and Novasource at [place] Intervention/Recommendation Comments 1. [facility], providing 1100ml total volume, 2200kcal, 100g protein. Expected Outcomes/Goals Expected Outcomes/Goals 1. Pt to meet 100% estimated nutritional needs on tube feeding with tolerance.
== END 2017-03-05 16:30 | disposition home or self-care (01) | DRG 871 ==
LOC: ER 12:52 → TELE 17:59 → MSI 03-04 10:11
PROVIDERS: ADMIT Internal Medicine; ATTEND Internal Medicine
PROC: 30233N1 Transfusion of Nonautologous Red Blood Cells into Peripheral Vein, Percutaneous Approach (ICD-10-PCS; principal; 2017-02-26)
DX: A41.51 Sepsis due to Escherichia coli [E. coli] (principal); J15.5 Pneumonia due to Escherichia coli; N17.9 Acute kidney failure, unspecified; J96.10 Chronic respiratory failure, unspecified whether with hypoxia or hypercapnia; K92.2 Gastrointestinal hemorrhage, unspecified; N39.0 Urinary tract infection, site not specified; J44.9 Chronic obstructive pulmonary disease, unspecified; E87.1 Hypo-osmolality and hyponatremia; A41.02 Sepsis due to Methicillin resistant Staphylococcus aureus; E86.0 Dehydration; Y95 Nosocomial condition; D50.0 Iron deficiency anemia secondary to blood loss (chronic); I10 Essential (primary) hypertension; B96.20 Unspecified Escherichia coli [E. coli] as the cause of diseases classified elsewhere; R13.10 Dysphagia, unspecified; S81.801A Unspecified open wound, right lower leg, initial encounter; Z93.1 Gastrostomy status; Z88.0 Allergy status to penicillin; Z93.0 Tracheostomy status; Z79.899 Other long term (current) drug therapy
CPT/HCPCS: 36415-UA; 71010-TC; 76770-TC; 80048-TC; 80053-TC; 80200-TC; 80202-TC; 81001-TC; 81015-TC; 82043-90; 82270-TC; 82378-90; 82550-TC; 82570-TC; 82607-90; 82728-90; 82746-90; 83010-90; 83540-90; 83550-90; 83605; 83735-TC; 83880-TC; 83930-90; 84100-TC; 84300-TC; 84484-TC; 84550-TC; 85007-TC; 85025-TC; 85027-TC; 85044-TC; 85610-TC; 86850-TC; 86870-TC; 86900-TC; 86901-TC; 86922-TC; 87070; 87070-90; 87075-90; 87086-90; 93005; 94760; C9113; J0278; J1650; J1956; J2185; J2916; J3260; J3370; J3420; J7030; J7040; P9016; X7704; Z7610

== ENCOUNTER 2017-05-25 03:02 | Inpatient (IN) | payer MEDICARE, MEDICAID ==
[2017-05-25 03:20] LABS: % BASOPHILS 0.9 % (0.0-2.0); % EOSINOPHILS 0.6 % (0.0-5.0); % LYMPHOCYTES 7.4 % (20.0-50.0); % MONOCYTES 5.8 % (2.0-10.0); % NEUTROPHILS 85.3 % (40.0-80.0); MEAN CELL VOLUME 94.6 fl (80-99); MEAN CORPUSCULAR HGB CONC 33.8 pg (28.0-36.0); MEAN PLATELET VOLUME 7.1 fl; NEUTROPHILE ABSOLUTE 10.9 Th/cmm (1.8-8.0); PLATELET COUNT 428 Th/cmm (150-400); RED BLOOD COUNT 3.46 Mil/cmm (3.80-5.80); RED CELL DISTRIBUTION WIDTH 14.3 % (11.5-20.0)
[2017-05-25] MEDS ORDERED: cefTRIAXone 1 GM in Sodium Chloride 0.9% 50 ML IV ONE (03:21)
[2017-05-25] MEDS ORDERED: Sodium Chloride 0.45% 500 ML IV ONE (03:26)
[2017-05-25 03:30] LABS: WHITE BLOOD COUNT 12.7 Th/cmm (4.8-10.8)
[2017-05-25 03:31] LABS: HEMATOCRIT 32.7 % (41.0-60); HEMOGLOBIN 11.1 gm/dL (12-16)
[2017-05-25 03:48] LABS: ALB/GLOB RATIO 0.6 (1.0-1.8); ALKALINE PHOSPHATASE 85 U/L (34-104); ANION GAP 16.2 (7.0-16.0); BILIRUBIN,TOTAL 0.4 mg/dL (0.3-1.0); BUN/CREATININE RATIO 23.2; CALCIUM SERUM 10.5 mg/dL (8.6-10.3); CARBON DIOXIDE 21.5 mEq/L (21.0-31.0); CHLORIDE 89 mEq/L (98-107); CHOLESTEROL 107 mg/dL (<200); GLUCOSE 118 mg/dL (70-105); SGOT 52 U/L (13-39); SGPT/ALT 42 U/L (7-52); TRIGLYCERIDES 73 mg/dL (<150)
[2017-05-25 03:51] LABS: INR 1.02 (0.5-1.4); PROTHROMBIN TIME (TEST) 10.6 SECONDS (9.5-11.5)
[2017-05-25 03:56] LABS: POTASSIUM SERUM 6.7 mEq/L (3.5-5.1); SODIUM SERUM 120 mEq/L (136-145)
[2017-05-25 03:57] LABS: BUN - UREA NITROGEN 139 mg/dL (7-25)
[2017-05-25 04:28] LABS: BE(B) -2.6 mEq/L (-3.0-3.0); HCO3 22.9 mEq/L (20.0-26.0)
[2017-05-25 04:29] LABS: ABG SOURCE Arterial; ALLEN TEST P; FIO2 100; MECH RATE 14; MECH VT 500
[2017-05-25] MEDS ORDERED: Dextrose 50% 50 mL Abboject IVP STA (04:33)
[2017-05-25] MEDS ORDERED: INSULIN HUMAN REGULAR 100 UNITS/ML UNIT IV ONE (04:38)
[2017-05-25] MEDS ORDERED: Dextrose 50% 50 mL Abboject IVP ONE (04:41)
[2017-05-25] MEDS ORDERED: INSULIN HUMAN REGULAR 100 UNITS/ML UNIT ONE (04:45)
[2017-05-25] MEDS ORDERED: Sodium Chloride 0.9% 1,000 ML IV ONE ×2 (04:49)
--- NOTE | 2017-05-25 04:55 | ED Physician Chart ---
ED Chief Complaint/HPI - Patient Information Date Seen:: 05/25/17 Time Seen:: 03:12 Chief Complaint:: CONGESTION OF THE LUNGS History of Present Illness:: THIS IS A 81 YEAR OLD MALE WITH A TRACH SENT FROM THE [facility] FOR EVALUATION AND TREATMENT FOR THE POSSIBILITY OF ASPIRATION. THE PATIENT IS A VENT PATIENT BUT HAS NOT BEEN ON THE VENT FOR SEVERAL DAYS. HE HAS HYPERTENSION , COPD, ANEMIA, DYSPHAGIA AND AN OLD NECK FRACTURE. Allergies:: Allergies Allergy/AdvReac Type Severity Reaction Status Date / Time Penicillins [PCN] Allergy Verified 05/25/17 03:11 Vitals:: Vital Signs - 8 hr 05/25/17 05/25/17 05/25/17 03:05 03:10 03:20 Temp 99.9 F 98.6 F HR 106 103 RR 28 27 BP 163/89 137/76 O2 Sat % 95 100 05/25/17 05/25/17 05/25/17 03:30 03:51 04:26 Temp HR 110 107 104 RR 28 27 26 BP 136/76 128/75 117/67 O2 Sat % 99 98 100 Historian:: Medical Records Review:: Nurse's Note Reviewed, Old Chart Reviewed, Transfer documents Reviewed ED Review of Systems - Review of Systems General/Constitutional: Fever, No chills, Weight loss, Weakness, No diaphoresis , No edema, No loss of appetite Skin: No skin lesions, No rash, No bruising Head: No headache, No light-headedness Eyes: No loss of vision, No pain, No diplopia ENT: No earache, No nasal drainage, No sore throat, No tinnitus Neck: No neck pain, No swelling, No thyromegaly, No stiffness, No mass noted Cardio Vascular: No chest pain, No palpitations, No PND, No orthopnea, No edema Pulmonary: No SOB, No cough, Sputum, Wheezing GI: No nausea, No vomiting, No diarrhea, No pain, No melena, No hematochezia, No constipation, No hematemesis G/U: No dysuria, No frequency, No hematuria Musculoskeletal: No bone or joint pain, No back pain, No muscle pain Endocrine: No polyuria, No polydipsia Psychiatric: No prior psych history, No depression, No anxiety, No suicidal ideation Hematopoietic: No bruising, No lymphadenopathy Allergic/Immuno: No urticaria, No angioedema Neurological: No syncope, No focal symptoms, No weakness, No paresthesia, No headache, No seizure, No dizziness, No confusion, No vertigo ED Past Medical History - Past Medical History Obtainable: Yes Past Medical History: HTN, DM, CAD, Asthma/COPD, Arthritis Family History: None Social History: Non Smoker, No Alcohol, No Drug Use, Care Facility Surgical History: other (TRACH) Family Medical History - Family Member Mother History Unknown: Yes Ethnicity: Non- Living Status: Unknown Hx Family Cancer: (UNKNOWN) Hx Family Coronary Artery Disease: (UNKNOWN) Hx Family Congestive Heart Failure: (UNKNOWN) Hx Family Hypertension: (UNKNOWN) Hx Family Stroke: (UNKNOWN) Hx Family Diabetes: (UNKNOWN) Hx Family Seizures: (UNKNOWN) Hx Family Dementia: (UNKNOWN) Hx Family AIDS: (UNKNOWN) Hx Family COPD: (UNKNOWN) Hx Family Hepatitis: (UNKNOWN) Hx Family Psychiatric Problems: (UNKNOWN) Hx Family Tuberculosis: (UNKNOWN) ED Physical Exam - Physical Examination General/Constitutional: Awake, Well-developed, well-nourished, Alert, No distress, GCS 15, Non-toxic appearing, Ambulatory Other Gen/Cons comments:: LETHARGIC Head: Atraumatic Eyes: Lids, conjuctiva normal, PERRL, EOMI Skin: Nl inspection, No rash, No skin lesions, No ecchymosis, Well hydrated, No lymphadenopathy ENMT: External ears, nose nl, Nasal exam nl, Lips, teeth, gums nl Neck: Nontender, Full ROM w/o pain, No JVD, No nuchal rigidity, No bruit, No mass, No stridor Respiratory: Nl effort/Exclusion Other Respiratory comments:: THERE ARE BILATERAL RHONCHI HEARD WITH SOME WHEEZES. Cardio Vascular: RRR, No murmur, gallop, rubs, NL S1 S2 GI: No tenderness/rebounding/guarding, No organomegaly, No hernia, Normal BS's, Nondistended, No mass/bruits, No McBurney tenderness : No CVA tenderness Extremities: No tenderness or effusion, Full ROM, normal strength in all extremities, No edema, Normal digits & nails Neuro/Psych: Alert/oriented, DTR's symmetric, Normal sensory exam, Normal motor strength, Judgement/insight normal, Mood normal, Normal gait, No focal deficits Misc: normal gait, Normal back, No paraspinal tenderness ED Labs/Radiology/EKG Results - Lab Results Results: Laboratory Tests 05/25/17 05/25/17 05/25/17 03:04 03:10 03:10 WBC 12.7 H D RBC 3.46 L Hgb 11.1 L D Hct 32.7 L D MCV 94.6 MCH 32.0 H MCHC Differential 33.8 RDW 14.3 Plt Count 428 H MPV 7.1 Neutrophils % 85.3 H Lymphocytes % 7.4 L Monocytes % 5.8 Eosinophils % 0.6 Basophils % 0.9 PT INR PTT (Actin FS) Specimen Source Arterial Sample Site Right Radial pH 7.40 pCO2 35.0 pO2 125.0 H HCO3 22.9 Base Excess -2.6 O2 Saturation 100.0 Charles Test P Vent Rate 14 Inspired O2 100 Tidal Volume 500 PEEP NA Pressure (ins/psv/peep) NA Critical Value RPINEIRA Sodium 120 L Potassium 6.7 H* Chloride 89 L Carbon Dioxide 21.5 Anion Gap 16.2 H BUN 139 H* Creatinine 6.0 H* Est GFR ( Amer) TNP Est GFR (Non-Af Amer) TNP BUN/Creatinine Ratio 23.2 Glucose 118 H Whole Bld Lactic Acid Calcium 10.5 H Total Bilirubin 0.4 AST 52 H ALT 42 Alkaline Phosphatase 85 Troponin I Total Protein 9.2 H Albumin 3.6 L Globulin 5.6 Albumin/Globulin Ratio 0.6 L Triglycerides 73 Cholesterol 107 LDL Cholesterol Direct 76 HDL Cholesterol 35 05/25/17 05/25/17 05/25/17 03:10 03:10 03:10 WBC RBC Hgb Hct MCV MCH MCHC Differential RDW Plt Count MPV Neutrophils % Lymphocytes % Monocytes % Eosinophils % Basophils % PT 10.6 INR 1.02 PTT (Actin FS) 35.1 Specimen Source Sample Site pH pCO2 pO2 HCO3 Base Excess O2 Saturation Charles Test Vent Rate Inspired O2 Tidal Volume PEEP Pressure (ins/psv/peep) Critical Value Sodium Potassium Chloride Carbon Dioxide Anion Gap BUN Creatinine Est GFR ( Amer) Est GFR (Non-Af Amer) BUN/Creatinine Ratio Glucose Whole Bld Lactic Acid 1.13 Calcium Total Bilirubin AST ALT Alkaline Phosphatase Troponin I 0.04 Total Protein Albumin Globulin Albumin/Globulin Ratio Triglycerides Cholesterol LDL Cholesterol Direct HDL Cholesterol - Radiology Results Results: CHEST X-RAY = MULTIPLE INFILTRATES NOTED ON BOTH SIDES - EKG Interpretations EKG Time:: 03:48 Rate & Rhythm: RATE = 103, TACHYCARDIA [place]: LEFT AXIS Comments:: TALL T WAVES. ED Assessment - Assessment General Assessment: PNEUMONIA RENAL FAILURE ED Septic Shock - . Is Septic Shock (SBP<90, OR Lactate>4 mmol\L) present?: No - <6hrs of presentation: Vital Signs: Vital Signs - 8 hr 05/25/17 05/25/17 05/25/17 03:05 03:10 03:20 Temp 99.9 F 98.6 F HR 106 103 RR 28 27 BP 163/89 137/76 O2 Sat % 95 100 05/25/17 05/25/17 05/25/17 03:30 03:51 04:26 Temp HR 110 107 104 RR 28 27 26 BP 136/76 128/75 117/67 O2 Sat % 99 98 100 ED Reassessment (Disposition) - Reassessment Reassessment Condition:: Improved - Diagnosis Diagnosis:: PNEUMONIA DEHYDRATION RENAL FAILURE - Patient Disposition Discharge/Transfer:: Acute Care w/in this hosp Admitting Medical Physician:: Barrett Lynch Condition at Disposition:: Improved ED Discharge Plan - Patient Disposition Admit/Discharge/Transfer: Acute Care w/in this hosp Condition at Disposition: Improved
[2017-05-25] MEDS ORDERED: Sodium Chloride 0.9% 1,000 ML IV SCH (05:23)
[2017-05-25] MEDS ORDERED: Albuterol/Ipratropium Neb 3 ML AERS HHN PRN ×2 (05:24)
[2017-05-25] MEDS: Diltiazem 30 mg Tab GT SCH ×3 (07:00→20:33)
[2017-05-25] MEDS ORDERED: Non-Formulary Item 1 EA (Multivitamin [Multivitamins] 1 TAB) GT SCH (09:00)
[2017-05-25] MEDS ORDERED: Non-Formulary Item 1 EA (Omeprazole [Omeprazole] 40 MG) GT SCH (09:00)
[2017-05-25] MEDS: Ferrous Sulfate 300 MG/5 ML UDC GT SCH ×2 (09:06→16:31)
[2017-05-25] MEDS: Pantoprazole 40 mg/Packet GT SCH (09:06)
[2017-05-25] MEDS: Chlorhexidine Gluconate 0.12% 15mL Mouthwash MM SCH ×2 (09:10→20:09)
[2017-05-25 09:16] LABS: HEMOGLOBIN 9.9 gm/dL (12-16); MEAN CORPUSCULAR HGB CONC 34.2 pg (28.0-36.0)
[2017-05-25 09:19] LABS: MEAN CELL VOLUME 96.5 fl (80-99); MEAN PLATELET VOLUME 7.1 fl; PLATELET COUNT 356 Th/cmm (150-400); RED BLOOD COUNT 3.01 Mil/cmm (3.80-5.80); RED CELL DISTRIBUTION WIDTH 14.2 % (11.5-20.0)
--- NOTE | 2017-05-25 09:23 | Diagnostic Imaging Report ---
CHEST X-RAY: AP view INDICATION: Congestion COMPARISON: 03/05/2017 FINDINGS: Tracheostomy tube is stable. Developing bilateral infiltrates are seen left greater than right with small effusions. Cardiomegaly is noted. There appears to be gaseous distended stomach or loop of bowel along the left upper quadrant. Cardiomegaly is noted with atherosclerosis. Postsurgical changes in lower cervical spine are noted. IMPRESSION: Developing bilateral pulmonary infiltrates, left greater than right with small effusions. Findings may be due to CHF and possible pneumonia. Please correct clinically. Cardiomegaly and atherosclerotic vascular disease.
[2017-05-25 09:24] LABS: WHITE BLOOD COUNT 23.6 Th/cmm (4.8-10.8)
--- NOTE | 2017-05-25 09:25 | Diagnostic Imaging Report ---
CHEST X-RAY: AP view INDICATION: Pneumonia COMPARISON: 05/25/2017 at 4:13 AM FINDINGS: Tracheostomy tube is stable. Bilateral patchy infiltrates are seen left greater right with small effusions. Cardiomegaly is noted with atherosclerosis. IMPRESSION: No significant change in pulmonary status.
[2017-05-25 09:30] LABS: TOTAL CELLS COUNTED 100
[2017-05-25 09:35] LABS: NEUTROPHILS 85 % (40-80)
[2017-05-25 09:36] LABS: BAND NEUTROPHILE 9 % (0-10)
[2017-05-25 09:42] LABS: ALB/GLOB RATIO 0.7 (1.0-1.8); ALKALINE PHOSPHATASE 66 U/L (34-104); ANION GAP 17.1 (7.0-16.0); BILIRUBIN,TOTAL 0.3 mg/dL (0.3-1.0); BUN/CREATININE RATIO 22.8; CALCIUM SERUM 9.8 mg/dL (8.6-10.3); CARBON DIOXIDE 17.7 mEq/L (21.0-31.0); CHLORIDE 91 mEq/L (98-107); GLUCOSE 80 mg/dL (70-105); MAGNESIUM 2.5 mg/dL (1.9-2.7); SGOT 46 U/L (13-39); SGPT/ALT 39 U/L (7-52)
[2017-05-25] MEDS: Multivitamin 5 mL UDC GT SCH (09:42)
[2017-05-25 09:55] LABS: BUN - UREA NITROGEN 139 mg/dL (7-25)
[2017-05-25 09:56] LABS: CREATININE - SERUM 6.1 mg/dL (0.7-1.3)
[2017-05-25] MEDS: Piperacillin/Tazobact 2.25 gm in 0.9% NS 50 ML IV SCH ×3 (11:54→23:42)
[2017-05-25 14:53] LABS: SODIUM SERUM 119 mEq/L (136-145)
[2017-05-25 14:54] LABS: POTASSIUM SERUM 6.8 mEq/L (3.5-5.1)
[2017-05-25] MEDS: Sodium Chloride 0.9% 1,000 ML IV SCH ×2 (15:00→22:42)
[2017-05-25] MEDS ORDERED: Levofloxacin 500mg/100mL 500 MG/100 ML BAG IV SCH (15:15)
[2017-05-25 16:26] LABS: ALB/GLOB RATIO 0.7 (1.0-1.8); ALKALINE PHOSPHATASE 61 U/L (34-104); ANION GAP 17.4 (7.0-16.0); BILIRUBIN,TOTAL 0.3 mg/dL (0.3-1.0); BUN/CREATININE RATIO 23.1; CALCIUM SERUM 9.7 mg/dL (8.6-10.3); CARBON DIOXIDE 16.7 mEq/L (21.0-31.0); CHLORIDE 93 mEq/L (98-107); GLUCOSE 132 mg/dL (70-105); SGOT 42 U/L (13-39); SGPT/ALT 32 U/L (7-52); SODIUM SERUM 121 mEq/L (136-145)
[2017-05-25 16:39] LABS: BUN - UREA NITROGEN 141 mg/dL (7-25); POTASSIUM SERUM 6.1 mEq/L (3.5-5.1)
[2017-05-25 16:40] LABS: CREATININE - SERUM 6.1 mg/dL (0.7-1.3)
[2017-05-25] MEDS: Hydrocodone/APAP 10 mg/325 mg Tab PO PRN (18:02)
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
[2017-05-25] MEDS: Albuterol/Ipratropium Neb 3 ML AERS HHN SCH (18:43)
--- NOTE | 2017-05-25 20:40 | Consultation ---
DATE OF CONSULTATION: 05/25/2017 RENAL CONSULTATION NOTE HISTORY OF PRESENT ILLNESS: This is a patient who is 81-year-old who is referred here for evaluation because of multiple electrolyte abnormality and renal failure. He has significant degree of azotemia with the patient having BUN of 141 and creatinine of 6.3. Going back to previous hospital records from [facility], the patient is ventilator dependent. Recently, however, he was weaned off the ventilator and placed on a T-bar and tolerating it very well. His feedings have been changed from pervious tube feeding in the form of tube feeding and in the form of pureed honey thick liquids with lunch with nursing supervision with oral gratification and supplemented also with Nephro at 2160 calories per 1200 mL per the G-tube feeding. Apparently, this patient is brought in to the hospital requested from the detention because of pulmonary congestion. He is requested to be evaluated for the possibility of aspiration. PAST MEDICAL HISTORY: Hypertension, COPD, anemia, and chronic kidney disease. MEDICATIONS: Current are reviewed. He is on Catapres 0.1 mg by a G-tube for blood pressure greater than 160, diltiazem 60 mg q.8h. with the holding blood pressure of 120, ferrous sulphate, folic acid, lisinopril 20 mg two times a day, Lovenox 40 mg subcutaneously, [place] tablets on a p.r.n., Omeprazole, Protonix, Reglan, and vitamin C. Other problems known from this patient is asthma, COPD, arthritis, and coronary artery disease of unclear degree. FAMILY HISTORY: Unremarkable. He had no available family for further information with regards to this patient. PHYSICAL EXAMINATION: VITAL SIGNS: Blood pressure 129/72, pulse rate of 90, and respiratory rate of 22. He is awake, alert, trying to verbalize and unfortunately, it is difficult to understand at the present time, although the patient comprehends everything at this point. Currently, he is refusing a Beckman catheter, but finally agreed to have a condom catheter in place. CHEST: Clear to auscultation. HEART: Regular sinus. ABDOMEN: Soft. Bowel sounds are present. No organ enlargement. EXTREMITIES: There is no edema in both lower extremities. MEDICATIONS REVIEWED: Current, he is on atenolol, albuterol, ascorbic acid, Peridex, diltiazem, ____, ferrous sulphate, folic acid, levofloxacin, Reglan, metronidazole, Zosyn, and Protonix. LABORATORY DATA: Lab studies are reviewed. White blood cell count is 23,000, 9.9 hemoglobin, hematocrit of 29, and platelet count is 356,000. PT and PTT are normal. Blood gases show 7.4, 25 CO2 and 25 O2. Sodium currently is 121, 6.1 potassium, chloride 93, and CO2 of 16. He was given medications currently of Kayexalate 45 g with the potassium of 6.1. His glucose is 132. BUN is still 141. Creatinine of 6.1. Albumin 3.1 and protein of 7.8. IMPRESSION: 1. The patient likely suspected to have chronic renal failure with this degree of azotemia, and the patient is awake and is able to communicate. No nausea or vomiting. 2. Renal failure, may have been precipitated by diabetes, hypertension, contribution of medication of lisinopril, contribution of multiple other medications like pantoprazole. 3. Anemia of chronic kidney disease. Will need administration of Epogen once we have levels of iron in this patient. We will have a 24-hour creatinine clearance. We will rule out the possibility of obstructive uropathy by doing renal ultrasound looking if there is any evidence of bilateral hydronephrosis, but it looks like this patient will have an eminent possibility of initiating hemodialysis because of the degree of azotemia that this patient has. We will have to deal with 23,000 count on this patient. The source of infection is unclear at this time, but I noticed he had been on multiple antibiotics on board. JOB# [id number]
--- NOTE | 2017-05-25 22:28 | Consultation ---
DATE OF CONSULTATION: 05/25/2017 REFERRING PHYSICIAN: Dr. Lynch. Thank you very much, Dr. Lynch for this consultation. HISTORY OF PRESENT ILLNESS: This is a 81-year-old male with history of chronic respiratory failure, penitentiary resident, who apparently was having congestion, shortness of breath, and was transferred here to the Emergency Room from [facility]. The patient was placed on the ventilator secondary to the above, and was started on IV antibiotics, admitted for further treatment and management. The patient appears to have a lot of secretions and has underlying history of COPD and dysphagia. SOCIAL HISTORY: Remote history of smoking in the past. REVIEW OF SYSTEMS: Unable to obtain because of the patient's condition. PHYSICAL EXAMINATION: GENERAL: The patient is arousable, but drowsy, not in acute distress. VITAL SIGNS: Temperature 99.6, pulse is 91, respiration 22, blood pressure is 122/55 and saturation 98%. CHEST: Good breath sounds, rhonchi bilaterally. HEART: Regular rate and rhythm. ABDOMEN: Soft. EXTREMITIES: No edema. LABORATORY DATA: WBC is 23.6, hemoglobin 9.9, hematocrit 29.0, platelets is 356. ABGs: pH 7.40, pCO2 of 35, pO2 125, bicarbonate 22, saturation 100%. Sodium was 119, potassium 6.8, BUN is 139, creatinine 6.1. BNP is 279. Troponin is negative. The chest x-ray shows bibasilar infiltrate, more on the left than the right. Tracheostomy tube in place. IMPRESSION: 1. This is a 81-year-old male with respiratory failure. 2. Pneumonia. 3. Sepsis. 4. Hyponatremia. 5. Acute renal failure. PLAN: 1. IV antibiotics. 2. IV fluids. 3. Pulmonary toilet. 4. Nebulizer. 5. Add Levaquin to Flagyl. 6. Follow up cultures. PROGNOSIS: Guarded. I will follow the patient with you. Thank you very much for this consultation. JOB# [id number]
[2017-05-26] MEDS: Hydrocodone/APAP 10 mg/325 mg Tab PO PRN (00:16)
[2017-05-26] MEDS: Albuterol/Ipratropium Neb 3 ML AERS HHN SCH ×4 (01:30→18:50)
[2017-05-26 04:42] LABS: URINE BILIRUBIN NEGATIVE (NEGATIVE); URINE BLOOD LARGE (NEGATIVE); URINE GLUCOSE (UA) NEGATIVE (NEGATIVE); URINE KETONE NEGATIVE (NEGATIVE); URINE PH 7.5 (4.6 - 8.0); URINE PROTEIN 30 mg/dL (NEGATIVE); URINE UROBILINOGEN 0.2 E.U./dL (0.2 - 1.0)
[2017-05-26] MEDS: Diltiazem 30 mg Tab GT SCH ×2 (04:47→13:46)
[2017-05-26 04:59] LABS: URINE BACTERIA OCCASIONAL /hpf (NONE SEEN); URINE COLOR RED; URINE EPITHELIAL CELLS OCCASIONAL /lpf (FEW); URINE RBC 50-100 /hpf (0-5)
[2017-05-26] MEDS: Sodium Chloride 0.9% 1,000 ML IV SCH ×4 (05:54→21:02)
[2017-05-26 08:15] LABS: HEMATOCRIT 24.8 % (41.0-60); HEMOGLOBIN 8.5 gm/dL (12-16); MEAN CELL VOLUME 95.9 fl (80-99); MEAN CORPUSCULAR HEMOGLOBIN 32.7 pg (27.0-31.0); MEAN CORPUSCULAR HGB CONC 34.1 pg (28.0-36.0); MEAN PLATELET VOLUME 7.2 fl; PLATELET COUNT 315 Th/cmm (150-400); RED BLOOD COUNT 2.58 Mil/cmm (3.80-5.80)
[2017-05-26 08:32] LABS: TOTAL CELLS COUNTED 100
[2017-05-26 08:39] LABS: ALB/GLOB RATIO 0.6 (1.0-1.8); ALKALINE PHOSPHATASE 60 U/L (34-104); ANION GAP 15.3 (7.0-16.0); BAND NEUTROPHILE 11 % (0-10); BILIRUBIN,TOTAL 0.3 mg/dL (0.3-1.0); BUN/CREATININE RATIO 22.6; CALCIUM SERUM 9.1 mg/dL (8.6-10.3); CARBON DIOXIDE 18.9 mEq/L (21.0-31.0); CHLORIDE 97 mEq/L (98-107); GLUCOSE 145 mg/dL (70-105); MAGNESIUM 2.2 mg/dL (1.9-2.7); NEUTROPHILS 77 % (40-80); PHOSPHOROUS 4.4 mg/dL (2.5-5.0); POTASSIUM SERUM 4.2 mEq/L (3.5-5.1); SGOT 34 U/L (13-39); SGPT/ALT 29 U/L (7-52); SODIUM SERUM 127 mEq/L (136-145)
[2017-05-26 08:43] LABS: CREATININE - SERUM 6.1 mg/dL (0.7-1.3)
[2017-05-26] MEDS: Piperacillin/Tazobact 2.25 gm in 0.9% NS 50 ML IV SCH (08:47)
[2017-05-26] MEDS: Ferrous Sulfate 300 MG/5 ML UDC GT SCH ×2 (08:47→17:05)
[2017-05-26] MEDS: Pantoprazole 40 mg/Packet GT SCH (08:48)
[2017-05-26] MEDS: Multivitamin 5 mL UDC GT SCH (08:48)
[2017-05-26] MEDS: Chlorhexidine Gluconate 0.12% 15mL Mouthwash MM SCH ×2 (08:50→22:01)
[2017-05-26 09:55] LABS: BUN - UREA NITROGEN 138 mg/dL (7-25)
--- NOTE | 2017-05-26 14:45 | Diagnostic Imaging Report ---
Renal ultrasound HISTORY: Abnormal renal function test The right kidney is normal in size (10.0 x 3.0 x 4.6 cm). No focal lesions. No hydronephrosis. The left kidney measures 9.5 x 5.1 x 4.6 cm. No focal parenchymal lesions. Slight fullness of the collecting system without jeferson hydronephrosis. No intraluminal abnormality seen within the urinary bladder. The prostate gland measures 4.8 x 5.9 x 3.7 cm. This is associated with an approximate 3.0 similar hypoechoic central region. Findings of questionable significance at short be correlated clinically and with laboratory data (PSA). IMPRESSION: 1. No focal renal lesions or hydronephrosis 2. Mild prosthetic enlargement associated with a hypoechoic central region. The finding is of questionable significance and should be correlated clinically and with laboratory data (PSA).
[2017-05-26] MEDS ORDERED: Probiotic Screen MC PRN (16:00)
[2017-05-27] MEDS: Diltiazem 30 mg Tab GT SCH ×4 (00:26→21:00)
[2017-05-27] MEDS: Albuterol/Ipratropium Neb 3 ML AERS HHN SCH ×4 (00:54→19:14)
[2017-05-27] MEDS: Sodium Chloride 0.9% 1,000 ML IV SCH ×3 (04:00→20:18)
[2017-05-27 04:53] LABS: HEMATOCRIT 25.5 % (41.0-60); HEMOGLOBIN 8.8 gm/dL (12-16); MEAN CORPUSCULAR HEMOGLOBIN 32.8 pg (27.0-31.0); MEAN CORPUSCULAR HGB CONC 34.5 pg (28.0-36.0); MEAN PLATELET VOLUME 6.7 fl; PLATELET COUNT 355 Th/cmm (150-400); RED BLOOD COUNT 2.68 Mil/cmm (3.80-5.80); RED CELL DISTRIBUTION WIDTH 14.2 % (11.5-20.0)
[2017-05-27 04:56] LABS: WHITE BLOOD COUNT 13.8 Th/cmm (4.8-10.8)
[2017-05-27 05:06] LABS: NEUTROPHILE ABSOLUTE 11.1 Th/cmm (1.8-8.0)
[2017-05-27 05:12] LABS: ANION GAP 13.9 (7.0-16.0); BUN/CREATININE RATIO 21.2; CALCIUM SERUM 8.8 mg/dL (8.6-10.3); CARBON DIOXIDE 18.6 mEq/L (21.0-31.0); CHLORIDE 101 mEq/L (98-107); GLUCOSE 151 mg/dL (70-105); POTASSIUM SERUM 3.5 mEq/L (3.5-5.1); SODIUM SERUM 130 mEq/L (136-145)
[2017-05-27 05:31] LABS: BUN - UREA NITROGEN 125 mg/dL (7-25); CREATININE - SERUM 5.9 mg/dL (0.7-1.3)
[2017-05-27 05:32] LABS: SURFACE AREA 1.85
[2017-05-27 05:45] LABS: BAND NEUTROPHILE 4 % (0-10); NEUTROPHILS 89 % (40-80); TOTAL CELLS COUNTED 100
[2017-05-27] MEDS: Chlorhexidine Gluconate 0.12% 15mL Mouthwash MM SCH ×2 (08:15→20:30)
--- NOTE | 2017-05-27 08:37 | Diagnostic Imaging Report ---
Exam: Portable chest x-ray HISTORY: Pneumonia. Findings: Portable examination of chest at 0754 hours was reviewed. No prior studies available for comparison. The study demonstrates prominence of the heart. There is evidence for left lower lobe infiltrate and superimposed effusion. Mild congestion is present. Tracheostomy tube midline. Bony thorax intact. IMPRESSION: Mild congestion Left lower lobe infiltrate, superimposed effusion follow-up examination is recommended.
[2017-05-27] MEDS: Lactobacillus Rhamnosus 10 Billion CFU Capsule PO SCH (09:00)
[2017-05-27] MEDS: Ferrous Sulfate 300 MG/5 ML UDC GT SCH ×2 (09:01→16:53)
[2017-05-27] MEDS: Pantoprazole 40 mg/Packet GT SCH (09:21)
[2017-05-27 09:40] LABS: ABG SOURCE Arterial; ALLEN TEST Positive; BE(B) -4.1 mEq/L (-3.0-3.0); CRITICAL VALUES REPORTED BY DM; FIO2 30; HCO3 21.7 mEq/L (20.0-26.0); MECH RATE 14
[2017-05-27 09:46] LABS: MECH VT 500
--- NOTE | 2017-05-27 12:20 | Diagnostic Imaging Report ---
CHEST X-RAY: AP view INDICATION: Twan catheter placement COMPARISON: Chest x-ray 05/27/2017 FINDINGS: Tracheostomy tube is stable. Right subclavian dialysis catheter is seen with tip in SVC. No evidence of pneumothorax. Hazy bilateral infiltrates are seen with small left effusion. Cardiomegaly is noted. IMPRESSION: Interval right subclavian dialysis catheter placement with tip in the SVC. No evidence of pneumothorax. Bilateral hazy infiltrates and small left effusion. There may be a mild degree of CHF.
[2017-05-27] MEDS: Hydrocodone/APAP 10 mg/325 mg Tab PO PRN ×2 (12:38→21:01)
[2017-05-27 13:11] LABS: HEP B CORE IGM Negative (Negative); HEP C ANTIBODY >11.0 s/co ratio (0.0-0.9)
--- NOTE | 2017-05-27 13:35 | Operative Report ---
DATE OF SURGERY: 05/27/2017 PREOPERATIVE DIAGNOSES: 1. Acute renal failure on chronic kidney disease. 2. Respiratory failure. POSTOPERATIVE DIAGNOSES: 1. Acute renal failure on chronic kidney disease. 2. Respiratory failure. OPERATION DONE: Placement of Twan catheter in right subclavian vein under ultrasound guidance. DESCRIPTION OF PROCEDURE: The right chest was prepped with ChloraPrep and draped in appropriate manner. Then, 1% lidocaine was used to infiltrate the infraclavicular portion ____ identified on ultrasound. Incision was made and size 18 needle was used to ____. The guidewire was inserted, the dilator and then the triple lumen catheter. It is anchored to chest wall with 3-0 silk. Portable chest x-ray will be done. JOB# [id number]
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
[2017-05-27] MEDS ORDERED: Levofloxacin 250 mg/50 mL Premix Bag IV SCH (15:00)
[2017-05-27] MEDS: Multivitamin Tab GT SCH (15:36)
[2017-05-27] MEDS: Meropenem 1 GM in Sodium Chloride 0.9% 100 ML IV SCH (18:01)
[2017-05-28] MEDS: Albuterol/Ipratropium Neb 3 ML AERS HHN SCH ×4 (01:56→19:00)
[2017-05-28] MEDS: Sodium Chloride 0.9% 1,000 ML IV SCH ×3 (03:06→17:55)
[2017-05-28] MEDS: Hydrocodone/APAP 10 mg/325 mg Tab PO PRN ×3 (03:15→21:01)
[2017-05-28] MEDS: Diltiazem 30 mg Tab GT SCH ×3 (05:05→21:01)
[2017-05-28 07:40] LABS: HEMOGLOBIN 8.7 gm/dL (12-16); MEAN PLATELET VOLUME 7.4 fl
[2017-05-28 07:45] LABS: MEAN CELL VOLUME 96.3 fl (80-99); MEAN CORPUSCULAR HEMOGLOBIN 33.5 pg (27.0-31.0); MEAN CORPUSCULAR HGB CONC 34.8 pg (28.0-36.0); PLATELET COUNT 388 Th/cmm (150-400); RED CELL DISTRIBUTION WIDTH 13.9 % (11.5-20.0)
[2017-05-28 07:50] LABS: WHITE BLOOD COUNT 13.8 Th/cmm (4.8-10.8)
[2017-05-28 07:51] LABS: BAND NEUTROPHILE 2 % (0-10); EOSINOPHIL 2 % (0-5); NEUTROPHILS 72 % (40-80); TOTAL CELLS COUNTED 100
[2017-05-28 08:14] LABS: ANION GAP 13.7 (7.0-16.0); BUN/CREATININE RATIO 20.5; CARBON DIOXIDE 19.7 mEq/L (21.0-31.0); CHLORIDE 106 mEq/L (98-107); GLUCOSE 115 mg/dL (70-105); MAGNESIUM 1.9 mg/dL (1.9-2.7); POTASSIUM SERUM 3.4 mEq/L (3.5-5.1); SODIUM SERUM 136 mEq/L (136-145)
[2017-05-28 08:19] LABS: CREATININE - SERUM 5.5 mg/dL (0.7-1.3)
[2017-05-28] MEDS: Chlorhexidine Gluconate 0.12% 15mL Mouthwash MM SCH (08:30)
[2017-05-28 08:51] LABS: BUN - UREA NITROGEN 113 mg/dL (7-25)
[2017-05-28] MEDS: Ferrous Sulfate 300 MG/5 ML UDC GT SCH ×2 (09:17→17:12)
[2017-05-28] MEDS: Lactobacillus Rhamnosus 10 Billion CFU Capsule PO SCH (09:18)
[2017-05-28] MEDS: Pantoprazole 40 mg/Packet GT SCH (09:18)
[2017-05-28] MEDS: Multivitamin Tab GT SCH (09:18)
[2017-05-28 11:20] LABS: CALCIUM SERUM 8.8 mg/dL (8.6-10.3)
[2017-05-28] MEDS ORDERED: Heparin Sod 1,000 Units/mL 10ml HD ONE (13:00)
[2017-05-28] MEDS ORDERED: Potassium Chloride 20 mEq ER Tab PO ONE (14:00)
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
[2017-05-28] MEDS: Meropenem 1 GM in Sodium Chloride 0.9% 100 ML IV SCH (17:51)
[2017-05-29] MEDS: Albuterol/Ipratropium Neb 3 ML AERS HHN SCH ×4 (01:00→19:00)
[2017-05-29] MEDS: Hydrocodone/APAP 10 mg/325 mg Tab PO PRN ×2 (01:44→08:14)
[2017-05-29] MEDS: Diltiazem 30 mg Tab GT SCH ×3 (05:29→21:28)
[2017-05-29 06:55] LABS: HEMOGLOBIN 8.6 gm/dL (12-16)
[2017-05-29 07:01] LABS: HEMATOCRIT 24.9 % (41.0-60); MEAN CORPUSCULAR HEMOGLOBIN 32.6 pg (27.0-31.0); MEAN CORPUSCULAR HGB CONC 34.7 pg (28.0-36.0); MEAN PLATELET VOLUME 7.1 fl; PLATELET COUNT 405 Th/cmm (150-400); RED BLOOD COUNT 2.64 Mil/cmm (3.80-5.80); RED CELL DISTRIBUTION WIDTH 14.3 % (11.5-20.0)
[2017-05-29 07:19] LABS: WHITE BLOOD COUNT 14.8 Th/cmm (4.8-10.8)
[2017-05-29 07:22] LABS: ANION GAP 10.2 (7.0-16.0); BUN - UREA NITROGEN 58 mg/dL (7-25); BUN/CREATININE RATIO 17.1; CALCIUM SERUM 8.6 mg/dL (8.6-10.3); CARBON DIOXIDE 24.1 mEq/L (21.0-31.0); CHLORIDE 107 mEq/L (98-107); CREATININE - SERUM 3.4 mg/dL (0.7-1.3); GLUCOSE 124 mg/dL (70-105); MAGNESIUM 1.5 mg/dL (1.9-2.7); POTASSIUM SERUM 3.3 mEq/L (3.5-5.1); SODIUM SERUM 138 mEq/L (136-145)
[2017-05-29] MEDS ORDERED: Chlorhexidine Gluconate 0.12% 15mL Mouthwash MM SCH (08:00)
[2017-05-29] MEDS: Multivitamin Tab GT SCH (08:14)
[2017-05-29] MEDS: Ferrous Sulfate 300 MG/5 ML UDC GT SCH ×2 (08:14→16:47)
[2017-05-29] MEDS: Lactobacillus Rhamnosus 10 Billion CFU Capsule PO SCH (08:15)
[2017-05-29] MEDS: Pantoprazole 40 mg/Packet GT SCH (08:17)
[2017-05-29 08:41] LABS: BAND NEUTROPHILE 8 % (0-10); NEUTROPHILS 65 % (40-80); TOTAL CELLS COUNTED 100
[2017-05-29 08:42] LABS: EOSINOPHIL 3 % (0-5)
[2017-05-29 09:21] LABS: ABG SOURCE Arterial; ALLEN TEST Positive; BE(B) 0.6 mEq/L (-3.0-3.0); FIO2 30; HCO3 25.4 mEq/L (20.0-26.0); MECH RATE 14; MECH VT 500; pH 7.45 (7.35-7.45)
[2017-05-29] MEDS: Sodium Chloride 0.9% 1,000 ML IV SCH (10:29)
[2017-05-29] MEDS ORDERED: Mag Sulfate 2gm/50mL Premix 2 GM/50 ML BAG IV ONE (10:30)
[2017-05-29] MEDS ORDERED: Potassium Chloride Elixir 20 mEq /15 mL UDC GT ONE (10:31)
[2017-05-29] MEDS: Morphine Sulfate 2 mg/mL 1mL Syr IVP PRN ×2 (11:44→18:22)
--- NOTE | 2017-05-29 14:17 | General Progress Note ---
Subjective - Review of Systems Service Date: 05/29/17 Subjective: alert, verbalizing, right knee pain, on vent Objective - Results Result Diagrams: 05/29/17 05:30 05/29/17 05:30 Recent Labs: Laboratory Last Values WBC 14.8 Th/cmm (4.8-10.8) H 05/29/17 05:30 RBC 2.64 Mil/cmm (3.80-5.80) L 05/29/17 05:30 Hgb 8.6 gm/dL (12-16) L 05/29/17 05:30 Hct 24.9 % (41.0-60) L 05/29/17 05:30 MCV 94.0 fl (80-99) 05/29/17 05:30 MCH 32.6 pg (27.0-31.0) H 05/29/17 05:30 MCHC Differential 34.7 pg (28.0-36.0) 05/29/17 05:30 RDW 14.3 % (11.5-20.0) 05/29/17 05:30 Plt Count 405 Th/cmm (150-400) H 05/29/17 05:30 MPV 7.1 fl 05/29/17 05:30 Neutrophils % DOCTOR OF AUDIOLOGY 05/27/17 04:40 Band Neutrophils % 8 % (0-10) 05/29/17 05:30 Lymphocytes % DOCTOR OF AUDIOLOGY 05/27/17 04:40 Monocytes % DOCTOR OF AUDIOLOGY 05/27/17 04:40 Eosinophils % DOCTOR OF AUDIOLOGY 05/27/17 04:40 Basophils % DOCTOR OF AUDIOLOGY 05/27/17 04:40 Neutrophils (Manual) 65 % (40-80) 05/29/17 05:30 Lymphocytes 19 % (20-50) L 05/29/17 05:30 Monocytes 5 % (2-10) 05/29/17 05:30 Eosinophils 3 % (0-5) 05/29/17 05:30 PT 10.6 SECONDS (9.5-11.5) 05/25/17 03:10 INR 1.02 (0.5-1.4) 05/25/17 03:10 PTT (Actin FS) 35.1 SECONDS (26.0-38.0) 05/25/17 03:10 Specimen Source Arterial 05/29/17 09:11 Sample Site Left Radial 05/29/17 09:11 pH 7.45 (7.35-7.45) 05/29/17 09:11 pCO2 35.0 mmHg (35.0-45.0) 05/29/17 09:11 pO2 99.0 mmHg (80.0-100.0) 05/29/17 09:11 HCO3 25.4 mEq/L (20.0-26.0) 05/29/17 09:11 Base Excess 0.6 mEq/L (-3.0-3.0) 05/29/17 09:11 O2 Saturation 98.0 % (92.0-100.0) 05/29/17 09:11 Charles Test Positive 05/29/17 09:11 Vent Rate 14 05/29/17 09:11 Inspired O2 30 05/29/17 09:11 Tidal Volume 500 05/29/17 09:11 PEEP NA 05/29/17 09:11 Pressure (ins/psv/peep) NA 05/29/17 09:11 Critical Value LZHANG 05/29/17 09:11 Sodium 138 mEq/L (136-145) 05/29/17 05:30 Potassium 3.3 mEq/L (3.5-5.1) L 05/29/17 05:30 Chloride 107 mEq/L (98-107) 05/29/17 05:30 Carbon Dioxide 24.1 mEq/L (21.0-31.0) 05/29/17 05:30 Anion Gap 10.2 (7.0-16.0) 05/29/17 05:30 BUN 58 mg/dL (7-25) H 05/29/17 05:30 Creatinine 3.4 mg/dL (0.7-1.3) H 05/29/17 05:30 Est GFR ( Amer) TNP 05/29/17 05:30 Est GFR (Non-Af Amer) TNP 05/29/17 05:30 BUN/Creatinine Ratio 17.1 05/29/17 05:30 Glucose 124 mg/dL (70-105) H 05/29/17 05:30 POC Glucose 105 MG/DL (70 - 105) 05/28/17 12:24 Whole Bld Lactic Acid 0.96 mmol/L (0.60-1.99) 05/25/17 09:10 Calcium 8.6 mg/dL (8.6-10.3) 05/29/17 05:30 Phosphorus 4.0 mg/dL (2.5-5.0) 05/28/17 06:30 Magnesium 1.5 mg/dL (1.9-2.7) L 05/29/17 05:30 Total Bilirubin 0.3 mg/dL (0.3-1.0) 05/26/17 07:55 AST 34 U/L (13-39) 05/26/17 07:55 ALT 29 U/L (7-52) 05/26/17 07:55 Alkaline Phosphatase 60 U/L (34-104) 05/26/17 07:55 Troponin I 0.04 ng/mL (0.01-0.05) 05/25/17 03:10 B-Natriuretic Peptide 279.0 pg/mL (5.0-100.0) H 05/25/17 09:10 Total Protein 7.2 gm/dL (6.0-8.3) 05/26/17 07:55 Albumin 2.7 gm/dL (4.2-5.5) L 05/26/17 07:55 Globulin 4.5 gm/dL 05/26/17 07:55 Albumin/Globulin Ratio 0.6 (1.0-1.8) L 05/26/17 07:55 Triglycerides 73 mg/dL (<150) 05/25/17 03:10 Cholesterol 107 mg/dL (<200) 05/25/17 03:10 LDL Cholesterol Direct 76 mg/dL (75-193) 05/25/17 03:10 HDL Cholesterol 35 mg/dL (23-92) 05/25/17 03:10 Prostate Specific Ag 1.6 ng/mL (0.0-4.0) 05/27/17 04:40 Urine Source [place] 05/26/17 02:15 Urine Color RED 05/26/17 02:15 Urine Clarity HAZY (CLEAR) 05/26/17 02:15 Urine pH 7.5 (4.6 - 8.0) 05/26/17 02:15 Ur Specific [place] 1.010 (1.005-1.030) 05/26/17 02:15 Urine Protein 30 mg/dL (NEGATIVE) H 05/26/17 02:15 Urine Glucose (UA) NEGATIVE mg/dL (NEGATIVE) 05/26/17 02:15 Urine Ketones NEGATIVE mg/dL (NEGATIVE) 05/26/17 02:15 Urine Blood LARGE (NEGATIVE) H 05/26/17 02:15 Urine Nitrate NEGATIVE (NEGATIVE) 05/26/17 02:15 Urine Bilirubin NEGATIVE (NEGATIVE) 05/26/17 02:15 Urine Urobilinogen 0.2 E.U./dL (0.2 - 1.0) 05/26/17 02:15 Ur Leukocyte Esterase TRACE (NEGATIVE) H 05/26/17 02:15 Urine RBC 50-100 /hpf (0-5) H 05/26/17 02:15 Urine WBC 2-5 /hpf (0-5) H 05/26/17 02:15 Ur Epithelial Cells OCCASIONAL /lpf (FEW) 05/26/17 02:15 Urine Bacteria OCCASIONAL /hpf (NONE SEEN) 05/26/17 02:15 Ur Random Sodium 49 mmol/L 05/26/17 02:15 Urine Collection Time 24 hours 05/27/17 03:00 Urine Total Volume 3000 ml 05/27/17 03:00 Urine Creatinine 24.0 mg/dl (39.0-259.0) L 05/27/17 03:00 Creat Clearance 24 Hr 8 ml/min (97.00-137.00) L 05/27/17 03:00 Body Surface Area 1.85 05/27/17 03:00 RPR NONREACTIVE (NONREACTIVE) 05/25/17 03:10 Hepatitis A IgM Ab Negative (Negative) 05/26/17 07:55 Hep Bs Antigen Negative (Negative) 05/26/17 07:55 Hep B Core IgM Ab Negative (Negative) 05/26/17 07:55 Hepatitis C Antibody >11.0 s/co ratio (0.0-0.9) H 05/26/17 07:55 HIV 1&2 Antibody Screen NEGATIVE (NEG) 05/29/17 05:30 - Physical Exam Vitals and I&O: Vital Signs Temp 99.1 F 05/29/17 08:00 Pulse 101 05/29/17 14:08 Resp 17 05/29/17 10:00 BP 148/86 05/29/17 10:00 Pulse Ox 100 05/29/17 14:08 Intake & Output 05/28/17 05/29/17 05/29/17 18:59 06:59 18:59 Intake Total 4230 434 4377 Output Total 12 650 0 Balance 1088 -170 1130 Weight (lbs) 68.266 kg 64.682 kg 69.127 kg Intake: Intake, IV Amount 1100 1000 Meropenem 1 gm In Sodium 100 Chloride 0.9% 100 ml @ 100 mls/hr IV Q24HR [facility] Rx#:[id number] Sodium Chloride 0.9% 1, 1000 000 ml @ 150 mls/hr IV . [id number] [facility] Rx#:[id number] Sodium Chloride 0.9% 1, 1000 000 ml @ 75 mls/hr IV . [id number] [facility] Rx#:[id number] Oral 0 0 Tube Feeding 480 80 TPN/PPN 0 Blood Product 0 Lipid 0 Albumin 0 Other 50 Output: Gastric Drainage 0 Urine 12 650 0 Stool 0 Urine/Stool Mix 0 Emesis 0 Hemodialysis 0 Other 0 Other: # Voids 0 # Bowel Movements 0 0 Stool Characteristics Liquid Liquid Active Medications: Current Medications Acetaminophen (Tylenol 650mg/20.3ml Suspension) 650 mg GT Q4HR PRN PRN Reason: fever >101 or mild pain Stop: 07/24/17 05:23 Last Admin: 05/29/17 05:42 Dose: 650 mg Acetaminophen/Hydrocodone Bitart ([place] 10 Mg/325 Mg) 1 tab PO Q6H PRN PRN Reason: Pain (Moderate) Stop: 07/24/17 05:23 Last Admin: 05/29/17 08:14 Dose: 1 tab Acetaminophen/Hydrocodone Bitart ([place] 5mg/325mg) 1 tab PO Q6H PRN PRN Reason: MODERATE PAIN Stop: 07/28/17 10:28 Albuterol/Ipratropium (Duoneb Neb) 3 ml HHN Q2HRT PRN PRN Reason: Wheezing Stop: 07/24/17 05:23 Last Admin: 05/26/17 03:28 Dose: 3 ml Albuterol/Ipratropium (Duoneb Neb) 3 ml HHN Q6HRT [place] Stop: 07/24/17 18:59 Last Admin: 05/29/17 14:02 Dose: 3 ml Ascorbic Acid (Vitamin C) 500 mg GT BID [facility] Stop: 07/24/17 08:59 Last Admin: 05/29/17 08:16 Dose: 500 mg Chlorhexidine Gluconate (Peridex) 15 ml MM 0800,1999 [place] Stop: 07/28/17 07:59 Last Admin: 05/29/17 08:17 Dose: 15 ml Diltiazem HCl (Cardizem) 60 mg GT Q8H [place] Stop: 07/24/17 05:29 Last Admin: 05/29/17 13:57 Dose: 60 mg Docusate Sodium (Colace) 100 mg PO BID [facility] Stop: 07/24/17 08:59 Last Admin: 05/29/17 08:15 Dose: 100 mg Ferrous Sulfate (Iron) 330 mg GT BID [facility] Stop: 07/24/17 08:59 Last Admin: 05/29/17 08:14 Dose: 330 mg Folic Acid (Folate) 1 mg GT DAILY [facility] Stop: 07/24/17 08:59 Last Admin: 05/29/17 08:14 Dose: 1 mg Meropenem 1 gm/ Sodium (Chloride) 100 mls @ 100 mls/hr IV Q24HR [facility] Stop: 07/26/17 17:29 Last Infusion: 05/28/17 18:51 Dose: Infused Sodium Chloride (Nacl 0.9%) 1,000 mls @ 75 mls/hr IV .[id number] [facility] Stop: 07/24/17 11:59 Last Admin: 05/29/17 10:29 Dose: 75 mls/hr Lactobacillus Rhamnosus (Culturelle) 1 each PO DAILY [facility] Stop: 07/26/17 08:59 Last Admin: 05/29/17 08:15 Dose: 1 each Metoclopramide HCl (Reglan) 5 mg GT BID [facility] Stop: 07/24/17 08:59 Last Admin: 05/29/17 08:15 Dose: 5 mg Miscellaneous (Probiotic Screen) 1 ea PRN PRN PRN Reason: PROTOCOL Stop: 07/25/17 15:59 Miscellaneous (Pharmacy To Dose) 1 ea PRN [facility] Stop: 07/28/17 13:29 Morphine Sulfate (Morphine) 1 mg IVP Q4HR PRN PRN Reason: SEVERE PAIN Stop: 07/28/17 10:28 Last Admin: 05/29/17 11:44 Dose: 1 mg Multivitamins/Vitamin C (Theragran) 1 tab GT DAILY [facility] Stop: 07/26/17 10:44 Last Admin: 05/29/17 08:14 Dose: 1 tab Pantoprazole Sodium (Protonix) 40 mg GT DAILY [facility] Stop: 07/24/17 08:59 Last Admin: 05/29/17 08:17 Dose: 40 mg General: Alert, No acute distress HEENT: Atraumatic, EOMI, Mucous membr. moist/pink Neck: Supple, +2 carotid pulse wo bruit Cardiovascular: Regular rate, Normal S1, Normal S2 Lungs: Other (rhonchi) Abdomen: Bowel sounds, Soft Extremities: no Edema Neurological: Sensation intact Skin: no Rash Psych/Mental Status: Mood NL - Procedures Procedures: Procedures Procedure Code Date BLOOD TRANSFUSION SERVICE 32398 02/23/17 INSERT TUNNELED CV CATH 53639 05/25/17 INSERTION OF INFUSION DEV INTO R SUBCLAV VEIN, PERC APPROACH [id number] 05/25/17 RESPIRATORY VENTILATION, GREATER THAN 96 CONSECUTIVE HOURS [id number] 05/25/17 TRANSFUSE NONAUT RED BLOOD CELLS IN PERIPH VEIN, PERC 65504K2 02/23/17 Assessment/Plan - Assessment Assessment: 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 coli, K. pneu VAP Ess HTN - Plan Plan: Lab - Result Diagrams 05/28/17 06:30 05/28/17 06:30 Current Medications Acetaminophen (Tylenol 650mg/20.3ml Suspension) 650 mg GT Q4HR PRN PRN Reason: fever >101 or mild pain Stop: 07/24/17 05:23 Acetaminophen/Hydrocodone Bitart ([place] 10 Mg/325 Mg) 1 tab PO Q6H PRN PRN Reason: Pain (Moderate) Stop: 07/24/17 05:23 Last Admin: 05/28/17 13:49 Dose: 1 tab Albuterol/Ipratropium (Duoneb Neb) 3 ml HHN Q2HRT PRN PRN Reason: Wheezing Stop: 07/24/17 05:23 Last Admin: 05/26/17 03:28 Dose: 3 ml Albuterol/Ipratropium (Duoneb Neb) 3 ml HHN Q6HRT [place] Stop: 07/24/17 18:59 Last Admin: 05/28/17 08:06 Dose: 3 ml Ascorbic Acid (Vitamin C) 500 mg GT BID [facility] Stop: 07/24/17 08:59 Last Admin: 05/28/17 09:18 Dose: 500 mg Chlorhexidine Gluconate (Peridex) 15 ml MM 0800,1999 [place] Stop: 07/24/17 07:59 Last Admin: 05/27/17 20:30 Dose: 15 ml Diltiazem HCl (Cardizem) 60 mg GT Q8H [facility] Stop: 07/24/17 05:29 Last Admin: 05/28/17 12:31 Dose: Not Given Docusate Sodium (Colace) 100 mg PO BID [facility] Stop: 07/24/17 08:59 Last Admin: 05/28/17 09:18 Dose: 100 mg Ferrous Sulfate (Iron) 330 mg GT BID [facility] Stop: 07/24/17 08:59 Last Admin: 05/28/17 09:17 Dose: 330 mg Folic Acid (Folate) 1 mg GT DAILY [facility] Stop: 07/24/17 08:59 Last Admin: 05/28/17 09:19 Dose: 1 mg Levofloxacin (Levaquin Pb) 250 mg in 50 mls @ 50 mls/hr IV Q48HR@1500 [facility] Stop: 07/26/17 14:59 Last Admin: 05/27/17 15:31 Dose: 50 mls/hr Meropenem 1 gm/ Sodium (Chloride) 100 mls @ 100 mls/hr IV Q24HR [facility] Stop: 07/26/17 17:29 Last Admin: 05/27/17 18:01 Dose: 100 mls/hr Sodium Chloride (Nacl 0.9%) 1,000 mls @ 75 mls/hr IV .[id number] [facility] Stop: 07/24/17 11:59 Lactobacillus Rhamnosus (Culturelle) 1 each PO DAILY [facility] Stop: 07/26/17 08:59 Last Admin: 05/28/17 09:18 Dose: 1 each Metoclopramide HCl (Reglan) 5 mg GT BID [facility] Stop: 07/24/17 08:59 Last Admin: 05/28/17 09:18 Dose: 5 mg Metronidazole (Flagyl) 500 mg PO Q8HR [facility] Stop: 07/24/17 12:59 Last Admin: 05/28/17 05:05 Dose: 500 mg Miscellaneous (Probiotic Screen) 1 ea MC PRN PRN PRN Reason: PROTOCOL Stop: 07/25/17 15:59 Multivitamins/Vitamin C (Theragran) 1 tab GT DAILY [facility] Stop: 07/26/17 10:44 Last Admin: 05/28/17 09:18 Dose: 1 tab Pantoprazole Sodium (Protonix) 40 mg GT DAILY [facility] Stop: 07/24/17 08:59 Last Admin: 05/28/17 09:18 Dose: 40 m schedule for HD in am still w/ adequate UOP monitor closely continue ABx. Nutritional Asmnt/Malnutr-PDOC - Dietary Evaluation Malnutrition Findings (Please click <Entered> for more info): Nutritional Asmnt/Malnutrition Start: 05/27/17 14: 49 Text: Status: Complete Freq: Document 05/27/17 14:52 GSUN (Rec: 05/27/17 15:09 GSUN [email or web address]) Nutritional Asmnt/Malnutrition Patient General Information Nutritional Screening High Risk Screening Diagnosis Bilateral penumonia, dehydration acute on chronic renal insufficiency Pertinent Medical Hx/Surgical Hx Chronic renal failure, vent dependent, chronic anemia, renal insufficiency, COPD, trauma with right hip and right tibial fracture, essential HTN Subjective Information 81 year old male from SNF. Pt with vent trach and PEG. Observed tube feeding running as ordered during morning visit, prepping to leave to surgery for catheter placement . HD scheduled for today. Pt made eye contact, mouthed words. Tolerating tube feeding well per RN assessments. Moderate wasting to shoulders and clavicles, severe wasting to lower extremities. CBW 147. 9lb via bedscale. Current Diet Order/ [facility] at 40ml/hr x 24hrs, providing 960ml, 1920kcal, 87g protein Pertinent Medications Vitamin C, Colace, Iron, Folate, Culturelle, Reglan, Theragran, Protonix Pertinent Labs BUN 125H (trending down), creatinie 5.9H (trending down) , glucose 151H Nutritional Hx/Data Height 1.83 m Height (Calculated Centimeters) 182.9 Current Weight (lbs) 67.086 kg Weight (Calculated Kilograms) 67.1 Weight (Calculated Grams) 88202.3 [place] Body Weight 178 Weight Status Approriate GI Symptoms Skin Integrity/Comment: Jean 15. Wound care 05/26: skin is fair, chronic wound and scar tissue. Estimated Nutritional Goals BEE in Kcals: Using Current wt Calories/Kcals/Kg CBW 147.9lb/67.2kg Kcals Calculated 2016-2352kcal (30-35kcal/kg) Protein: Using Current wt Protein Calculated 80-101g (1.2-1.5g/kg) Fluid: ml Per MD Nutritional Problem 1. Problem Problem Increased kcal and prot needs related to Etiology hypermetbolic state, estimated nutritinoal needs aeb Signs/Symptoms: HD 05/27, bilateral penumonia, moderate to severe wasting to shoulders clavicles lower extremities Intervention/Recommendation Comments 1. Recommend increasing tube feeding rate to 46ml/hr x 24hrs, providing 1104ml total volume, 2208kcal, 100g protein . Wtih consideration of hypermetabolic state due to penumonia, HD, moderate to severe muscle fat wasting. Expected Outcomes/Goals Expected Outcomes/Goals 1. Pt to meet at least 100% of estimated nutritinoal needs on tube feeding with tolerance .
[2017-05-29] MEDS: Hydrocodone/APAP 5mg/325mg Tab PO PRN (15:44)
[2017-05-29] MEDS: Meropenem 1 GM in Sodium Chloride 0.9% 100 ML IV SCH (16:47)
[2017-05-29] MEDS: Chlorhexidine Gluconate 0.12% 15mL Mouthwash MM SCH (20:09)
[2017-05-30] MEDS: Albuterol/Ipratropium Neb 3 ML AERS HHN SCH ×4 (01:05→19:14)
[2017-05-30] MEDS: Sodium Chloride 0.9% 1,000 ML IV SCH ×2 (04:23→17:06)
[2017-05-30] MEDS: Diltiazem 30 mg Tab GT SCH ×3 (05:39→21:19)
[2017-05-30 07:32] LABS: % BASOPHILS 0.4 % (0.0-2.0); % EOSINOPHILS 4.7 % (0.0-5.0); % LYMPHOCYTES 13.6 % (20.0-50.0); % MONOCYTES 9.5 % (2.0-10.0); % NEUTROPHILS 71.8 % (40.0-80.0); HEMATOCRIT 23.4 % (41.0-60); HEMOGLOBIN 8.1 gm/dL (12-16); MEAN CELL VOLUME 94.4 fl (80-99); MEAN CORPUSCULAR HEMOGLOBIN 32.6 pg (27.0-31.0); MEAN CORPUSCULAR HGB CONC 34.6 pg (28.0-36.0); MEAN PLATELET VOLUME 6.5 fl; NEUTROPHILE ABSOLUTE 11.9 Th/cmm (1.8-8.0); PLATELET COUNT 442 Th/cmm (150-400); RED BLOOD COUNT 2.48 Mil/cmm (3.80-5.80); RED CELL DISTRIBUTION WIDTH 14.2 % (11.5-20.0)
[2017-05-30 07:39] LABS: WHITE BLOOD COUNT 16.7 Th/cmm (4.8-10.8)
[2017-05-30 07:53] LABS: ANION GAP 10.5 (7.0-16.0); BUN - UREA NITROGEN 64 mg/dL (7-25); BUN/CREATININE RATIO 16.8; CALCIUM SERUM 8.8 mg/dL (8.6-10.3); CARBON DIOXIDE 23.1 mEq/L (21.0-31.0); CHLORIDE 108 mEq/L (98-107); CREATININE - SERUM 3.8 mg/dL (0.7-1.3); GLUCOSE 109 mg/dL (70-105); POTASSIUM SERUM 3.6 mEq/L (3.5-5.1); SODIUM SERUM 138 mEq/L (136-145)
--- NOTE | 2017-05-30 07:55 | Diagnostic Imaging Report ---
Exam: Portable chest x-ray HISTORY: Pneumonia. Findings: Portable upright examination a chest at the 0718 hours reviewed compatible prior study of 05/27/2017 demonstrates unchanged position of tracheostomy tube and right subclavian catheter. There is evidence of basilar infiltrates and left pleural effusion. Mediastinal structures midline the heart is not enlarged aortic arch calcified. Mild congestion cannot be excluded. The visualized bony thorax is intact. Again noted fusion of the distal cervical spine. IMPRESSION: 1. Basilar infiltrates predominantly left base with superimposed left pleural effusion. Follow-up examination recommended. 2. Mild congestion cannot be excluded.
[2017-05-30] MEDS: Ferrous Sulfate 300 MG/5 ML UDC GT SCH ×2 (08:16→16:54)
[2017-05-30] MEDS: Lactobacillus Rhamnosus 10 Billion CFU Capsule PO SCH (08:17)
[2017-05-30] MEDS: Docusate Sodium 100 mg/10 mL UD PO SCH ×2 (08:17→16:54)
[2017-05-30] MEDS: Pantoprazole 40 mg/Packet GT SCH (08:17)
[2017-05-30] MEDS: Multivitamin Tab GT SCH (08:18)
[2017-05-30] MEDS: Chlorhexidine Gluconate 0.12% 15mL Mouthwash MM SCH ×2 (08:30→20:22)
[2017-05-30] MEDS: Hydrocodone/APAP 10 mg/325 mg Tab PO PRN ×2 (08:57→16:54)
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
[2017-05-30] MEDS: Morphine Sulfate 2 mg/mL 1mL Syr IVP PRN (13:42)
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
[2017-05-31] MEDS: Albuterol/Ipratropium Neb 3 ML AERS HHN SCH ×4 (01:07→18:47)
[2017-05-31] MEDS: Morphine Sulfate 2 mg/mL 1mL Syr IVP PRN ×2 (03:38→22:20)
[2017-05-31 04:51] LABS: MEAN CELL VOLUME 95.5 fl (80-99); MEAN CORPUSCULAR HGB CONC 33.5 pg (28.0-36.0); PLATELET COUNT 427 Th/cmm (150-400); RED BLOOD COUNT 2.49 Mil/cmm (3.80-5.80); RED CELL DISTRIBUTION WIDTH 14.6 % (11.5-20.0)
[2017-05-31 05:08] LABS: ANION GAP 8.1 (7.0-16.0); BUN - UREA NITROGEN 40 mg/dL (7-25); BUN/CREATININE RATIO 14.8; CALCIUM SERUM 8.8 mg/dL (8.6-10.3); CHLORIDE 108 mEq/L (98-107); CREATININE - SERUM 2.7 mg/dL (0.7-1.3); GLUCOSE 100 mg/dL (70-105); MAGNESIUM 1.6 mg/dL (1.9-2.7); POTASSIUM SERUM 4.1 mEq/L (3.5-5.1); SODIUM SERUM 137 mEq/L (136-145)
[2017-05-31 05:23] LABS: HEMATOCRIT 23.8 % (41.0-60); WHITE BLOOD COUNT 16.6 Th/cmm (4.8-10.8)
[2017-05-31] MEDS ORDERED: Meropenem 1 GM in Sodium Chloride 0.9% 100 ML IV SCH (05:30)
[2017-05-31] MEDS: Hydrocodone/APAP 10 mg/325 mg Tab PO PRN ×3 (05:33→19:54)
[2017-05-31] MEDS: Sodium Chloride 0.9% 1,000 ML IV SCH ×2 (05:52→19:55)
[2017-05-31] MEDS ORDERED: COLISTIMETHATE IV SCH (06:00)
[2017-05-31] MEDS ORDERED: STERILE IV SCH (06:00)
[2017-05-31] MEDS ORDERED: WATER IV SCH (06:00)
[2017-05-31 06:04] LABS: EOSINOPHIL 10 % (0-5); NEUTROPHILS 56 % (40-80); TOTAL CELLS COUNTED 100
[2017-05-31] MEDS: Ferrous Sulfate 300 MG/5 ML UDC GT SCH ×2 (08:35→16:57)
[2017-05-31] MEDS: Multivitamin Tab GT SCH (08:36)
[2017-05-31] MEDS: Pantoprazole 40 mg/Packet GT SCH (08:36)
[2017-05-31] MEDS: Docusate Sodium 100 mg/10 mL UD PO SCH ×2 (08:36→16:57)
[2017-05-31] MEDS: Lactobacillus Rhamnosus 10 Billion CFU Capsule PO SCH (08:36)
[2017-05-31] MEDS: Chlorhexidine Gluconate 0.12% 15mL Mouthwash MM SCH ×2 (08:37→19:57)
[2017-05-31] MEDS ORDERED: Mag Sulfate 2gm/50mL Premix 2 GM/50 ML BAG IV ONE (10:52)
--- NOTE | 2017-05-31 12:51 | General Progress Note ---
Subjective - Review of Systems Service Date: 05/31/17 Subjective: alert, verbalizing, on vent Objective - Results Result Diagrams: 05/31/17 04:30 05/31/17 04:30 Recent Labs: Laboratory Last Values WBC 16.6 Th/cmm (4.8-10.8) H 05/31/17 04:30 RBC 2.49 Mil/cmm (3.80-5.80) L 05/31/17 04:30 Hgb 8.0 gm/dL (12-16) L 05/31/17 04:30 Hct 23.8 % (41.0-60) L 05/31/17 04:30 MCV 95.5 fl (80-99) 05/31/17 04:30 MCH 32.0 pg (27.0-31.0) H 05/31/17 04:30 MCHC Differential 33.5 pg (28.0-36.0) 05/31/17 04:30 RDW 14.6 % (11.5-20.0) 05/31/17 04:30 Plt Count 427 Th/cmm (150-400) H 05/31/17 04:30 MPV 6.0 fl 05/31/17 04:30 Neutrophils % 71.8 % (40.0-80.0) 05/30/17 06:00 Band Neutrophils % 8 % (0-10) 05/29/17 05:30 Lymphocytes % 13.6 % (20.0-50.0) L 05/30/17 06:00 Monocytes % 9.5 % (2.0-10.0) 05/30/17 06:00 Eosinophils % 4.7 % (0.0-5.0) 05/30/17 06:00 Basophils % 0.4 % (0.0-2.0) 05/30/17 06:00 Neutrophils (Manual) 56 % (40-80) 05/31/17 04:30 Lymphocytes 28 % (20-50) 05/31/17 04:30 Monocytes 6 % (2-10) 05/31/17 04:30 Eosinophils 10 % (0-5) H 05/31/17 04:30 PT 10.6 SECONDS (9.5-11.5) 05/25/17 03:10 INR 1.02 (0.5-1.4) 05/25/17 03:10 PTT (Actin FS) 35.1 SECONDS (26.0-38.0) 05/25/17 03:10 Specimen Source Arterial 05/29/17 09:11 Sample Site Left Radial 05/29/17 09:11 pH 7.45 (7.35-7.45) 05/29/17 09:11 pCO2 35.0 mmHg (35.0-45.0) 05/29/17 09:11 pO2 99.0 mmHg (80.0-100.0) 05/29/17 09:11 HCO3 25.4 mEq/L (20.0-26.0) 05/29/17 09:11 Base Excess 0.6 mEq/L (-3.0-3.0) 05/29/17 09:11 O2 Saturation 98.0 % (92.0-100.0) 05/29/17 09:11 Charles Test Positive 05/29/17 09:11 Vent Rate 14 05/29/17 09:11 Inspired O2 30 05/29/17 09:11 Tidal Volume 500 05/29/17 09:11 PEEP NA 05/29/17 09:11 Pressure (ins/psv/peep) NA 05/29/17 09:11 Critical Value LZHANG 05/29/17 09:11 Sodium 137 mEq/L (136-145) 05/31/17 04:30 Potassium 4.1 mEq/L (3.5-5.1) 05/31/17 04:30 Chloride 108 mEq/L (98-107) H 05/31/17 04:30 Carbon Dioxide 25.0 mEq/L (21.0-31.0) 05/31/17 04:30 Anion Gap 8.1 (7.0-16.0) 05/31/17 04:30 BUN 40 mg/dL (7-25) H 05/31/17 04:30 Creatinine 2.7 mg/dL (0.7-1.3) H 05/31/17 04:30 Est GFR ( Amer) TNP 05/31/17 04:30 Est GFR (Non-Af Amer) TNP 05/31/17 04:30 BUN/Creatinine Ratio 14.8 05/31/17 04:30 Glucose 100 mg/dL (70-105) 05/31/17 04:30 POC Glucose 105 MG/DL (70 - 105) 05/28/17 12:24 Whole Bld Lactic Acid 0.96 mmol/L (0.60-1.99) 05/25/17 09:10 Calcium 8.8 mg/dL (8.6-10.3) 05/31/17 04:30 Phosphorus 4.0 mg/dL (2.5-5.0) 05/28/17 06:30 Magnesium 1.6 mg/dL (1.9-2.7) L 05/31/17 04:30 Total Bilirubin 0.3 mg/dL (0.3-1.0) 05/26/17 07:55 AST 34 U/L (13-39) 05/26/17 07:55 ALT 29 U/L (7-52) 05/26/17 07:55 Alkaline Phosphatase 60 U/L (34-104) 05/26/17 07:55 Troponin I 0.04 ng/mL (0.01-0.05) 05/25/17 03:10 B-Natriuretic Peptide 279.0 pg/mL (5.0-100.0) H 05/25/17 09:10 Total Protein 7.2 gm/dL (6.0-8.3) 05/26/17 07:55 Albumin 2.7 gm/dL (4.2-5.5) L 05/26/17 07:55 Globulin 4.5 gm/dL 05/26/17 07:55 Albumin/Globulin Ratio 0.6 (1.0-1.8) L 05/26/17 07:55 Triglycerides 73 mg/dL (<150) 05/25/17 03:10 Cholesterol 107 mg/dL (<200) 05/25/17 03:10 LDL Cholesterol Direct 76 mg/dL (75-193) 05/25/17 03:10 HDL Cholesterol 35 mg/dL (23-92) 05/25/17 03:10 Prostate Specific Ag 1.6 ng/mL (0.0-4.0) 05/27/17 04:40 Urine Source [place] 05/26/17 02:15 Urine Color RED 05/26/17 02:15 Urine Clarity HAZY (CLEAR) 05/26/17 02:15 Urine pH 7.5 (4.6 - 8.0) 05/26/17 02:15 Ur Specific Mcdonald 1.010 (1.005-1.030) 05/26/17 02:15 Urine Protein 30 mg/dL (NEGATIVE) H 05/26/17 02:15 Urine Glucose (UA) NEGATIVE mg/dL (NEGATIVE) 05/26/17 02:15 Urine Ketones NEGATIVE mg/dL (NEGATIVE) 05/26/17 02:15 Urine Blood LARGE (NEGATIVE) H 05/26/17 02:15 Urine Nitrate NEGATIVE (NEGATIVE) 05/26/17 02:15 Urine Bilirubin NEGATIVE (NEGATIVE) 05/26/17 02:15 Urine Urobilinogen 0.2 E.U./dL (0.2 - 1.0) 05/26/17 02:15 Ur Leukocyte Esterase TRACE (NEGATIVE) H 05/26/17 02:15 Urine RBC 50-100 /hpf (0-5) H 05/26/17 02:15 Urine WBC 2-5 /hpf (0-5) H 05/26/17 02:15 Ur Epithelial Cells OCCASIONAL /lpf (FEW) 05/26/17 02:15 Urine Bacteria OCCASIONAL /hpf (NONE SEEN) 05/26/17 02:15 Ur Random Sodium 49 mmol/L 05/26/17 02:15 Urine Collection Time 24 hours 05/27/17 03:00 Urine Total Volume 3000 ml 05/27/17 03:00 Urine Creatinine 24.0 mg/dl (39.0-259.0) L 05/27/17 03:00 Creat Clearance 24 Hr 8 ml/min (97.00-137.00) L 05/27/17 03:00 Body Surface Area 1.85 05/27/17 03:00 RPR NONREACTIVE (NONREACTIVE) 05/25/17 03:10 Hepatitis A IgM Ab Negative (Negative) 05/26/17 07:55 Hep Bs Antigen Negative (Negative) 05/26/17 07:55 Hep B Core IgM Ab Negative (Negative) 05/26/17 07:55 Hepatitis C Antibody >11.0 s/co ratio (0.0-0.9) H 05/26/17 07:55 HIV 1&2 Antibody Screen NEGATIVE (NEG) 05/29/17 05:30 - Physical Exam Vitals and I&O: Vital Signs Temp 97.8 F 05/31/17 08:00 Pulse 102 05/31/17 11:04 Resp 18 05/31/17 09:00 BP 142/86 05/31/17 09:00 Pulse Ox 100 05/31/17 11:04 Intake & Output 05/30/17 05/31/17 05/31/17 18:59 06:59 18:59 Intake Total 1472.5 1547.50 Output Total 3550 1200 Balance -2077.5 347.50 Weight (lbs) 66.587 kg 66.27 kg 66.633 kg Intake: Intake, IV Amount 932.5 957.50 Colistimethate 150 mg In 100 Sodium Chloride 0.9% 100 ml @ 100 mls/hr IV ONCE ONE Rx#:[id number] Sodium Chloride 0.9% 1, 832.5 957.50 000 ml @ 75 mls/hr IV . [id number] [facility] Rx#:[id number] Oral 0 Tube Feeding 540 540 TPN/PPN 0 Blood Product 0 Lipid 0 Albumin 0 Other 0 50 Output: Gastric Drainage 0 Urine 1050 1200 Stool 0 0 Urine/Stool Mix 0 Emesis 0 Hemodialysis 2500 Other 0 Other: # Voids 1 # Bowel Movements 0 Active Medications: Current Medications Acetaminophen (Tylenol 650mg/20.3ml Suspension) 650 mg GT Q4HR PRN PRN Reason: fever >101 or mild pain Stop: 07/24/17 05:23 Last Admin: 05/30/17 02:58 Dose: 650 mg Acetaminophen/Hydrocodone Bitart ([place] 10 Mg/325 Mg) 1 tab PO Q6H PRN PRN Reason: Pain (Moderate) Stop: 07/24/17 05:23 Last Admin: 05/31/17 12:10 Dose: 1 tab Acetaminophen/Hydrocodone Bitart ([place] 5mg/325mg) 1 tab PO Q6H PRN PRN Reason: MODERATE PAIN Stop: 07/28/17 10:28 Last Admin: 05/29/17 15:44 Dose: 1 tab Albuterol/Ipratropium (Duoneb Neb) 3 ml HHN Q2HRT PRN PRN Reason: Wheezing Stop: 07/24/17 05:23 Last Admin: 05/26/17 03:28 Dose: 3 ml Albuterol/Ipratropium (Duoneb Neb) 3 ml HHN Q6HRT [place] Stop: 07/24/17 18:59 Last Admin: 05/31/17 07:09 Dose: 3 ml Ascorbic Acid (Vitamin C) 500 mg GT BID [facility] Stop: 07/24/17 08:59 Last Admin: 05/31/17 08:40 Dose: 500 mg Chlorhexidine Gluconate (Peridex) 15 ml MM 08,1999 [place] Stop: 07/28/17 19:59 Last Admin: 05/31/17 08:37 Dose: 15 ml Diltiazem HCl (Cardizem) 60 mg GT Q8H [facility] Stop: 07/24/17 05:29 Last Admin: 05/30/17 21:19 Dose: 60 mg Docusate Sodium (Colace) 100 mg PO BID [place] Stop: 07/29/17 08:59 Last Admin: 05/31/17 08:36 Dose: 100 mg Ferrous Sulfate (Iron) 330 mg GT BID [place] Stop: 07/24/17 08:59 Last Admin: 05/31/17 08:35 Dose: 330 mg Folic Acid (Folate) 1 mg GT DAILY [facility] Stop: 07/24/17 08:59 Last Admin: 05/31/17 08:36 Dose: 1 mg Sodium Chloride (Nacl 0.9%) 1,000 mls @ 75 mls/hr IV .[id number] [facility] Stop: 07/24/17 11:59 Last Admin: 05/31/17 05:52 Dose: 75 mls/hr Colistimethate Sodium 150 mg/ (Sodium Chloride) 100 mls @ 100 mls/hr IV PRN PRN PRN Reason: AFTER EACH H.D. Stop: 07/29/17 11:20 Magnesium Sulfate (Magnesium Sulfate Premix) 2 gm in 50 mls @ 25 mls/hr IV X1 ONE Stop: 05/31/17 12:51 Last Admin: 05/31/17 12:10 Dose: 25 mls/hr Lactobacillus Rhamnosus (Culturelle) 1 each PO DAILY [place] Stop: 07/26/17 08:59 Last Admin: 05/31/17 08:36 Dose: 1 each Metoclopramide HCl (Reglan) 5 mg GT BID [place] Stop: 07/24/17 08:59 Last Admin: 05/31/17 08:36 Dose: 5 mg Miscellaneous (Probiotic Screen) 1 ea MC PRN PRN PRN Reason: PROTOCOL Stop: 07/25/17 15:59 Miscellaneous (Pharmacy To Dose) 1 ea MC PRN [place] Stop: 07/28/17 13:29 Morphine Sulfate (Morphine) 1 mg IVP Q4HR PRN PRN Reason: SEVERE PAIN Stop: 07/28/17 10:28 Last Admin: 05/31/17 03:38 Dose: 1 mg Multivitamins/Vitamin C (Theragran) 1 tab GT DAILY [place] Stop: 07/26/17 10:44 Last Admin: 05/31/17 08:36 Dose: 1 tab Pantoprazole Sodium (Protonix) 40 mg GT DAILY [place] Stop: 07/24/17 08:59 Last Admin: 05/31/17 08:36 Dose: 40 mg General: Alert, No acute distress HEENT: Atraumatic, EOMI, Mucous membr. moist/pink Neck: Supple, +2 carotid pulse wo bruit Cardiovascular: Regular rate, Normal S1, Normal S2 Lungs: Other (rhonchi) Abdomen: Bowel sounds, Soft Extremities: no Edema Neurological: Sensation intact Skin: no Rash Psych/Mental Status: Mood NL - Procedures Procedures: Procedures Procedure Code Date BLOOD TRANSFUSION SERVICE 84917 02/23/17 INSERT TUNNELED CV CATH 27887 05/25/17 INSERTION OF INFUSION DEV INTO R SUBCLAV VEIN, PERC APPROACH 86V197I 05/25/17 RESPIRATORY VENTILATION, GREATER THAN 96 CONSECUTIVE HOURS [id number] 05/25/17 TRANSFUSE NONAUT RED BLOOD CELLS IN PERIPH VEIN, PERC 30283N9 02/23/17 Assessment/Plan - Assessment Assessment: 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 coli, K. pneu VAP Ess HTN - Plan Plan: Lab - Result Diagrams 05/28/17 06:30 05/28/17 06:30 Current Medications Acetaminophen (Tylenol 650mg/20.3ml Suspension) 650 mg GT Q4HR PRN PRN Reason: fever >101 or mild pain Stop: 07/24/17 05:23 Acetaminophen/Hydrocodone Bitart ([place] 10 Mg/325 Mg) 1 tab PO Q6H PRN PRN Reason: Pain (Moderate) Stop: 07/24/17 05:23 Last Admin: 05/28/17 13:49 Dose: 1 tab Albuterol/Ipratropium (Duoneb Neb) 3 ml HHN Q2HRT PRN PRN Reason: Wheezing Stop: 07/24/17 05:23 Last Admin: 05/26/17 03:28 Dose: 3 ml Albuterol/Ipratropium (Duoneb Neb) 3 ml HHN Q6HRT [place] Stop: 07/24/17 18:59 Last Admin: 05/28/17 08:06 Dose: 3 ml Ascorbic Acid (Vitamin C) 500 mg GT BID [place] Stop: 07/24/17 08:59 Last Admin: 05/28/17 09:18 Dose: 500 mg Chlorhexidine Gluconate (Peridex) 15 ml MM 0800,1999 [facility] Stop: 07/24/17 07:59 Last Admin: 05/27/17 20:30 Dose: 15 ml Diltiazem HCl (Cardizem) 60 mg GT Q8H [facility] Stop: 07/24/17 05:29 Last Admin: 05/28/17 12:31 Dose: Not Given Docusate Sodium (Colace) 100 mg PO BID [facility] Stop: 07/24/17 08:59 Last Admin: 05/28/17 09:18 Dose: 100 mg Ferrous Sulfate (Iron) 330 mg GT BID [facility] Stop: 07/24/17 08:59 Last Admin: 05/28/17 09:17 Dose: 330 mg Folic Acid (Folate) 1 mg GT DAILY [facility] Stop: 07/24/17 08:59 Last Admin: 05/28/17 09:19 Dose: 1 mg Levofloxacin (Levaquin Pb) 250 mg in 50 mls @ 50 mls/hr IV Q48HR@1500 [facility] Stop: 07/26/17 14:59 Last Admin: 05/27/17 15:31 Dose: 50 mls/hr Meropenem 1 gm/ Sodium (Chloride) 100 mls @ 100 mls/hr IV Q24HR [facility] Stop: 07/26/17 17:29 Last Admin: 05/27/17 18:01 Dose: 100 mls/hr Sodium Chloride (Nacl 0.9%) 1,000 mls @ 75 mls/hr IV .[id number] [facility] Stop: 07/24/17 11:59 Lactobacillus Rhamnosus (Culturelle) 1 each PO DAILY [facility] Stop: 07/26/17 08:59 Last Admin: 05/28/17 09:18 Dose: 1 each Metoclopramide HCl (Reglan) 5 mg GT BID [facility] Stop: 07/24/17 08:59 Last Admin: 05/28/17 09:18 Dose: 5 mg Metronidazole (Flagyl) 500 mg PO Q8HR [facility] Stop: 07/24/17 12:59 Last Admin: 05/28/17 05:05 Dose: 500 mg Miscellaneous (Probiotic Screen) 1 ea MC PRN PRN PRN Reason: PROTOCOL Stop: 07/25/17 15:59 Multivitamins/Vitamin C (Theragran) 1 tab GT DAILY [facility] Stop: 07/26/17 10:44 Last Admin: 05/28/17 09:18 Dose: 1 tab Pantoprazole Sodium (Protonix) 40 mg GT DAILY [facility] Stop: 07/24/17 08:59 Last Admin: 05/28/17 09:18 Dose: 40 m Lab - Result Diagrams 05/31/17 04:30 05/31/17 04:30 pt. was dialyzed yesterday & tolerated it well still w/ adequate UOP monitor closely continue Levofloxacin, Merrem analgesic for right knee pain Nutritional Asmnt/Malnutr-PDOC - Dietary Evaluation Malnutrition Findings (Please click <Entered> for more info): Nutritional Asmnt/Malnutrition Start: 05/27/17 14: 49 Text: Status: Complete Freq: Document 05/27/17 14:52 GSUN (Rec: 05/27/17 15:09 [email or web address] [email or web address]) Nutritional Asmnt/Malnutrition Patient General Information Nutritional Screening High Risk Screening Diagnosis Bilateral penumonia, dehydration acute on chronic renal insufficiency Pertinent Medical Hx/Surgical Hx Chronic renal failure, vent dependent, chronic anemia, renal insufficiency, COPD, trauma with right hip and right tibial fracture, essential HTN Subjective Information 81 year old male from SNF. Pt with vent trach and PEG. Observed tube feeding running as ordered during morning visit, prepping to leave to surgery for catheter placement . HD scheduled for today. Pt made eye contact, mouthed words. Tolerating tube feeding well per RN assessments. Moderate wasting to shoulders and clavicles, severe wasting to lower extremities. CBW 147. 9lb via bedscale. Current Diet Order/ Nutrition Support Novasource Renal at 40ml/hr x 24hrs, providing 960ml, 1920kcal, 87g protein Pertinent Medications Vitamin C, Colace, Iron, Folate, Culturelle, Reglan, Theragran, Protonix Pertinent Labs BUN 125H (trending down), creatinie 5.9H (trending down) , glucose 151H Nutritional Hx/Data Height 1.83 m Height (Calculated Centimeters) 182.9 Current Weight (lbs) 67.086 kg Weight (Calculated Kilograms) 67.1 Weight (Calculated Grams) 24078.3 [place] Body Weight 178 Weight Status Approriate GI Symptoms Skin Integrity/Comment: Jean 15. Wound care 05/26: skin is fair, chronic wound and scar tissue. Estimated Nutritional Goals BEE in Kcals: Using Current wt Calories/Kcals/Kg CBW 147.9lb/67.2kg Kcals Calculated 2015-2kcal (30-35kcal/kg) Protein: Using Current wt Protein Calculated 80-101g (1.2-1.5g/kg) Fluid: ml Per MD Nutritional Problem 1. Problem Problem Increased kcal and prot needs related to Etiology hypermetbolic state, estimated nutritinoal needs aeb Signs/Symptoms: HD 05/27, bilateral penumonia, moderate to severe wasting to shoulders clavicles lower extremities Intervention/Recommendation Comments 1. Recommend increasing tube feeding rate to 46ml/hr x 24hrs, providing 1104ml total volume, 2208kcal, 100g protein . Wtih consideration of hypermetabolic state due to penumonia, HD, moderate to severe muscle fat wasting. Expected Outcomes/Goals Expected Outcomes/Goals 1. Pt to meet at least 100% of estimated nutritinoal needs on tube feeding with tolerance .
[2017-05-31] MEDS ORDERED: Morphine Sulfate 2 mg/mL 1mL Syr IVP PRN (12:52)
[2017-05-31] MEDS: Diltiazem 30 mg Tab GT SCH ×4 (14:25→21:52)
[2017-06-01] MEDS: Albuterol/Ipratropium Neb 3 ML AERS HHN SCH ×4 (02:34→18:36)
[2017-06-01] MEDS: Hydrocodone/APAP 10 mg/325 mg Tab PO PRN ×3 (03:03→20:04)
[2017-06-01] MEDS: Diltiazem 30 mg Tab GT SCH ×3 (05:33→21:09)
[2017-06-01 06:48] LABS: MEAN CELL VOLUME 94.8 fl (80-99); MEAN CORPUSCULAR HEMOGLOBIN 32.1 pg (27.0-31.0); MEAN CORPUSCULAR HGB CONC 33.8 pg (28.0-36.0); MEAN PLATELET VOLUME 6.1 fl; PLATELET COUNT 397 Th/cmm (150-400); RED BLOOD COUNT 2.38 Mil/cmm (3.80-5.80); RED CELL DISTRIBUTION WIDTH 14.4 % (11.5-20.0)
[2017-06-01 06:51] LABS: WHITE BLOOD COUNT 13.3 Th/cmm (4.8-10.8)
[2017-06-01 06:52] LABS: HEMATOCRIT 22.6 % (41.0-60)
[2017-06-01 06:53] LABS: HEMOGLOBIN 7.7 gm/dL (12-16)
[2017-06-01 07:01] LABS: ANION GAP 7.9 (7.0-16.0); BUN - UREA NITROGEN 53 mg/dL (7-25); BUN/CREATININE RATIO 16.1; CALCIUM SERUM 8.8 mg/dL (8.6-10.3); CARBON DIOXIDE 26.3 mEq/L (21.0-31.0); CHLORIDE 106 mEq/L (98-107); CREATININE - SERUM 3.3 mg/dL (0.7-1.3); GLUCOSE 111 mg/dL (70-105); POTASSIUM SERUM 4.2 mEq/L (3.5-5.1); SODIUM SERUM 136 mEq/L (136-145)
[2017-06-01 07:13] LABS: BAND NEUTROPHILE 2 % (0-10); NEUTROPHILS 63 % (40-80); TOTAL CELLS COUNTED 100
[2017-06-01] MEDS: Pantoprazole 40 mg/Packet GT SCH (10:01)
[2017-06-01] MEDS: Lactobacillus Rhamnosus 10 Billion CFU Capsule PO SCH (10:02)
[2017-06-01] MEDS: Multivitamin Tab GT SCH (10:02)
[2017-06-01] MEDS: Docusate Sodium 100 mg/10 mL UD PO SCH ×2 (10:03→17:15)
[2017-06-01] MEDS: Ferrous Sulfate 300 MG/5 ML UDC GT SCH ×2 (10:03→17:16)
[2017-06-01] MEDS: Chlorhexidine Gluconate 0.12% 15mL Mouthwash MM SCH ×2 (10:04→19:54)
[2017-06-01] MEDS: Sodium Chloride 0.9% 1,000 ML IV SCH (10:46)
[2017-06-01] MEDS: Morphine Sulfate 2 mg/mL 1mL Syr IVP PRN ×2 (12:52→23:31)
[2017-06-01] MEDS ORDERED: MINERAL OIL ENEMA 135 ML BOTTLE RC ONE (12:59)
--- NOTE | 2017-06-01 12:59 | General Progress Note ---
Subjective - Review of Systems Service Date: 06/01/17 Subjective: sleeping, on vent, no BM for days Objective - Results Result Diagrams: 06/01/17 05:30 06/01/17 05:30 Recent Labs: Laboratory Last Values WBC 13.3 Th/cmm (4.8-10.8) H 06/01/17 05:30 RBC 2.38 Mil/cmm (3.80-5.80) L 06/01/17 05:30 Hgb 7.7 gm/dL (12-16) L* 06/01/17 05:30 Hct 22.6 % (41.0-60) L 06/01/17 05:30 MCV 94.8 fl (80-99) 06/01/17 05:30 MCH 32.1 pg (27.0-31.0) H 06/01/17 05:30 MCHC Differential 33.8 pg (28.0-36.0) 06/01/17 05:30 RDW 14.4 % (11.5-20.0) 06/01/17 05:30 Plt Count 397 Th/cmm (150-400) 06/01/17 05:30 MPV 6.1 fl 06/01/17 05:30 Neutrophils % 71.8 % (40.0-80.0) 05/30/17 06:00 Band Neutrophils % 2 % (0-10) 06/01/17 05:30 Lymphocytes % 13.6 % (20.0-50.0) L 05/30/17 06:00 Monocytes % 9.5 % (2.0-10.0) 05/30/17 06:00 Eosinophils % 4.7 % (0.0-5.0) 05/30/17 06:00 Basophils % 0.4 % (0.0-2.0) 05/30/17 06:00 Neutrophils (Manual) 63 % (40-80) 06/01/17 05:30 Lymphocytes 21 % (20-50) 06/01/17 05:30 Monocytes 4 % (2-10) 06/01/17 05:30 Eosinophils 10 % (0-5) H 05/31/17 04:30 PT 10.6 SECONDS (9.5-11.5) 05/25/17 03:10 INR 1.02 (0.5-1.4) 05/25/17 03:10 PTT (Actin FS) 35.1 SECONDS (26.0-38.0) 05/25/17 03:10 Specimen Source Arterial 05/29/17 09:11 Sample Site Left Radial 05/29/17 09:11 pH 7.45 (7.35-7.45) 05/29/17 09:11 pCO2 35.0 mmHg (35.0-45.0) 05/29/17 09:11 pO2 99.0 mmHg (80.0-100.0) 05/29/17 09:11 HCO3 25.4 mEq/L (20.0-26.0) 05/29/17 09:11 Base Excess 0.6 mEq/L (-3.0-3.0) 05/29/17 09:11 O2 Saturation 98.0 % (92.0-100.0) 05/29/17 09:11 Charles Test Positive 05/29/17 09:11 Vent Rate 14 05/29/17 09:11 Inspired O2 30 05/29/17 09:11 Tidal Volume 500 05/29/17 09:11 PEEP NA 05/29/17 09:11 Pressure (ins/psv/peep) NA 05/29/17 09:11 Critical Value LZHANG 05/29/17 09:11 Sodium 136 mEq/L (136-145) 06/01/17 05:30 Potassium 4.2 mEq/L (3.5-5.1) 06/01/17 05:30 Chloride 106 mEq/L (98-107) 06/01/17 05:30 Carbon Dioxide 26.3 mEq/L (21.0-31.0) 06/01/17 05:30 Anion Gap 7.9 (7.0-16.0) 06/01/17 05:30 BUN 53 mg/dL (7-25) H 06/01/17 05:30 Creatinine 3.3 mg/dL (0.7-1.3) H 06/01/17 05:30 Est GFR ( Amer) TNP 06/01/17 05:30 Est GFR (Non-Af Amer) TNP 06/01/17 05:30 BUN/Creatinine Ratio 16.1 06/01/17 05:30 Glucose 111 mg/dL (70-105) H 06/01/17 05:30 POC Glucose 105 MG/DL (70 - 105) 05/28/17 12:24 Whole Bld Lactic Acid 0.96 mmol/L (0.60-1.99) 05/25/17 09:10 Calcium 8.8 mg/dL (8.6-10.3) 06/01/17 05:30 Phosphorus 4.0 mg/dL (2.5-5.0) 05/28/17 06:30 Magnesium 1.6 mg/dL (1.9-2.7) L 05/31/17 04:30 Total Bilirubin 0.3 mg/dL (0.3-1.0) 05/26/17 07:55 AST 34 U/L (13-39) 05/26/17 07:55 ALT 29 U/L (7-52) 05/26/17 07:55 Alkaline Phosphatase 60 U/L (34-104) 05/26/17 07:55 Troponin I 0.04 ng/mL (0.01-0.05) 05/25/17 03:10 B-Natriuretic Peptide 279.0 pg/mL (5.0-100.0) H 05/25/17 09:10 Total Protein 7.2 gm/dL (6.0-8.3) 05/26/17 07:55 Albumin 2.7 gm/dL (4.2-5.5) L 05/26/17 07:55 Globulin 4.5 gm/dL 05/26/17 07:55 Albumin/Globulin Ratio 0.6 (1.0-1.8) L 05/26/17 07:55 Triglycerides 73 mg/dL (<150) 05/25/17 03:10 Cholesterol 107 mg/dL (<200) 05/25/17 03:10 LDL Cholesterol Direct 76 mg/dL (75-193) 05/25/17 03:10 HDL Cholesterol 35 mg/dL (23-92) 05/25/17 03:10 Prostate Specific Ag 1.6 ng/mL (0.0-4.0) 05/27/17 04:40 Urine Source [place] 05/26/17 02:15 Urine Color RED 05/26/17 02:15 Urine Clarity HAZY (CLEAR) 05/26/17 02:15 Urine pH 7.5 (4.6 - 8.0) 05/26/17 02:15 Ur Specific [place] 1.010 (1.005-1.030) 05/26/17 02:15 Urine Protein 30 mg/dL (NEGATIVE) H 05/26/17 02:15 Urine Glucose (UA) NEGATIVE mg/dL (NEGATIVE) 05/26/17 02:15 Urine Ketones NEGATIVE mg/dL (NEGATIVE) 05/26/17 02:15 Urine Blood LARGE (NEGATIVE) H 05/26/17 02:15 Urine Nitrate NEGATIVE (NEGATIVE) 05/26/17 02:15 Urine Bilirubin NEGATIVE (NEGATIVE) 05/26/17 02:15 Urine Urobilinogen 0.2 E.U./dL (0.2 - 1.0) 05/26/17 02:15 Ur Leukocyte Esterase TRACE (NEGATIVE) H 05/26/17 02:15 Urine RBC 50-100 /hpf (0-5) H 05/26/17 02:15 Urine WBC 2-5 /hpf (0-5) H 05/26/17 02:15 Ur Epithelial Cells OCCASIONAL /lpf (FEW) 05/26/17 02:15 Urine Bacteria OCCASIONAL /hpf (NONE SEEN) 05/26/17 02:15 Ur Random Sodium 49 mmol/L 05/26/17 02:15 Urine Collection Time 24 hours 05/27/17 03:00 Urine Total Volume 3000 ml 05/27/17 03:00 Urine Creatinine 24.0 mg/dl (39.0-259.0) L 05/27/17 03:00 Creat Clearance 24 Hr 8 ml/min (97.00-137.00) L 05/27/17 03:00 Body Surface Area 1.85 05/27/17 03:00 RPR NONREACTIVE (NONREACTIVE) 05/25/17 03:10 Hepatitis A IgM Ab Negative (Negative) 05/26/17 07:55 Hep Bs Antigen Negative (Negative) 05/26/17 07:55 Hep B Core IgM Ab Negative (Negative) 05/26/17 07:55 Hepatitis C Antibody >11.0 s/co ratio (0.0-0.9) H 05/26/17 07:55 HIV 1&2 Antibody Screen NEGATIVE (NEG) 05/29/17 05:30 - Physical Exam Vitals and I&O: Vital Signs Temp 98.2 F 06/01/17 12:00 Pulse 94 06/01/17 12:00 Resp 13 06/01/17 12:00 BP 137/71 06/01/17 12:00 Pulse Ox 99 06/01/17 12:00 Intake & Output 05/31/17 06/01/17 06/01/17 18:59 06:59 18:59 Intake Total 1640 1000 1000 Output Total 900 950 Balance 466 75 5962 Weight (lbs) 65.453 kg 66.224 kg Intake: Intake, IV Amount 1000 1000 Sodium Chloride 0.9% 1, 1000 1000 000 ml @ 75 mls/hr IV . [id number] [facility] Rx#:[id number] Tube Feeding 1640 Output: Urine 900 950 Other: # Bowel Movements 0 Active Medications: Current Medications Acetaminophen (Tylenol 650mg/20.3ml Suspension) 650 mg GT Q4HR PRN PRN Reason: fever >101 or mild pain Stop: 07/24/17 05:23 Last Admin: 05/30/17 02:58 Dose: 650 mg Acetaminophen/Hydrocodone Bitart (Romance 10 Mg/325 Mg) 1 tab PO Q6H PRN PRN Reason: Pain (Moderate) Stop: 07/24/17 05:23 Last Admin: 06/01/17 10:01 Dose: 1 tab Acetaminophen/Hydrocodone Bitart (Romance 5mg/325mg) 1 tab PO Q6H PRN PRN Reason: MODERATE PAIN Stop: 07/28/17 10:28 Last Admin: 05/29/17 15:44 Dose: 1 tab Albuterol/Ipratropium (Duoneb Neb) 3 ml HHN Q2HRT PRN PRN Reason: Wheezing Stop: 07/24/17 05:23 Last Admin: 05/26/17 03:28 Dose: 3 ml Albuterol/Ipratropium (Duoneb Neb) 3 ml HHN Q6HRT [facility] Stop: 07/24/17 18:59 Last Admin: 06/01/17 06:56 Dose: 3 ml Ascorbic Acid (Vitamin C) 500 mg GT BID [facility] Stop: 07/24/17 08:59 Last Admin: 06/01/17 10:57 Dose: 500 mg Chlorhexidine Gluconate (Peridex) 15 ml MM 0800,2000 [facility] Stop: 07/28/17 19:59 Last Admin: 06/01/17 10:04 Dose: 15 ml Diltiazem HCl (Cardizem) 60 mg GT Q8H [facility] Stop: 07/24/17 05:29 Last Admin: 06/01/17 05:33 Dose: 60 mg Docusate Sodium (Colace) 100 mg PO BID [facility] Stop: 07/29/17 08:59 Last Admin: 06/01/17 10:03 Dose: 100 mg Ferrous Sulfate (Iron) 330 mg GT BID [facility] Stop: 07/24/17 08:59 Last Admin: 06/01/17 10:03 Dose: 330 mg Folic Acid (Folate) 1 mg GT DAILY [facility] Stop: 07/24/17 08:59 Last Admin: 06/01/17 10:02 Dose: 1 mg Heparin Sodium (Porcine) (Heparin) 5,000 units SUBQ Q12HR [facility] Stop: 07/31/17 08:59 Last Admin: 06/01/17 10:08 Dose: 5,000 units Sodium Chloride (Nacl 0.9%) 1,000 mls @ 75 mls/hr IV .[id number] [facility] Stop: 07/24/17 11:59 Last Admin: 06/01/17 10:46 Dose: 75 mls/hr Colistimethate Sodium 150 mg/ (Sodium Chloride) 100 mls @ 100 mls/hr IV PRN PRN PRN Reason: AFTER EACH H.D. Stop: 07/29/17 11:20 Lactobacillus Rhamnosus (Culturelle) 1 each PO DAILY [facility] Stop: 07/26/17 08:59 Last Admin: 06/01/17 10:02 Dose: 1 each Metoclopramide HCl (Reglan) 5 mg GT BID [facility] Stop: 07/24/17 08:59 Last Admin: 06/01/17 10:02 Dose: 5 mg Miscellaneous (Probiotic Screen) 1 ea PRN PRN PRN Reason: PROTOCOL Stop: 07/25/17 15:59 Miscellaneous (Pharmacy To Dose) 1 ea PRN [facility] Stop: 07/28/17 13:29 Morphine Sulfate (Morphine) 1 mg IVP Q4HR PRN PRN Reason: SEVERE PAIN Stop: 07/28/17 10:28 Last Admin: 05/31/17 22:20 Dose: 1 mg Morphine Sulfate (Morphine) 2 mg IVP NOW PRN PRN Reason: Pain (Severe) Stop: 07/30/17 12:51 Last Admin: 05/31/17 15:21 Dose: 2 mg Multivitamins/Vitamin C (Theragran) 1 tab GT DAILY [facility] Stop: 07/26/17 10:44 Last Admin: 06/01/17 10:02 Dose: 1 tab Pantoprazole Sodium (Protonix) 40 mg GT DAILY [facility] Stop: 07/24/17 08:59 Last Admin: 06/01/17 10:01 Dose: 40 mg General: Alert, No acute distress HEENT: Atraumatic, EOMI, Mucous membr. moist/pink Neck: Supple, +2 carotid pulse wo bruit Cardiovascular: Regular rate, Normal S1, Normal S2 Lungs: Other (rhonchi) Abdomen: Bowel sounds, Soft Extremities: no Edema Neurological: Sensation intact Skin: no Rash Psych/Mental Status: Mood NL - Procedures Procedures: Procedures Procedure Code Date BLOOD TRANSFUSION SERVICE 57496 02/23/17 INSERT TUNNELED CV CATH 82061 05/25/17 INSERTION OF INFUSION DEV INTO R SUBCLAV VEIN, PERC APPROACH [id number] 05/25/17 RESPIRATORY VENTILATION, GREATER THAN 96 CONSECUTIVE HOURS [id number] 05/25/17 TRANSFUSE NONAUT RED BLOOD CELLS IN PERIPH VEIN, PERC 16244E7 02/23/17 Assessment/Plan - Assessment Assessment: 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 coli, K. pneu VAP Ess HTN - Plan Plan: Lab - Result Diagrams 05/28/17 06:30 05/28/17 06:30 Current Medications Acetaminophen (Tylenol 650mg/20.3ml Suspension) 650 mg GT Q4HR PRN PRN Reason: fever >101 or mild pain Stop: 07/24/17 05:23 Acetaminophen/Hydrocodone Bitart (Romance 10 Mg/325 Mg) 1 tab PO Q6H PRN PRN Reason: Pain (Moderate) Stop: 07/24/17 05:23 Last Admin: 05/28/17 13:49 Dose: 1 tab Albuterol/Ipratropium (Duoneb Neb) 3 ml HHN Q2HRT PRN PRN Reason: Wheezing Stop: 07/24/17 05:23 Last Admin: 05/26/17 03:28 Dose: 3 ml Albuterol/Ipratropium (Duoneb Neb) 3 ml HHN Q6HRT [facility] Stop: 07/24/17 18:59 Last Admin: 05/28/17 08:06 Dose: 3 ml Ascorbic Acid (Vitamin C) 500 mg GT BID [facility] Stop: 07/24/17 08:59 Last Admin: 05/28/17 09:18 Dose: 500 mg Chlorhexidine Gluconate (Peridex) 15 ml MM 0800,1999 [facility] Stop: 07/24/17 07:59 Last Admin: 05/27/17 20:30 Dose: 15 ml Diltiazem HCl (Cardizem) 60 mg GT Q8H [facility] Stop: 07/24/17 05:29 Last Admin: 05/28/17 12:31 Dose: Not Given Docusate Sodium (Colace) 100 mg PO BID [facility] Stop: 07/24/17 08:59 Last Admin: 05/28/17 09:18 Dose: 100 mg Ferrous Sulfate (Iron) 330 mg GT BID [facility] Stop: 07/24/17 08:59 Last Admin: 05/28/17 09:17 Dose: 330 mg Folic Acid (Folate) 1 mg GT DAILY [facility] Stop: 07/24/17 08:59 Last Admin: 05/28/17 09:19 Dose: 1 mg Levofloxacin (Levaquin Pb) 250 mg in 50 mls @ 50 mls/hr IV Q48HR@1500 [facility] Stop: 07/26/17 14:59 Last Admin: 05/27/17 15:31 Dose: 50 mls/hr Meropenem 1 gm/ Sodium (Chloride) 100 mls @ 100 mls/hr IV Q24HR [facility] Stop: 07/26/17 17:29 Last Admin: 05/27/17 18:01 Dose: 100 mls/hr Sodium Chloride (Nacl 0.9%) 1,000 mls @ 75 mls/hr IV .[id number] [facility] Stop: 07/24/17 11:59 Lactobacillus Rhamnosus (Culturelle) 1 each PO DAILY [facility] Stop: 07/26/17 08:59 Last Admin: 05/28/17 09:18 Dose: 1 each Metoclopramide HCl (Reglan) 5 mg GT BID [facility] Stop: 07/24/17 08:59 Last Admin: 05/28/17 09:18 Dose: 5 mg Metronidazole (Flagyl) 500 mg PO Q8HR [facility] Stop: 07/24/17 12:59 Last Admin: 09/27/17 05:05 Dose: 500 mg Miscellaneous (Probiotic Screen) 1 ea MC PRN PRN PRN Reason: PROTOCOL Stop: 07/25/17 15:59 Multivitamins/Vitamin C (Theragran) 1 tab GT DAILY [facility] Stop: 07/26/17 10:44 Last Admin: 05/28/17 09:18 Dose: 1 tab Pantoprazole Sodium (Protonix) 40 mg GT DAILY [facility] Stop: 07/24/17 08:59 Last Admin: 05/28/17 09:18 Dose: 40 m Lab - Result Diagrams 06/01/17 05:30 06/01/17 05:30 schedule for HD in am still w/ adequate UOP monitor closely continue Levofloxacin, Merrem analgesic for right knee pain dulcolax for constipation Nutritional Asmnt/Malnutr-PDOC - Dietary Evaluation Malnutrition Findings (Please click <Entered> for more info): Nutritional Asmnt/Malnutrition Start: 05/27/17 14: 49 Text: Status: Complete Freq: Document 05/27/17 14:52 GSUN (Rec: 05/27/17 15:09 GSUN [email or web address]) Nutritional Asmnt/Malnutrition Patient General Information Nutritional Screening High Risk Screening Diagnosis Bilateral penumonia, dehydration acute on chronic renal insufficiency Pertinent Medical Hx/Surgical Hx Chronic renal failure, vent dependent, chronic anemia, renal insufficiency, COPD, trauma with right hip and right tibial fracture, essential HTN Subjective Information 81 year old male from SNF. Pt with vent trach and PEG. Observed tube feeding running as ordered during morning visit, prepping to leave to surgery for catheter placement . HD scheduled for today. Pt made eye contact, mouthed words. Tolerating tube feeding well per RN assessments. Moderate wasting to shoulders and clavicles, severe wasting to lower extremities. CBW 147. 9lb via bedscale. Current Diet Order/ Nutrition Support Novasource Renal at 40ml/hr x 24hrs, providing 960ml, 1920kcal, 87g protein Pertinent Medications Vitamin C, Colace, Iron, Folate, Culturelle, Reglan, Theragran, Protonix Pertinent Labs BUN 125H (trending down), creatinie 5.9H (trending down) , glucose 151H Nutritional Hx/Data Height 1.83 m Height (Calculated Centimeters) 182.9 Current Weight (lbs) 67.086 kg Weight (Calculated Kilograms) 67.1 Weight (Calculated Grams) 67208.3 [place] Body Weight 178 Weight Status Approriate GI Symptoms Skin Integrity/Comment: Jean 15. Wound care 05/26: skin is fair, chronic wound and scar tissue. Estimated Nutritional Goals BEE in Kcals: Using Current wt Calories/Kcals/Kg CBW 147.9lb/67.2kg Kcals Calculated 2015-2352kcal (30-35kcal/kg) Protein: Using Current wt Protein Calculated 80-101g (1.2-1.5g/kg) Fluid: ml Per MD Nutritional Problem 1. Problem Problem Increased kcal and prot needs related to Etiology hypermetbolic state, estimated nutritinoal needs aeb Signs/Symptoms: HD 05/27, bilateral penumonia, moderate to severe wasting to shoulders clavicles lower extremities Intervention/Recommendation Comments 1. Recommend increasing tube feeding rate to 46ml/hr x 24hrs, providing 1104ml total volume, 2208kcal, 100g protein . Wtih consideration of hypermetabolic state due to penumonia, HD, moderate to severe muscle fat wasting. Expected Outcomes/Goals Expected Outcomes/Goals 1. Pt to meet at least 100% of estimated nutritinoal needs on tube feeding with tolerance .
[2017-06-01] MEDS: Hydrocodone/APAP 5mg/325mg Tab PO PRN (15:49)
[2017-06-02] MEDS: Sodium Chloride 0.9% 1,000 ML IV SCH (00:06)
[2017-06-02] MEDS: Albuterol/Ipratropium Neb 3 ML AERS HHN SCH ×4 (00:43→18:33)
[2017-06-02] MEDS: Hydrocodone/APAP 10 mg/325 mg Tab PO PRN ×2 (02:56→09:59)
[2017-06-02] MEDS: Morphine Sulfate 2 mg/mL 1mL Syr IVP PRN ×3 (05:33→14:09)
[2017-06-02] MEDS: Diltiazem 30 mg Tab GT SCH ×2 (05:34→13:08)
[2017-06-02 06:06] LABS: ANION GAP 8.8 (7.0-16.0); BUN - UREA NITROGEN 62 mg/dL (7-25); BUN/CREATININE RATIO 17.2; CALCIUM SERUM 8.9 mg/dL (8.6-10.3); CARBON DIOXIDE 24.3 mEq/L (21.0-31.0); CHLORIDE 106 mEq/L (98-107); CREATININE - SERUM 3.6 mg/dL (0.7-1.3); GLUCOSE 116 mg/dL (70-105); POTASSIUM SERUM 4.1 mEq/L (3.5-5.1); SODIUM SERUM 135 mEq/L (136-145)
[2017-06-02 06:11] LABS: HEMOGLOBIN 7.6 gm/dL (12-16); RED BLOOD COUNT 2.36 Mil/cmm (3.80-5.80); WHITE BLOOD COUNT 12.7 Th/cmm (4.8-10.8)
[2017-06-02 06:13] LABS: HEMATOCRIT 22.2 % (41.0-60); MEAN CORPUSCULAR HEMOGLOBIN 31.9 pg (27.0-31.0); MEAN PLATELET VOLUME 5.9 fl; PLATELET COUNT 389 Th/cmm (150-400); RED CELL DISTRIBUTION WIDTH 14.1 % (11.5-20.0)
[2017-06-02 06:19] LABS: TOTAL CELLS COUNTED 100
[2017-06-02 06:22] LABS: BAND NEUTROPHILE 5 % (0-10); EOSINOPHIL 10 % (0-5); NEUTROPHILS 56 % (40-80)
[2017-06-02] MEDS: Pantoprazole 40 mg/Packet GT SCH (08:31)
[2017-06-02] MEDS: Ferrous Sulfate 300 MG/5 ML UDC GT SCH ×2 (08:31→16:44)
[2017-06-02] MEDS: Docusate Sodium 100 mg/10 mL UD PO SCH ×2 (08:31→16:45)
[2017-06-02] MEDS: Multivitamin Tab GT SCH (08:32)
[2017-06-02] MEDS: Lactobacillus Rhamnosus 10 Billion CFU Capsule PO SCH (08:32)
[2017-06-02] MEDS: Chlorhexidine Gluconate 0.12% 15mL Mouthwash MM SCH ×2 (08:34→19:58)
[2017-06-02] MEDS: Lactulose 10 Gm/15 mL 30mL UDC GT SCH ×4 (09:05→20:54)
--- NOTE | 2017-06-02 09:15 | Infectious Disease Prog Note ---
Infectious Disease Subjective - Review of Systems Service Date: 06/02/17 Subjective: Constipated for 5 days, able to pass gas. C/o pain in the right knee, without any swelling. Infectious Disease Objective - Results Result Diagrams: 06/02/17 05:40 06/02/17 05:40 Recent Labs: Laboratory Last Values WBC 12.7 Th/cmm (4.8-10.8) H 06/02/17 05:40 RBC 2.36 Mil/cmm (3.80-5.80) L 06/02/17 05:40 Hgb 7.6 gm/dL (12-16) L* 06/02/17 05:40 Hct 22.2 % (41.0-60) L 06/02/17 05:40 MCV 94.0 fl (80-99) 06/02/17 05:40 MCH 31.9 pg (27.0-31.0) H 06/02/17 05:40 MCHC Differential 34.0 pg (28.0-36.0) 06/02/17 05:40 RDW 14.1 % (11.5-20.0) 06/02/17 05:40 Plt Count 389 Th/cmm (150-400) 06/02/17 05:40 MPV 5.9 fl 06/02/17 05:40 Neutrophils % 71.8 % (40.0-80.0) 05/30/17 06:00 Band Neutrophils % 5 % (0-10) 06/02/17 05:40 Lymphocytes % 13.6 % (20.0-50.0) L 05/30/17 06:00 Monocytes % 9.5 % (2.0-10.0) 05/30/17 06:00 Eosinophils % 4.7 % (0.0-5.0) 05/30/17 06:00 Basophils % 0.4 % (0.0-2.0) 05/30/17 06:00 Neutrophils (Manual) 56 % (40-80) 06/02/17 05:40 Lymphocytes 23 % (20-50) 06/02/17 05:40 Monocytes 6 % (2-10) 06/02/17 05:40 Eosinophils 10 % (0-5) H 06/02/17 05:40 PT 10.6 SECONDS (9.5-11.5) 05/25/17 03:10 INR 1.02 (0.5-1.4) 05/25/17 03:10 PTT (Actin FS) 35.1 SECONDS (26.0-38.0) 05/25/17 03:10 Specimen Source Arterial 05/29/17 09:11 Sample Site Left Radial 05/29/17 09:11 pH 7.45 (7.35-7.45) 05/29/17 09:11 pCO2 35.0 mmHg (35.0-45.0) 05/29/17 09:11 pO2 99.0 mmHg (80.0-100.0) 05/29/17 09:11 HCO3 25.4 mEq/L (20.0-26.0) 05/29/17 09:11 Base Excess 0.6 mEq/L (-3.0-3.0) 05/29/17 09:11 O2 Saturation 98.0 % (92.0-100.0) 05/29/17 09:11 Charles Test Positive 05/29/17 09:11 Vent Rate 14 05/29/17 09:11 Inspired O2 30 05/29/17 09:11 Tidal Volume 500 05/29/17 09:11 PEEP NA 05/29/17 09:11 Pressure (ins/psv/peep) NA 05/29/17 09:11 Critical Value LZHANG 05/29/17 09:11 Sodium 135 mEq/L (136-145) L 06/02/17 05:40 Potassium 4.1 mEq/L (3.5-5.1) 06/02/17 05:40 Chloride 106 mEq/L (98-107) 06/02/17 05:40 Carbon Dioxide 24.3 mEq/L (21.0-31.0) 06/02/17 05:40 Anion Gap 8.8 (7.0-16.0) 06/02/17 05:40 BUN 62 mg/dL (7-25) H 06/02/17 05:40 Creatinine 3.6 mg/dL (0.7-1.3) H 06/02/17 05:40 Est GFR ( Amer) TNP 06/02/17 05:40 Est GFR (Non-Af Amer) TNP 06/02/17 05:40 BUN/Creatinine Ratio 17.2 06/02/17 05:40 Glucose 116 mg/dL (70-105) H 06/02/17 05:40 POC Glucose 105 MG/DL (70 - 105) 05/28/17 12:24 Whole Bld Lactic Acid 0.96 mmol/L (0.60-1.99) 05/25/17 09:10 Calcium 8.9 mg/dL (8.6-10.3) 06/02/17 05:40 Phosphorus 4.0 mg/dL (2.5-5.0) 05/28/17 06:30 Magnesium 1.6 mg/dL (1.9-2.7) L 05/31/17 04:30 Total Bilirubin 0.3 mg/dL (0.3-1.0) 05/26/17 07:55 AST 34 U/L (13-39) 05/26/17 07:55 ALT 29 U/L (7-52) 05/26/17 07:55 Alkaline Phosphatase 60 U/L (34-104) 05/26/17 07:55 Troponin I 0.04 ng/mL (0.01-0.05) 05/25/17 03:10 B-Natriuretic Peptide 279.0 pg/mL (5.0-100.0) H 05/25/17 09:10 Total Protein 7.2 gm/dL (6.0-8.3) 05/26/17 07:55 Albumin 2.7 gm/dL (4.2-5.5) L 05/26/17 07:55 Globulin 4.5 gm/dL 05/26/17 07:55 Albumin/Globulin Ratio 0.6 (1.0-1.8) L 05/26/17 07:55 Triglycerides 73 mg/dL (<150) 05/25/17 03:10 Cholesterol 107 mg/dL (<200) 05/25/17 03:10 LDL Cholesterol Direct 76 mg/dL (75-193) 05/25/17 03:10 HDL Cholesterol 35 mg/dL (23-92) 05/25/17 03:10 Prostate Specific Ag 1.6 ng/mL (0.0-4.0) 05/27/17 04:40 Urine Source [place] 05/26/17 02:15 Urine Color RED 05/26/17 02:15 Urine Clarity HAZY (CLEAR) 05/26/17 02:15 Urine pH 7.5 (4.6 - 8.0) 05/26/17 02:15 Ur Specific [place] 1.010 (1.005-1.030) 05/26/17 02:15 Urine Protein 30 mg/dL (NEGATIVE) H 05/26/17 02:15 Urine Glucose (UA) NEGATIVE mg/dL (NEGATIVE) 05/26/17 02:15 Urine Ketones NEGATIVE mg/dL (NEGATIVE) 05/26/17 02:15 Urine Blood LARGE (NEGATIVE) H 05/26/17 02:15 Urine Nitrate NEGATIVE (NEGATIVE) 05/26/17 02:15 Urine Bilirubin NEGATIVE (NEGATIVE) 05/26/17 02:15 Urine Urobilinogen 0.2 E.U./dL (0.2 - 1.0) 05/26/17 02:15 Ur Leukocyte Esterase TRACE (NEGATIVE) H 05/26/17 02:15 Urine RBC 50-100 /hpf (0-5) H 05/26/17 02:15 Urine WBC 2-5 /hpf (0-5) H 05/26/17 02:15 Ur Epithelial Cells OCCASIONAL /lpf (FEW) 05/26/17 02:15 Urine Bacteria OCCASIONAL /hpf (NONE SEEN) 05/26/17 02:15 Ur Random Sodium 49 mmol/L 05/26/17 02:15 Urine Collection Time 24 hours 05/27/17 03:00 Urine Total Volume 3000 ml 05/27/17 03:00 Urine Creatinine 24.0 mg/dl (39.0-259.0) L 05/27/17 03:00 Creat Clearance 24 Hr 8 ml/min (97.00-137.00) L 05/27/17 03:00 Body Surface Area 1.85 05/27/17 03:00 RPR NONREACTIVE (NONREACTIVE) 05/25/17 03:10 Hepatitis A IgM Ab Negative (Negative) 05/26/17 07:55 Hep Bs Antigen Negative (Negative) 05/26/17 07:55 Hep B Core IgM Ab Negative (Negative) 05/26/17 07:55 Hepatitis C Antibody >11.0 s/co ratio (0.0-0.9) H 05/26/17 07:55 HIV 1&2 Antibody Screen NEGATIVE (NEG) 05/29/17 05:30 - Physical Exam Vitals and I&O: Vital Signs Temp 98.0 F 06/02/17 04:00 Pulse 91 06/02/17 06:51 Resp 14 06/02/17 06:40 BP 148/81 06/02/17 06:40 Pulse Ox 99 06/02/17 06:51 Intake & Output 06/01/17 06/02/17 06/02/17 18:59 06:59 18:59 Intake Total 1840 1442.5 Output Total 1450 1250 Balance 390 192.5 Weight (lbs) 67.268 kg 68.039 kg Intake: Intake, IV Amount 1000 1442.5 Sodium Chloride 0.9% 1, 1000 1442.5 000 ml @ 75 mls/hr IV . [id number] [facility] Rx#:[id number] Tube Feeding 840 Output: Urine 1450 1250 Other: # Bowel Movements 0 0 Active Medications: Current Medications Acetaminophen (Tylenol 650mg/20.3ml Suspension) 650 mg GT Q4HR PRN PRN Reason: fever >101 or mild pain Stop: 07/24/17 05:23 Last Admin: 05/30/17 02:58 Dose: 650 mg Acetaminophen/Hydrocodone Bitart ([place] 10 Mg/325 Mg) 1 tab PO Q6H PRN PRN Reason: Pain (Moderate) Stop: 07/24/17 05:23 Last Admin: 06/02/17 02:56 Dose: 1 tab Acetaminophen/Hydrocodone Bitart ([place] 5mg/325mg) 1 tab PO Q6H PRN PRN Reason: MODERATE PAIN Stop: 07/28/17 10:28 Last Admin: 06/01/17 15:49 Dose: 1 tab Albuterol/Ipratropium (Duoneb Neb) 3 ml HHN Q2HRT PRN PRN Reason: Wheezing Stop: 07/24/17 05:23 Last Admin: 05/26/17 03:28 Dose: 3 ml Albuterol/Ipratropium (Duoneb Neb) 3 ml HHN Q6HRT [facility] Stop: 07/24/17 18:59 Last Admin: 06/02/17 06:51 Dose: 3 ml Ascorbic Acid (Vitamin C) 500 mg GT BID [facility] Stop: 07/24/17 08:59 Last Admin: 06/02/17 09:04 Dose: 500 mg Bisacodyl (Dulcolax 10 Mg Supp) 10 mg RC DAILY PRN PRN Reason: Constipation Stop: 07/31/17 13:00 Last Admin: 06/01/17 20:04 Dose: 10 mg Chlorhexidine Gluconate (Peridex) 15 ml MM [phone] [facility] Stop: 07/28/17 19:59 Last Admin: 06/02/17 08:34 Dose: 15 ml Diltiazem HCl (Cardizem) 60 mg GT Q8H [facility] Stop: 07/24/17 05:29 Last Admin: 06/02/17 05:34 Dose: 60 mg Docusate Sodium (Colace) 100 mg PO BID [facility] Stop: 07/29/17 08:59 Last Admin: 06/02/17 08:31 Dose: 100 mg Ferrous Sulfate (Iron) 330 mg GT BID [facility] Stop: 07/24/17 08:59 Last Admin: 06/02/17 08:31 Dose: 330 mg Folic Acid (Folate) 1 mg GT DAILY [facility] Stop: 07/24/17 08:59 Last Admin: 06/02/17 08:32 Dose: 1 mg Heparin Sodium (Porcine) (Heparin) 5,000 units SUBQ Q12HR [facility] Stop: 07/31/17 08:59 Last Admin: 06/02/17 08:32 Dose: 5,000 units Sodium Chloride (Nacl 0.9%) 1,000 mls @ 75 mls/hr IV .[id number] [facility] Stop: 07/24/17 11:59 Last Infusion: 06/02/17 06:00 Dose: 75 mls/hr Colistimethate Sodium 150 mg/ (Sodium Chloride) 100 mls @ 100 mls/hr IV PRN PRN PRN Reason: AFTER EACH H.D. Stop: 07/29/17 11:20 Lactobacillus Rhamnosus (Culturelle) 1 each PO DAILY [facility] Stop: 07/26/17 08:59 Last Admin: 06/02/17 08:32 Dose: 1 each Lactulose (Cephulac) 30 gm GT Q2H [facility] Stop: 06/02/17 13:01 Last Admin: 06/02/17 09:05 Dose: 30 gm Lactulose (Cephulac) 30 gm GT Q8HR [facility] Stop: 08/01/17 20:59 Metoclopramide HCl (Reglan) 5 mg GT BID [facility] Stop: 07/24/17 08:59 Last Admin: 06/02/17 09:04 Dose: 5 mg Miscellaneous (Probiotic Screen) 1 ea MC PRN PRN PRN Reason: PROTOCOL Stop: 07/25/17 15:59 Miscellaneous (Pharmacy To Dose) 1 ea MC PRN [facility] Stop: 07/28/17 13:29 Morphine Sulfate (Morphine) 1 mg IVP Q4HR PRN PRN Reason: SEVERE PAIN Stop: 07/28/17 10:28 Last Admin: 06/02/17 05:33 Dose: 1 mg Morphine Sulfate (Morphine) 2 mg IVP NOW PRN PRN Reason: Pain (Severe) Stop: 07/30/17 12:51 Last Admin: 05/31/17 15:21 Dose: 2 mg Multivitamins/Vitamin C (Theragran) 1 tab GT DAILY [facility] Stop: 07/26/17 10:44 Last Admin: 06/02/17 08:32 Dose: 1 tab Pantoprazole Sodium (Protonix) 40 mg GT DAILY [facility] Stop: 07/24/17 08:59 Last Admin: 06/02/17 08:31 Dose: 40 mg General: no acute distress, cachectic, other (On the ventilator support.) HEENT: atraumatic, normocephalic, PERRLA, EOMI Neck: supple, tracheostomy, no thyromegaly Cardiovascular: S1S2, regular Lungs: clear to auscultation bilaterally, clear to percussion Abdomen: soft, other (g tube is ok.), no tender, no distended Extremities: other (tender right knee without swelling of effusion.), no cyanosis, no clubbing, no edema Neurological: awake, alert, oriented Skin: intact - Procedures Procedures: Procedures Procedure Code Date BLOOD TRANSFUSION SERVICE 81858 02/23/17 INSERT TUNNELED CV CATH [id number] 05/25/17 INSERTION OF INFUSION DEV INTO R SUBCLAV VEIN, PERC APPROACH [id number] 05/25/17 RESPIRATORY VENTILATION, GREATER THAN 96 CONSECUTIVE HOURS [id number] 05/25/17 TRANSFUSE NONAUT RED BLOOD CELLS IN PERIPH VEIN, PERC [id number] 02/23/17 Infectious Disease Assmt/Plan - Assessment Assessment: IMPRESSION: 1. Pneumonia with the sputum culture growing ESBL positive E. coli and CRE Klebsiella. 2. ESBL positive Escherichia coli and CRE Klebsiella pneumoniae infection. 3. Vent dependent respiratory failure. 4. Chronic kidney disease stage 5, on hemodialysis. 5. Diabetes mellitus type 2. 6. Hypertension. 7. Chronic obstructive pulmonary disease. 8. Right hip wound with no sign of infection. 9. Constipation, gastroparesis. 10. Right knee pain, arthritis. - Plan Plan: RECOMMENDATIONS: Change the antibiotic to Colistin and wound care. Will give lactulose. Will start morphin 1mg IV q 4. X ray of the right and left knee. Nutritional Asmnt/Malnutr-PDOC - Dietary Evaluation Malnutrition Findings (Please click <Entered> for more info): Nutritional Asmnt/Malnutrition Start: 05/27/17 14: 49 Text: Status: Complete Freq: Document 05/27/17 14:52 GSUN (Rec: 05/27/17 15:09 [email or web address] [email or web address]) Nutritional Asmnt/Malnutrition Patient General Information Nutritional Screening High Risk Screening Diagnosis Bilateral penumonia, dehydration acute on chronic renal insufficiency Pertinent Medical Hx/Surgical Hx Chronic renal failure, vent dependent, chronic anemia, renal insufficiency, COPD, trauma with right hip and right tibial fracture, essential HTN Subjective Information 81 year old male from SNF. Pt with vent trach and PEG. Observed tube feeding running as ordered during morning visit, prepping to leave to surgery for catheter placement . HD scheduled for today. Pt made eye contact, mouthed words. Tolerating tube feeding well per RN assessments. Moderate wasting to shoulders and clavicles, severe wasting to lower extremities. CBW 147. 9lb via bedscale. Current Diet Order/ Nutrition Support Novasource Renal at 40ml/hr x 24hrs, providing 960ml, 1920kcal, 87g protein Pertinent Medications Vitamin C, Colace, Iron, Folate, Culturelle, Reglan, Theragran, Protonix Pertinent Labs BUN 125H (trending down), creatinie 5.9H (trending down) , glucose 151H Nutritional Hx/Data Height 1.83 m Height (Calculated Centimeters) 182.9 Current Weight (lbs) 67.086 kg Weight (Calculated Kilograms) 67.1 Weight (Calculated Grams) 97677.3 [place] Body Weight 178 Weight Status Approriate GI Symptoms Skin Integrity/Comment: Jean 15. Wound care 05/26: skin is fair, chronic wound and scar tissue. Estimated Nutritional Goals BEE in Kcals: Using Current wt Calories/Kcals/Kg CBW 147.9lb/67.2kg Kcals Calculated 2015-2352kcal (30-35kcal/kg) Protein: Using Current wt Protein Calculated 80-101g (1.2-1.5g/kg) Fluid: ml Per MD Nutritional Problem 1. Problem Problem Increased kcal and prot needs related to Etiology hypermetbolic state, estimated nutritinoal needs aeb Signs/Symptoms: HD 05/27, bilateral penumonia, moderate to severe wasting to shoulders clavicles lower extremities Intervention/Recommendation Comments 1. Recommend increasing tube feeding rate to 46ml/hr x 24hrs, providing 1104ml total volume, 2208kcal, 100g protein . Wtih consideration of hypermetabolic state due to penumonia, HD, moderate to severe muscle fat wasting. Expected Outcomes/Goals Expected Outcomes/Goals 1. Pt to meet at least 100% of estimated nutritinoal needs on tube feeding with tolerance .
--- NOTE | 2017-06-02 11:05 | Diagnostic Imaging Report ---
Right knee (3 views) HISTORY: Pain Joint spaces are maintained. Orthopedic fixation hardware traverses the proximal tibia associated with incomplete bony a Of a fracture involving the proximal tibia. Old fractures involve the proximal fibula. Surgical clip seen in the soft tissues. Extensive severe vascular calcification noted. IMPRESSION: 1. No acute abnormalities 2. Surgical changes associated with healing fracture of the proximal tibia along with old/healing fractures of the proximal fibula. 3. Atherosclerotic vascular changes
--- NOTE | 2017-06-02 11:06 | Diagnostic Imaging Report ---
Left knee (3 views) HISTORY: Pain Medial joint space narrowing. Slight compression involving the medial tibial plateau along with spur formation. No acute bony abnormalities. Old fracture proximal fibula noted. Atherosclerotic vascular calcification noted. IMPRESSION: 1. No acute abnormalities 2. Chronic/degenerative changes particularly about the medial joint compartment 3. Old fracture proximal fibula 4. Atherosclerotic vascular changes
--- NOTE | 2017-06-02 13:58 | General Progress Note ---
Subjective - Review of Systems Service Date: 06/02/17 Subjective: still w/ right knee pain, on vent Objective - Results Result Diagrams: 06/02/17 05:40 06/02/17 05:40 Recent Labs: Laboratory Last Values WBC 12.7 Th/cmm (4.8-10.8) H 06/02/17 05:40 RBC 2.36 Mil/cmm (3.80-5.80) L 06/02/17 05:40 Hgb 7.6 gm/dL (12-16) L* 06/02/17 05:40 Hct 22.2 % (41.0-60) L 06/02/17 05:40 MCV 94.0 fl (80-99) 06/02/17 05:40 MCH 31.9 pg (27.0-31.0) H 06/02/17 05:40 MCHC Differential 34.0 pg (28.0-36.0) 06/02/17 05:40 RDW 14.1 % (11.5-20.0) 06/02/17 05:40 Plt Count 389 Th/cmm (150-400) 06/02/17 05:40 MPV 5.9 fl 06/02/17 05:40 Neutrophils % 71.8 % (40.0-80.0) 05/30/17 06:00 Band Neutrophils % 5 % (0-10) 06/02/17 05:40 Lymphocytes % 13.6 % (20.0-50.0) L 05/30/17 06:00 Monocytes % 9.5 % (2.0-10.0) 05/30/17 06:00 Eosinophils % 4.7 % (0.0-5.0) 05/30/17 06:00 Basophils % 0.4 % (0.0-2.0) 05/30/17 06:00 Neutrophils (Manual) 56 % (40-80) 06/02/17 05:40 Lymphocytes 23 % (20-50) 06/02/17 05:40 Monocytes 6 % (2-10) 06/02/17 05:40 Eosinophils 10 % (0-5) H 06/02/17 05:40 PT 10.6 SECONDS (9.5-11.5) 05/25/17 03:10 INR 1.02 (0.5-1.4) 05/25/17 03:10 PTT (Actin FS) 35.1 SECONDS (26.0-38.0) 05/25/17 03:10 Specimen Source Arterial 05/29/17 09:11 Sample Site Left Radial 05/29/17 09:11 pH 7.45 (7.35-7.45) 05/29/17 09:11 pCO2 35.0 mmHg (35.0-45.0) 05/29/17 09:11 pO2 99.0 mmHg (80.0-100.0) 05/29/17 09:11 HCO3 25.4 mEq/L (20.0-26.0) 05/29/17 09:11 Base Excess 0.6 mEq/L (-3.0-3.0) 05/29/17 09:11 O2 Saturation 98.0 % (92.0-100.0) 05/29/17 09:11 Charles Test Positive 05/29/17 09:11 Vent Rate 14 05/29/17 09:11 Inspired O2 30 05/29/17 09:11 Tidal Volume 500 05/29/17 09:11 PEEP NA 05/29/17 09:11 Pressure (ins/psv/peep) NA 05/29/17 09:11 Critical Value LZHANG 05/29/17 09:11 Sodium 135 mEq/L (136-145) L 06/02/17 05:40 Potassium 4.1 mEq/L (3.5-5.1) 06/02/17 05:40 Chloride 106 mEq/L (98-107) 06/02/17 05:40 Carbon Dioxide 24.3 mEq/L (21.0-31.0) 06/02/17 05:40 Anion Gap 8.8 (7.0-16.0) 06/02/17 05:40 BUN 62 mg/dL (7-25) H 06/02/17 05:40 Creatinine 3.6 mg/dL (0.7-1.3) H 06/02/17 05:40 Est GFR ( Amer) TNP 06/02/17 05:40 Est GFR (Non-Af Amer) TNP 06/02/17 05:40 BUN/Creatinine Ratio 17.2 06/02/17 05:40 Glucose 116 mg/dL (70-105) H 06/02/17 05:40 POC Glucose 105 MG/DL (70 - 105) 05/28/17 12:24 Whole Bld Lactic Acid 0.96 mmol/L (0.60-1.99) 05/25/17 09:10 Calcium 8.9 mg/dL (8.6-10.3) 06/02/17 05:40 Phosphorus 4.0 mg/dL (2.5-5.0) 05/28/17 06:30 Magnesium 1.6 mg/dL (1.9-2.7) L 05/31/17 04:30 Total Bilirubin 0.3 mg/dL (0.3-1.0) 05/26/17 07:55 AST 34 U/L (13-39) 05/26/17 07:55 ALT 29 U/L (7-52) 05/26/17 07:55 Alkaline Phosphatase 60 U/L (34-104) 05/26/17 07:55 Troponin I 0.04 ng/mL (0.01-0.05) 05/25/17 03:10 B-Natriuretic Peptide 279.0 pg/mL (5.0-100.0) H 05/25/17 09:10 Total Protein 7.2 gm/dL (6.0-8.3) 05/26/17 07:55 Albumin 2.7 gm/dL (4.2-5.5) L 05/26/17 07:55 Globulin 4.5 gm/dL 05/26/17 07:55 Albumin/Globulin Ratio 0.6 (1.0-1.8) L 05/26/17 07:55 Triglycerides 73 mg/dL (<150) 05/25/17 03:10 Cholesterol 107 mg/dL (<200) 05/25/17 03:10 LDL Cholesterol Direct 76 mg/dL (75-193) 05/25/17 03:10 HDL Cholesterol 35 mg/dL (23-92) 05/25/17 03:10 Prostate Specific Ag 1.6 ng/mL (0.0-4.0) 05/27/17 04:40 Urine Source [place] 05/26/17 02:15 Urine Color RED 05/26/17 02:15 Urine Clarity HAZY (CLEAR) 05/26/17 02:15 Urine pH 7.5 (4.6 - 8.0) 05/26/17 02:15 Ur Specific [place] 1.010 (1.005-1.030) 05/26/17 02:15 Urine Protein 30 mg/dL (NEGATIVE) H 05/26/17 02:15 Urine Glucose (UA) NEGATIVE mg/dL (NEGATIVE) 05/26/17 02:15 Urine Ketones NEGATIVE mg/dL (NEGATIVE) 05/26/17 02:15 Urine Blood LARGE (NEGATIVE) H 05/26/17 02:15 Urine Nitrate NEGATIVE (NEGATIVE) 05/26/17 02:15 Urine Bilirubin NEGATIVE (NEGATIVE) 05/26/17 02:15 Urine Urobilinogen 0.2 E.U./dL (0.2 - 1.0) 05/26/17 02:15 Ur Leukocyte Esterase TRACE (NEGATIVE) H 05/26/17 02:15 Urine RBC 50-100 /hpf (0-5) H 05/26/17 02:15 Urine WBC 2-5 /hpf (0-5) H 05/26/17 02:15 Ur Epithelial Cells OCCASIONAL /lpf (FEW) 05/26/17 02:15 Urine Bacteria OCCASIONAL /hpf (NONE SEEN) 05/26/17 02:15 Ur Random Sodium 49 mmol/L 05/26/17 02:15 Urine Collection Time 24 hours 05/27/17 03:00 Urine Total Volume 3000 ml 05/27/17 03:00 Urine Creatinine 24.0 mg/dl (39.0-259.0) L 05/27/17 03:00 Creat Clearance 24 Hr 8 ml/min (97.00-137.00) L 05/27/17 03:00 Body Surface Area 1.85 05/27/17 03:00 RPR NONREACTIVE (NONREACTIVE) 05/25/17 03:10 Hepatitis A IgM Ab Negative (Negative) 05/26/17 07:55 Hep Bs Antigen Negative (Negative) 05/26/17 07:55 Hep B Core IgM Ab Negative (Negative) 05/26/17 07:55 Hepatitis C Antibody >11.0 s/co ratio (0.0-0.9) H 05/26/17 07:55 HIV 1&2 Antibody Screen NEGATIVE (NEG) 05/29/17 05:30 Blood Type A POSITIVE 06/02/17 10:00 Antibody Screen NEGATIVE 06/02/17 10:00 Crossmatch See Detail 06/02/17 10:00 - Physical Exam Vitals and I&O: Vital Signs Temp 98.1 F 06/02/17 08:00 Pulse 96 06/02/17 13:15 Resp 13 06/02/17 08:00 BP 140/80 06/02/17 08:00 Pulse Ox 100 06/02/17 13:15 Intake & Output 06/01/17 06/02/17 06/02/17 18:59 06:59 18:59 Intake Total 1840 1442.5 Output Total 1450 1250 Balance 390 192.5 Weight (lbs) 67.268 kg 68.039 kg Intake: Intake, IV Amount 1000 1442.5 Sodium Chloride 0.9% 1, 1000 1442.5 000 ml @ 75 mls/hr IV . [id number] [facility] Rx#:[id number] Tube Feeding 840 Output: Urine 1450 1250 Other: # Bowel Movements 0 0 Active Medications: Current Medications Acetaminophen (Tylenol 650mg/20.3ml Suspension) 650 mg GT Q4HR PRN PRN Reason: fever >101 or mild pain Stop: 07/24/17 05:23 Last Admin: 06/02/17 12:21 Dose: 650 mg Acetaminophen/Hydrocodone Bitart (Triangle 10 Mg/325 Mg) 1 tab PO Q6H PRN PRN Reason: Pain (Moderate) Stop: 07/24/17 05:23 Last Admin: 06/02/17 09:59 Dose: 1 tab Acetaminophen/Hydrocodone Bitart (Triangle 5mg/325mg) 1 tab PO Q6H PRN PRN Reason: MODERATE PAIN Stop: 07/28/17 10:28 Last Admin: 06/01/17 15:49 Dose: 1 tab Albuterol/Ipratropium (Duoneb Neb) 3 ml HHN Q2HRT PRN PRN Reason: Wheezing Stop: 07/24/17 05:23 Last Admin: 05/26/17 03:28 Dose: 3 ml Albuterol/Ipratropium (Duoneb Neb) 3 ml HHN Q6HRT [facility] Stop: 07/24/17 18:59 Last Admin: 06/02/17 13:18 Dose: 3 ml Ascorbic Acid (Vitamin C) 500 mg GT BID [facility] Stop: 07/24/17 08:59 Last Admin: 06/02/17 09:04 Dose: 500 mg Bisacodyl (Dulcolax 10 Mg Supp) 10 mg RC DAILY PRN PRN Reason: Constipation Stop: 07/31/17 13:00 Last Admin: 06/01/17 20:04 Dose: 10 mg Chlorhexidine Gluconate (Peridex) 15 ml MM 08,1999 [facility] Stop: 07/28/17 19:59 Last Admin: 06/02/17 08:34 Dose: 15 ml Diltiazem HCl (Cardizem) 60 mg GT Q8H [facility] Stop: 07/24/17 05:29 Last Admin: 06/02/17 13:08 Dose: 60 mg Docusate Sodium (Colace) 100 mg PO BID [facility] Stop: 07/29/17 08:59 Last Admin: 06/02/17 08:31 Dose: 100 mg Ferrous Sulfate (Iron) 330 mg GT BID [facility] Stop: 07/24/17 08:59 Last Admin: 06/02/17 08:31 Dose: 330 mg Folic Acid (Folate) 1 mg GT DAILY [facility] Stop: 07/24/17 08:59 Last Admin: 06/02/17 08:32 Dose: 1 mg Heparin Sodium (Porcine) (Heparin) 5,000 units SUBQ Q12HR [facility] Stop: 07/31/17 08:59 Last Admin: 06/02/17 08:32 Dose: 5,000 units Sodium Chloride (Nacl 0.9%) 1,000 mls @ 75 mls/hr IV .[id number] [facility] Stop: 07/24/17 11:59 Last Infusion: 06/02/17 06:00 Dose: 75 mls/hr Colistimethate Sodium 150 mg/ (Sodium Chloride) 100 mls @ 100 mls/hr IV PRN PRN PRN Reason: AFTER EACH H.D. Stop: 07/29/17 11:20 Lactobacillus Rhamnosus (Culturelle) 1 each PO DAILY [facility] Stop: 07/26/17 08:59 Last Admin: 06/02/17 08:32 Dose: 1 each Lactulose (Cephulac) 30 gm GT Q8HR [facility] Stop: 08/01/17 20:59 Metoclopramide HCl (Reglan) 5 mg GT BID [facility] Stop: 07/24/17 08:59 Last Admin: 06/02/17 09:04 Dose: 5 mg Miscellaneous (Probiotic Screen) 1 ea MC PRN PRN PRN Reason: PROTOCOL Stop: 07/25/17 15:59 Miscellaneous (Pharmacy To Dose) 1 ea MC PRN [facility] Stop: 07/28/17 13:29 Morphine Sulfate (Morphine) 1 mg IVP Q4HR PRN PRN Reason: SEVERE PAIN Stop: 07/28/17 10:28 Last Admin: 06/02/17 09:24 Dose: 1 mg Multivitamins/Vitamin C (Theragran) 1 tab GT DAILY [facility] Stop: 07/26/17 10:44 Last Admin: 06/02/17 08:32 Dose: 1 tab Pantoprazole Sodium (Protonix) 40 mg GT DAILY [facility] Stop: 07/24/17 08:59 Last Admin: 06/02/17 08:31 Dose: 40 mg General: Alert, No acute distress HEENT: Atraumatic, EOMI, Mucous membr. moist/pink Neck: Supple, +2 carotid pulse wo bruit Cardiovascular: Regular rate, Normal S1, Normal S2 Lungs: Other (rhonchi) Abdomen: Bowel sounds, Soft Extremities: no Edema Neurological: Sensation intact Skin: no Rash Psych/Mental Status: Mood NL - Procedures Procedures: Procedures Procedure Code Date BLOOD TRANSFUSION SERVICE 20873 02/23/17 INSERT TUNNELED CV CATH 45851 05/25/17 INSERTION OF INFUSION DEV INTO R SUBCLAV VEIN, PERC APPROACH 45M569A 05/25/17 RESPIRATORY VENTILATION, GREATER THAN 96 CONSECUTIVE HOURS 4X0123A 05/25/17 TRANSFUSE NONAUT RED BLOOD CELLS IN PERIPH VEIN, [facility] [id number] 02/23/17 Assessment/Plan - Assessment Assessment: 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 coli, K. pneu VAP Ess HTN - Plan Plan: Lab - Result Diagrams 05/28/17 06:30 05/28/17 06:30 Current Medications Acetaminophen (Tylenol 650mg/20.3ml Suspension) 650 mg GT Q4HR PRN PRN Reason: fever >101 or mild pain Stop: 07/24/17 05:23 Acetaminophen/Hydrocodone Bitart (Triangle 10 Mg/325 Mg) 1 tab PO Q6H PRN PRN Reason: Pain (Moderate) Stop: 07/24/17 05:23 Last Admin: 05/28/17 13:49 Dose: 1 tab Albuterol/Ipratropium (Duoneb Neb) 3 ml HHN Q2HRT PRN PRN Reason: Wheezing Stop: 07/24/17 05:23 Last Admin: 05/26/17 03:28 Dose: 3 ml Albuterol/Ipratropium (Duoneb Neb) 3 ml HHN Q6HRT [facility] Stop: 07/24/17 18:59 Last Admin: 05/28/17 08:06 Dose: 3 ml Ascorbic Acid (Vitamin C) 500 mg GT BID [facility] Stop: 07/24/17 08:59 Last Admin: 05/28/17 09:18 Dose: 500 mg Chlorhexidine Gluconate (Peridex) 15 ml MM 0800,1999 [facility] Stop: 07/24/17 07:59 Last Admin: 05/27/17 20:30 Dose: 15 ml Diltiazem HCl (Cardizem) 60 mg GT Q8H [facility] Stop: 07/24/17 05:29 Last Admin: 05/28/17 12:31 Dose: Not Given Docusate Sodium (Colace) 100 mg PO BID [facility] Stop: 07/24/17 08:59 Last Admin: 05/28/17 09:18 Dose: 100 mg Ferrous Sulfate (Iron) 330 mg GT BID [facility] Stop: 07/24/17 08:59 Last Admin: 05/28/17 09:17 Dose: 330 mg Folic Acid (Folate) 1 mg GT DAILY [facility] Stop: 07/24/17 08:59 Last Admin: 05/28/17 09:19 Dose: 1 mg Levofloxacin (Levaquin Pb) 250 mg in 50 mls @ 50 mls/hr IV Q48HR@1500 [facility] Stop: 07/26/17 14:59 Last Admin: 05/27/17 15:31 Dose: 50 mls/hr Meropenem 1 gm/ Sodium (Chloride) 100 mls @ 100 mls/hr IV Q24HR [facility] Stop: 07/26/17 17:29 Last Admin: 05/27/17 18:01 Dose: 100 mls/hr Sodium Chloride (Nacl 0.9%) 1,000 mls @ 75 mls/hr IV .[id number] [facility] Stop: 07/24/17 11:59 Lactobacillus Rhamnosus (Culturelle) 1 each PO DAILY [facility] Stop: 07/26/17 08:59 Last Admin: 05/28/17 09:18 Dose: 1 each Metoclopramide HCl (Reglan) 5 mg GT BID [facility] Stop: 07/24/17 08:59 Last Admin: 05/28/17 09:18 Dose: 5 mg Metronidazole (Flagyl) 500 mg PO Q8HR [facility] Stop: 07/24/17 12:59 Last Admin: 05/28/17 05:05 Dose: 500 mg Miscellaneous (Probiotic Screen) 1 ea MC PRN PRN PRN Reason: PROTOCOL Stop: 07/25/17 15:59 Multivitamins/Vitamin C (Theragran) 1 tab GT DAILY [facility] Stop: 07/26/17 10:44 Last Admin: 05/28/17 09:18 Dose: 1 tab Pantoprazole Sodium (Protonix) 40 mg GT DAILY [facility] Stop: 07/24/17 08:59 Last Admin: 05/28/17 09:18 Dose: 40 m Lab - Result Diagrams 06/02/17 05:40 06/02/17 05:40 schedule for HD today still w/ adequate UOP monitor closely continue Levofloxacin, Merrem analgesic for right knee pain dulcolax for constipation agree w/ transfusion Nutritional Asmnt/Malnutr-PDOC - Dietary Evaluation Malnutrition Findings (Please click <Entered> for more info): Nutritional Asmnt/Malnutrition Start: 05/27/17 14: 49 Text: Status: Complete Freq: Document 05/27/17 14:52 GSUN (Rec: 05/27/17 15:09 [email or web address] [id number]) Nutritional Asmnt/Malnutrition Patient General Information Nutritional Screening High Risk Screening Diagnosis Bilateral penumonia, dehydration acute on chronic renal insufficiency Pertinent Medical Hx/Surgical Hx Chronic renal failure, vent dependent, chronic anemia, renal insufficiency, COPD, trauma with right hip and right tibial fracture, essential HTN Subjective Information 81 year old male from SNF. Pt with vent trach and PEG. Observed tube feeding running as ordered during morning visit, prepping to leave to surgery for catheter placement . HD scheduled for today. Pt made eye contact, mouthed words. Tolerating tube feeding well per RN assessments. Moderate wasting to shoulders and clavicles, severe wasting to lower extremities. CBW 147. 9lb via bedscale. Current Diet Order/ Nutrition Support Novasource Renal at 40ml/hr x 24hrs, providing 960ml, 1920kcal, 87g protein Pertinent Medications Vitamin C, Colace, Iron, Folate, Culturelle, Reglan, Theragran, Protonix Pertinent Labs BUN 125H (trending down), creatinie 5.9H (trending down) , glucose 151H Nutritional Hx/Data Height 1.83 m Height (Calculated Centimeters) 182.9 Current Weight (lbs) 67.086 kg Weight (Calculated Kilograms) 67.1 Weight (Calculated Grams) 22311.3 [place] Body Weight 178 Weight Status Approriate GI Symptoms Skin Integrity/Comment: Jean 15. Wound care 05/26: skin is fair, chronic wound and scar tissue. Estimated Nutritional Goals BEE in Kcals: Using Current wt Calories/Kcals/Kg CBW 147.9lb/67.2kg Kcals Calculated 2015-2kcal (30-35kcal/kg) Protein: Using Current wt Protein Calculated 80-101g (1.2-1.5g/kg) Fluid: ml Per MD Nutritional Problem 1. Problem Problem Increased kcal and prot needs related to Etiology hypermetbolic state, estimated nutritinoal needs aeb Signs/Symptoms: HD 05/27, bilateral penumonia, moderate to severe wasting to shoulders clavicles lower extremities Intervention/Recommendation Comments 1. Recommend increasing tube feeding rate to 46ml/hr x 24hrs, providing 1104ml total volume, 2208kcal, 100g protein . Wtih consideration of hypermetabolic state due to penumonia, HD, moderate to severe muscle fat wasting. Expected Outcomes/Goals Expected Outcomes/Goals 1. Pt to meet at least 100% of estimated nutritinoal needs on tube feeding with tolerance .
[2017-06-02] MEDS: Morphine Sulfate 4 mg/mL 1mL Syr IV PRN ×2 (15:00→19:04)
[2017-06-02] MEDS: Diltiazem 5 mg/mL 5mL Vial IVP PRN ×2 (15:05→18:55)
[2017-06-03] MEDS: Morphine Sulfate 4 mg/mL 1mL Syr IV PRN ×2 (00:14→10:28)
[2017-06-03] MEDS: Albuterol/Ipratropium Neb 3 ML AERS HHN SCH ×4 (01:10→18:41)
[2017-06-03] MEDS: Sodium Chloride 0.9% 1,000 ML IV SCH ×2 (04:08→21:09)
[2017-06-03 04:45] LABS: RED CELL DISTRIBUTION WIDTH 16.1 % (11.5-20.0)
[2017-06-03 05:02] LABS: ANION GAP 11.1 (7.0-16.0); BUN - UREA NITROGEN 37 mg/dL (7-25); BUN/CREATININE RATIO 12.8; CALCIUM SERUM 9.2 mg/dL (8.6-10.3); CARBON DIOXIDE 21.7 mEq/L (21.0-31.0); CHLORIDE 104 mEq/L (98-107); CREATININE - SERUM 2.9 mg/dL (0.7-1.3); GLUCOSE 124 mg/dL (70-105); MAGNESIUM 1.5 mg/dL (1.9-2.7); MEAN CELL VOLUME 91.9 fl (80-99); MEAN CORPUSCULAR HEMOGLOBIN 32.2 pg (27.0-31.0); MEAN CORPUSCULAR HGB CONC 35.1 pg (28.0-36.0); MEAN PLATELET VOLUME 6.3 fl; PLATELET COUNT 432 Th/cmm (150-400); POTASSIUM SERUM 3.8 mEq/L (3.5-5.1); RED BLOOD COUNT 2.98 Mil/cmm (3.80-5.80); SODIUM SERUM 133 mEq/L (136-145)
[2017-06-03 05:07] LABS: HEMATOCRIT 27.4 % (41.0-60); HEMOGLOBIN 9.6 gm/dL (12-16); WHITE BLOOD COUNT 45.8 Th/cmm (4.8-10.8)
[2017-06-03 06:08] LABS: BAND NEUTROPHILE 14 % (0-10); NEUTROPHILS 77 % (40-80); TOTAL CELLS COUNTED 100
[2017-06-03] MEDS: Lactulose 10 Gm/15 mL 30mL UDC GT SCH ×3 (06:27→21:06)
[2017-06-03] MEDS: Hydrocodone/APAP 10 mg/325 mg Tab PO PRN ×2 (07:50→19:03)
--- NOTE | 2017-06-03 08:23 | Diagnostic Imaging Report ---
CHEST X-RAY: AP view INDICATION: Aspiration COMPARISON: Chest x-ray 05/30/2017 FINDINGS: Support devices are stable. Patchy bilateral infiltrates are seen with probable small left effusion. Prominent heart is noted. IMPRESSION: Persistent patchy bilateral infiltrates and small left effusion.
--- NOTE | 2017-06-03 08:35 | Diagnostic Imaging Report ---
CHEST X-RAY: AP view INDICATION: Pneumonia COMPARISON: 06/02/2017 FINDINGS: Support devices are stable. Persistent diffuse patchy infiltrates are again noted without change. Cardiomegaly is noted. IMPRESSION: Persistent diffuse patchy pulmonary infiltrates.
[2017-06-03] MEDS: Ferrous Sulfate 300 MG/5 ML UDC GT SCH ×2 (08:49→17:56)
[2017-06-03] MEDS: Docusate Sodium 100 mg/10 mL UD PO SCH ×2 (08:49→16:55)
[2017-06-03] MEDS: Pantoprazole 40 mg/Packet GT SCH (08:51)
[2017-06-03] MEDS: Lactobacillus Rhamnosus 10 Billion CFU Capsule PO SCH (08:51)
[2017-06-03] MEDS: Multivitamin Tab GT SCH (08:53)
[2017-06-03] MEDS: Chlorhexidine Gluconate 0.12% 15mL Mouthwash MM SCH ×2 (08:55→21:06)
[2017-06-03] MEDS ORDERED: Mag Sulfate 2gm/50mL Premix 2 GM/50 ML BAG IV ONE (09:30)
[2017-06-03] MEDS: Meropenem 1 GM in Sodium Chloride 0.9% 100 ML IV SCH (10:09)
[2017-06-03] MEDS ORDERED: Diatrizoate Meglumine/Diatri 30 mL Sol PO ONE (10:56)
[2017-06-03 12:46] LABS: URINE BILIRUBIN NEGATIVE (NEGATIVE); URINE BLOOD TRACE (NEGATIVE); URINE GLUCOSE (UA) NEGATIVE (NEGATIVE); URINE KETONE NEGATIVE (NEGATIVE); URINE PROTEIN 30 mg/dL (NEGATIVE); URINE UROBILINOGEN 0.2 E.U./dL (0.2 - 1.0)
[2017-06-03 12:47] LABS: URINE COLOR YELLOW
[2017-06-03 12:52] LABS: URINE BACTERIA FEW /hpf (NONE SEEN); URINE CALCIUM OXALATE CRYSTALS FEW /hpf; URINE EPITHELIAL CELLS FEW /lpf (FEW)
[2017-06-03 12:54] LABS: URINE COARSE GRANULAR CAST 0-2 /lpf (NONE SEEN)
--- NOTE | 2017-06-03 13:02 | Diagnostic Imaging Report ---
Exam: CT examination abdomen pelvis HISTORY: Vomiting Total DLP equals 373 CTDI equals 7.9 Multiple contiguous thin section of the abdomen pelvis obtained from lower thorax to pubic symphysis with administration of oral contrast material. Contrast was utilized no prior studies available comparison. The study demonstrates bilateral pneumonia and effusions. The liver parenchyma is intact. The gallbladder is normal. The spleen is normal. 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 The kidneys demonstrate no evidence of obstructive uropathy or nephrolithiasis. Inferior vena cava filter is in place. The pancreas poorly seen. The oral contrast material progressed normal fashion. Loops with reflux into the cecum. The abdominal aorta is calcified. No free fluid is noted. There is no evidence of diverticular disease of diverticulitis. There is a question of calcification within the appendix appendicolith cannot be excluded. There is no evidence of appendicitis. The urinary bladder is distended. The prostate gland is enlarged. Bony structures demonstrate no evidence for lytic or blastic lesions. IMPRESSION: 1. Bilateral pneumonia and effusions. 2. Inferior vena cava filter in place. 3. Normal progression of contrast material through small bowel loops. 4. 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 I. Distended urinary bladder.
--- NOTE | 2017-06-03 14:19 | General Progress Note ---
Subjective - Review of Systems Service Date: 06/03/17 Subjective: still w/ right knee pain, sleeping, on vent Objective - Results Result Diagrams: 06/03/17 04:25 06/03/17 04:25 Recent Labs: Laboratory Last Values WBC 45.8 Th/cmm (4.8-10.8) H* D 06/03/17 04:25 RBC 2.98 Mil/cmm (3.80-5.80) L 06/03/17 04:25 Hgb 9.6 gm/dL (12-16) L D 06/03/17 04:25 Hct 27.4 % (41.0-60) L D 06/03/17 04:25 MCV 91.9 fl (80-99) 06/03/17 04:25 MCH 32.2 pg (27.0-31.0) H 06/03/17 04:25 MCHC Differential 35.1 pg (28.0-36.0) 06/03/17 04:25 RDW 16.1 % (11.5-20.0) 06/03/17 04:25 Plt Count 432 Th/cmm (150-400) H 06/03/17 04:25 MPV 6.3 fl 06/03/17 04:25 Neutrophils % 71.8 % (40.0-80.0) 05/30/17 06:00 Band Neutrophils % 14 % (0-10) H 06/03/17 04:25 Lymphocytes % 13.6 % (20.0-50.0) L 05/30/17 06:00 Monocytes % 9.5 % (2.0-10.0) 05/30/17 06:00 Eosinophils % 4.7 % (0.0-5.0) 05/30/17 06:00 Basophils % 0.4 % (0.0-2.0) 05/30/17 06:00 Neutrophils (Manual) 77 % (40-80) 06/03/17 04:25 Lymphocytes 8 % (20-50) L 06/03/17 04:25 Monocytes 1 % (2-10) L 06/03/17 04:25 Eosinophils 10 % (0-5) H 06/02/17 05:40 PT 10.6 SECONDS (9.5-11.5) 05/25/17 03:10 INR 1.02 (0.5-1.4) 05/25/17 03:10 PTT (Actin FS) 35.1 SECONDS (26.0-38.0) 05/25/17 03:10 Specimen Source Arterial 05/29/17 09:11 Sample Site Left Radial 05/29/17 09:11 pH 7.45 (7.35-7.45) 05/29/17 09:11 pCO2 35.0 mmHg (35.0-45.0) 05/29/17 09:11 pO2 99.0 mmHg (80.0-100.0) 05/29/17 09:11 HCO3 25.4 mEq/L (20.0-26.0) 05/29/17 09:11 Base Excess 0.6 mEq/L (-3.0-3.0) 05/29/17 09:11 O2 Saturation 98.0 % (92.0-100.0) 05/29/17 09:11 Charles Test Positive 05/29/17 09:11 Vent Rate 14 05/29/17 09:11 Inspired O2 30 05/29/17 09:11 Tidal Volume 500 05/29/17 09:11 PEEP NA 05/29/17 09:11 Pressure (ins/psv/peep) NA 05/29/17 09:11 Critical Value LZHANG 05/29/17 09:11 Sodium 133 mEq/L (136-145) L 06/03/17 04:25 Potassium 3.8 mEq/L (3.5-5.1) 06/03/17 04:25 Chloride 104 mEq/L (98-107) 06/03/17 04:25 Carbon Dioxide 21.7 mEq/L (21.0-31.0) 06/03/17 04:25 Anion Gap 11.1 (7.0-16.0) 06/03/17 04:25 BUN 37 mg/dL (7-25) H 06/03/17 04:25 Creatinine 2.9 mg/dL (0.7-1.3) H 06/03/17 04:25 Est GFR ( Amer) TNP 06/03/17 04:25 Est GFR (Non-Af Amer) TNP 06/03/17 04:25 BUN/Creatinine Ratio 12.8 06/03/17 04:25 Glucose 124 mg/dL (70-105) H 06/03/17 04:25 POC Glucose 105 MG/DL (70 - 105) 05/28/17 12:24 Whole Bld Lactic Acid 0.96 mmol/L (0.60-1.99) 05/25/17 09:10 Calcium 9.2 mg/dL (8.6-10.3) 06/03/17 04:25 Phosphorus 4.0 mg/dL (2.5-5.0) 05/28/17 06:30 Magnesium 1.5 mg/dL (1.9-2.7) L 06/03/17 04:25 Total Bilirubin 0.3 mg/dL (0.3-1.0) 05/26/17 07:55 AST 34 U/L (13-39) 05/26/17 07:55 ALT 29 U/L (7-52) 05/26/17 07:55 Alkaline Phosphatase 60 U/L (34-104) 05/26/17 07:55 Troponin I 0.04 ng/mL (0.01-0.05) 05/25/17 03:10 B-Natriuretic Peptide 279.0 pg/mL (5.0-100.0) H 05/25/17 09:10 Total Protein 7.2 gm/dL (6.0-8.3) 05/26/17 07:55 Albumin 2.7 gm/dL (4.2-5.5) L 05/26/17 07:55 Globulin 4.5 gm/dL 05/26/17 07:55 Albumin/Globulin Ratio 0.6 (1.0-1.8) L 05/26/17 07:55 Triglycerides 73 mg/dL (<150) 05/25/17 03:10 Cholesterol 107 mg/dL (<200) 05/25/17 03:10 LDL Cholesterol Direct 76 mg/dL (75-193) 05/25/17 03:10 HDL Cholesterol 35 mg/dL (23-92) 05/25/17 03:10 Prostate Specific Ag 1.6 ng/mL (0.0-4.0) 05/27/17 04:40 Urine Source [place] 06/03/17 11:00 Urine Color YELLOW 06/03/17 11:00 Urine Clarity CLEAR (CLEAR) 06/03/17 11:00 Urine pH 6.0 (4.6 - 8.0) 06/03/17 11:00 Ur Specific Tamms 1.025 (1.005-1.030) 06/03/17 11:00 Urine Protein 30 mg/dL (NEGATIVE) H 06/03/17 11:00 Urine Glucose (UA) NEGATIVE mg/dL (NEGATIVE) 06/03/17 11:00 Urine Ketones NEGATIVE mg/dL (NEGATIVE) 06/03/17 11:00 Urine Blood TRACE (NEGATIVE) 06/03/17 11:00 Urine Nitrate NEGATIVE (NEGATIVE) 06/03/17 11:00 Urine Bilirubin NEGATIVE (NEGATIVE) 06/03/17 11:00 Urine Urobilinogen 0.2 E.U./dL (0.2 - 1.0) 06/03/17 11:00 Ur Leukocyte Esterase TRACE (NEGATIVE) H 06/03/17 11:00 Urine RBC 5-10 /hpf (0-5) H 06/03/17 11:00 Urine WBC 2-5 /hpf (0-5) H 06/03/17 11:00 Ur Epithelial Cells FEW /lpf (FEW) 06/03/17 11:00 Calcium Oxalate Crystal FEW /hpf 06/03/17 11:00 Urine Bacteria FEW /hpf (NONE SEEN) 06/03/17 11:00 Coarse Granular Casts 0-2 /lpf (NONE SEEN) H 06/03/17 11:00 Ur Random Sodium 49 mmol/L 05/26/17 02:15 Urine Collection Time 24 hours 05/27/17 03:00 Urine Total Volume 3000 ml 05/27/17 03:00 Urine Creatinine 24.0 mg/dl (39.0-259.0) L 05/27/17 03:00 Creat Clearance 24 Hr 8 ml/min (97.00-137.00) L 05/27/17 03:00 Body Surface Area 1.85 05/27/17 03:00 Stool Occult Blood NEGATIVE (NEGATIVE) 06/03/17 11:20 RPR NONREACTIVE (NONREACTIVE) 05/25/17 03:10 Hepatitis A IgM Ab Negative (Negative) 05/26/17 07:55 Hep Bs Antigen Negative (Negative) 05/26/17 07:55 Hep B Core IgM Ab Negative (Negative) 05/26/17 07:55 Hepatitis C Antibody >11.0 s/co ratio (0.0-0.9) H 05/26/17 07:55 HIV 1&2 Antibody Screen NEGATIVE (NEG) 05/29/17 05:30 Blood Type A POSITIVE 06/02/17 10:00 Antibody Screen NEGATIVE 06/02/17 10:00 Crossmatch See Detail 06/02/17 10:00 - Physical Exam Vitals and I&O: Vital Signs Temp 98.4 F 06/03/17 07:00 Pulse 111 06/03/17 13:00 Resp 21 06/03/17 13:00 BP 150/88 06/03/17 13:00 Pulse Ox 98 06/03/17 13:00 Intake & Output 06/02/17 06/03/17 06/03/17 18:59 06:59 18:59 Intake Total 1317.5 408.75 Output Total 3300 450 Balance -1982.5 -41.25 Weight (lbs) 68.039 kg 67.676 kg Intake: Intake, IV Amount 557.5 158.75 Sodium Chloride 0.9% 1, 557.5 158.75 000 ml @ 75 mls/hr IV . [id number] PENDING SALE TO [facility] Rx#:[id number] Tube Feeding 360 250 Blood Product 250 Other 150 Output: Urine 1200 450 Hemodialysis 2100 Other: # Bowel Movements 0 4 Stool Characteristics Liquid Liquid Brown Brown Black Black Green Active Medications: Current Medications Acetaminophen (Tylenol 650mg/20.3ml Suspension) 650 mg GT Q4HR PRN PRN Reason: fever >101 or mild pain Stop: 07/24/17 05:23 Last Admin: 06/02/17 19:57 Dose: 650 mg Acetaminophen/Hydrocodone Bitart (Joes 10 Mg/325 Mg) 1 tab PO Q6H PRN PRN Reason: Pain (Moderate) Stop: 07/24/17 05:23 Last Admin: 06/03/17 07:50 Dose: 1 tab Acetaminophen/Hydrocodone Bitart (Joes 5mg/325mg) 1 tab PO Q6H PRN PRN Reason: MODERATE PAIN Stop: 07/28/17 10:28 Last Admin: 06/01/17 15:49 Dose: 1 tab Albuterol/Ipratropium (Duoneb Neb) 3 ml HHN Q2HRT PRN PRN Reason: Wheezing Stop: 07/24/17 05:23 Last Admin: 05/26/17 03:28 Dose: 3 ml Albuterol/Ipratropium (Duoneb Neb) 3 ml HHN Q6HRT PENDING SALE TO [facility] Stop: 07/24/17 18:59 Last Admin: 06/03/17 12:45 Dose: 3 ml Ascorbic Acid (Vitamin C) 500 mg GT BID PENDING SALE TO [facility] Stop: 07/24/17 08:59 Last Admin: 06/03/17 08:50 Dose: 500 mg Bisacodyl (Dulcolax 10 Mg Supp) 10 mg RC DAILY PRN PRN Reason: Constipation Stop: 07/31/17 13:00 Last Admin: 06/01/17 20:04 Dose: 10 mg Chlorhexidine Gluconate (Peridex) 15 ml MM 08,1999 PENDING SALE TO [facility] Stop: 07/28/17 19:59 Last Admin: 06/03/17 08:55 Dose: 15 ml Diltiazem HCl (Cardizem) 10 mg IVP Q4H PRN PRN Reason: Tachycardia Stop: 08/01/17 14:57 Last Admin: 06/02/17 18:55 Dose: 10 mg Docusate Sodium (Colace) 100 mg PO BID PENDING SALE TO [facility] Stop: 07/29/17 08:59 Last Admin: 06/03/17 08:49 Dose: 100 mg Ferrous Sulfate (Iron) 330 mg GT BID PENDING SALE TO [facility] Stop: 07/24/17 08:59 Last Admin: 06/03/17 08:49 Dose: 330 mg Folic Acid (Folate) 1 mg GT DAILY PENDING SALE TO [facility] Stop: 07/24/17 08:59 Last Admin: 06/03/17 08:52 Dose: 1 mg Heparin Sodium (Porcine) (Heparin) 5,000 units SUBQ Q12HR PENDING SALE TO [facility] Stop: 07/31/17 08:59 Last Admin: 06/03/17 08:53 Dose: 5,000 units Sodium Chloride (Nacl 0.9%) 1,000 mls @ 75 mls/hr IV .[id number] PENDING SALE TO [facility] Stop: 07/24/17 11:59 Last Infusion: 06/03/17 06:15 Dose: 75 mls/hr Colistimethate Sodium 150 mg/ (Sodium Chloride) 100 mls @ 100 mls/hr IV PRN PRN PRN Reason: AFTER EACH H.D. Stop: 07/29/17 11:20 Meropenem 1 gm/ Sodium (Chloride) 100 mls @ 100 mls/hr IV Q24H EDINSON Stop: 08/02/17 10:59 Last Admin: 06/03/17 10:09 Dose: 100 mls/hr Lactobacillus Rhamnosus (Culturelle) 1 each PO DAILY EDINSON Stop: 07/26/17 08:59 Last Admin: 06/03/17 08:51 Dose: 1 each Lactulose (Cephulac) 30 gm GT Q8HR EDINSON Stop: 08/01/17 20:59 Last Admin: 06/03/17 14:00 Dose: Not Given Lorazepam (Ativan) 1 mg IVP Q4H PRN; Protocol PRN Reason: Agitation Stop: 08/01/17 14:55 Last Admin: 06/03/17 11:48 Dose: 1 mg Metoclopramide HCl (Reglan) 5 mg GT BID EDINSON Stop: 07/24/17 08:59 Last Admin: 06/03/17 08:50 Dose: 5 mg Metronidazole (Flagyl) 500 mg PO Q8H EDINSON Stop: 06/10/17 10:01 Last Admin: 06/03/17 10:24 Dose: 500 mg Miscellaneous (Probiotic Screen) 1 ea PRN PRN PRN Reason: PROTOCOL Stop: 07/25/17 15:59 Miscellaneous (Pharmacy To Dose) 1 ea PRN EDINSON Stop: 07/28/17 13:29 Morphine Sulfate (Morphine) 1 mg IVP Q4HR PRN PRN Reason: SEVERE PAIN Stop: 07/28/17 10:28 Last Admin: 06/02/17 14:09 Dose: 1 mg Morphine Sulfate (Morphine) 2 mg IV Q4H PRN PRN Reason: Pain (Moderate) Stop: 08/01/17 14:52 Last Admin: 06/03/17 10:28 Dose: 2 mg Multivitamins/Vitamin C (Theragran) 1 tab GT DAILY EDINSON Stop: 07/26/17 10:44 Last Admin: 06/03/17 08:53 Dose: 1 tab Ondansetron HCl (Zofran) 4 mg IV Q4H PRN PRN Reason: Nausea / Vomiting Stop: 08/01/17 16:43 Last Admin: 06/03/17 10:23 Dose: 4 mg Pantoprazole Sodium (Protonix) 40 mg GT DAILY PENDING SALE TO [facility] Stop: 07/24/17 08:59 Last Admin: 06/03/17 08:51 Dose: 40 mg General: Alert, No acute distress HEENT: Atraumatic, EOMI, Mucous membr. moist/pink Neck: Supple, +2 carotid pulse wo bruit Cardiovascular: Regular rate, Normal S1, Normal S2 Lungs: Other (rhonchi) Abdomen: Bowel sounds, Soft Extremities: no Edema Neurological: Sensation intact Skin: no Rash Psych/Mental Status: Mood NL - Procedures Procedures: Procedures Procedure Code Date BLOOD TRANSFUSION SERVICE 67483 02/23/17 INSERT TUNNELED CV CATH 72770 05/25/17 INSERTION OF INFUSION DEV INTO R SUBCLAV VEIN, PERC APPROACH [id number] 05/25/17 RESPIRATORY VENTILATION, GREATER THAN 96 CONSECUTIVE HOURS [id number] 05/25/17 TRANSFUSE NONAUT RED BLOOD CELLS IN PERIPH VEIN, PERC 50144V9 02/23/17 Assessment/Plan - Assessment Assessment: 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 coli, K. pneu VAP Ess HTN Leukocytosis - Plan Plan: Lab - Result Diagrams 05/28/17 06:30 05/28/17 06:30 Current Medications Acetaminophen (Tylenol 650mg/20.3ml Suspension) 650 mg GT Q4HR PRN PRN Reason: fever >101 or mild pain Stop: 07/24/17 05:23 Acetaminophen/Hydrocodone Bitart (Joes 10 Mg/325 Mg) 1 tab PO Q6H PRN PRN Reason: Pain (Moderate) Stop: 07/24/17 05:23 Last Admin: 05/28/17 13:49 Dose: 1 tab Albuterol/Ipratropium (Duoneb Neb) 3 ml HHN Q2HRT PRN PRN Reason: Wheezing Stop: 07/24/17 05:23 Last Admin: 05/26/17 03:28 Dose: 3 ml Albuterol/Ipratropium (Duoneb Neb) 3 ml HHN Q6HRT EDINSON Stop: 07/24/17 18:59 Last Admin: 05/28/17 08:06 Dose: 3 ml Ascorbic Acid (Vitamin C) 500 mg GT BID PENDING SALE TO [facility] Stop: 07/24/17 08:59 Last Admin: 05/28/17 09:18 Dose: 500 mg Chlorhexidine Gluconate (Peridex) 15 ml MM 0800,2000 PENDING SALE TO [facility] Stop: 07/24/17 07:59 Last Admin: 05/27/17 20:30 Dose: 15 ml Diltiazem HCl (Cardizem) 60 mg GT Q8H EDINSON Stop: 07/24/17 05:29 Last Admin: 05/28/17 12:31 Dose: Not Given Docusate Sodium (Colace) 100 mg PO BID EDINSON Stop: 07/24/17 08:59 Last Admin: 05/28/17 09:18 Dose: 100 mg Ferrous Sulfate (Iron) 330 mg GT BID EDINSON Stop: 07/24/17 08:59 Last Admin: 05/28/17 09:17 Dose: 330 mg Folic Acid (Folate) 1 mg GT DAILY EDINSON Stop: 07/24/17 08:59 Last Admin: 05/28/17 09:19 Dose: 1 mg Levofloxacin (Levaquin Pb) 250 mg in 50 mls @ 50 mls/hr IV Q48HR@1500 PENDING SALE TO [facility] Stop: 07/26/17 14:59 Last Admin: 05/27/17 15:31 Dose: 50 mls/hr Meropenem 1 gm/ Sodium (Chloride) 100 mls @ 100 mls/hr IV Q24HR EDINSON Stop: 07/26/17 17:29 Last Admin: 05/27/17 18:01 Dose: 100 mls/hr Sodium Chloride (Nacl 0.9%) 1,000 mls @ 75 mls/hr IV .[id number] PENDING SALE TO [facility] Stop: 07/24/17 11:59 Lactobacillus Rhamnosus (Culturelle) 1 each PO DAILY EDINSON Stop: 07/26/17 08:59 Last Admin: 05/28/17 09:18 Dose: 1 each Metoclopramide HCl (Reglan) 5 mg GT BID EDINSON Stop: 07/24/17 08:59 Last Admin: 05/28/17 09:18 Dose: 5 mg Metronidazole (Flagyl) 500 mg PO Q8HR EDINSON Stop: 07/24/17 12:59 Last Admin: 05/28/17 05:05 Dose: 500 mg Miscellaneous (Probiotic Screen) 1 MC PRN PRN PRN Reason: PROTOCOL Stop: 07/25/17 15:59 Multivitamins/Vitamin C (Theragran) 1 tab GT DAILY EDINSON Stop: 07/26/17 10:44 Last Admin: 05/28/17 09:18 Dose: 1 tab Pantoprazole Sodium (Protonix) 40 mg GT DAILY PENDING SALE TO [facility] Stop: 07/24/17 08:59 Last Admin: 05/28/17 09:18 Dose: 40 m Lab - Result Diagrams 06/03/17 04:25 06/03/17 04:25 schedule for HD tomorrow still w/ adequate UOP monitor closely continue Levofloxacin, Merrem analgesic for right knee pain dulcolax for constipation sudden rise in WBC? Nutritional Asmnt/Malnutr-PDOC - Dietary Evaluation Malnutrition Findings (Please click <Entered> for more info): Nutritional Asmnt/Malnutrition Start: 05/27/17 14: 49 Text: Status: Complete Freq: Document 05/27/17 14:52 GSUN (Rec: 05/27/17 15:09 GSUN [id number]) Nutritional Asmnt/Malnutrition Patient General Information Nutritional Screening High Risk Screening Diagnosis Bilateral penumonia, dehydration acute on chronic renal insufficiency Pertinent Medical Hx/Surgical Hx Chronic renal failure, vent dependent, chronic anemia, renal insufficiency, COPD, trauma with right hip and right tibial fracture, essential HTN Subjective Information 81 year old male from SNF. Pt with vent trach and PEG. Observed tube feeding running as ordered during morning visit, prepping to leave to surgery for catheter placement . HD scheduled for today. Pt made eye contact, mouthed words. Tolerating tube feeding well per RN assessments. Moderate wasting to shoulders and clavicles, severe wasting to lower extremities. CBW 147. 9lb via bedscale. Current Diet [facility]/hr x 24hrs, providing 960ml, 1920kcal, 87g protein Pertinent Medications Vitamin C, Colace, Iron, Folate, Culturelle, Reglan, Theragran, Protonix Pertinent Labs BUN 125H (trending down), creatinie 5.9H (trending down) , glucose 151H Nutritional Hx/Data Height 1.83 m Height (Calculated Centimeters) 182.9 Current Weight (lbs) 67.086 kg Weight (Calculated Kilograms) 67.1 Weight (Calculated Grams) 11141.3 Wayne Body Weight 178 Weight Status Approriate GI Symptoms Skin Integrity/Comment: Jean 15. Wound care 05/26: skin is fair, chronic wound and scar tissue. Estimated Nutritional Goals BEE in Kcals: Using Current wt Calories/Kcals/Kg CBW 147.9lb/67.2kg Kcals Calculated 2015-2352kcal (30-35kcal/kg) Protein: Using Current wt Protein Calculated 80-101g (1.2-1.5g/kg) Fluid: ml Per MD Nutritional Problem 1. Problem Problem Increased kcal and prot needs related to Etiology hypermetbolic state, estimated nutritinoal needs aeb Signs/Symptoms: HD 05/27, bilateral penumonia, moderate to severe wasting to shoulders clavicles lower extremities Intervention/Recommendation Comments 1. Recommend increasing tube feeding rate to 46ml/hr x 24hrs, providing 1104ml total volume, 2208kcal, 100g protein . Wtih consideration of hypermetabolic state due to penumonia, HD, moderate to severe muscle fat wasting. Expected Outcomes/Goals Expected Outcomes/Goals 1. Pt to meet at least 100% of estimated nutritinoal needs on tube feeding with tolerance .
[2017-06-03 14:41] LABS: HEMATOCRIT 24.1 % (41.0-60); HEMOGLOBIN 8.3 gm/dL (12-16); MEAN CELL VOLUME 91.5 fl (80-99); MEAN CORPUSCULAR HEMOGLOBIN 31.3 pg (27.0-31.0); MEAN CORPUSCULAR HGB CONC 34.2 pg (28.0-36.0); MEAN PLATELET VOLUME 6.5 fl; PLATELET COUNT 351 Th/cmm (150-400); RED BLOOD COUNT 2.64 Mil/cmm (3.80-5.80)
[2017-06-03 14:55] LABS: WHITE BLOOD COUNT 34.6 Th/cmm (4.8-10.8)
[2017-06-03 15:15] LABS: BAND NEUTROPHILE 10 % (0-10); BASOPHIL 0 % (0-3); EOSINOPHIL 0 % (0-5); NEUTROPHILS 78 % (40-80); PLATELET ESTIMATE ADEQUATE (NORMAL); PLATELET MORPHOLOGY NORMAL (NORMAL); TOTAL CELLS COUNTED 100
[2017-06-03 15:16] LABS: ANISOCYTOSIS 2+
--- NOTE | 2017-06-03 22:33 | Infectious Disease Prog Note ---
Infectious Disease Subjective - Review of Systems Service Date: 06/03/17 Subjective: Able to pass BMs. Developed fevers and WBC count went up to 45k. Vanco IV and flagyl were added. Remains on the ventilator. Infectious Disease Objective - Results Result Diagrams: 06/03/17 14:36 06/03/17 04:25 Recent Labs: Laboratory Last Values WBC 34.6 Th/cmm (4.8-10.8) H* D 06/03/17 14:36 RBC 2.64 Mil/cmm (3.80-5.80) L 06/03/17 14:36 Hgb 8.3 gm/dL (12-16) L 06/03/17 14:36 Hct 24.1 % (41.0-60) L 06/03/17 14:36 MCV 91.5 fl (80-99) 06/03/17 14:36 MCH 31.3 pg (27.0-31.0) H 06/03/17 14:36 MCHC Differential 34.2 pg (28.0-36.0) 06/03/17 14:36 RDW 16.0 % (11.5-20.0) 06/03/17 14:36 Plt Count 351 Th/cmm (150-400) 06/03/17 14:36 MPV 6.5 fl 06/03/17 14:36 Neutrophils % 71.8 % (40.0-80.0) 05/30/17 06:00 Band Neutrophils % 10 % (0-10) 06/03/17 14:36 Lymphocytes % 13.6 % (20.0-50.0) L 05/30/17 06:00 Monocytes % 9.5 % (2.0-10.0) 05/30/17 06:00 Eosinophils % 4.7 % (0.0-5.0) 05/30/17 06:00 Basophils % 0.4 % (0.0-2.0) 05/30/17 06:00 Neutrophils (Manual) 78 % (40-80) 06/03/17 14:36 Lymphocytes 7 % (20-50) L 06/03/17 14:36 Monocytes 5 % (2-10) 06/03/17 14:36 Eosinophils 0 % (0-5) 06/03/17 14:36 Basophils 0 % (0-3) 06/03/17 14:36 Platelet Estimate ADEQUATE (NORMAL) 06/03/17 14:36 Platelet Morphology NORMAL (NORMAL) 06/03/17 14:36 Anisocytosis 2+ 06/03/17 14:36 RBC Morph Micro Appear ABNORMAL (NORMAL) 06/03/17 14:36 PT 10.6 SECONDS (9.5-11.5) 05/25/17 03:10 INR 1.02 (0.5-1.4) 05/25/17 03:10 PTT (Actin FS) 35.1 SECONDS (26.0-38.0) 05/25/17 03:10 Specimen Source Arterial 05/29/17 09:11 Sample Site Left Radial 05/29/17 09:11 pH 7.45 (7.35-7.45) 05/29/17 09:11 pCO2 35.0 mmHg (35.0-45.0) 05/29/17 09:11 pO2 99.0 mmHg (80.0-100.0) 05/29/17 09:11 HCO3 25.4 mEq/L (20.0-26.0) 05/29/17 09:11 Base Excess 0.6 mEq/L (-3.0-3.0) 05/29/17 09:11 O2 Saturation 98.0 % (92.0-100.0) 05/29/17 09:11 Charles Test Positive 05/29/17 09:11 Vent Rate 14 05/29/17 09:11 Inspired O2 30 05/29/17 09:11 Tidal Volume 500 05/29/17 09:11 PEEP NA 05/29/17 09:11 Pressure (ins/psv/peep) NA 05/29/17 09:11 Critical Value LZHANG 05/29/17 09:11 Sodium 133 mEq/L (136-145) L 06/03/17 04:25 Potassium 3.8 mEq/L (3.5-5.1) 06/03/17 04:25 Chloride 104 mEq/L (98-107) 06/03/17 04:25 Carbon Dioxide 21.7 mEq/L (21.0-31.0) 06/03/17 04:25 Anion Gap 11.1 (7.0-16.0) 06/03/17 04:25 BUN 37 mg/dL (7-25) H 06/03/17 04:25 Creatinine 2.9 mg/dL (0.7-1.3) H 06/03/17 04:25 Est GFR ( Amer) TNP 06/03/17 04:25 Est GFR (Non-Af Amer) TNP 06/03/17 04:25 BUN/Creatinine Ratio 12.8 06/03/17 04:25 Glucose 124 mg/dL (70-105) H 06/03/17 04:25 POC Glucose 105 MG/DL (70 - 105) 05/28/17 12:24 Whole Bld Lactic Acid 0.96 mmol/L (0.60-1.99) 05/25/17 09:10 Calcium 9.2 mg/dL (8.6-10.3) 06/03/17 04:25 Phosphorus 4.0 mg/dL (2.5-5.0) 05/28/17 06:30 Magnesium 1.5 mg/dL (1.9-2.7) L 06/03/17 04:25 Total Bilirubin 0.3 mg/dL (0.3-1.0) 05/26/17 07:55 AST 34 U/L (13-39) 05/26/17 07:55 ALT 29 U/L (7-52) 05/26/17 07:55 Alkaline Phosphatase 60 U/L (34-104) 05/26/17 07:55 Troponin I 0.04 ng/mL (0.01-0.05) 05/25/17 03:10 B-Natriuretic Peptide 279.0 pg/mL (5.0-100.0) H 05/25/17 09:10 Total Protein 7.2 gm/dL (6.0-8.3) 05/26/17 07:55 Albumin 2.7 gm/dL (4.2-5.5) L 05/26/17 07:55 Globulin 4.5 gm/dL 05/26/17 07:55 Albumin/Globulin Ratio 0.6 (1.0-1.8) L 05/26/17 07:55 Triglycerides 73 mg/dL (<150) 05/25/17 03:10 Cholesterol 107 mg/dL (<200) 05/25/17 03:10 LDL Cholesterol Direct 76 mg/dL (75-193) 05/25/17 03:10 HDL Cholesterol 35 mg/dL (23-92) 05/25/17 03:10 Prostate Specific Ag 1.6 ng/mL (0.0-4.0) 05/27/17 04:40 Urine Source [place] 06/03/17 11:00 Urine Color YELLOW 06/03/17 11:00 Urine Clarity CLEAR (CLEAR) 06/03/17 11:00 Urine pH 6.0 (4.6 - 8.0) 06/03/17 11:00 Ur Specific [place] 1.025 (1.005-1.030) 06/03/17 11:00 Urine Protein 30 mg/dL (NEGATIVE) H 06/03/17 11:00 Urine Glucose (UA) NEGATIVE mg/dL (NEGATIVE) 06/03/17 11:00 Urine Ketones NEGATIVE mg/dL (NEGATIVE) 06/03/17 11:00 Urine Blood TRACE (NEGATIVE) 06/03/17 11:00 Urine Nitrate NEGATIVE (NEGATIVE) 06/03/17 11:00 Urine Bilirubin NEGATIVE (NEGATIVE) 06/03/17 11:00 Urine Urobilinogen 0.2 E.U./dL (0.2 - 1.0) 06/03/17 11:00 Ur Leukocyte Esterase TRACE (NEGATIVE) H 06/03/17 11:00 Urine RBC 5-10 /hpf (0-5) H 06/03/17 11:00 Urine WBC 2-5 /hpf (0-5) H 06/03/17 11:00 Ur Epithelial Cells FEW /lpf (FEW) 06/03/17 11:00 Calcium Oxalate Crystal FEW /hpf 06/03/17 11:00 Urine Bacteria FEW /hpf (NONE SEEN) 06/03/17 11:00 Coarse Granular Casts 0-2 /lpf (NONE SEEN) H 06/03/17 11:00 Ur Random Sodium 49 mmol/L 05/26/17 02:15 Urine Collection Time 24 hours 05/27/17 03:00 Urine Total Volume 3000 ml 05/27/17 03:00 Urine Creatinine 24.0 mg/dl (39.0-259.0) L 05/27/17 03:00 Creat Clearance 24 Hr 8 ml/min (97.00-137.00) L 05/27/17 03:00 Body Surface Area 1.85 05/27/17 03:00 Stool Occult Blood NEGATIVE (NEGATIVE) 06/03/17 11:20 RPR NONREACTIVE (NONREACTIVE) 05/25/17 03:10 Hepatitis A IgM Ab Negative (Negative) 05/26/17 07:55 Hep Bs Antigen Negative (Negative) 05/26/17 07:55 Hep B Core IgM Ab Negative (Negative) 05/26/17 07:55 Hepatitis C Antibody >11.0 s/co ratio (0.0-0.9) H 05/26/17 07:55 HIV 1&2 Antibody Screen NEGATIVE (NEG) 05/29/17 05:30 Blood Type A POSITIVE 06/02/17 10:00 Antibody Screen NEGATIVE 06/02/17 10:00 Crossmatch See Detail 06/02/17 10:00 - Physical Exam Vitals and I&O: Vital Signs Temp 97.9 F 06/03/17 20:00 Pulse 101 06/03/17 21:00 Resp 17 06/03/17 21:00 BP 122/74 06/03/17 21:00 Pulse Ox 97 06/03/17 21:00 Intake & Output 06/03/17 06/03/17 06/04/17 06:59 18:59 06:59 Intake Total 408.75 1141.25 Output Total 450 400 Balance -41.25 741.25 Weight (lbs) 67.676 kg 67.676 kg Intake: Intake, IV Amount 158.75 941.25 Meropenem 1 gm In Sodium 100 Chloride 0.9% 100 ml @ 100 mls/hr IV Q24H [facility] Rx #:[id number] Sodium Chloride 0.9% 1, 158.75 841.25 000 ml @ 75 mls/hr IV . [id number] [facility] Rx#:[id number] Tube Feeding 250 50 Other 150 Output: Urine 450 400 Other: # Bowel Movements 4 1 Stool Characteristics Liquid Liquid Brown Brown Black Black Green Active Medications: Current Medications Acetaminophen (Tylenol 650mg/20.3ml Suspension) 650 mg GT Q4HR PRN PRN Reason: fever >101 or mild pain Stop: 07/24/17 05:23 Last Admin: 06/02/17 19:57 Dose: 650 mg Acetaminophen/Hydrocodone Bitart ([place] 10 Mg/325 Mg) 1 tab PO Q6H PRN PRN Reason: Pain (Moderate) Stop: 07/24/17 05:23 Last Admin: 06/03/17 19:03 Dose: 1 tab Acetaminophen/Hydrocodone Bitart ([place] 5mg/325mg) 1 tab PO Q6H PRN PRN Reason: MODERATE PAIN Stop: 07/28/17 10:28 Last Admin: 06/01/17 15:49 Dose: 1 tab Albuterol/Ipratropium (Duoneb Neb) 3 ml HHN Q2HRT PRN PRN Reason: Wheezing Stop: 07/24/17 05:23 Last Admin: 05/26/17 03:28 Dose: 3 ml Albuterol/Ipratropium (Duoneb Neb) 3 ml HHN Q6HRT [facility] Stop: 07/24/17 18:59 Last Admin: 06/03/17 18:41 Dose: 3 ml Ascorbic Acid (Vitamin C) 500 mg GT BID [facility] Stop: 07/24/17 08:59 Last Admin: 06/03/17 16:55 Dose: 500 mg Bisacodyl (Dulcolax 10 Mg Supp) 10 mg RC DAILY PRN PRN Reason: Constipation Stop: 07/31/17 13:00 Last Admin: 06/01/17 20:04 Dose: 10 mg Chlorhexidine Gluconate (Peridex) 15 ml MM 0800,2000 [facility] Stop: 07/28/17 19:59 Last Admin: 06/03/17 21:06 Dose: 15 ml Diltiazem HCl (Cardizem) 10 mg IVP Q4H PRN PRN Reason: Tachycardia Stop: 08/01/17 14:57 Last Admin: 06/02/17 18:55 Dose: 10 mg Docusate Sodium (Colace) 100 mg PO BID [facility] Stop: 07/29/17 08:59 Last Admin: 06/03/17 16:55 Dose: 100 mg Ferrous Sulfate (Iron) 330 mg GT BID [facility] Stop: 07/24/17 08:59 Last Admin: 06/03/17 17:56 Dose: 330 mg Folic Acid (Folate) 1 mg GT DAILY [facility] Stop: 07/24/17 08:59 Last Admin: 06/03/17 08:52 Dose: 1 mg Heparin Sodium (Porcine) (Heparin) 5,000 units SUBQ Q12HR [facility] Stop: 07/31/17 08:59 Last Admin: 06/03/17 21:03 Dose: 5,000 units Sodium Chloride (Nacl 0.9%) 1,000 mls @ 75 mls/hr IV .[id number] [facility] Stop: 07/24/17 11:59 Last Admin: 06/03/17 21:09 Dose: 75 mls/hr Colistimethate Sodium 150 mg/ (Sodium Chloride) 100 mls @ 100 mls/hr IV PRN PRN PRN Reason: AFTER EACH H.D. Stop: 07/29/17 11:20 Last Infusion: 06/02/17 17:00 Dose: Infused Meropenem 1 gm/ Sodium (Chloride) 100 mls @ 100 mls/hr IV Q24H [facility] Stop: 08/02/17 10:59 Last Infusion: 06/03/17 11:10 Dose: Infused Lactobacillus Rhamnosus (Culturelle) 1 each PO DAILY [facility] Stop: 07/26/17 08:59 Last Admin: 06/03/17 08:51 Dose: 1 each Lactulose (Cephulac) 30 gm GT Q8HR [facility] Stop: 08/01/17 20:59 Last Admin: 06/03/17 21:06 Dose: Not Given Lorazepam (Ativan) 1 mg IVP Q4H PRN; Protocol PRN Reason: Agitation Stop: 08/01/17 14:55 Last Admin: 06/03/17 11:48 Dose: 1 mg Metoclopramide HCl (Reglan) 5 mg GT BID [facility] Stop: 07/24/17 08:59 Last Admin: 06/03/17 17:55 Dose: 5 mg Metronidazole (Flagyl) 500 mg PO Q8H [facility] Stop: 06/10/17 10:01 Last Admin: 06/03/17 18:55 Dose: 500 mg Miscellaneous (Probiotic Screen) 1 ea MC PRN PRN PRN Reason: PROTOCOL Stop: 07/25/17 15:59 Miscellaneous (Pharmacy To Dose) 1 ea MC PRN [facility] Stop: 07/28/17 13:29 Morphine Sulfate (Morphine) 1 mg IVP Q4HR PRN PRN Reason: SEVERE PAIN Stop: 07/28/17 10:28 Last Admin: 06/02/17 14:09 Dose: 1 mg Morphine Sulfate (Morphine) 2 mg IV Q4H PRN PRN Reason: Pain (Moderate) Stop: 08/01/17 14:52 Last Admin: 06/03/17 10:28 Dose: 2 mg Multivitamins/Vitamin C (Theragran) 1 tab GT DAILY [facility] Stop: 07/26/17 10:44 Last Admin: 06/03/17 08:53 Dose: 1 tab Ondansetron HCl (Zofran) 4 mg IV Q4H PRN PRN Reason: Nausea / Vomiting Stop: 08/01/17 16:43 Last Admin: 06/03/17 10:23 Dose: 4 mg Pantoprazole Sodium (Protonix) 40 mg GT DAILY [facility] Stop: 07/24/17 08:59 Last Admin: 06/03/17 08:51 Dose: 40 mg General: no acute distress, well developed, well nourished HEENT: atraumatic, normocephalic, PERRLA Neck: supple, no thyromegaly Cardiovascular: S1S2, regular Lungs: clear to auscultation bilaterally, clear to percussion Abdomen: soft, no tender, no distended Extremities: no cyanosis, no clubbing Neurological: awake, alert, oriented Skin: other (left hip wound.) - Procedures Procedures: Procedures Procedure Code Date BLOOD TRANSFUSION SERVICE 82223 02/23/17 INSERT TUNNELED CV CATH [id number] 05/25/17 INSERTION OF INFUSION DEV INTO R SUBCLAV VEIN, PERC APPROACH 96U148G 05/25/17 RESPIRATORY VENTILATION, GREATER THAN 96 CONSECUTIVE HOURS [id number] 05/25/17 TRANSFUSE NONAUT RED BLOOD CELLS IN PERIPH VEIN, PERC 48919A8 02/23/17 Infectious Disease Assmt/Plan - Assessment Assessment: IMPRESSION: 1. Pneumonia with the sputum culture growing ESBL positive E. coli and CRE Klebsiella. 2. ESBL positive Escherichia coli and CRE Klebsiella pneumoniae infection. 3. Vent dependent respiratory failure. 4. Chronic kidney disease stage 5, on hemodialysis. 5. Diabetes mellitus type 2. 6. Hypertension. 7. Chronic obstructive pulmonary disease. 8. Right hip wound with no sign of infection. 9. Constipation, gastroparesis. 10. Right knee pain, arthritis. 11. Sudden worsening of leukocytosis, unknown, - Plan Plan: RECOMMENDATIONS: Change the antibiotic to Colistin and wound care. Dc lactulose. Agree with flagyl po. sabrina meropenem. stool for c diff. Nutritional Asmnt/Malnutr-PDOC - Dietary Evaluation Malnutrition Findings (Please click <Entered> for more info): Nutritional Asmnt/Malnutrition Start: 05/27/17 14: 49 Text: Status: Complete Freq: Document 05/27/17 14:52 [email or web address] (Rec: 05/27/17 15:09 NAVA [email or web address]) Nutritional Asmnt/Malnutrition Patient General Information Nutritional Screening High Risk Screening Diagnosis Bilateral penumonia, dehydration acute on chronic renal insufficiency Pertinent Medical Hx/Surgical Hx Chronic renal failure, vent dependent, chronic anemia, renal insufficiency, COPD, trauma with right hip and right tibial fracture, essential HTN Subjective Information 81 year old male from SNF. Pt with vent trach and PEG. Observed tube feeding running as ordered during morning visit, prepping to leave to surgery for catheter placement . HD scheduled for today. Pt made eye contact, mouthed words. Tolerating tube feeding well per RN assessments. Moderate wasting to shoulders and clavicles, severe wasting to lower extremities. CBW 147. 9lb via bedscale. Current Diet Order/ Nutrition Support Novasource Renal at 40ml/hr x 24hrs, providing 960ml, 1920kcal, 87g protein Pertinent Medications Vitamin C, Colace, Iron, Folate, Culturelle, Reglan, Theragran, Protonix Pertinent Labs BUN 125H (trending down), creatinie 5.9H (trending down) , glucose 151H Nutritional Hx/Data Height 1.83 m Height (Calculated Centimeters) 182.9 Current Weight (lbs) 67.086 kg Weight (Calculated Kilograms) 67.1 Weight (Calculated Grams) 79651.3 [place] Body Weight 178 Weight Status Approriate GI Symptoms Skin Integrity/Comment: Jean 15. Wound care 05/26: skin is fair, chronic wound and scar tissue. Estimated Nutritional Goals BEE in Kcals: Using Current wt Calories/Kcals/Kg CBW 147.9lb/67.2kg Kcals Calculated 2015-2kcal (30-35kcal/kg) Protein: Using Current wt Protein Calculated 80-101g (1.2-1.5g/kg) Fluid: ml Per MD Nutritional Problem 1. Problem Problem Increased kcal and prot needs related to Etiology hypermetbolic state, estimated nutritinoal needs aeb Signs/Symptoms: HD 05/27, bilateral penumonia, moderate to severe wasting to shoulders clavicles lower extremities Intervention/Recommendation Comments 1. Recommend increasing tube feeding rate to 46ml/hr x 24hrs, providing 1104ml total volume, 2208kcal, 100g protein . Wtih consideration of hypermetabolic state due to penumonia, HD, moderate to severe muscle fat wasting. Expected Outcomes/Goals Expected Outcomes/Goals 1. Pt to meet at least 100% of estimated nutritinoal needs on tube feeding with tolerance .
--- NOTE | 2017-06-03 22:43 | Infectious Disease Prog Note ---
Infectious Disease Subjective - Review of Systems Service Date: 06/03/17 Subjective: Able to pass BMs. Developed fevers and WBC count went up to 45k. then came back to 34k. meropenem IV and flagyl were added. Remains on the ventilator. Infectious Disease Objective - Results Result Diagrams: 06/03/17 14:36 06/03/17 04:25 Recent Labs: Laboratory Last Values WBC 34.6 Th/cmm (4.8-10.8) H* D 06/03/17 14:36 RBC 2.64 Mil/cmm (3.80-5.80) L 06/03/17 14:36 Hgb 8.3 gm/dL (12-16) L 06/03/17 14:36 Hct 24.1 % (41.0-60) L 06/03/17 14:36 MCV 91.5 fl (80-99) 06/03/17 14:36 MCH 31.3 pg (27.0-31.0) H 06/03/17 14:36 MCHC Differential 34.2 pg (28.0-36.0) 06/03/17 14:36 RDW 16.0 % (11.5-20.0) 06/03/17 14:36 Plt Count 351 Th/cmm (150-400) 06/03/17 14:36 MPV 6.5 fl 06/03/17 14:36 Neutrophils % 71.8 % (40.0-80.0) 05/30/17 06:00 Band Neutrophils % 10 % (0-10) 06/03/17 14:36 Lymphocytes % 13.6 % (20.0-50.0) L 05/30/17 06:00 Monocytes % 9.5 % (2.0-10.0) 05/30/17 06:00 Eosinophils % 4.7 % (0.0-5.0) 05/30/17 06:00 Basophils % 0.4 % (0.0-2.0) 05/30/17 06:00 Neutrophils (Manual) 78 % (40-80) 06/03/17 14:36 Lymphocytes 7 % (20-50) L 06/03/17 14:36 Monocytes 5 % (2-10) 06/03/17 14:36 Eosinophils 0 % (0-5) 06/03/17 14:36 Basophils 0 % (0-3) 06/03/17 14:36 Platelet Estimate ADEQUATE (NORMAL) 06/03/17 14:36 Platelet Morphology NORMAL (NORMAL) 06/03/17 14:36 Anisocytosis 2+ 06/03/17 14:36 RBC Morph Micro Appear ABNORMAL (NORMAL) 06/03/17 14:36 PT 10.6 SECONDS (9.5-11.5) 05/25/17 03:10 INR 1.02 (0.5-1.4) 05/25/17 03:10 PTT (Actin FS) 35.1 SECONDS (26.0-38.0) 05/25/17 03:10 Specimen Source Arterial 05/29/17 09:11 Sample Site Left Radial 05/29/17 09:11 pH 7.45 (7.35-7.45) 05/29/17 09:11 pCO2 35.0 mmHg (35.0-45.0) 05/29/17 09:11 pO2 99.0 mmHg (80.0-100.0) 05/29/17 09:11 HCO3 25.4 mEq/L (20.0-26.0) 05/29/17 09:11 Base Excess 0.6 mEq/L (-3.0-3.0) 05/29/17 09:11 O2 Saturation 98.0 % (92.0-100.0) 05/29/17 09:11 Charles Test Positive 05/29/17 09:11 Vent Rate 14 05/29/17 09:11 Inspired O2 30 05/29/17 09:11 Tidal Volume 500 05/29/17 09:11 PEEP NA 05/29/17 09:11 Pressure (ins/psv/peep) NA 05/29/17 09:11 Critical Value LZHANG 05/29/17 09:11 Sodium 133 mEq/L (136-145) L 06/03/17 04:25 Potassium 3.8 mEq/L (3.5-5.1) 06/03/17 04:25 Chloride 104 mEq/L (98-107) 06/03/17 04:25 Carbon Dioxide 21.7 mEq/L (21.0-31.0) 06/03/17 04:25 Anion Gap 11.1 (7.0-16.0) 06/03/17 04:25 BUN 37 mg/dL (7-25) H 06/03/17 04:25 Creatinine 2.9 mg/dL (0.7-1.3) H 06/03/17 04:25 Est GFR ( Amer) TNP 06/03/17 04:25 Est GFR (Non-Af Amer) TNP 06/03/17 04:25 BUN/Creatinine Ratio 12.8 06/03/17 04:25 Glucose 124 mg/dL (70-105) H 06/03/17 04:25 POC Glucose 105 MG/DL (70 - 105) 05/28/17 12:24 Whole Bld Lactic Acid 0.96 mmol/L (0.60-1.99) 05/25/17 09:10 Calcium 9.2 mg/dL (8.6-10.3) 06/03/17 04:25 Phosphorus 4.0 mg/dL (2.5-5.0) 05/28/17 06:30 Magnesium 1.5 mg/dL (1.9-2.7) L 06/03/17 04:25 Total Bilirubin 0.3 mg/dL (0.3-1.0) 05/26/17 07:55 AST 34 U/L (13-39) 05/26/17 07:55 ALT 29 U/L (7-52) 05/26/17 07:55 Alkaline Phosphatase 60 U/L (34-104) 05/26/17 07:55 Troponin I 0.04 ng/mL (0.01-0.05) 05/25/17 03:10 B-Natriuretic Peptide 279.0 pg/mL (5.0-100.0) H 05/25/17 09:10 Total Protein 7.2 gm/dL (6.0-8.3) 05/26/17 07:55 Albumin 2.7 gm/dL (4.2-5.5) L 05/26/17 07:55 Globulin 4.5 gm/dL 05/26/17 07:55 Albumin/Globulin Ratio 0.6 (1.0-1.8) L 05/26/17 07:55 Triglycerides 73 mg/dL (<150) 05/25/17 03:10 Cholesterol 107 mg/dL (<200) 05/25/17 03:10 LDL Cholesterol Direct 76 mg/dL (75-193) 05/25/17 03:10 HDL Cholesterol 35 mg/dL (23-92) 05/25/17 03:10 Prostate Specific Ag 1.6 ng/mL (0.0-4.0) 05/27/17 04:40 Urine Source [place] 06/03/17 11:00 Urine Color YELLOW 06/03/17 11:00 Urine Clarity CLEAR (CLEAR) 06/03/17 11:00 Urine pH 6.0 (4.6 - 8.0) 06/03/17 11:00 Ur Specific [place] 1.025 (1.005-1.030) 06/03/17 11:00 Urine Protein 30 mg/dL (NEGATIVE) H 06/03/17 11:00 Urine Glucose (UA) NEGATIVE mg/dL (NEGATIVE) 06/03/17 11:00 Urine Ketones NEGATIVE mg/dL (NEGATIVE) 06/03/17 11:00 Urine Blood TRACE (NEGATIVE) 06/03/17 11:00 Urine Nitrate NEGATIVE (NEGATIVE) 06/03/17 11:00 Urine Bilirubin NEGATIVE (NEGATIVE) 06/03/17 11:00 Urine Urobilinogen 0.2 E.U./dL (0.2 - 1.0) 06/03/17 11:00 Ur Leukocyte Esterase TRACE (NEGATIVE) H 06/03/17 11:00 Urine RBC 5-10 /hpf (0-5) H 06/03/17 11:00 Urine WBC 2-5 /hpf (0-5) H 06/03/17 11:00 Ur Epithelial Cells FEW /lpf (FEW) 06/03/17 11:00 Calcium Oxalate Crystal FEW /hpf 06/03/17 11:00 Urine Bacteria FEW /hpf (NONE SEEN) 06/03/17 11:00 Coarse Granular Casts 0-2 /lpf (NONE SEEN) H 06/03/17 11:00 Ur Random Sodium 49 mmol/L 05/26/17 02:15 Urine Collection Time 24 hours 05/27/17 03:00 Urine Total Volume 3000 ml 05/27/17 03:00 Urine Creatinine 24.0 mg/dl (39.0-259.0) L 05/27/17 03:00 Creat Clearance 24 Hr 8 ml/min (97.00-137.00) L 05/27/17 03:00 Body Surface Area 1.85 05/27/17 03:00 Stool Occult Blood NEGATIVE (NEGATIVE) 06/03/17 11:20 RPR NONREACTIVE (NONREACTIVE) 05/25/17 03:10 Hepatitis A IgM Ab Negative (Negative) 05/26/17 07:55 Hep Bs Antigen Negative (Negative) 05/26/17 07:55 Hep B Core IgM Ab Negative (Negative) 05/26/17 07:55 Hepatitis C Antibody >11.0 s/co ratio (0.0-0.9) H 05/26/17 07:55 HIV 1&2 Antibody Screen NEGATIVE (NEG) 05/29/17 05:30 Blood Type A POSITIVE 06/02/17 10:00 Antibody Screen NEGATIVE 06/02/17 10:00 Crossmatch See Detail 06/02/17 10:00 - Physical Exam Vitals and I&O: Vital Signs Temp 97.9 F 06/03/17 20:00 Pulse 101 06/03/17 21:00 Resp 17 06/03/17 21:00 BP 122/74 06/03/17 21:00 Pulse Ox 97 06/03/17 21:00 Intake & Output 06/03/17 06/03/17 06/04/17 06:59 18:59 06:59 Intake Total 408.75 1141.25 Output Total 450 400 Balance -41.25 741.25 Weight (lbs) 67.676 kg 67.676 kg Intake: Intake, IV Amount 158.75 941.25 Meropenem 1 gm In Sodium 100 Chloride 0.9% 100 ml @ 100 mls/hr IV Q24H [facility] Rx #:[id number] Sodium Chloride 0.9% 1, 158.75 841.25 000 ml @ 75 mls/hr IV . [id number] [facility] Rx#:[id number] Tube Feeding 250 50 Other 150 Output: Urine 450 400 Other: # Bowel Movements 4 1 Stool Characteristics Liquid Liquid Brown Brown Black Black Green Active Medications: Current Medications Acetaminophen (Tylenol 650mg/20.3ml Suspension) 650 mg GT Q4HR PRN PRN Reason: fever >101 or mild pain Stop: 07/24/17 05:23 Last Admin: 06/02/17 19:57 Dose: 650 mg Acetaminophen/Hydrocodone Bitart ([place] 10 Mg/325 Mg) 1 tab PO Q6H PRN PRN Reason: Pain (Moderate) Stop: 07/24/17 05:23 Last Admin: 06/03/17 19:03 Dose: 1 tab Acetaminophen/Hydrocodone Bitart ([place] 5mg/325mg) 1 tab PO Q6H PRN PRN Reason: MODERATE PAIN Stop: 07/28/17 10:28 Last Admin: 06/01/17 15:49 Dose: 1 tab Albuterol/Ipratropium (Duoneb Neb) 3 ml HHN Q2HRT PRN PRN Reason: Wheezing Stop: 07/24/17 05:23 Last Admin: 05/26/17 03:28 Dose: 3 ml Albuterol/Ipratropium (Duoneb Neb) 3 ml HHN Q6HRT [facility] Stop: 07/24/17 18:59 Last Admin: 06/03/17 18:41 Dose: 3 ml Ascorbic Acid (Vitamin C) 500 mg GT BID [facility] Stop: 07/24/17 08:59 Last Admin: 06/03/17 16:55 Dose: 500 mg Bisacodyl (Dulcolax 10 Mg Supp) 10 mg RC DAILY PRN PRN Reason: Constipation Stop: 07/31/17 13:00 Last Admin: 06/01/17 20:04 Dose: 10 mg Chlorhexidine Gluconate (Peridex) 15 ml MM 0800,2000 [facility] Stop: 07/28/17 19:59 Last Admin: 06/03/17 21:06 Dose: 15 ml Diltiazem HCl (Cardizem) 10 mg IVP Q4H PRN PRN Reason: Tachycardia Stop: 08/01/17 14:57 Last Admin: 06/02/17 18:55 Dose: 10 mg Docusate Sodium (Colace) 100 mg PO BID [facility] Stop: 07/29/17 08:59 Last Admin: 06/03/17 16:55 Dose: 100 mg Ferrous Sulfate (Iron) 330 mg GT BID [facility] Stop: 07/24/17 08:59 Last Admin: 06/03/17 17:56 Dose: 330 mg Folic Acid (Folate) 1 mg GT DAILY [facility] Stop: 07/24/17 08:59 Last Admin: 06/03/17 08:52 Dose: 1 mg Heparin Sodium (Porcine) (Heparin) 5,000 units SUBQ Q12HR [facility] Stop: 07/31/17 08:59 Last Admin: 06/03/17 21:03 Dose: 5,000 units Sodium Chloride (Nacl 0.9%) 1,000 mls @ 75 mls/hr IV .[id number] [facility] Stop: 07/24/17 11:59 Last Admin: 06/03/17 21:09 Dose: 75 mls/hr Colistimethate Sodium 150 mg/ (Sodium Chloride) 100 mls @ 100 mls/hr IV PRN PRN PRN Reason: AFTER EACH H.D. Stop: 07/29/17 11:20 Last Infusion: 06/02/17 17:00 Dose: Infused Meropenem 1 gm/ Sodium (Chloride) 100 mls @ 100 mls/hr IV Q24H [facility] Stop: 08/02/17 10:59 Last Infusion: 06/03/17 11:10 Dose: Infused Lactobacillus Rhamnosus (Culturelle) 1 each PO DAILY [facility] Stop: 07/26/17 08:59 Last Admin: 06/03/17 08:51 Dose: 1 each Lactulose (Cephulac) 30 gm GT Q8HR [facility] Stop: 08/01/17 20:59 Last Admin: 06/03/17 21:06 Dose: Not Given Lorazepam (Ativan) 1 mg IVP Q4H PRN; Protocol PRN Reason: Agitation Stop: 08/01/17 14:55 Last Admin: 06/03/17 11:48 Dose: 1 mg Metoclopramide HCl (Reglan) 5 mg GT BID [facility] Stop: 07/24/17 08:59 Last Admin: 06/03/17 17:55 Dose: 5 mg Metronidazole (Flagyl) 500 mg PO Q8H [facility] Stop: 06/10/17 10:01 Last Admin: 06/03/17 18:55 Dose: 500 mg Miscellaneous (Probiotic Screen) 1 ea MC PRN PRN PRN Reason: PROTOCOL Stop: 07/25/17 15:59 Miscellaneous (Pharmacy To Dose) 1 ea MC PRN [facility] Stop: 07/28/17 13:29 Morphine Sulfate (Morphine) 1 mg IVP Q4HR PRN PRN Reason: SEVERE PAIN Stop: 07/28/17 10:28 Last Admin: 06/02/17 14:09 Dose: 1 mg Morphine Sulfate (Morphine) 2 mg IV Q4H PRN PRN Reason: Pain (Moderate) Stop: 08/01/17 14:52 Last Admin: 06/03/17 10:28 Dose: 2 mg Multivitamins/Vitamin C (Theragran) 1 tab GT DAILY [facility] Stop: 07/26/17 10:44 Last Admin: 06/03/17 08:53 Dose: 1 tab Ondansetron HCl (Zofran) 4 mg IV Q4H PRN PRN Reason: Nausea / Vomiting Stop: 08/01/17 16:43 Last Admin: 06/03/17 10:23 Dose: 4 mg Pantoprazole Sodium (Protonix) 40 mg GT DAILY [facility] Stop: 07/24/17 08:59 Last Admin: 06/03/17 08:51 Dose: 40 mg General: no acute distress, well developed, well nourished HEENT: atraumatic, normocephalic, PERRLA Neck: supple, no thyromegaly Cardiovascular: S1S2, regular Lungs: clear to auscultation bilaterally, clear to percussion Abdomen: soft, no tender, no distended, no mass Extremities: no cyanosis, no clubbing, no edema - Procedures Procedures: Procedures Procedure Code Date BLOOD TRANSFUSION SERVICE 46288 02/23/17 INSERT TUNNELED CV CATH 73287 05/25/17 INSERTION OF INFUSION DEV INTO R SUBCLAV VEIN, PERC APPROACH [id number] 05/25/17 RESPIRATORY VENTILATION, GREATER THAN 96 CONSECUTIVE HOURS [id number] 05/25/17 TRANSFUSE NONAUT RED BLOOD CELLS IN PERIPH VEIN, PERC 10898H4 02/23/17 Infectious Disease Assmt/Plan - Assessment Assessment: IMPRESSION: 1. Pneumonia with the sputum culture growing ESBL positive E. coli and CRE Klebsiella. 2. ESBL positive Escherichia coli and CRE Klebsiella pneumoniae infection. 3. Vent dependent respiratory failure. 4. Chronic kidney disease stage 5, on hemodialysis. 5. Diabetes mellitus type 2. 6. Hypertension. 7. Chronic obstructive pulmonary disease. 8. Right hip wound with no sign of infection. 9. Constipation, gastroparesis. 10. Right knee pain, arthritis. 11. Sudden worsening of leukocytosis, unknown, ? reactive, Cdiff. - Plan Plan: RECOMMENDATIONS: Continue Colistin and wound care. Dc lactulose. Agree with flagyl po. sabrina meropenem. stool for c diff. Nutritional Asmnt/Malnutr-PDOC - Dietary Evaluation Malnutrition Findings (Please click <Entered> for more info): Nutritional Asmnt/Malnutrition Start: 05/27/17 14: 49 Text: Status: Complete Freq: Document 05/27/17 14:52 NAVA (Rec: 05/27/17 15:09 NAVA [email or web address]) Nutritional Asmnt/Malnutrition Patient General Information Nutritional Screening High Risk Screening Diagnosis Bilateral penumonia, dehydration acute on chronic renal insufficiency Pertinent Medical Hx/Surgical Hx Chronic renal failure, vent dependent, chronic anemia, renal insufficiency, COPD, trauma with right hip and right tibial fracture, essential HTN Subjective Information 81 year old male from SNF. Pt with vent trach and PEG. Observed tube feeding running as ordered during morning visit, prepping to leave to surgery for catheter placement . HD scheduled for today. Pt made eye contact, mouthed words. Tolerating tube feeding well per RN assessments. Moderate wasting to shoulders and clavicles, severe wasting to lower extremities. CBW 147. 9lb via bedscale. Current Diet Order/ Nutrition Support Novasource Renal at 40ml/hr x 24hrs, providing 960ml, 1920kcal, 87g protein Pertinent Medications Vitamin C, Colace, Iron, Folate, Culturelle, Reglan, Theragran, Protonix Pertinent Labs BUN 125H (trending down), creatinie 5.9H (trending down) , glucose 151H Nutritional Hx/Data Height 1.83 m Height (Calculated Centimeters) 182.9 Current Weight (lbs) 67.086 kg Weight (Calculated Kilograms) 67.1 Weight (Calculated Grams) 42164.3 Reed Body Weight 178 Weight Status Approriate GI Symptoms Skin Integrity/Comment: Jean 15. Wound care 05/26: skin is fair, chronic wound and scar tissue. Estimated Nutritional Goals BEE in Kcals: Using Current wt Calories/Kcals/Kg CBW 147.9lb/67.2kg Kcals Calculated 2015-2kcal (30-35kcal/kg) Protein: Using Current wt Protein Calculated 80-101g (1.2-1.5g/kg) Fluid: ml Per MD Nutritional Problem 1. Problem Problem Increased kcal and prot needs related to Etiology hypermetbolic state, estimated nutritinoal needs aeb Signs/Symptoms: HD 05/27, bilateral penumonia, moderate to severe wasting to shoulders clavicles lower extremities Intervention/Recommendation Comments 1. Recommend increasing tube feeding rate to 46ml/hr x 24hrs, providing 1104ml total volume, 2208kcal, 100g protein . Wtih consideration of hypermetabolic state due to penumonia, HD, moderate to severe muscle fat wasting. Expected Outcomes/Goals Expected Outcomes/Goals 1. Pt to meet at least 100% of estimated nutritinoal needs on tube feeding with tolerance .
[2017-06-04] MEDS: Albuterol/Ipratropium Neb 3 ML AERS HHN SCH ×4 (01:00→19:08)
[2017-06-04] MEDS: Morphine Sulfate 4 mg/mL 1mL Syr IV PRN ×3 (01:19→19:51)
[2017-06-04 05:05] LABS: MEAN CORPUSCULAR HEMOGLOBIN 32.2 pg (27.0-31.0)
[2017-06-04 05:12] LABS: HEMATOCRIT 24.5 % (41.0-60); HEMOGLOBIN 8.5 gm/dL (12-16); MEAN CELL VOLUME 92.7 fl (80-99); MEAN CORPUSCULAR HGB CONC 34.7 pg (28.0-36.0); MEAN PLATELET VOLUME 6.6 fl; PLATELET COUNT 377 Th/cmm (150-400); RED BLOOD COUNT 2.64 Mil/cmm (3.80-5.80)
[2017-06-04 05:18] LABS: ANION GAP 10.8 (7.0-16.0); BUN - UREA NITROGEN 45 mg/dL (7-25); BUN/CREATININE RATIO 13.2; CALCIUM SERUM 9.2 mg/dL (8.6-10.3); CARBON DIOXIDE 21.9 mEq/L (21.0-31.0); CHLORIDE 105 mEq/L (98-107); CREATININE - SERUM 3.4 mg/dL (0.7-1.3); GLUCOSE 119 mg/dL (70-105); MAGNESIUM 2.1 mg/dL (1.9-2.7); POTASSIUM SERUM 3.7 mEq/L (3.5-5.1); SODIUM SERUM 134 mEq/L (136-145)
[2017-06-04] MEDS: Hydrocodone/APAP 10 mg/325 mg Tab PO PRN ×3 (05:20→22:15)
[2017-06-04 05:25] LABS: WHITE BLOOD COUNT 28.2 Th/cmm (4.8-10.8)
[2017-06-04 06:17] LABS: BAND NEUTROPHILE 3 % (0-10); EOSINOPHIL 2 % (0-5); NEUTROPHILS 84 % (40-80); TOTAL CELLS COUNTED 100
[2017-06-04] MEDS: Lactulose 10 Gm/15 mL 30mL UDC GT SCH ×2 (07:42→12:26)
[2017-06-04] MEDS ORDERED: Heparin Sod 1,000 Units/mL 10ml HD ONE ×2 (09:30)
[2017-06-04] MEDS: Docusate Sodium 100 mg/10 mL UD PO SCH ×2 (09:52→17:18)
[2017-06-04] MEDS: Ferrous Sulfate 300 MG/5 ML UDC GT SCH ×2 (09:52→17:27)
[2017-06-04] MEDS: Multivitamin Tab GT SCH (09:53)
[2017-06-04] MEDS: Hydrocodone/APAP 5mg/325mg Tab PO PRN (09:53)
[2017-06-04] MEDS: Lactobacillus Rhamnosus 10 Billion CFU Capsule PO SCH (09:53)
[2017-06-04] MEDS: Pantoprazole 40 mg/Packet GT SCH (09:53)
[2017-06-04] MEDS: Sodium Chloride 0.9% 1,000 ML IV SCH (10:06)
[2017-06-04] MEDS: Chlorhexidine Gluconate 0.12% 15mL Mouthwash MM SCH ×2 (10:10→19:53)
--- NOTE | 2017-06-04 10:57 | Infectious Disease Prog Note ---
Infectious Disease Subjective - Review of Systems Service Date: 06/04/17 Subjective: Able to pass BMs. fever and WBC count is improving. Infectious Disease Objective - Results Result Diagrams: 06/04/17 04:18 06/04/17 04:18 Recent Labs: Laboratory Last Values WBC 28.2 Th/cmm (4.8-10.8) H* 06/04/17 04:18 RBC 2.64 Mil/cmm (3.80-5.80) L 06/04/17 04:18 Hgb 8.5 gm/dL (12-16) L 06/04/17 04:18 Hct 24.5 % (41.0-60) L 06/04/17 04:18 MCV 92.7 fl (80-99) 06/04/17 04:18 MCH 32.2 pg (27.0-31.0) H 06/04/17 04:18 MCHC Differential 34.7 pg (28.0-36.0) 06/04/17 04:18 RDW 16.0 % (11.5-20.0) 06/04/17 04:18 Plt Count 377 Th/cmm (150-400) 06/04/17 04:18 MPV 6.6 fl 06/04/17 04:18 Neutrophils % 71.8 % (40.0-80.0) 05/30/17 06:00 Band Neutrophils % 3 % (0-10) 06/04/17 04:18 Lymphocytes % 13.6 % (20.0-50.0) L 05/30/17 06:00 Monocytes % 9.5 % (2.0-10.0) 05/30/17 06:00 Eosinophils % 4.7 % (0.0-5.0) 05/30/17 06:00 Basophils % 0.4 % (0.0-2.0) 05/30/17 06:00 Neutrophils (Manual) 84 % (40-80) H 06/04/17 04:18 Lymphocytes 10 % (20-50) L 06/04/17 04:18 Monocytes 1 % (2-10) L 06/04/17 04:18 Eosinophils 2 % (0-5) 06/04/17 04:18 Basophils 0 % (0-3) 06/03/17 14:36 Platelet Estimate ADEQUATE (NORMAL) 06/03/17 14:36 Platelet Morphology NORMAL (NORMAL) 06/03/17 14:36 Anisocytosis 2+ 06/03/17 14:36 RBC Morph Micro Appear ABNORMAL (NORMAL) 06/03/17 14:36 PT 10.6 SECONDS (9.5-11.5) 05/25/17 03:10 INR 1.02 (0.5-1.4) 05/25/17 03:10 PTT (Actin FS) 35.1 SECONDS (26.0-38.0) 05/25/17 03:10 Specimen Source Arterial 05/29/17 09:11 Sample Site Left Radial 05/29/17 09:11 pH 7.45 (7.35-7.45) 05/29/17 09:11 pCO2 35.0 mmHg (35.0-45.0) 05/29/17 09:11 pO2 99.0 mmHg (80.0-100.0) 05/29/17 09:11 HCO3 25.4 mEq/L (20.0-26.0) 05/29/17 09:11 Base Excess 0.6 mEq/L (-3.0-3.0) 05/29/17 09:11 O2 Saturation 98.0 % (92.0-100.0) 05/29/17 09:11 Charles Test Positive 05/29/17 09:11 Vent Rate 14 05/29/17 09:11 Inspired O2 30 05/29/17 09:11 Tidal Volume 500 05/29/17 09:11 PEEP NA 05/29/17 09:11 Pressure (ins/psv/peep) NA 05/29/17 09:11 Critical Value LZHANG 05/29/17 09:11 Sodium 134 mEq/L (136-145) L 06/04/17 04:18 Potassium 3.7 mEq/L (3.5-5.1) 06/04/17 04:18 Chloride 105 mEq/L (98-107) 06/04/17 04:18 Carbon Dioxide 21.9 mEq/L (21.0-31.0) 06/04/17 04:18 Anion Gap 10.8 (7.0-16.0) 06/04/17 04:18 BUN 45 mg/dL (7-25) H 06/04/17 04:18 Creatinine 3.4 mg/dL (0.7-1.3) H 06/04/17 04:18 Est GFR ( Amer) TNP 06/04/17 04:18 Est GFR (Non-Af Amer) TNP 06/04/17 04:18 BUN/Creatinine Ratio 13.2 06/04/17 04:18 Glucose 119 mg/dL (70-105) H 06/04/17 04:18 POC Glucose 105 MG/DL (70 - 105) 05/28/17 12:24 Whole Bld Lactic Acid 0.96 mmol/L (0.60-1.99) 05/25/17 09:10 Calcium 9.2 mg/dL (8.6-10.3) 06/04/17 04:18 Phosphorus 4.0 mg/dL (2.5-5.0) 05/28/17 06:30 Magnesium 2.1 mg/dL (1.9-2.7) 06/04/17 04:18 Total Bilirubin 0.3 mg/dL (0.3-1.0) 05/26/17 07:55 AST 34 U/L (13-39) 05/26/17 07:55 ALT 29 U/L (7-52) 05/26/17 07:55 Alkaline Phosphatase 60 U/L (34-104) 05/26/17 07:55 Troponin I 0.04 ng/mL (0.01-0.05) 05/25/17 03:10 B-Natriuretic Peptide 279.0 pg/mL (5.0-100.0) H 05/25/17 09:10 Total Protein 7.2 gm/dL (6.0-8.3) 05/26/17 07:55 Albumin 2.7 gm/dL (4.2-5.5) L 05/26/17 07:55 Globulin 4.5 gm/dL 05/26/17 07:55 Albumin/Globulin Ratio 0.6 (1.0-1.8) L 05/26/17 07:55 Triglycerides 73 mg/dL (<150) 05/25/17 03:10 Cholesterol 107 mg/dL (<200) 05/25/17 03:10 LDL Cholesterol Direct 76 mg/dL (75-193) 05/25/17 03:10 HDL Cholesterol 35 mg/dL (23-92) 05/25/17 03:10 Prostate Specific Ag 1.6 ng/mL (0.0-4.0) 05/27/17 04:40 Urine Source [place] 06/03/17 11:00 Urine Color YELLOW 06/03/17 11:00 Urine Clarity CLEAR (CLEAR) 06/03/17 11:00 Urine pH 6.0 (4.6 - 8.0) 06/03/17 11:00 Ur Specific [place] 1.025 (1.005-1.030) 06/03/17 11:00 Urine Protein 30 mg/dL (NEGATIVE) H 06/03/17 11:00 Urine Glucose (UA) NEGATIVE mg/dL (NEGATIVE) 06/03/17 11:00 Urine Ketones NEGATIVE mg/dL (NEGATIVE) 06/03/17 11:00 Urine Blood TRACE (NEGATIVE) 06/03/17 11:00 Urine Nitrate NEGATIVE (NEGATIVE) 06/03/17 11:00 Urine Bilirubin NEGATIVE (NEGATIVE) 06/03/17 11:00 Urine Urobilinogen 0.2 E.U./dL (0.2 - 1.0) 06/03/17 11:00 Ur Leukocyte Esterase TRACE (NEGATIVE) H 06/03/17 11:00 Urine RBC 5-10 /hpf (0-5) H 06/03/17 11:00 Urine WBC 2-5 /hpf (0-5) H 06/03/17 11:00 Ur Epithelial Cells FEW /lpf (FEW) 06/03/17 11:00 Calcium Oxalate Crystal FEW /hpf 06/03/17 11:00 Urine Bacteria FEW /hpf (NONE SEEN) 06/03/17 11:00 Coarse Granular Casts 0-2 /lpf (NONE SEEN) H 06/03/17 11:00 Ur Random Sodium 49 mmol/L 05/26/17 02:15 Urine Collection Time 24 hours 05/27/17 03:00 Urine Total Volume 3000 ml 05/27/17 03:00 Urine Creatinine 24.0 mg/dl (39.0-259.0) L 05/27/17 03:00 Creat Clearance 24 Hr 8 ml/min (97.00-137.00) L 05/27/17 03:00 Body Surface Area 1.85 05/27/17 03:00 Stool Occult Blood NEGATIVE (NEGATIVE) 06/03/17 11:20 RPR NONREACTIVE (NONREACTIVE) 05/25/17 03:10 Hepatitis A IgM Ab Negative (Negative) 05/26/17 07:55 Hep Bs Antigen Negative (Negative) 05/26/17 07:55 Hep B Core IgM Ab Negative (Negative) 05/26/17 07:55 Hepatitis C Antibody >11.0 s/co ratio (0.0-0.9) H 05/26/17 07:55 HIV 1&2 Antibody Screen NEGATIVE (NEG) 05/29/17 05:30 Blood Type A POSITIVE 06/02/17 10:00 Antibody Screen NEGATIVE 06/02/17 10:00 Crossmatch See Detail 06/02/17 10:00 - Physical Exam Vitals and I&O: Vital Signs Temp 98.2 F 06/04/17 04:00 Pulse 123 06/04/17 07:47 Resp 22 06/04/17 07:00 BP 151/92 06/04/17 07:00 Pulse Ox 97 06/04/17 07:47 Intake & Output 06/03/17 06/04/17 06/04/17 18:59 06:59 18:59 Intake Total 1191.25 540 971.25 Output Total 400 600 Balance 791.25 -60 971.25 Weight (lbs) 67.676 kg 67.132 kg Intake: Intake, IV Amount 991.25 971.25 Meropenem 1 gm In Sodium 100 Chloride 0.9% 100 ml @ 100 mls/hr IV Q24H [facility] Rx #:[id number] Sodium Chloride 0.9% 1, 841.25 971.25 000 ml @ 75 mls/hr IV . [id number] [facility] Rx#:[id number] Tube Feeding 50 540 Other 150 Output: Urine 400 600 Other: # Bowel Movements 1 Stool Characteristics Liquid Brown Black Green Active Medications: Current Medications Acetaminophen (Tylenol 650mg/20.3ml Suspension) 650 mg GT Q4HR PRN PRN Reason: fever >101 or mild pain Stop: 07/24/17 05:23 Last Admin: 06/02/17 19:57 Dose: 650 mg Acetaminophen/Hydrocodone Bitart ([place] 10 Mg/325 Mg) 1 tab PO Q6H PRN PRN Reason: Pain (Moderate) Stop: 07/24/17 05:23 Last Admin: 06/04/17 05:20 Dose: 1 tab Acetaminophen/Hydrocodone Bitart ([place] 5mg/325mg) 1 tab PO Q6H PRN PRN Reason: MODERATE PAIN Stop: 07/28/17 10:28 Last Admin: 06/04/17 09:53 Dose: 1 tab Albuterol/Ipratropium (Duoneb Neb) 3 ml HHN Q2HRT PRN PRN Reason: Wheezing Stop: 07/24/17 05:23 Last Admin: 05/26/17 03:28 Dose: 3 ml Albuterol/Ipratropium (Duoneb Neb) 3 ml HHN Q6HRT [facility] Stop: 07/24/17 18:59 Last Admin: 06/04/17 07:46 Dose: 3 ml Ascorbic Acid (Vitamin C) 500 mg GT BID [facility] Stop: 07/24/17 08:59 Last Admin: 06/04/17 09:53 Dose: 500 mg Bisacodyl (Dulcolax 10 Mg Supp) 10 mg RC DAILY PRN PRN Reason: Constipation Stop: 07/31/17 13:00 Last Admin: 06/01/17 20:04 Dose: 10 mg Chlorhexidine Gluconate (Peridex) 15 ml MM 0800,2000 [facility] Stop: 07/28/17 19:59 Last Admin: 06/04/17 10:10 Dose: Not Given Diltiazem HCl (Cardizem) 10 mg IVP Q4H PRN PRN Reason: Tachycardia Stop: 08/01/17 14:57 Last Admin: 06/02/17 18:55 Dose: 10 mg Docusate Sodium (Colace) 100 mg PO BID [facility] Stop: 07/29/17 08:59 Last Admin: 06/04/17 09:52 Dose: Not Given Ferrous Sulfate (Iron) 330 mg GT BID [facility] Stop: 07/24/17 08:59 Last Admin: 06/04/17 09:52 Dose: 330 mg Folic Acid (Folate) 1 mg GT DAILY [facility] Stop: 07/24/17 08:59 Last Admin: 06/04/17 09:53 Dose: 1 mg Sodium Chloride (Nacl 0.9%) 1,000 mls @ 75 mls/hr IV .[id number] [facility] Stop: 07/24/17 11:59 Last Admin: 06/04/17 10:06 Dose: 75 mls/hr Colistimethate Sodium 150 mg/ (Sodium Chloride) 100 mls @ 100 mls/hr IV PRN PRN PRN Reason: AFTER EACH H.D. Stop: 07/29/17 11:20 Last Infusion: 06/02/17 17:00 Dose: Infused Meropenem 1 gm/ Sodium (Chloride) 100 mls @ 100 mls/hr IV Q24H [facility] Stop: 08/02/17 10:59 Last Infusion: 06/03/17 11:10 Dose: Infused Colistimethate Sodium 150 mg/ (Sodium Chloride) 100 mls @ 100 mls/hr IV MWF@ 1500 [facility] Stop: 08/03/17 14:59 Lactobacillus Rhamnosus (Culturelle) 1 each PO DAILY [facility] Stop: 07/26/17 08:59 Last Admin: 06/04/17 09:53 Dose: 1 each Lactulose (Cephulac) 30 gm GT Q8HR [facility] Stop: 08/01/17 20:59 Last Admin: 06/04/17 07:42 Dose: Not Given Lorazepam (Ativan) 1 mg IVP Q4H PRN; Protocol PRN Reason: Agitation Stop: 08/01/17 14:55 Last Admin: 06/03/17 11:48 Dose: 1 mg Metoclopramide HCl (Reglan) 5 mg GT BID [facility] Stop: 07/24/17 08:59 Last Admin: 06/04/17 09:52 Dose: 5 mg Metronidazole (Flagyl) 500 mg PO Q8H [facility] Stop: 06/10/17 10:01 Last Admin: 06/04/17 02:15 Dose: 500 mg Miscellaneous (Probiotic Screen) 1 ea MC PRN PRN PRN Reason: PROTOCOL Stop: 07/25/17 15:59 Miscellaneous (Pharmacy To Dose) 1 ea MC PRN [facility] Stop: 07/28/17 13:29 Morphine Sulfate (Morphine) 1 mg IVP Q4HR PRN PRN Reason: SEVERE PAIN Stop: 07/28/17 10:28 Last Admin: 06/02/17 14:09 Dose: 1 mg Morphine Sulfate (Morphine) 2 mg IV Q4H PRN PRN Reason: Pain (Moderate) Stop: 08/01/17 14:52 Last Admin: 06/04/17 01:19 Dose: 2 mg Multivitamins/Vitamin C (Theragran) 1 tab GT DAILY [facility] Stop: 07/26/17 10:44 Last Admin: 06/04/17 09:53 Dose: 1 tab Ondansetron HCl (Zofran) 4 mg IV Q4H PRN PRN Reason: Nausea / Vomiting Stop: 08/01/17 16:43 Last Admin: 06/03/17 10:23 Dose: 4 mg Pantoprazole Sodium (Protonix) 40 mg GT DAILY [facility] Stop: 07/24/17 08:59 Last Admin: 06/04/17 09:53 Dose: 40 mg General: no acute distress, well developed, well nourished HEENT: atraumatic, normocephalic Neck: supple, no thyromegaly Cardiovascular: S1S2, regular Lungs: clear to auscultation bilaterally, clear to percussion Abdomen: soft, bowel sounds, no tender, no distended, no rebound, no hepatomegaly, no splenomegaly, no ascites, no guarding, no drain Extremities: no cyanosis, no clubbing, no edema Neurological: awake, alert, oriented Skin: intact - Procedures Procedures: Procedures Procedure Code Date BLOOD TRANSFUSION SERVICE 55901 02/23/17 INSERT TUNNELED CV CATH 43811 05/25/17 INSERTION OF INFUSION DEV INTO R SUBCLAV VEIN, PERC APPROACH [id number] 05/25/17 RESPIRATORY VENTILATION, GREATER THAN 96 CONSECUTIVE HOURS [id number] 05/25/17 TRANSFUSE NONAUT RED BLOOD CELLS IN PERIPH VEIN, [facility] [id number] 02/23/17 Infectious Disease Assmt/Plan - Assessment Assessment: IMPRESSION: 1. Pneumonia with the sputum culture growing ESBL positive E. coli and CRE Klebsiella. 2. ESBL positive Escherichia coli and CRE Klebsiella pneumoniae infection. 3. Sudden worsening of leukocytosis, unknown, streptococcal sepsis. 4. Streptococcal sepsis. 5. Diabetes mellitus type 2. 6. Hypertension. 7. Chronic kidney disease stage 5, on hemodialysis. 8. Right hip wound with no sign of infection. 9. Constipation, gastroparesis. 10. Chronic obstructive pulmonary disease. 11. Vent dependent respiratory failure. 12. Right knee pain, arthritis. - Plan Plan: RECOMMENDATIONS: Continue Colistin and wound care. DC meropenem. DC flagyl. Start vanco IV as per pharmacy and rocephin. Nutritional Asmnt/Malnutr-PDOC - Dietary Evaluation Malnutrition Findings (Please click <Entered> for more info): Nutritional Asmnt/Malnutrition Start: 05/27/17 14: 49 Text: Status: Complete Freq: Document 05/27/17 14:52 [email or web address] (Rec: 05/27/17 15:09 NAVA [email or web address]) Nutritional Asmnt/Malnutrition Patient General Information Nutritional Screening High Risk Screening Diagnosis Bilateral penumonia, dehydration acute on chronic renal insufficiency Pertinent Medical Hx/Surgical Hx Chronic renal failure, vent dependent, chronic anemia, renal insufficiency, COPD, trauma with right hip and right tibial fracture, essential HTN Subjective Information 81 year old male from SNF. Pt with vent trach and PEG. Observed tube feeding running as ordered during morning visit, prepping to leave to surgery for catheter placement . HD scheduled for today. Pt made eye contact, mouthed words. Tolerating tube feeding well per RN assessments. Moderate wasting to shoulders and clavicles, severe wasting to lower extremities. CBW 147. 9lb via bedscale. Current Diet Order/ Nutrition Support Novasource Renal at 40ml/hr x 24hrs, providing 960ml, 1920kcal, 87g protein Pertinent Medications Vitamin C, Colace, Iron, Folate, Culturelle, Reglan, Theragran, Protonix Pertinent Labs BUN 125H (trending down), creatinie 5.9H (trending down) , glucose 151H Nutritional Hx/Data Height 1.83 m Height (Calculated Centimeters) 182.9 Current Weight (lbs) 67.086 kg Weight (Calculated Kilograms) 67.1 Weight (Calculated Grams) 66926.3 [place] Body Weight 178 Weight Status Approriate GI Symptoms Skin Integrity/Comment: Jean 15. Wound care 05/26: skin is fair, chronic wound and scar tissue. Estimated Nutritional Goals BEE in Kcals: Using Current wt Calories/Kcals/Kg CBW 147.9lb/67.2kg Kcals Calculated 2015-2kcal (30-35kcal/kg) Protein: Using Current wt Protein Calculated 80-101g (1.2-1.5g/kg) Fluid: ml Per MD Nutritional Problem 1. Problem Problem Increased kcal and prot needs related to Etiology hypermetbolic state, estimated nutritinoal needs aeb Signs/Symptoms: HD 05/27, bilateral penumonia, moderate to severe wasting to shoulders clavicles lower extremities Intervention/Recommendation Comments 1. Recommend increasing tube feeding rate to 46ml/hr x 24hrs, providing 1104ml total volume, 2208kcal, 100g protein . Wtih consideration of hypermetabolic state due to penumonia, HD, moderate to severe muscle fat wasting. Expected Outcomes/Goals Expected Outcomes/Goals 1. Pt to meet at least 100% of estimated nutritinoal needs on tube feeding with tolerance .
[2017-06-04] MEDS: Meropenem 1 GM in Sodium Chloride 0.9% 100 ML IV SCH (12:04)
[2017-06-04] MEDS: cefTRIAXone 2 GM in Sodium Chloride 0.9% 100 ML IV SCH (12:31)
[2017-06-04] MEDS ORDERED: Vancomycin HCl 1.5 GM in Sodium Chloride 0.9% 500 ML IV ONE (13:00)
--- NOTE | 2017-06-04 13:44 | General Progress Note ---
Subjective - Review of Systems Service Date: 06/04/17 Subjective: still w/ right knee pain, sleeping, on vent Objective - Results Result Diagrams: 06/04/17 04:18 06/04/17 04:18 Recent Labs: Laboratory Last Values WBC 28.2 Th/cmm (4.8-10.8) H* 06/04/17 04:18 RBC 2.64 Mil/cmm (3.80-5.80) L 06/04/17 04:18 Hgb 8.5 gm/dL (12-16) L 06/04/17 04:18 Hct 24.5 % (41.0-60) L 06/04/17 04:18 MCV 92.7 fl (80-99) 06/04/17 04:18 MCH 32.2 pg (27.0-31.0) H 06/04/17 04:18 MCHC Differential 34.7 pg (28.0-36.0) 06/04/17 04:18 RDW 16.0 % (11.5-20.0) 06/04/17 04:18 Plt Count 377 Th/cmm (150-400) 06/04/17 04:18 MPV 6.6 fl 06/04/17 04:18 Neutrophils % 71.8 % (40.0-80.0) 05/30/17 06:00 Band Neutrophils % 3 % (0-10) 06/04/17 04:18 Lymphocytes % 13.6 % (20.0-50.0) L 05/30/17 06:00 Monocytes % 9.5 % (2.0-10.0) 05/30/17 06:00 Eosinophils % 4.7 % (0.0-5.0) 05/30/17 06:00 Basophils % 0.4 % (0.0-2.0) 05/30/17 06:00 Neutrophils (Manual) 84 % (40-80) H 06/04/17 04:18 Lymphocytes 10 % (20-50) L 06/04/17 04:18 Monocytes 1 % (2-10) L 06/04/17 04:18 Eosinophils 2 % (0-5) 06/04/17 04:18 Basophils 0 % (0-3) 06/03/17 14:36 Platelet Estimate ADEQUATE (NORMAL) 06/03/17 14:36 Platelet Morphology NORMAL (NORMAL) 06/03/17 14:36 Anisocytosis 2+ 06/03/17 14:36 RBC Morph Micro Appear ABNORMAL (NORMAL) 06/03/17 14:36 PT 10.6 SECONDS (9.5-11.5) 05/25/17 03:10 INR 1.02 (0.5-1.4) 05/25/17 03:10 PTT (Actin FS) 35.1 SECONDS (26.0-38.0) 05/25/17 03:10 Specimen Source Arterial 05/29/17 09:11 Sample Site Left Radial 05/29/17 09:11 pH 7.45 (7.35-7.45) 05/29/17 09:11 pCO2 35.0 mmHg (35.0-45.0) 05/29/17 09:11 pO2 99.0 mmHg (80.0-100.0) 05/29/17 09:11 HCO3 25.4 mEq/L (20.0-26.0) 05/29/17 09:11 Base Excess 0.6 mEq/L (-3.0-3.0) 05/29/17 09:11 O2 Saturation 98.0 % (92.0-100.0) 05/29/17 09:11 Charles Test Positive 05/29/17 09:11 Vent Rate 14 05/29/17 09:11 Inspired O2 30 05/29/17 09:11 Tidal Volume 500 05/29/17 09:11 PEEP NA 05/29/17 09:11 Pressure (ins/psv/peep) NA 05/29/17 09:11 Critical Value LZHANG 05/29/17 09:11 Sodium 134 mEq/L (136-145) L 06/04/17 04:18 Potassium 3.7 mEq/L (3.5-5.1) 06/04/17 04:18 Chloride 105 mEq/L (98-107) 06/04/17 04:18 Carbon Dioxide 21.9 mEq/L (21.0-31.0) 06/04/17 04:18 Anion Gap 10.8 (7.0-16.0) 06/04/17 04:18 BUN 45 mg/dL (7-25) H 06/04/17 04:18 Creatinine 3.4 mg/dL (0.7-1.3) H 06/04/17 04:18 Est GFR ( Amer) TNP 06/04/17 04:18 Est GFR (Non-Af Amer) TNP 06/04/17 04:18 BUN/Creatinine Ratio 13.2 06/04/17 04:18 Glucose 119 mg/dL (70-105) H 06/04/17 04:18 POC Glucose 105 MG/DL (70 - 105) 05/28/17 12:24 Whole Bld Lactic Acid 0.96 mmol/L (0.60-1.99) 05/25/17 09:10 Calcium 9.2 mg/dL (8.6-10.3) 06/04/17 04:18 Phosphorus 4.0 mg/dL (2.5-5.0) 05/28/17 06:30 Magnesium 2.1 mg/dL (1.9-2.7) 06/04/17 04:18 Total Bilirubin 0.3 mg/dL (0.3-1.0) 05/26/17 07:55 AST 34 U/L (13-39) 05/26/17 07:55 ALT 29 U/L (7-52) 05/26/17 07:55 Alkaline Phosphatase 60 U/L (34-104) 05/26/17 07:55 Troponin I 0.04 ng/mL (0.01-0.05) 05/25/17 03:10 B-Natriuretic Peptide 279.0 pg/mL (5.0-100.0) H 05/25/17 09:10 Total Protein 7.2 gm/dL (6.0-8.3) 05/26/17 07:55 Albumin 2.7 gm/dL (4.2-5.5) L 05/26/17 07:55 Globulin 4.5 gm/dL 05/26/17 07:55 Albumin/Globulin Ratio 0.6 (1.0-1.8) L 05/26/17 07:55 Triglycerides 73 mg/dL (<150) 05/25/17 03:10 Cholesterol 107 mg/dL (<200) 05/25/17 03:10 LDL Cholesterol Direct 76 mg/dL (75-193) 05/25/17 03:10 HDL Cholesterol 35 mg/dL (23-92) 05/25/17 03:10 Prostate Specific Ag 1.6 ng/mL (0.0-4.0) 05/27/17 04:40 Urine Source [place] 06/03/17 11:00 Urine Color YELLOW 06/03/17 11:00 Urine Clarity CLEAR (CLEAR) 06/03/17 11:00 Urine pH 6.0 (4.6 - 8.0) 06/03/17 11:00 Ur Specific [place] 1.025 (1.005-1.030) 06/03/17 11:00 Urine Protein 30 mg/dL (NEGATIVE) H 06/03/17 11:00 Urine Glucose (UA) NEGATIVE mg/dL (NEGATIVE) 06/03/17 11:00 Urine Ketones NEGATIVE mg/dL (NEGATIVE) 06/03/17 11:00 Urine Blood TRACE (NEGATIVE) 06/03/17 11:00 Urine Nitrate NEGATIVE (NEGATIVE) 06/03/17 11:00 Urine Bilirubin NEGATIVE (NEGATIVE) 06/03/17 11:00 Urine Urobilinogen 0.2 E.U./dL (0.2 - 1.0) 06/03/17 11:00 Ur Leukocyte Esterase TRACE (NEGATIVE) H 06/03/17 11:00 Urine RBC 5-10 /hpf (0-5) H 06/03/17 11:00 Urine WBC 2-5 /hpf (0-5) H 06/03/17 11:00 Ur Epithelial Cells FEW /lpf (FEW) 06/03/17 11:00 Calcium Oxalate Crystal FEW /hpf 06/03/17 11:00 Urine Bacteria FEW /hpf (NONE SEEN) 06/03/17 11:00 Coarse Granular Casts 0-2 /lpf (NONE SEEN) H 06/03/17 11:00 Ur Random Sodium 49 mmol/L 05/26/17 02:15 Urine Collection Time 24 hours 05/27/17 03:00 Urine Total Volume 3000 ml 05/27/17 03:00 Urine Creatinine 24.0 mg/dl (39.0-259.0) L 05/27/17 03:00 Creat Clearance 24 Hr 8 ml/min (97.00-137.00) L 05/27/17 03:00 Body Surface Area 1.85 05/27/17 03:00 Stool Occult Blood NEGATIVE (NEGATIVE) 06/03/17 11:20 RPR NONREACTIVE (NONREACTIVE) 05/25/17 03:10 Hepatitis A IgM Ab Negative (Negative) 05/26/17 07:55 Hep Bs Antigen Negative (Negative) 05/26/17 07:55 Hep B Core IgM Ab Negative (Negative) 05/26/17 07:55 Hepatitis C Antibody >11.0 s/co ratio (0.0-0.9) H 05/26/17 07:55 HIV 1&2 Antibody Screen NEGATIVE (NEG) 05/29/17 05:30 Blood Type A POSITIVE 06/02/17 10:00 Antibody Screen NEGATIVE 06/02/17 10:00 Crossmatch See Detail 06/02/17 10:00 - Physical Exam Vitals and I&O: Vital Signs Temp 97.6 F 06/04/17 08:00 Pulse 125 06/04/17 12:36 Resp 24 06/04/17 11:00 BP 137/80 06/04/17 11:00 Pulse Ox 96 06/04/17 12:36 Intake & Output 06/03/17 06/04/17 06/04/17 18:59 06:59 18:59 Intake Total 1191.25 540 971.25 Output Total 400 600 Balance 791.25 -60 971.25 Weight (lbs) 67.676 kg 67.132 kg Intake: Intake, IV Amount 991.25 971.25 Meropenem 1 gm In Sodium 100 Chloride 0.9% 100 ml @ 100 mls/hr IV Q24H [facility] Rx #:[id number] Sodium Chloride 0.9% 1, 841.25 971.25 000 ml @ 75 mls/hr IV . [id number] [facility] Rx#:[id number] Tube Feeding 50 540 Other 150 Output: Urine 400 600 Other: # Bowel Movements 1 Stool Characteristics Liquid Liquid Brown Brown Black Green Active Medications: Current Medications Acetaminophen (Tylenol 650mg/20.3ml Suspension) 650 mg GT Q4HR PRN PRN Reason: fever >101 or mild pain Stop: 07/24/17 05:23 Last Admin: 06/02/17 19:57 Dose: 650 mg Acetaminophen/Hydrocodone Bitart (Orient 10 Mg/325 Mg) 1 tab PO Q6H PRN PRN Reason: Pain (Moderate) Stop: 07/24/17 05:23 Last Admin: 06/04/17 05:20 Dose: 1 tab Acetaminophen/Hydrocodone Bitart (Orient 5mg/325mg) 1 tab PO Q6H PRN PRN Reason: MODERATE PAIN Stop: 07/28/17 10:28 Last Admin: 06/04/17 09:53 Dose: 1 tab Albuterol/Ipratropium (Duoneb Neb) 3 ml HHN Q2HRT PRN PRN Reason: Wheezing Stop: 07/24/17 05:23 Last Admin: 05/26/17 03:28 Dose: 3 ml Albuterol/Ipratropium (Duoneb Neb) 3 ml HHN Q6HRT [facility] Stop: 07/24/17 18:59 Last Admin: 06/04/17 12:36 Dose: 3 ml Ascorbic Acid (Vitamin C) 500 mg GT BID [facility] Stop: 07/24/17 08:59 Last Admin: 06/04/17 09:53 Dose: 500 mg Bisacodyl (Dulcolax 10 Mg Supp) 10 mg RC DAILY PRN PRN Reason: Constipation Stop: 07/31/17 13:00 Last Admin: 06/01/17 20:04 Dose: 10 mg Chlorhexidine Gluconate (Peridex) 15 ml MM 08,1999 [facility] Stop: 07/28/17 19:59 Last Admin: 06/04/17 10:10 Dose: Not Given Diltiazem HCl (Cardizem) 10 mg IVP Q4H PRN PRN Reason: Tachycardia Stop: 08/01/17 14:57 Last Admin: 06/02/17 18:55 Dose: 10 mg Docusate Sodium (Colace) 100 mg PO BID [facility] Stop: 07/29/17 08:59 Last Admin: 06/04/17 09:52 Dose: Not Given Ferrous Sulfate (Iron) 330 mg GT BID [facility] Stop: 07/24/17 08:59 Last Admin: 06/04/17 09:52 Dose: 330 mg Folic Acid (Folate) 1 mg GT DAILY [facility] Stop: 07/24/17 08:59 Last Admin: 06/04/17 09:53 Dose: 1 mg Sodium Chloride (Nacl 0.9%) 1,000 mls @ 75 mls/hr IV .[id number] [facility] Stop: 07/24/17 11:59 Last Admin: 06/04/17 10:06 Dose: 75 mls/hr Colistimethate Sodium 150 mg/ (Sodium Chloride) 100 mls @ 100 mls/hr IV PRN PRN PRN Reason: AFTER EACH H.D. Stop: 07/29/17 11:20 Last Infusion: 06/02/17 17:00 Dose: Infused Colistimethate Sodium 150 mg/ (Sodium Chloride) 100 mls @ 100 mls/hr IV MWF@ 1500 [facility] Stop: 08/03/17 14:59 Ceftriaxone Sodium 2 gm/ (Sodium Chloride) 100 mls @ 100 mls/hr IV Q24H [facility] Stop: 08/03/17 11:59 Last Admin: 06/04/17 12:31 Dose: 100 mls/hr Vancomycin HCl 1.5 gm/ Sodium (Chloride) 500 mls @ 250 mls/hr IV ONCE ONE Stop: 06/04/17 14:59 Lactobacillus Rhamnosus (Culturelle) 1 each PO DAILY [facility] Stop: 07/26/17 08:59 Last Admin: 06/04/17 09:53 Dose: 1 each Lactulose (Cephulac) 30 gm GT Q8HR [facility] Stop: 08/01/17 20:59 Last Admin: 06/04/17 12:26 Dose: Not Given Lorazepam (Ativan) 1 mg IVP Q4H PRN; Protocol PRN Reason: Agitation Stop: 08/01/17 14:55 Last Admin: 06/03/17 11:48 Dose: 1 mg Metoclopramide HCl (Reglan) 5 mg GT BID [facility] Stop: 07/24/17 08:59 Last Admin: 06/04/17 09:52 Dose: 5 mg Miscellaneous (Probiotic Screen) 1 ea PRN PRN PRN Reason: PROTOCOL Stop: 07/25/17 15:59 Miscellaneous (Pharmacy To Dose) 1 ea PRN [facility] Stop: 07/28/17 13:29 Miscellaneous (Vancomycin Iv Per Pharmacy) 1 ea PRN [facility] Stop: 08/03/17 10:59 Morphine Sulfate (Morphine) 1 mg IVP Q4HR PRN PRN Reason: SEVERE PAIN Stop: 07/28/17 10:28 Last Admin: 06/02/17 14:09 Dose: 1 mg Morphine Sulfate (Morphine) 2 mg IV Q4H PRN PRN Reason: Pain (Moderate) Stop: 08/01/17 14:52 Last Admin: 06/04/17 12:31 Dose: 2 mg Multivitamins/Vitamin C (Theragran) 1 tab GT DAILY [facility] Stop: 07/26/17 10:44 Last Admin: 06/04/17 09:53 Dose: 1 tab Ondansetron HCl (Zofran) 4 mg IV Q4H PRN PRN Reason: Nausea / Vomiting Stop: 08/01/17 16:43 Last Admin: 06/03/17 10:23 Dose: 4 mg Pantoprazole Sodium (Protonix) 40 mg GT DAILY [facility] Stop: 07/24/17 08:59 Last Admin: 06/04/17 09:53 Dose: 40 mg General: Alert, No acute distress HEENT: Atraumatic, EOMI, Mucous membr. moist/pink Neck: Supple, +2 carotid pulse wo bruit Cardiovascular: Regular rate, Normal S1, Normal S2 Lungs: Other (rhonchi) Abdomen: Bowel sounds, Soft Extremities: no Edema Neurological: Sensation intact Skin: no Rash Psych/Mental Status: Mood NL - Procedures Procedures: Procedures Procedure Code Date BLOOD TRANSFUSION SERVICE 76440 02/23/17 INSERT TUNNELED CV CATH 45187 05/25/17 INSERTION OF INFUSION DEV INTO R SUBCLAV VEIN, PERC APPROACH 49X766D 05/25/17 RESPIRATORY VENTILATION, GREATER THAN 96 CONSECUTIVE HOURS [id number] 05/25/17 TRANSFUSE NONAUT RED BLOOD CELLS IN PERIPH VEIN, PERC 80242E5 02/23/17 Assessment/Plan - Assessment Assessment: 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 coli, K. pneu VAP Ess HTN Leukocytosis - Plan Plan: Lab - Result Diagrams 05/28/17 06:30 05/28/17 06:30 Current Medications Acetaminophen (Tylenol 650mg/20.3ml Suspension) 650 mg GT Q4HR PRN PRN Reason: fever >101 or mild pain Stop: 07/24/17 05:23 Acetaminophen/Hydrocodone Bitart (Orient 10 Mg/325 Mg) 1 tab PO Q6H PRN PRN Reason: Pain (Moderate) Stop: 07/24/17 05:23 Last Admin: 05/28/17 13:49 Dose: 1 tab Albuterol/Ipratropium (Duoneb Neb) 3 ml HHN Q2HRT PRN PRN Reason: Wheezing Stop: 07/24/17 05:23 Last Admin: 05/26/17 03:28 Dose: 3 ml Albuterol/Ipratropium (Duoneb Neb) 3 ml HHN Q6HRT [facility] Stop: 07/24/17 18:59 Last Admin: 05/28/17 08:06 Dose: 3 ml Ascorbic Acid (Vitamin C) 500 mg GT BID [facility] Stop: 07/24/17 08:59 Last Admin: 05/28/17 09:18 Dose: 500 mg Chlorhexidine Gluconate (Peridex) 15 ml MM 0800,2000 [facility] Stop: 07/24/17 07:59 Last Admin: 05/27/17 20:30 Dose: 15 ml Diltiazem HCl (Cardizem) 60 mg GT Q8H [facility] Stop: 07/24/17 05:29 Last Admin: 05/28/17 12:31 Dose: Not Given Docusate Sodium (Colace) 100 mg PO BID [facility] Stop: 07/24/17 08:59 Last Admin: 05/28/17 09:18 Dose: 100 mg Ferrous Sulfate (Iron) 330 mg GT BID [facility] Stop: 07/24/17 08:59 Last Admin: 05/28/17 09:17 Dose: 330 mg Folic Acid (Folate) 1 mg GT DAILY [facility] Stop: 07/24/17 08:59 Last Admin: 05/28/17 09:19 Dose: 1 mg Levofloxacin (Levaquin Pb) 250 mg in 50 mls @ 50 mls/hr IV Q48HR@1500 [facility] Stop: 07/26/17 14:59 Last Admin: 05/27/17 15:31 Dose: 50 mls/hr Meropenem 1 gm/ Sodium (Chloride) 100 mls @ 100 mls/hr IV Q24HR [facility] Stop: 07/26/17 17:29 Last Admin: 05/27/17 18:01 Dose: 100 mls/hr Sodium Chloride (Nacl 0.9%) 1,000 mls @ 75 mls/hr IV .[id number] [facility] Stop: 07/24/17 11:59 Lactobacillus Rhamnosus (Culturelle) 1 each PO DAILY [facility] Stop: 07/26/17 08:59 Last Admin: 05/28/17 09:18 Dose: 1 each Metoclopramide HCl (Reglan) 5 mg GT BID [facility] Stop: 07/24/17 08:59 Last Admin: 05/28/17 09:18 Dose: 5 mg Metronidazole (Flagyl) 500 mg PO Q8HR [facility] Stop: 07/24/17 12:59 Last Admin: 05/28/17 05:05 Dose: 500 mg Miscellaneous (Probiotic Screen) 1 ea MC PRN PRN PRN Reason: PROTOCOL Stop: 07/25/17 15:59 Multivitamins/Vitamin C (Theragran) 1 tab GT DAILY [facility] Stop: 07/26/17 10:44 Last Admin: 05/28/17 09:18 Dose: 1 tab Pantoprazole Sodium (Protonix) 40 mg GT DAILY [facility] Stop: 07/24/17 08:59 Last Admin: 05/28/17 09:18 Dose: 40 m Lab - Result Diagrams 06/04/17 04:18 06/04/17 04:18 schedule for HD today still w/ adequate UOP monitor closely continue Levofloxacin, Merrem analgesic for right knee pain dulcolax for constipation sudden rise in WBC? Nutritional Asmnt/Malnutr-PDOC - Dietary Evaluation Malnutrition Findings (Please click <Entered> for more info): Nutritional Asmnt/Malnutrition Start: 05/27/17 14: 49 Text: Status: Complete Freq: Document 05/27/17 14:52 GSUN (Rec: 05/27/17 15:09 GSUN [id number]) Nutritional Asmnt/Malnutrition Patient General Information Nutritional Screening High Risk Screening Diagnosis Bilateral penumonia, dehydration acute on chronic renal insufficiency Pertinent Medical Hx/Surgical Hx Chronic renal failure, vent dependent, chronic anemia, renal insufficiency, COPD, trauma with right hip and right tibial fracture, essential HTN Subjective Information 81 year old male from SNF. Pt with vent trach and PEG. Observed tube feeding running as ordered during morning visit, prepping to leave to surgery for catheter placement . HD scheduled for today. Pt made eye contact, mouthed words. Tolerating tube feeding well per RN assessments. Moderate wasting to shoulders and clavicles, severe wasting to lower extremities. CBW 147. 9lb via bedscale. Current Diet Order/ Nutrition Support Novasource Renal at 40ml/hr x 24hrs, providing 960ml, 1920kcal, 87g protein Pertinent Medications Vitamin C, Colace, Iron, Folate, Culturelle, Reglan, Theragran, Protonix Pertinent Labs BUN 125H (trending down), creatinie 5.9H (trending down) , glucose 151H Nutritional Hx/Data Height 1.83 m Height (Calculated Centimeters) 182.9 Current Weight (lbs) 67.086 kg Weight (Calculated Kilograms) 67.1 Weight (Calculated Grams) 50656.3 [place] Body Weight 178 Weight Status Approriate GI Symptoms Skin Integrity/Comment: Jean 15. Wound care 05/26: skin is fair, chronic wound and scar tissue. Estimated Nutritional Goals BEE in Kcals: Using Current wt Calories/Kcals/Kg CBW 147.9lb/67.2kg Kcals Calculated 2015-2kcal (30-35kcal/kg) Protein: Using Current wt Protein Calculated 80-101g (1.2-1.5g/kg) Fluid: ml Per MD Nutritional Problem 1. Problem Problem Increased kcal and prot needs related to Etiology hypermetbolic state, estimated nutritinoal needs aeb Signs/Symptoms: HD 05/27, bilateral penumonia, moderate to severe wasting to shoulders clavicles lower extremities Intervention/Recommendation Comments 1. Recommend increasing tube feeding rate to 46ml/hr x 24hrs, providing 1104ml total volume, 2208kcal, 100g protein . Wtih consideration of hypermetabolic state due to penumonia, HD, moderate to severe muscle fat wasting. Expected Outcomes/Goals Expected Outcomes/Goals 1. Pt to meet at least 100% of estimated nutritinoal needs on tube feeding with tolerance .
[2017-06-04] MEDS: COLISTIMETHATE IV SCH (16:22)
[2017-06-04] MEDS: NS 0.9% IV SCH (16:22)
[2017-06-04] MEDS: Diltiazem 5 mg/mL 5mL Vial IVP PRN (16:27)
[2017-06-05] MEDS: Albuterol/Ipratropium Neb 3 ML AERS HHN SCH ×4 (01:20→19:15)
[2017-06-05] MEDS: Lactulose 10 Gm/15 mL 30mL UDC GT SCH ×3 (05:35→21:44)
[2017-06-05] MEDS: Sodium Chloride 0.9% 1,000 ML IV SCH (05:36)
[2017-06-05 06:14] LABS: HEMATOCRIT 24.8 % (41.0-60); HEMOGLOBIN 8.4 gm/dL (12-16); MEAN CELL VOLUME 93.2 fl (80-99); MEAN CORPUSCULAR HEMOGLOBIN 31.7 pg (27.0-31.0); MEAN PLATELET VOLUME 6.7 fl; NEUTROPHILE ABSOLUTE 17.6 Th/cmm (1.8-8.0); PLATELET COUNT 408 Th/cmm (150-400); RED BLOOD COUNT 2.66 Mil/cmm (3.80-5.80); RED CELL DISTRIBUTION WIDTH 15.7 % (11.5-20.0)
[2017-06-05 06:22] LABS: WHITE BLOOD COUNT 22.1 Th/cmm (4.8-10.8)
[2017-06-05 06:30] LABS: NEUTROPHILS 80 % (40-80); TOTAL CELLS COUNTED 100
[2017-06-05 06:31] LABS: BAND NEUTROPHILE 1 % (0-10); EOSINOPHIL 1 % (0-5)
[2017-06-05 06:41] LABS: ANION GAP 10.8 (7.0-16.0); BUN - UREA NITROGEN 39 mg/dL (7-25); BUN/CREATININE RATIO 13.9; CALCIUM SERUM 9.1 mg/dL (8.6-10.3); CARBON DIOXIDE 22.4 mEq/L (21.0-31.0); CHLORIDE 106 mEq/L (98-107); CREATININE - SERUM 2.8 mg/dL (0.7-1.3); GLUCOSE 117 mg/dL (70-105); POTASSIUM SERUM 3.2 mEq/L (3.5-5.1); SODIUM SERUM 136 mEq/L (136-145)
[2017-06-05] MEDS: Hydrocodone/APAP 10 mg/325 mg Tab PO PRN ×2 (08:35→14:35)
[2017-06-05] MEDS: Ferrous Sulfate 300 MG/5 ML UDC GT SCH ×2 (08:51→17:42)
[2017-06-05] MEDS: Docusate Sodium 100 mg/10 mL UD PO SCH ×2 (08:51→17:43)
[2017-06-05] MEDS: Pantoprazole 40 mg/Packet GT SCH (08:51)
[2017-06-05] MEDS: Lactobacillus Rhamnosus 10 Billion CFU Capsule PO SCH (08:52)
[2017-06-05] MEDS: Multivitamin Tab GT SCH (08:54)
[2017-06-05] MEDS: Chlorhexidine Gluconate 0.12% 15mL Mouthwash MM SCH ×2 (08:57→21:46)
[2017-06-05] MEDS ORDERED: Vancomycin HCl 1.5 GM in Sodium Chloride 0.9% 500 ML IV ONE (09:15)
--- NOTE | 2017-06-05 09:29 | Diagnostic Imaging Report ---
CHEST X-RAY: AP view INDICATION: Pneumonia COMPARISON: 06/03/2017 FINDINGS: Support devices are stable. Multifocal patchy infiltrates are again seen noted without significant change. There may be small effusions. Cardiomegaly noted. IMPRESSION: Multifocal patchy infiltrates without significant change since prior exam. Cardiomegaly.
[2017-06-05] MEDS ORDERED: Potassium Chloride 40 MEQ, Lidocaine 1% 20mL Vial 25 MG in Sodium Chloride 0.9% 250 ML IV ONE (09:51)
[2017-06-05] MEDS ORDERED: KCL 20mEq/100mL Premix 0 MEQ/0 ML PIGGYBACK IV ONE (10:01)
[2017-06-05] MEDS: cefTRIAXone 2 GM in Sodium Chloride 0.9% 100 ML IV SCH (12:30)
--- NOTE | 2017-06-05 14:45 | Infectious Disease Prog Note ---
Infectious Disease Subjective - Review of Systems Service Date: 06/05/17 Subjective: Able to pass BMs. fever has improved. WBC count is improving. Infectious Disease Objective - Results Result Diagrams: 06/05/17 06:00 06/05/17 06:00 Recent Labs: Laboratory Last Values WBC 22.1 Th/cmm (4.8-10.8) H* D 06/05/17 06:00 RBC 2.66 Mil/cmm (3.80-5.80) L 06/05/17 06:00 Hgb 8.4 gm/dL (12-16) L 06/05/17 06:00 Hct 24.8 % (41.0-60) L 06/05/17 06:00 MCV 93.2 fl (80-99) 06/05/17 06:00 MCH 31.7 pg (27.0-31.0) H 06/05/17 06:00 MCHC Differential 34.0 pg (28.0-36.0) 06/05/17 06:00 RDW 15.7 % (11.5-20.0) 06/05/17 06:00 Plt Count 408 Th/cmm (150-400) H 06/05/17 06:00 MPV 6.7 fl 06/05/17 06:00 Neutrophils % 71.8 % (40.0-80.0) 05/30/17 06:00 Band Neutrophils % 1 % (0-10) 06/05/17 06:00 Lymphocytes % 13.6 % (20.0-50.0) L 05/30/17 06:00 Monocytes % 9.5 % (2.0-10.0) 05/30/17 06:00 Eosinophils % 4.7 % (0.0-5.0) 05/30/17 06:00 Basophils % 0.4 % (0.0-2.0) 05/30/17 06:00 Neutrophils (Manual) 80 % (40-80) 06/05/17 06:00 Lymphocytes 14 % (20-50) L 06/05/17 06:00 Monocytes 4 % (2-10) 06/05/17 06:00 Eosinophils 1 % (0-5) 06/05/17 06:00 Basophils 0 % (0-3) 06/03/17 14:36 Platelet Estimate ADEQUATE (NORMAL) 06/03/17 14:36 Platelet Morphology NORMAL (NORMAL) 06/03/17 14:36 Anisocytosis 2+ 06/03/17 14:36 RBC Morph Micro Appear ABNORMAL (NORMAL) 06/03/17 14:36 PT 10.6 SECONDS (9.5-11.5) 05/25/17 03:10 INR 1.02 (0.5-1.4) 05/25/17 03:10 PTT (Actin FS) 35.1 SECONDS (26.0-38.0) 05/25/17 03:10 Specimen Source Arterial 05/29/17 09:11 Sample Site Left Radial 05/29/17 09:11 pH 7.45 (7.35-7.45) 05/29/17 09:11 pCO2 35.0 mmHg (35.0-45.0) 05/29/17 09:11 pO2 99.0 mmHg (80.0-100.0) 05/29/17 09:11 HCO3 25.4 mEq/L (20.0-26.0) 05/29/17 09:11 Base Excess 0.6 mEq/L (-3.0-3.0) 05/29/17 09:11 O2 Saturation 98.0 % (92.0-100.0) 05/29/17 09:11 Charles Test Positive 05/29/17 09:11 Vent Rate 14 05/29/17 09:11 Inspired O2 30 05/29/17 09:11 Tidal Volume 500 05/29/17 09:11 PEEP NA 05/29/17 09:11 Pressure (ins/psv/peep) NA 05/29/17 09:11 Critical Value LZHANG 05/29/17 09:11 Sodium 136 mEq/L (136-145) 06/05/17 06:00 Potassium 3.2 mEq/L (3.5-5.1) L 06/05/17 06:00 Chloride 106 mEq/L (98-107) 06/05/17 06:00 Carbon Dioxide 22.4 mEq/L (21.0-31.0) 06/05/17 06:00 Anion Gap 10.8 (7.0-16.0) 06/05/17 06:00 BUN 39 mg/dL (7-25) H 06/05/17 06:00 Creatinine 2.8 mg/dL (0.7-1.3) H 06/05/17 06:00 Est GFR ( Amer) TNP 06/05/17 06:00 Est GFR (Non-Af Amer) TNP 06/05/17 06:00 BUN/Creatinine Ratio 13.9 06/05/17 06:00 Glucose 117 mg/dL (70-105) H 06/05/17 06:00 POC Glucose 105 MG/DL (70 - 105) 05/28/17 12:24 Whole Bld Lactic Acid 0.96 mmol/L (0.60-1.99) 05/25/17 09:10 Calcium 9.1 mg/dL (8.6-10.3) 06/05/17 06:00 Phosphorus 4.0 mg/dL (2.5-5.0) 05/28/17 06:30 Magnesium 2.1 mg/dL (1.9-2.7) 06/04/17 04:18 Total Bilirubin 0.3 mg/dL (0.3-1.0) 05/26/17 07:55 AST 34 U/L (13-39) 05/26/17 07:55 ALT 29 U/L (7-52) 05/26/17 07:55 Alkaline Phosphatase 60 U/L (34-104) 05/26/17 07:55 Troponin I 0.04 ng/mL (0.01-0.05) 05/25/17 03:10 B-Natriuretic Peptide 279.0 pg/mL (5.0-100.0) H 05/25/17 09:10 Total Protein 7.2 gm/dL (6.0-8.3) 05/26/17 07:55 Albumin 2.7 gm/dL (4.2-5.5) L 05/26/17 07:55 Globulin 4.5 gm/dL 05/26/17 07:55 Albumin/Globulin Ratio 0.6 (1.0-1.8) L 05/26/17 07:55 Triglycerides 73 mg/dL (<150) 05/25/17 03:10 Cholesterol 107 mg/dL (<200) 05/25/17 03:10 LDL Cholesterol Direct 76 mg/dL (75-193) 05/25/17 03:10 HDL Cholesterol 35 mg/dL (23-92) 05/25/17 03:10 Prostate Specific Ag 1.6 ng/mL (0.0-4.0) 05/27/17 04:40 Urine Source [place] 06/03/17 11:00 Urine Color YELLOW 06/03/17 11:00 Urine Clarity CLEAR (CLEAR) 06/03/17 11:00 Urine pH 6.0 (4.6 - 8.0) 06/03/17 11:00 Ur Specific [place] 1.025 (1.005-1.030) 06/03/17 11:00 Urine Protein 30 mg/dL (NEGATIVE) H 06/03/17 11:00 Urine Glucose (UA) NEGATIVE mg/dL (NEGATIVE) 06/03/17 11:00 Urine Ketones NEGATIVE mg/dL (NEGATIVE) 06/03/17 11:00 Urine Blood TRACE (NEGATIVE) 06/03/17 11:00 Urine Nitrate NEGATIVE (NEGATIVE) 06/03/17 11:00 Urine Bilirubin NEGATIVE (NEGATIVE) 06/03/17 11:00 Urine Urobilinogen 0.2 E.U./dL (0.2 - 1.0) 06/03/17 11:00 Ur Leukocyte Esterase TRACE (NEGATIVE) H 06/03/17 11:00 Urine RBC 5-10 /hpf (0-5) H 06/03/17 11:00 Urine WBC 2-5 /hpf (0-5) H 06/03/17 11:00 Ur Epithelial Cells FEW /lpf (FEW) 06/03/17 11:00 Calcium Oxalate Crystal FEW /hpf 06/03/17 11:00 Urine Bacteria FEW /hpf (NONE SEEN) 06/03/17 11:00 Coarse Granular Casts 0-2 /lpf (NONE SEEN) H 06/03/17 11:00 Ur Random Sodium 49 mmol/L 05/26/17 02:15 Urine Collection Time 24 hours 05/27/17 03:00 Urine Total Volume 3000 ml 05/27/17 03:00 Urine Creatinine 24.0 mg/dl (39.0-259.0) L 05/27/17 03:00 Creat Clearance 24 Hr 8 ml/min (97.00-137.00) L 05/27/17 03:00 Body Surface Area 1.85 05/27/17 03:00 Stool Occult Blood NEGATIVE (NEGATIVE) 06/03/17 11:20 Vancomycin Trough 15.3 ug/mL (10-20) 06/05/17 06:00 RPR NONREACTIVE (NONREACTIVE) 05/25/17 03:10 Hepatitis A IgM Ab Negative (Negative) 05/26/17 07:55 Hep Bs Antigen Negative (Negative) 05/26/17 07:55 Hep B Core IgM Ab Negative (Negative) 05/26/17 07:55 Hepatitis C Antibody >11.0 s/co ratio (0.0-0.9) H 05/26/17 07:55 HIV 1&2 Antibody Screen NEGATIVE (NEG) 05/29/17 05:30 Blood Type A POSITIVE 06/02/17 10:00 Antibody Screen NEGATIVE 06/02/17 10:00 Crossmatch See Detail 06/02/17 10:00 - Physical Exam Vitals and I&O: Vital Signs Temp 98.4 F 06/05/17 09:00 Pulse 94 06/05/17 12:00 Resp 20 06/05/17 11:00 BP 124/68 06/05/17 11:00 Pulse Ox 100 06/05/17 12:00 Intake & Output 06/04/17 06/05/17 06/05/17 18:59 06:59 18:59 Intake Total 1671.25 2240 Output Total 4101 350 Balance 1671.25 -1861 -350 Weight (lbs) 64.41 kg 64.41 kg Intake: Intake, IV Amount 1671.25 1000 Colistimethate 150 mg In 100 Sodium Chloride 0.9% 100 ml @ 100 mls/hr IV MWF@ 1500 [facility] Rx#:[id number] Sodium Chloride 0.9% 1, 971.25 1000 000 ml @ 75 mls/hr IV . [id number] [facility] Rx#:[id number] cefTRIAXone 2 gm In 100 Sodium Chloride 0.9% 100 ml @ 100 mls/hr IV Q24H [facility] Rx#:[id number] Oral 0 Tube Feeding 990 TPN/PPN 0 Blood Product 0 Lipid 0 Albumin 0 Other 250 Output: Gastric Drainage 0 Urine 1100 350 Stool 1 Urine/Stool Mix 0 Emesis 0 Hemodialysis 3000 Other 0 Other: # Voids 1 # Bowel Movements 1 Stool Characteristics Liquid Liquid Liquid Brown Brown Brown Active Medications: Current Medications Acetaminophen (Tylenol 650mg/20.3ml Suspension) 650 mg GT Q4HR PRN PRN Reason: fever >101 or mild pain Stop: 07/24/17 05:23 Last Admin: 06/02/17 19:57 Dose: 650 mg Acetaminophen/Hydrocodone Bitart ([place] 10 Mg/325 Mg) 1 tab PO Q6H PRN PRN Reason: Pain (Moderate) Stop: 07/24/17 05:23 Last Admin: 06/05/17 08:35 Dose: 1 tab Acetaminophen/Hydrocodone Bitart ([place] 5mg/325mg) 1 tab PO Q6H PRN PRN Reason: MODERATE PAIN Stop: 07/28/17 10:28 Last Admin: 06/04/17 09:53 Dose: 1 tab Albuterol/Ipratropium (Duoneb Neb) 3 ml HHN Q2HRT PRN PRN Reason: Wheezing Stop: 07/24/17 05:23 Last Admin: 05/26/17 03:28 Dose: 3 ml Albuterol/Ipratropium (Duoneb Neb) 3 ml HHN Q6HRT [facility] Stop: 07/24/17 18:59 Last Admin: 06/05/17 12:00 Dose: 3 ml Ascorbic Acid (Vitamin C) 500 mg GT BID [facility] Stop: 07/24/17 08:59 Last Admin: 06/05/17 08:55 Dose: 500 mg Bisacodyl (Dulcolax 10 Mg Supp) 10 mg RC DAILY PRN PRN Reason: Constipation Stop: 07/31/17 13:00 Last Admin: 06/01/17 20:04 Dose: 10 mg Carvedilol (Coreg) 6.25 mg PO BID [facility] Stop: 08/04/17 09:59 Chlorhexidine Gluconate (Peridex) 15 ml MM 0800,2000 [facility] Stop: 07/28/17 19:59 Last Admin: 06/05/17 08:57 Dose: 15 ml Diltiazem HCl (Cardizem) 10 mg IVP Q4H PRN PRN Reason: Tachycardia Stop: 08/01/17 14:57 Last Admin: 06/04/17 16:27 Dose: 10 mg Docusate Sodium (Colace) 100 mg PO BID [facility] Stop: 07/29/17 08:59 Last Admin: 06/05/17 08:51 Dose: 100 mg Ferrous Sulfate (Iron) 330 mg GT BID [facility] Stop: 07/24/17 08:59 Last Admin: 06/05/17 08:51 Dose: 330 mg Folic Acid (Folate) 1 mg GT DAILY [facility] Stop: 07/24/17 08:59 Last Admin: 06/05/17 08:56 Dose: 1 mg Sodium Chloride (Nacl 0.9%) 1,000 mls @ 75 mls/hr IV .[id number] [facility] Stop: 07/24/17 11:59 Last Admin: 06/05/17 05:36 Dose: 75 mls/hr Colistimethate Sodium 150 mg/ (Sodium Chloride) 100 mls @ 100 mls/hr IV PRN PRN PRN Reason: AFTER EACH H.D. Stop: 07/29/17 11:20 Last Infusion: 06/02/17 17:00 Dose: Infused Colistimethate Sodium 150 mg/ (Sodium Chloride) 100 mls @ 100 mls/hr IV MWF@ 1500 [facility] Stop: 08/03/17 14:59 Last Infusion: 06/04/17 17:28 Dose: Infused Ceftriaxone Sodium 2 gm/ (Sodium Chloride) 100 mls @ 100 mls/hr IV Q24H [facility] Stop: 08/03/17 11:59 Last Infusion: 06/04/17 13:31 Dose: Infused Lactobacillus Rhamnosus (Culturelle) 1 each PO DAILY [facility] Stop: 07/26/17 08:59 Last Admin: 06/05/17 08:52 Dose: 1 each Lactulose (Cephulac) 30 gm GT Q8HR [facility] Stop: 08/01/17 20:59 Last Admin: 06/05/17 05:35 Dose: Not Given Lorazepam (Ativan) 1 mg IVP Q4H PRN; Protocol PRN Reason: Agitation Stop: 08/01/17 14:55 Last Admin: 06/05/17 01:29 Dose: 1 mg Metoclopramide HCl (Reglan) 5 mg GT BID [facility] Stop: 07/24/17 08:59 Last Admin: 06/05/17 08:51 Dose: 5 mg Miscellaneous (Probiotic Screen) 1 ea MC PRN PRN PRN Reason: PROTOCOL Stop: 07/25/17 15:59 Miscellaneous (Pharmacy To Dose) 1 ea MC PRN [facility] Stop: 07/28/17 13:29 Miscellaneous (Vancomycin Iv Per Pharmacy) 1 ea MC PRN [facility] Stop: 08/03/17 10:59 Morphine Sulfate (Morphine) 1 mg IVP Q4HR PRN PRN Reason: SEVERE PAIN Stop: 07/28/17 10:28 Last Admin: 06/02/17 14:09 Dose: 1 mg Morphine Sulfate (Morphine) 2 mg IV Q4H PRN PRN Reason: Pain (Moderate) Stop: 08/01/17 14:52 Last Admin: 06/04/17 19:51 Dose: 2 mg Multivitamins/Vitamin C (Theragran) 1 tab GT DAILY [facility] Stop: 07/26/17 10:44 Last Admin: 06/05/17 08:54 Dose: 1 tab Ondansetron HCl (Zofran) 4 mg IV Q4H PRN PRN Reason: Nausea / Vomiting Stop: 08/01/17 16:43 Last Admin: 06/03/17 10:23 Dose: 4 mg Pantoprazole Sodium (Protonix) 40 mg GT DAILY [facility] Stop: 07/24/17 08:59 Last Admin: 06/05/17 08:51 Dose: 40 mg General: no acute distress, well developed, well nourished HEENT: atraumatic, normocephalic, PERRLA, EOMI Neck: supple, tracheostomy Cardiovascular: S1S2, regular Lungs: clear to percussion, rhonchi Abdomen: soft, no tender, no distended Extremities: no cyanosis, no clubbing, no edema Neurological: awake, alert, oriented Skin: intact - Procedures Procedures: Procedures Procedure Code Date BLOOD TRANSFUSION SERVICE 36945 02/23/17 INSERT TUNNELED CV CATH 77910 05/25/17 INSERTION OF INFUSION DEV INTO R SUBCLAV VEIN, PERC APPROACH [id number] 05/25/17 RESPIRATORY VENTILATION, GREATER THAN 96 CONSECUTIVE HOURS [id number] 05/25/17 TRANSFUSE NONAUT RED BLOOD CELLS IN PERIPH VEIN, PERC [id number] 02/23/17 Infectious Disease Assmt/Plan - Assessment Assessment: IMPRESSION: 1. Pneumonia with the sputum culture growing ESBL positive E. coli and CRE Klebsiella. 2. ESBL positive Escherichia coli and CRE Klebsiella pneumoniae infection. 3. Sudden worsening of leukocytosis, unknown, Enterococcal sepsis. 4. Enterococcalsepsis. 5. Diabetes mellitus type 2. 6. Hypertension. 7. Chronic kidney disease stage 5, on hemodialysis. 8. Right hip wound with no sign of infection. 9. Constipation, gastroparesis. 10. Chronic obstructive pulmonary disease. 11. Vent dependent respiratory failure. 12. Right knee pain, arthritis. - Plan Plan: RECOMMENDATIONS: Continue Colistin and wound care. ANDREA meropenem. ANDREA flagyl. Start vanco IV as per pharmacy and andrea rocephin. Nutritional Asmnt/Malnutr-PDOC - Dietary Evaluation Malnutrition Findings (Please click <Entered> for more info): Nutritional Asmnt/Malnutrition Start: 05/27/17 14: 49 Text: Status: Complete Freq: Document 05/27/17 14:52 GSUN (Rec: 05/27/17 15:09 GSUN [id number]) Nutritional Asmnt/Malnutrition Patient General Information Nutritional Screening High Risk Screening Diagnosis Bilateral penumonia, dehydration acute on chronic renal insufficiency Pertinent Medical Hx/Surgical Hx Chronic renal failure, vent dependent, chronic anemia, renal insufficiency, COPD, trauma with right hip and right tibial fracture, essential HTN Subjective Information 81 year old male from SNF. Pt with vent trach and PEG. Observed tube feeding running as ordered during morning visit, prepping to leave to surgery for catheter placement . HD scheduled for today. Pt made eye contact, mouthed words. Tolerating tube feeding well per RN assessments. Moderate wasting to shoulders and clavicles, severe wasting to lower extremities. CBW 147. 9lb via bedscale. Current Diet Order/ Nutrition Support [facility] Renal at 40ml/hr x 24hrs, providing 960ml, 1920kcal, 87g protein Pertinent Medications Vitamin C, Colace, Iron, Folate, Culturelle, Reglan, Theragran, Protonix Pertinent Labs BUN 125H (trending down), creatinie 5.9H (trending down) , glucose 151H Nutritional Hx/Data Height 1.83 m Height (Calculated Centimeters) 182.9 Current Weight (lbs) 67.086 kg Weight (Calculated Kilograms) 67.1 Weight (Calculated Grams) 49325.3 [place] Body Weight 178 Weight Status Approriate GI Symptoms Skin Integrity/Comment: Jean 15. Wound care 05/26: skin is fair, chronic wound and scar tissue. Estimated Nutritional Goals BEE in Kcals: Using Current wt Calories/Kcals/Kg CBW 147.9lb/67.2kg Kcals Calculated 2015-2kcal (30-35kcal/kg) Protein: Using Current wt Protein Calculated 80-101g (1.2-1.5g/kg) Fluid: ml Per MD Nutritional Problem 1. Problem Problem Increased kcal and prot needs related to Etiology hypermetbolic state, estimated nutritinoal needs aeb Signs/Symptoms: HD 05/27, bilateral penumonia, moderate to severe wasting to shoulders clavicles lower extremities Intervention/Recommendation Comments 1. Recommend increasing tube feeding rate to 46ml/hr x 24hrs, providing 1104ml total volume, 2208kcal, 100g protein . Wtih consideration of hypermetabolic state due to penumonia, HD, moderate to severe muscle fat wasting. Expected Outcomes/Goals Expected Outcomes/Goals 1. Pt to meet at least 100% of estimated nutritinoal needs on tube feeding with tolerance .
--- NOTE | 2017-06-05 14:49 | General Progress Note ---
Subjective - Review of Systems Service Date: 06/05/17 Subjective: arousable, on vent Objective - Results Result Diagrams: 06/05/17 06:00 06/05/17 06:00 Recent Labs: Laboratory Last Values WBC 22.1 Th/cmm (4.8-10.8) H* D 06/05/17 06:00 RBC 2.66 Mil/cmm (3.80-5.80) L 06/05/17 06:00 Hgb 8.4 gm/dL (12-16) L 06/05/17 06:00 Hct 24.8 % (41.0-60) L 06/05/17 06:00 MCV 93.2 fl (80-99) 06/05/17 06:00 MCH 31.7 pg (27.0-31.0) H 06/05/17 06:00 MCHC Differential 34.0 pg (28.0-36.0) 06/05/17 06:00 RDW 15.7 % (11.5-20.0) 06/05/17 06:00 Plt Count 408 Th/cmm (150-400) H 06/05/17 06:00 MPV 6.7 fl 06/05/17 06:00 Neutrophils % 71.8 % (40.0-80.0) 05/30/17 06:00 Band Neutrophils % 1 % (0-10) 06/05/17 06:00 Lymphocytes % 13.6 % (20.0-50.0) L 05/30/17 06:00 Monocytes % 9.5 % (2.0-10.0) 05/30/17 06:00 Eosinophils % 4.7 % (0.0-5.0) 05/30/17 06:00 Basophils % 0.4 % (0.0-2.0) 05/30/17 06:00 Neutrophils (Manual) 80 % (40-80) 06/05/17 06:00 Lymphocytes 14 % (20-50) L 06/05/17 06:00 Monocytes 4 % (2-10) 06/05/17 06:00 Eosinophils 1 % (0-5) 06/05/17 06:00 Basophils 0 % (0-3) 06/03/17 14:36 Platelet Estimate ADEQUATE (NORMAL) 06/03/17 14:36 Platelet Morphology NORMAL (NORMAL) 06/03/17 14:36 Anisocytosis 2+ 06/03/17 14:36 RBC Morph Micro Appear ABNORMAL (NORMAL) 06/03/17 14:36 PT 10.6 SECONDS (9.5-11.5) 05/25/17 03:10 INR 1.02 (0.5-1.4) 05/25/17 03:10 PTT (Actin FS) 35.1 SECONDS (26.0-38.0) 05/25/17 03:10 Specimen Source Arterial 05/29/17 09:11 Sample Site Left Radial 05/29/17 09:11 pH 7.45 (7.35-7.45) 05/29/17 09:11 pCO2 35.0 mmHg (35.0-45.0) 05/29/17 09:11 pO2 99.0 mmHg (80.0-100.0) 05/29/17 09:11 HCO3 25.4 mEq/L (20.0-26.0) 05/29/17 09:11 Base Excess 0.6 mEq/L (-3.0-3.0) 05/29/17 09:11 O2 Saturation 98.0 % (92.0-100.0) 05/29/17 09:11 Charles Test Positive 05/29/17 09:11 Vent Rate 14 05/29/17 09:11 Inspired O2 30 05/29/17 09:11 Tidal Volume 500 05/29/17 09:11 PEEP NA 05/29/17 09:11 Pressure (ins/psv/peep) NA 05/29/17 09:11 Critical Value LZHANG 05/29/17 09:11 Sodium 136 mEq/L (136-145) 06/05/17 06:00 Potassium 3.2 mEq/L (3.5-5.1) L 06/05/17 06:00 Chloride 106 mEq/L (98-107) 06/05/17 06:00 Carbon Dioxide 22.4 mEq/L (21.0-31.0) 06/05/17 06:00 Anion Gap 10.8 (7.0-16.0) 06/05/17 06:00 BUN 39 mg/dL (7-25) H 06/05/17 06:00 Creatinine 2.8 mg/dL (0.7-1.3) H 06/05/17 06:00 Est GFR ( Amer) TNP 06/05/17 06:00 Est GFR (Non-Af Amer) TNP 06/05/17 06:00 BUN/Creatinine Ratio 13.9 06/05/17 06:00 Glucose 117 mg/dL (70-105) H 06/05/17 06:00 POC Glucose 105 MG/DL (70 - 105) 05/28/17 12:24 Whole Bld Lactic Acid 0.96 mmol/L (0.60-1.99) 05/25/17 09:10 Calcium 9.1 mg/dL (8.6-10.3) 06/05/17 06:00 Phosphorus 4.0 mg/dL (2.5-5.0) 05/28/17 06:30 Magnesium 2.1 mg/dL (1.9-2.7) 06/04/17 04:18 Total Bilirubin 0.3 mg/dL (0.3-1.0) 05/26/17 07:55 AST 34 U/L (13-39) 05/26/17 07:55 ALT 29 U/L (7-52) 05/26/17 07:55 Alkaline Phosphatase 60 U/L (34-104) 05/26/17 07:55 Troponin I 0.04 ng/mL (0.01-0.05) 05/25/17 03:10 B-Natriuretic Peptide 279.0 pg/mL (5.0-100.0) H 05/25/17 09:10 Total Protein 7.2 gm/dL (6.0-8.3) 05/26/17 07:55 Albumin 2.7 gm/dL (4.2-5.5) L 05/26/17 07:55 Globulin 4.5 gm/dL 05/26/17 07:55 Albumin/Globulin Ratio 0.6 (1.0-1.8) L 05/26/17 07:55 Triglycerides 73 mg/dL (<150) 05/25/17 03:10 Cholesterol 107 mg/dL (<200) 05/25/17 03:10 LDL Cholesterol Direct 76 mg/dL (75-193) 05/25/17 03:10 HDL Cholesterol 35 mg/dL (23-92) 05/25/17 03:10 Prostate Specific Ag 1.6 ng/mL (0.0-4.0) 05/27/17 04:40 Urine Source [place] 06/03/17 11:00 Urine Color YELLOW 06/03/17 11:00 Urine Clarity CLEAR (CLEAR) 06/03/17 11:00 Urine pH 6.0 (4.6 - 8.0) 06/03/17 11:00 Ur Specific [place] 1.025 (1.005-1.030) 06/03/17 11:00 Urine Protein 30 mg/dL (NEGATIVE) H 06/03/17 11:00 Urine Glucose (UA) NEGATIVE mg/dL (NEGATIVE) 06/03/17 11:00 Urine Ketones NEGATIVE mg/dL (NEGATIVE) 06/03/17 11:00 Urine Blood TRACE (NEGATIVE) 06/03/17 11:00 Urine Nitrate NEGATIVE (NEGATIVE) 06/03/17 11:00 Urine Bilirubin NEGATIVE (NEGATIVE) 06/03/17 11:00 Urine Urobilinogen 0.2 E.U./dL (0.2 - 1.0) 06/03/17 11:00 Ur Leukocyte Esterase TRACE (NEGATIVE) H 06/03/17 11:00 Urine RBC 5-10 /hpf (0-5) H 06/03/17 11:00 Urine WBC 2-5 /hpf (0-5) H 06/03/17 11:00 Ur Epithelial Cells FEW /lpf (FEW) 06/03/17 11:00 Calcium Oxalate Crystal FEW /hpf 06/03/17 11:00 Urine Bacteria FEW /hpf (NONE SEEN) 06/03/17 11:00 Coarse Granular Casts 0-2 /lpf (NONE SEEN) H 06/03/17 11:00 Ur Random Sodium 49 mmol/L 05/26/17 02:15 Urine Collection Time 24 hours 05/27/17 03:00 Urine Total Volume 3000 ml 05/27/17 03:00 Urine Creatinine 24.0 mg/dl (39.0-259.0) L 05/27/17 03:00 Creat Clearance 24 Hr 8 ml/min (97.00-137.00) L 05/27/17 03:00 Body Surface Area 1.85 05/27/17 03:00 Stool Occult Blood NEGATIVE (NEGATIVE) 06/03/17 11:20 Vancomycin Trough 15.3 ug/mL (10-20) 06/05/17 06:00 RPR NONREACTIVE (NONREACTIVE) 05/25/17 03:10 Hepatitis A IgM Ab Negative (Negative) 05/26/17 07:55 Hep Bs Antigen Negative (Negative) 05/26/17 07:55 Hep B Core IgM Ab Negative (Negative) 05/26/17 07:55 Hepatitis C Antibody >11.0 s/co ratio (0.0-0.9) H 05/26/17 07:55 HIV 1&2 Antibody Screen NEGATIVE (NEG) 05/29/17 05:30 Blood Type A POSITIVE 06/02/17 10:00 Antibody Screen NEGATIVE 06/02/17 10:00 Crossmatch See Detail 06/02/17 10:00 - Physical Exam Vitals and I&O: Vital Signs Temp 98.4 F 06/05/17 09:00 Pulse 94 06/05/17 12:00 Resp 20 06/05/17 11:00 BP 124/68 06/05/17 11:00 Pulse Ox 100 06/05/17 12:00 Intake & Output 06/04/17 06/05/17 06/05/17 18:59 06:59 18:59 Intake Total 1671.25 2240 Output Total 4101 350 Balance 1671.25 -1861 -350 Weight (lbs) 64.41 kg 64.41 kg Intake: Intake, IV Amount 1671.25 1000 Colistimethate 150 mg In 100 Sodium Chloride 0.9% 100 ml @ 100 mls/hr IV MWF@ 1500 [facility] Rx#:[id number] Sodium Chloride 0.9% 1, 971.25 1000 000 ml @ 75 mls/hr IV . [id number] [facility] Rx#:[id number] cefTRIAXone 2 gm In 100 Sodium Chloride 0.9% 100 ml @ 100 mls/hr IV Q24H [facility] Rx#:[id number] Oral 0 Tube Feeding 990 TPN/PPN 0 Blood Product 0 Lipid 0 Albumin 0 Other 250 Output: Gastric Drainage 0 Urine 1100 350 Stool 1 Urine/Stool Mix 0 Emesis 0 Hemodialysis 3000 Other 0 Other: # Voids 1 # Bowel Movements 1 Stool Characteristics Liquid Liquid Liquid Brown Brown Brown Active Medications: Current Medications Acetaminophen (Tylenol 650mg/20.3ml Suspension) 650 mg GT Q4HR PRN PRN Reason: fever >101 or mild pain Stop: 07/24/17 05:23 Last Admin: 06/02/17 19:57 Dose: 650 mg Acetaminophen/Hydrocodone Bitart ([place] 10 Mg/325 Mg) 1 tab PO Q6H PRN PRN Reason: Pain (Moderate) Stop: 07/24/17 05:23 Last Admin: 06/05/17 08:35 Dose: 1 tab Acetaminophen/Hydrocodone Bitart ([place] 5mg/325mg) 1 tab PO Q6H PRN PRN Reason: MODERATE PAIN Stop: 07/28/17 10:28 Last Admin: 06/04/17 09:53 Dose: 1 tab Albuterol/Ipratropium (Duoneb Neb) 3 ml HHN Q2HRT PRN PRN Reason: Wheezing Stop: 07/24/17 05:23 Last Admin: 05/26/17 03:28 Dose: 3 ml Albuterol/Ipratropium (Duoneb Neb) 3 ml HHN Q6HRT [facility] Stop: 07/24/17 18:59 Last Admin: 06/05/17 12:00 Dose: 3 ml Ascorbic Acid (Vitamin C) 500 mg GT BID [facility] Stop: 07/24/17 08:59 Last Admin: 06/05/17 08:55 Dose: 500 mg Bisacodyl (Dulcolax 10 Mg Supp) 10 mg RC DAILY PRN PRN Reason: Constipation Stop: 07/31/17 13:00 Last Admin: 06/01/17 20:04 Dose: 10 mg Carvedilol (Coreg) 6.25 mg PO BID [facility] Stop: 08/04/17 09:59 Chlorhexidine Gluconate (Peridex) 15 ml MM 0800,2000 [facility] Stop: 07/28/17 19:59 Last Admin: 06/05/17 08:57 Dose: 15 ml Diltiazem HCl (Cardizem) 10 mg IVP Q4H PRN PRN Reason: Tachycardia Stop: 08/01/17 14:57 Last Admin: 06/04/17 16:27 Dose: 10 mg Docusate Sodium (Colace) 100 mg PO BID [facility] Stop: 07/29/17 08:59 Last Admin: 06/05/17 08:51 Dose: 100 mg Ferrous Sulfate (Iron) 330 mg GT BID [facility] Stop: 07/24/17 08:59 Last Admin: 06/05/17 08:51 Dose: 330 mg Folic Acid (Folate) 1 mg GT DAILY [facility] Stop: 07/24/17 08:59 Last Admin: 06/05/17 08:56 Dose: 1 mg Sodium Chloride (Nacl 0.9%) 1,000 mls @ 75 mls/hr IV .[id number] [facility] Stop: 07/24/17 11:59 Last Admin: 06/05/17 05:36 Dose: 75 mls/hr Colistimethate Sodium 150 mg/ (Sodium Chloride) 100 mls @ 100 mls/hr IV PRN PRN PRN Reason: AFTER EACH H.D. Stop: 07/29/17 11:20 Last Infusion: 06/02/17 17:00 Dose: Infused Colistimethate Sodium 150 mg/ (Sodium Chloride) 100 mls @ 100 mls/hr IV MWF@ 1500 [facility] Stop: 08/03/17 14:59 Last Infusion: 06/04/17 17:28 Dose: Infused Ceftriaxone Sodium 2 gm/ (Sodium Chloride) 100 mls @ 100 mls/hr IV Q24H [facility] Stop: 08/03/17 11:59 Last Infusion: 06/04/17 13:31 Dose: Infused Lactobacillus Rhamnosus (Culturelle) 1 each PO DAILY [facility] Stop: 07/26/17 08:59 Last Admin: 06/05/17 08:52 Dose: 1 each Lactulose (Cephulac) 30 gm GT Q8HR [facility] Stop: 08/01/17 20:59 Last Admin: 06/05/17 05:35 Dose: Not Given Lorazepam (Ativan) 1 mg IVP Q4H PRN; Protocol PRN Reason: Agitation Stop: 08/01/17 14:55 Last Admin: 06/05/17 01:29 Dose: 1 mg Metoclopramide HCl (Reglan) 5 mg GT BID [facility] Stop: 07/24/17 08:59 Last Admin: 06/05/17 08:51 Dose: 5 mg Miscellaneous (Probiotic Screen) 1 ea MC PRN PRN PRN Reason: PROTOCOL Stop: 07/25/17 15:59 Miscellaneous (Pharmacy To Dose) 1 ea MC PRN [facility] Stop: 07/28/17 13:29 Miscellaneous (Vancomycin Iv Per Pharmacy) 1 ea MC PRN [facility] Stop: 08/03/17 10:59 Morphine Sulfate (Morphine) 1 mg IVP Q4HR PRN PRN Reason: SEVERE PAIN Stop: 07/28/17 10:28 Last Admin: 06/02/17 14:09 Dose: 1 mg Morphine Sulfate (Morphine) 2 mg IV Q4H PRN PRN Reason: Pain (Moderate) Stop: 08/01/17 14:52 Last Admin: 06/04/17 19:51 Dose: 2 mg Multivitamins/Vitamin C (Theragran) 1 tab GT DAILY [facility] Stop: 07/26/17 10:44 Last Admin: 06/05/17 08:54 Dose: 1 tab Ondansetron HCl (Zofran) 4 mg IV Q4H PRN PRN Reason: Nausea / Vomiting Stop: 08/01/17 16:43 Last Admin: 06/03/17 10:23 Dose: 4 mg Pantoprazole Sodium (Protonix) 40 mg GT DAILY [facility] Stop: 07/24/17 08:59 Last Admin: 06/05/17 08:51 Dose: 40 mg General: Alert, No acute distress HEENT: Atraumatic, EOMI, Mucous membr. moist/pink Neck: Supple, +2 carotid pulse wo bruit Cardiovascular: Regular rate, Normal S1, Normal S2 Lungs: Other (rhonchi) Abdomen: Bowel sounds, Soft Extremities: no Edema Neurological: Sensation intact Skin: no Rash Psych/Mental Status: Mood NL - Procedures Procedures: Procedures Procedure Code Date BLOOD TRANSFUSION SERVICE 74697 02/23/17 INSERT TUNNELED CV CATH 08322 05/25/17 INSERTION OF INFUSION DEV INTO R SUBCLAV VEIN, PERC APPROACH 33L770X 05/25/17 RESPIRATORY VENTILATION, GREATER THAN 96 CONSECUTIVE HOURS [id number] 05/25/17 TRANSFUSE NONAUT RED BLOOD CELLS IN PERIPH VEIN, [facility] [id number] 02/23/17 Assessment/Plan - Assessment Assessment: 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 coli, K. pneu VAP Ess HTN Leukocytosis - Plan Plan: Lab - Result Diagrams 05/28/17 06:30 05/28/17 06:30 Current Medications Acetaminophen (Tylenol 650mg/20.3ml Suspension) 650 mg GT Q4HR PRN PRN Reason: fever >101 or mild pain Stop: 07/24/17 05:23 Acetaminophen/Hydrocodone Bitart ([place] 10 Mg/325 Mg) 1 tab PO Q6H PRN PRN Reason: Pain (Moderate) Stop: 07/24/17 05:23 Last Admin: 05/28/17 13:49 Dose: 1 tab Albuterol/Ipratropium (Duoneb Neb) 3 ml HHN Q2HRT PRN PRN Reason: Wheezing Stop: 07/24/17 05:23 Last Admin: 05/26/17 03:28 Dose: 3 ml Albuterol/Ipratropium (Duoneb Neb) 3 ml HHN Q6HRT [facility] Stop: 07/24/17 18:59 Last Admin: 05/28/17 08:06 Dose: 3 ml Ascorbic Acid (Vitamin C) 500 mg GT BID [facility] Stop: 07/24/17 08:59 Last Admin: 05/28/17 09:18 Dose: 500 mg Chlorhexidine Gluconate (Peridex) 15 ml MM 0800,2000 [facility] Stop: 07/24/17 07:59 Last Admin: 05/27/17 20:30 Dose: 15 ml Diltiazem HCl (Cardizem) 60 mg GT Q8H [facility] Stop: 07/24/17 05:29 Last Admin: 05/28/17 12:31 Dose: Not Given Docusate Sodium (Colace) 100 mg PO BID [facility] Stop: 07/24/17 08:59 Last Admin: 05/28/17 09:18 Dose: 100 mg Ferrous Sulfate (Iron) 330 mg GT BID [facility] Stop: 07/24/17 08:59 Last Admin: 05/28/17 09:17 Dose: 330 mg Folic Acid (Folate) 1 mg GT DAILY [facility] Stop: 07/24/17 08:59 Last Admin: 05/28/17 09:19 Dose: 1 mg Levofloxacin (Levaquin Pb) 250 mg in 50 mls @ 50 mls/hr IV Q48HR@1500 [facility] Stop: 07/26/17 14:59 Last Admin: 05/27/17 15:31 Dose: 50 mls/hr Meropenem 1 gm/ Sodium (Chloride) 100 mls @ 100 mls/hr IV Q24HR [facility] Stop: 07/26/17 17:29 Last Admin: 05/27/17 18:01 Dose: 100 mls/hr Sodium Chloride (Nacl 0.9%) 1,000 mls @ 75 mls/hr IV .[id number] [facility] Stop: 07/24/17 11:59 Lactobacillus Rhamnosus (Culturelle) 1 each PO DAILY [facility] Stop: 07/26/17 08:59 Last Admin: 05/28/17 09:18 Dose: 1 each Metoclopramide HCl (Reglan) 5 mg GT BID [facility] Stop: 07/24/17 08:59 Last Admin: 05/28/17 09:18 Dose: 5 mg Metronidazole (Flagyl) 500 mg PO Q8HR [facility] Stop: 07/24/17 12:59 Last Admin: 05/28/17 05:05 Dose: 500 mg Miscellaneous (Probiotic Screen) 1 ea MC PRN PRN PRN Reason: PROTOCOL Stop: 07/25/17 15:59 Multivitamins/Vitamin C (Theragran) 1 tab GT DAILY [facility] Stop: 07/26/17 10:44 Last Admin: 05/28/17 09:18 Dose: 1 tab Pantoprazole Sodium (Protonix) 40 mg GT DAILY [facility] Stop: 07/24/17 08:59 Last Admin: 05/28/17 09:18 Dose: 40 m Lab - Result Diagrams 06/05/17 06:00 06/05/17 06:00 schedule for HD tomorrow still w/ adequate UOP monitor closely continue Levofloxacin, Merrem analgesic for right knee pain dulcolax for constipation WBC down to 22 replace K Nutritional Asmnt/Malnutr-PDOC - Dietary Evaluation Malnutrition Findings (Please click <Entered> for more info): Nutritional Asmnt/Malnutrition Start: 05/27/17 14: 49 Text: Status: Complete Freq: Document 05/27/17 14:52 GSUN (Rec: 05/27/17 15:09 [id number] [id number]) Nutritional Asmnt/Malnutrition Patient General Information Nutritional Screening High Risk Screening Diagnosis Bilateral penumonia, dehydration acute on chronic renal insufficiency Pertinent Medical Hx/Surgical Hx Chronic renal failure, vent dependent, chronic anemia, renal insufficiency, COPD, trauma with right hip and right tibial fracture, essential HTN Subjective Information 81 year old male from SNF. Pt with vent trach and PEG. Observed tube feeding running as ordered during morning visit, prepping to leave to surgery for catheter placement . HD scheduled for today. Pt made eye contact, mouthed words. Tolerating tube feeding well per RN assessments. Moderate wasting to shoulders and clavicles, severe wasting to lower extremities. CBW 147. 9lb via bedscale. Current Diet Order/ Nutrition Support Novasource Renal at 40ml/hr x 24hrs, providing 960ml, 1920kcal, 87g protein Pertinent Medications Vitamin C, Colace, Iron, Folate, Culturelle, Reglan, Theragran, Protonix Pertinent Labs BUN 125H (trending down), creatinie 5.9H (trending down) , glucose 151H Nutritional Hx/Data Height 1.83 m Height (Calculated Centimeters) 182.9 Current Weight (lbs) 67.086 kg Weight (Calculated Kilograms) 67.1 Weight (Calculated Grams) 47055.3 Spearman Body Weight 178 Weight Status Approriate GI Symptoms Skin Integrity/Comment: Jean 15. Wound care 05/26: skin is fair, chronic wound and scar tissue. Estimated Nutritional Goals BEE in Kcals: Using Current wt Calories/Kcals/Kg CBW 147.9lb/67.2kg Kcals Calculated 2016-2kcal (30-35kcal/kg) Protein: Using Current wt Protein Calculated 80-101g (1.2-1.5g/kg) Fluid: ml Per MD Nutritional Problem 1. Problem Problem Increased kcal and prot needs related to Etiology hypermetbolic state, estimated nutritinoal needs aeb Signs/Symptoms: HD 05/27, bilateral penumonia, moderate to severe wasting to shoulders clavicles lower extremities Intervention/Recommendation Comments 1. Recommend increasing tube feeding rate to 46ml/hr x 24hrs, providing 1104ml total volume, 2208kcal, 100g protein . Wtih consideration of hypermetabolic state due to penumonia, HD, moderate to severe muscle fat wasting. Expected Outcomes/Goals Expected Outcomes/Goals 1. Pt to meet at least 100% of estimated nutritinoal needs on tube feeding with tolerance .
[2017-06-05] MEDS: Morphine Sulfate 4 mg/mL 1mL Syr IV PRN (15:26)
--- NOTE | 2017-06-05 17:24 | Cardiology ---
06/05/[address] Lynch. M-MODE ECHOCARDIOGRAM: Mitral valve, anterior leaflet of mitral valve shows normal excursion, EF velocity. Posterior leaflet of mitral valve shows normal excursion. Left ventricular posterior wall shows increased thickness, normal excursion. Interventricular septum shows increased thickness, normal excursion. Hypertrophy of the left ventricle, ejection fraction 60%. Left atrium normal. Aortic root shows normal dimension, normal excursion of aortic leaflets. CONCLUSION: Hypertrophy of the left ventricle, ejection fraction 60%. 2D ECHO: Long axis view showed normal sized left ventricle with hypertrophy of the left ventricle. Left atrium normal. Aortic root shows normal dimension, normal excursion of aortic leaflets. Short axis view of mitral valve normal. Short axis view of aortic valve normal. Apical four chamber view showed normal sized left ventricle, left atrium, right ventricle, right atrium, tricuspid and mitral valve. Ejection fraction 60%. CONCLUSION: Hypertrophy of the left ventricle, ejection fraction 60%. Doppler study shows mild mitral and mild tricuspid regurgitation. Mild aortic regurgitation. [facility]# [id number]
[2017-06-06] MEDS: Albuterol/Ipratropium Neb 3 ML AERS HHN SCH ×3 (00:43→13:28)
[2017-06-06] MEDS: Hydrocodone/APAP 5mg/325mg Tab PO PRN (00:47)
[2017-06-06] MEDS: Morphine Sulfate 4 mg/mL 1mL Syr IV PRN ×3 (03:02→14:40)
[2017-06-06] MEDS: Hydrocodone/APAP 10 mg/325 mg Tab PO PRN ×3 (05:49→18:15)
[2017-06-06] MEDS: Lactulose 10 Gm/15 mL 30mL UDC GT SCH (05:50)
[2017-06-06 06:32] LABS: HEMATOCRIT 24.7 % (41.0-60); HEMOGLOBIN 8.6 gm/dL (12-16); MEAN CELL VOLUME 92.2 fl (80-99); MEAN CORPUSCULAR HEMOGLOBIN 32.3 pg (27.0-31.0); MEAN PLATELET VOLUME 6.9 fl; PLATELET COUNT 434 Th/cmm (150-400); RED BLOOD COUNT 2.68 Mil/cmm (3.80-5.80); RED CELL DISTRIBUTION WIDTH 16.2 % (11.5-20.0)
[2017-06-06 06:42] LABS: WHITE BLOOD COUNT 19.4 Th/cmm (4.8-10.8)
[2017-06-06 06:44] LABS: ANION GAP 10.6 (7.0-16.0); BUN - UREA NITROGEN 53 mg/dL (7-25); BUN/CREATININE RATIO 17.1; CALCIUM SERUM 9.3 mg/dL (8.6-10.3); CARBON DIOXIDE 22.1 mEq/L (21.0-31.0); CHLORIDE 109 mEq/L (98-107); CREATININE - SERUM 3.1 mg/dL (0.7-1.3); GLUCOSE 100 mg/dL (70-105); MAGNESIUM 1.8 mg/dL (1.9-2.7); POTASSIUM SERUM 3.7 mEq/L (3.5-5.1); SODIUM SERUM 138 mEq/L (136-145)
[2017-06-06 07:42] LABS: EOSINOPHIL 1 % (0-5); NEUTROPHILS 90 % (40-80); TOTAL CELLS COUNTED 100
[2017-06-06 07:43] LABS: PLATELET ESTIMATE ADEQUATE (NORMAL)
[2017-06-06] MEDS: Multivitamin Tab GT SCH (08:04)
[2017-06-06] MEDS: Lactobacillus Rhamnosus 10 Billion CFU Capsule PO SCH (08:04)
[2017-06-06] MEDS: Docusate Sodium 100 mg/10 mL UD PO SCH ×2 (08:04→16:56)
[2017-06-06] MEDS: Ferrous Sulfate 300 MG/5 ML UDC GT SCH ×2 (08:04→16:55)
[2017-06-06] MEDS: Pantoprazole 40 mg/Packet GT SCH (08:04)
[2017-06-06] MEDS: Chlorhexidine Gluconate 0.12% 15mL Mouthwash MM SCH (08:06)
--- NOTE | 2017-06-06 08:44 | Diagnostic Imaging Report ---
Portable chest x-ray HISTORY: Pneumonia Compared to prior exam of 06/05/2017, there is increasing density in the left lower lobe. Findings suggest changes of pneumonia. Clinical correlation is needed. The heart remains enlarged. Suggestion of small bilateral pleural effusions. IMPRESSION: 1. Increased density left lower lobe. The findings may be associated with pneumonia and/or atelectasis. Clinical correlation is needed.
[2017-06-06] MEDS ORDERED: Mag Sulfate 2gm/50mL Premix 2 GM/50 ML BAG IV ONE (09:03)
[2017-06-06 10:17] LABS: pH 7.36 (7.35-7.45)
[2017-06-06 10:18] LABS: ABG SOURCE Arterial; ALLEN TEST Positive; BE(B) -2.7 mEq/L (-3.0-3.0); FIO2 35; HCO3 22.8 mEq/L (20.0-26.0); MECH RATE 6; MECH VT 500; PS 10
[2017-06-06] MEDS: cefTRIAXone 2 GM in Sodium Chloride 0.9% 100 ML IV SCH (11:25)
[2017-06-06] MEDS ORDERED: Heparin Sodium 1,000 Units/mL Vial ONE (13:26)
[2017-06-06] MEDS ORDERED: Heparin Sodium 1,000 Units/mL Vial HD ONE ×2 (14:18→14:20)
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
[2017-06-06] MEDS: NS 0.9% IV SCH (16:00)
[2017-06-06] MEDS: COLISTIMETHATE IV SCH (16:00)
[2017-06-06] MEDS ORDERED: Lactulose 10 Gm/15 mL 30mL UDC GT SCH (21:00)
[2017-06-06] MEDS ORDERED: Vancomycin HCl 500 MG in Sodium Chloride 0.9% 100 ML IV ONE ×2 (22:00)
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
== END 2017-06-06 18:45 | DRG 870 ==
LOC: ER 03:02 → ICU 05:30
PROVIDERS: ADMIT Internal Medicine; ATTEND Internal Medicine
PROC: 5A1955Z Respiratory Ventilation, Greater than 96 Consecutive Hours (ICD-10-PCS; principal; 2017-05-25)
PROC: 02HV33Z Insertion of Infusion Device into Superior Vena Cava, Percutaneous Approach (ICD-10-PCS; 2017-05-27)
DX: A41.81 Sepsis due to Enterococcus (principal); J96.20 Acute and chronic respiratory failure, unspecified whether with hypoxia or hypercapnia; J15.5 Pneumonia due to Escherichia coli; J15.0 Pneumonia due to Klebsiella pneumoniae; Z99.11 Dependence on respirator [ventilator] status; N17.9 Acute kidney failure, unspecified; K31.84 Gastroparesis; I13.2 Hypertensive heart and chronic kidney disease with heart failure and with stage 5 chronic kidney disease, or end stage renal disease; Z93.0 Tracheostomy status; E11.43 Type 2 diabetes mellitus with diabetic autonomic (poly)neuropathy; N18.6 End stage renal disease; J44.0 Chronic obstructive pulmonary disease with (acute) lower respiratory infection; E87.1 Hypo-osmolality and hyponatremia; E87.5 Hyperkalemia; E11.22 Type 2 diabetes mellitus with diabetic chronic kidney disease; Z93.1 Gastrostomy status; D63.1 Anemia in chronic kidney disease; K59.00 Constipation, unspecified; R13.10 Dysphagia, unspecified; I25.10 Atherosclerotic heart disease of native coronary artery without angina pectoris; E86.0 Dehydration; I50.9 Heart failure, unspecified; S71.001A Unspecified open wound, right hip, initial encounter; M25.561 Pain in right knee; M17.11 Unilateral primary osteoarthritis, right knee; Z99.2 Dependence on renal dialysis; Z88.0 Allergy status to penicillin
CPT/HCPCS: 36415-UA; 36600-90; 71010-TC; 73562-TC-LT; 73562-TC-RT; 76770-TC; 80048-TC; 80053-TC; 80061-TC; 80074-90; 80202-TC; 81001-TC; 81050-TC; 82270-TC; 82575-TC; 82803-TC; 82948-90; 83605; 83735-TC; 83880-TC; 84100-TC; 84153-90; 84300-TC; 84484-TC; 85007-TC; 85025-TC; 85027-TC; 85610-TC; 85730-TC; 86592-TC; 86703-TC; 86850-TC; 86900-TC; 86901-TC; 86922-TC; 87070; 87230-TC; 90779; 90937; 93005; 94002; 94003; 94640; 97530; J0696; J0770; J1644; J1815; J1956; J2001; J2060; J2185; J2270; J2405; J2543; J3370; J3475; J3480; J7030; J7040; J7799; X7704; Z7610